=== PATIENT | male | born 1950 | race Caucasian/White ===

== ENCOUNTER 2025-10-11 03:24 | Emergency (ER) | payer MEDICARE, SELFPAY ==
--- OUTSIDE RECORDS SUMMARY | 2025-10-09 02:00 | XMS_ITS ---
Author Organization [facility] Address [address] [place] [phone] Care Team Providers Care Jet Blade Polisher Name Role Phone DR. MIYL ZARAGOZA Primary Care Provider [phone] REASON FOR VISIT LV, new pt & LV, ED f/u- fall ([facility] 10/07) Encounters Encounter Location Date Provider Diagnosis [place] [address] [place] [address] 10/09/2025 MILY ZARAGOZA Plan Of Treatment No Information History and Physical Notes * HPI (History of Present Illness) Category Sub-Category Detail Notes Category Not es Transition of Care He is 110 /66. In bed, watching television. No chest pain or shortness of breath. No edema on exam. Progress Notes * Sundar MANCINIDOB:1949 (75 yo M)Acc No.[id number]:10/09/2025 Progress Notes Patient: Sundar Costa Provider: Flora Zaragoza DO :1950 A ge:75 Y S ex:Male Date:10/09/2025 Address:[address] [place], [place] [phone] Subjective: * Chief Complaints: * L V, new pt & LV, ED f/u- fall ([facility] 10/07) * HPI: T ransition of Care: He is 110/66. In bed, watching television. No chest pain or shortness of breath. No edema on exam. * Electronic signature of DR. MILY ZARAGOZA , D.OGhislaine on 10/11/2025 at 03:44 AM WIRE WORKER Sign off status: Pending * Provider: Flora Zaragoza, DO Date: 12/09/2024 Generated for Deepa garcia/Tri/Juan on: 12/11/2024 03:44 AM WIRE WORKER
--- NOTE | ~2025-10-11 | CT_ITS ---
EXAMINATION: CT facial bones wo con COMPARISON: None HISTORY: fall TECHNIQUE: Axial images were obtained without IV contrast. Sagittal, coronal reconstruction images were obtained from the axial views. CT scan performed using dose optimization techniques including the following automated exposure control; adjustment of mA and/or kV; use of iterative reconstruction technique. Automatic exposure control was used to reduce radiation dose. Permanent radiation dose record is archived to PACS. FINDINGS: The nasal bones demonstrate displaced bilateral nasal bone fractures age indeterminate. The anterior maxillary sinus bolden and zygomatic arches are intact. Temporomandibular joints are intact. Orbital floors and medial orbits are intact. Minimal left maxillary sinusitis. There is anterior right-sided s ubcutaneous swelling with subcutaneous hemorrhage with right-sided preseptal swelling noted. There is no retrobulbar hemorrhage identified. The remaining visualized soft tissues appear unremarkable. IMPRESSION: Age-indeterminate nasal bone fractures. Posttraumatic soft tissue changes. Reviewed, dictated and finalized at location P. GER BABY IMPRESSION: Age-indeterminate nasal bone fractures. Posttraumatic soft tissue c hanges.
--- NOTE | ~2025-10-11 | XR_ITS ---
Examination: XR chest 1V portable Clinical History: fall SOB Comparison: None Technique: Portable AP Findings: Heart size normal. Left upper lobe airspace disease. Scattered increased interstitial markings. No acute bony abnormality. IMPRESSION: 1. Left upper lobe airspace disease. Recommend x-ray surveillance until resolution. 2. Interstitial pulmonary edema. Reviewed, dictated and finalized at location R. PER LEAF INSPECTOR IMPRESSION: 1. Left upper lobe airspace disease. Recommend x-ray surveillance until resolu tion. 2. Interstitial pulmonary edema.
--- NOTE | ~2025-10-11 | XR_ITS ---
EXAMINATION: XR pelvis 1-2V, 10/11/2025 9:30 SOUND RECORDIST HISTORY: fall COMPARISON: No comparisons available. Findings: No acute fracture or malalignment. No significant degenerative changes. Soft tissues unremarkable. Impression: No acute fracture or malalignment. Reviewed, dictated and finalized at location P. D RECORDIST Impression: No acute fracture or malalignment.
--- NOTE | ~2025-10-11 | CT_ITS ---
EXAMINATION: CT brain wo con, 10/11/2025 3:45 SALES SERVICE TECHNICIAN HISTORY: fall on thinners COMPARISON: No comparisons available. Technique: Axial images obtained of the brain without contrast. One or more of the following dose reduction techniques were used: automated exposure control, adjustment of the mA and/or kV according to patient size, use of iterative reconstruction technique. Findings: There is no intracranial hemorrhage or infarct however within the right cerebellum there is a lesion measuring 1.3 x 1.4 cm with surrounding vasogenic edema concerning for neoplasm with mild mass effect upon the fourth ventricle. There is mild posterior midline shift noted at the level of the cerebellum measuring 3 mm. Mastoid air cells unremarkable. Sinuses and orbits unremarkable. No acute fracture. Right anterior subcutaneous soft tissue swelling and hemorrhage is noted. Impression: 1. Right cerebellar intra-axial lesion concerning for neoplasm. Contrast- enhanced MRI is recommended Reviewed, dictated and finalized at location P. S SERVICE TECHNICIAN Impression: 1. Right cerebellar intra-axial lesion concerning for neoplasm. Contrast-enhanc ed MRI is recommended
[2025-10-11 03:19] VITALS: BP 142/70; PULSE 57; RESP 16; TEMP 36.5; O2SAT 95
--- NOTE | 2025-10-11 03:26 | ED_ITS ---
HPI - Fall General Chief Complaint: Fall <Vikas Kumar MD - Last Filed: 10/11/25 20:39> Stated Complaint: FALL, LAC TO NOSE, ON THINNERS <Vikas Kumar MD - Last Filed: 10/11/25 20:39> History of Present Illness HPI Narrative: 75-year-old male with a history of vertebroplasty recently at [facility] this month as well as a history of brain cancer and AFib on Xarelto and aspirin. Patient presents to the emergency department today after mechanical fall. Patient states he was trying to get out of bed and normally needs staff to his system given his recent surgeries but fell forward hitting the ground. Did not lose consciousness. He has a right-sided periorbital hematoma and small cut to the bridge of the nose. States that he knew better and was not supposed to get up without assistance given his debility. He is at a nursing facility for rehab and skilled care. Patient denies any other injuries. States he feels fine presently without any symptoms, but subjectively look slightly dyspneic. Did have a similar fall 3 days ago after he tried to get out of bed per EMS report that took him to another facility or they discharged him after imaging from the ER. Patient also has skin tear to his left elbow from today's fall. < Vikas Kumar MD - Last Filed: 10/11/25 20:39> Related Data Allergies/Adverse Reactions: Allergies Allergy/AdvReac Type Severity Reaction Status Date / Time No Known Allergies Allergy Verified 10/11/25 07:21 <Vikas Kumar MD - Last Filed: 10/11/25 20:39> Review of Systems 2 Review of Systems: As reviewed above in HPI <Vikas Kumar MD - Last Filed: 10/11/25 20:39> All systems reviewed & are unremarkable except as noted in HPI and below < Vikas Kumar MD - Last Filed: 10/11/25 20:39> Exam 2 Narrative: GENERAL: Elderly and chronically ill-appearing. Subjectively dyspneic but not any distress. Awake and answering questions. HEAD: Normocephalic, right supraorbital hematoma without any bleeding EYES: PERRLA, extraocular movements are intact ENT: Nares clear, previous epistaxis noted but no current bleeding or any posterior or pharyngeal bleeding. Small cut to the anterior bridge of nose without any active bleeding. NECK: Supple. CHEST: Clear to auscultation, subjective dyspnea but no tachypnea or hypoxemia. No tenderness to the palpation of the ribcage no crepitus or deformity office. HEART: Regular rate and rhythm. Normal pulses. ABDOMEN: Soft, nontender, nondistended EXTREMITIES: Normal range of motion. No extremity edema, moving all extremities SKIN: Warm, dry, no rash. Skin tear to his left forearm with no active bleeding. Small avulsion/cut to the anterior nasal bridge without any active bleeding. NEURO: No focal deficits, awake and answering questions appropriately PSYCH: Normal mood <Vikas Kumar MD - Last Filed: 10/11/25 20:39> Course Course Emergency Course: Juju: Patient signed out to me pending results of his CT imaging. 75-year-old male with history of brain cancer presenting for frequent falls. A right upper lobe non pneumonia been noted by the previous physician on x-ray. CT brain came back as a brain lesion in the cerebellum with surrounding vasogenic edema and 3 mm midline shift. On exam the patient is ataxic in all 4 extremities. A&O times 1-2 although it is unclear what his baseline is. Patient given 10 mg of IV dexamethasone for vasogenic edema. I do not have Neurology at my hospital this weekend. I reached out to [facility] which is where he had been admitted previously. Patient will be transferred to ED to ED and is accepted by Dr. Dong in the emergency department. <Michael Matute MD - Last Filed: 10/11/25 09:24> Vital Signs Vital signs: Vital Signs Temperature 36.5 C 10/11/25 03:19 Pulse Rate 57 L 10/11/25 03:19 Respiratory Rate 16 10/11/25 03:19 Blood Pressure 142/70 H 10/11/25 03:19 Pulse Oximetry 95 10/11/25 03:19 Oxygen Delivery Room Air 10/11/25 03:19 Temperature 36.8 C 10/11/25 09:55 Pulse Rate 60 10/11/25 09:55 Respiratory Rate 20 10/11/25 09:55 Blood Pressure 152/73 H 10/11/25 09:55 Pulse Oximetry 98 10/11/25 09:55 Oxygen Delivery Room Air 10/11/25 03:19 <Vikas Kumar MD - Last Filed: 10/11/25 20:39> Vital Signs Temperature 36.5 C 10/11/25 03:19 Pulse Rate 57 L 10/11/25 03:19 Respiratory Rate 16 10/11/25 03:19 Blood Pressure 142/70 H 10/11/25 03:19 Pulse Oximetry 95 10/11/25 03:19 Oxygen Delivery Room Air 10/11/25 03:19 Temperature 36.8 C 10/11/25 09:55 Pulse Rate 60 10/11/25 09:55 Respiratory Rate 20 10/11/25 09:55 Blood Pressure 152/73 H 10/11/25 09:55 Pulse Oximetry 98 10/11/25 09:55 Oxygen Delivery Room Air 10/11/25 03:19 <Michael Matute MD - Last Filed: 10/11/25 09:24> Procedures Laceration Laceration 1: Time: 06:32 <Vikas Kumar MD - Last Filed: 10/11/25 20:39> Site: face <Vikas Kumar MD - Last Filed: 10/11/25 20:39> Size (cm): 0.25 <Vikas Kumar MD - Last Filed: 10/11/25 20:39> Description: flap and clean <Vikas Kumar MD - Last Filed: 10/11/25 20:39> Depth: simple, single layer <Vikas Kumar MD - Last Filed: 10/11/25 20:39> Local Anesthetic: none <Vikas Kumar MD - Last Filed: 10/11/25 20:39> Pre-repair: wound explored, irrigated and deep structures intact <Vikas Kumar MD - Last Filed: 10/11/25 20:39> ====== Skin Level ======: Skin layer closed with: dermabond <Vikas Kumar MD - Last Filed: 10/11/25 20:39> ====== Subcutaneous Layer ======: ====== Muscle Layer ======: ====== Tendon Layer ======: MDM - Fall MDM Narrative Medical decision making narrative: 75-year-old male with a history of vertebroplasty recently at [facility] this month as well as a history of brain cancer and AFib on Xarelto and aspirin. Patient presents to the emergency department today after mechanical fall. Patient states he was trying to get out of bed and normally needs staff to his system given his recent surgeries but fell forward hitting the ground. Did not lose consciousness. He has a right-sided periorbital hematoma and small cut to the bridge of the nose. States that he knew better and was not supposed to get up without assistance given his debility. He is at a nursing facility for rehab and skilled care. Patient denies any other injuries. States he feels fine presently without any symptoms, but subjectively look slightly dyspneic. Did have a similar fall 3 days ago after he tried to get out of bed per EMS report that took him to another facility or they discharged him after imaging from the ER. Patient also has skin tear to his left elbow from today's fall. Patient does have some minor evidence of trauma with skin tear to his left forearm and skin tear/avulsion to the anterior nasal bridge. Recent epistaxis but no active bleeding. No posterior oropharyngeal bleeding or difficulty swallowing or breathing but he is subjectively dyspneic. Saturating well on room air without any tachypnea. Does have right-sided supraorbital hematoma but no restricted ocular movement or mental status decline. He is on blood thinners raising his potential for injury. CT of the head and facial bones ordered as well as x-ray of the chest. Chest x-ray independently reviewed and I do not appreciate any rib fractures, pneumothorax or hemothorax. He does have what appears to be a left upper lobe streaky opacity consistent with pneumonia. He is subjectively dyspneic and has a dry cough during repeat evaluations. No fever or hypoxemia. No tachypnea. Will treat him as pneumonia with Augmentin and doxycycline. Awaiting CT reads. His wounds were cleansed and dressed at bedside. Small cut on his nasal bridge had Dermabond applied to it. No epistaxis or further bleeding. Supraorbital hematoma without any expansion or tenderness. Patient re-evaluated and having no pain after analgesia medications. No resting comfortably and doing well. Awaiting CT scans. Signed out to morning physician pending CT scans. < Vikas Kumar MD - Last Filed: 10/11/25 20:39> Medical Records Attestation: I reviewed the patient's medical records. <Vikas Kumar MD - Last Filed: 10/11/25 20:39> Lab Data Result diagrams: 10/11/25 09:25 10/11/25 09:25 <Vikas Kumar MD - Last Filed: 10/11/25 20:39> Labs: Lab Results 10/11/25 Range/Units 09:25 WBC 10.8 H (4.5-10.0) K/mm3 RBC 3.02 L (4.6-6.20) M/mm3 Hgb 9.1 L (14.0-18.0) g/dL Hct 29.4 L (42.0-52.0) % MCV 97.4 (80-100) fl MCH 30.1 (26-34) pg MCHC 31.0 L (32-36) g/dl RDW 16.7 H (11.5-14.5) % Plt Count 284 (150-375) k/mm3 MPV 9.7 (7.4-10.4) fl Immature Gran % (Auto) 0.7 H (0-0.5) % Neut % (Auto) 85.1 H (45.5-73.1) % Lymph % (Auto) 8.5 L (18.3-44.2) % Greer % (Auto) 5.2 (2.6-8.5) % Eos % (Auto) 0.1 (0-4.4) % Baso % (Auto) 0.4 (0.2-1.2) % Lymph # (Auto) 0.92 (0.9-3.2) K/mm3 Greer # (Auto) 0.6 (0.1-0.6) K/mm3 Eos # (Auto) 0.0 (0-0.3) K/mm3 Baso # (Auto) 0.0 (0.0-0.1) K/mm3 Abs Immat Gran (auto) 0.08 H (0.00-0.031) K/mm3 Absolute Neuts (auto) 9.2 H (1.3-6.7) K/mm3 Absolute Nucleated RBC 0.000 (0.0-0.012) K/mm3 Nucleated RBC % 0.0 (0.0-0.2) % Sodium 135 L (137-145) mmol/L Potassium 3.8 (3.4-5.0) mmol/L Chloride 103 (98-107) mmol/L Carbon Dioxide 27 (22-30) mmol/L Anion Gap 5 (4-12) mmol/L BUN 21 H (9-20) mg/dL Creatinine 0.74 (0.7-1.3) mg/dL Estim Creat Clear Calc 83 ml/min Estimated GFR > 60 (59 - ) Glucose 119 H (65-110) mg/dL Lactic Acid 1.3 (0.7-2.0) mmol/L Calcium 9.0 (8.4-10.2) mg/dL Total Bilirubin 1.2 (0.2-1.3) mg/dL AST 27 (17-59) U/L ALT 19 (6-50) U/L Alkaline Phosphatase 109 (38-126) U/L Total Protein 6.9 (6.3-8.2) g/dL Albumin 3.2 L (3.5-5.1) g/dL Urine Color Yellow (Yellow) Urine Appearance Clear (Clear) Urine pH 6.5 (5.0-9.0) Ur Specific [place] 1.017 (1.001-1.035) Urine Protein Trace (Negative) mg/dL Urine Glucose (UA) Negative (Negative) mg/dL Urine Ketones Trace H (Negative) mg/dL Ur Blood (Man) Trace (Negative) Urine Nitrate Negative (Negative) Urine Bilirubin Negative (Negative) Urine Urobilinogen 1.0 (<2.0) mg/dL Leukocyte Esterase Rfl Trace H (Negative) KENIA/UL Urine RBC 11-20 H (0-2) /hpf Urine WBC 0-5 (0-3) /hpf Ur Squamous Epith Cells None seen (Few) /hpf Urine Bacteria None seen /hpf Urine Casts 0-2 <Vikas Kumar MD - Last Filed: 10/11/25 20:39> Lab Results 10/11/25 Range/Units 09:25 WBC 10.8 H (4.5-10.0) K/mm3 RBC 3.02 L (4.6-6.20) M/mm3 Hgb 9.1 L (14.0-18.0) g/dL Hct 29.4 L (42.0-52.0) % MCV 97.4 (80-100) fl MCH 30.1 (26-34) pg MCHC 31.0 L (32-36) g/dl RDW 16.7 H (11.5-14.5) % Plt Count 284 (150-375) k/mm3 MPV 9.7 (7.4-10.4) fl Immature Gran % (Auto) 0.7 H (0-0.5) % Neut % (Auto) 85.1 H (45.5-73.1) % Lymph % (Auto) 8.5 L (18.3-44.2) % Greer % (Auto) 5.2 (2.6-8.5) % Eos % (Auto) 0.1 (0-4.4) % Baso % (Auto) 0.4 (0.2-1.2) % Lymph # (Auto) 0.92 (0.9-3.2) K/mm3 Greer # (Auto) 0.6 (0.1-0.6) K/mm3 Eos # (Auto) 0.0 (0-0.3) K/mm3 Baso # (Auto) 0.0 (0.0-0.1) K/mm3 Abs Immat Gran (auto) 0.08 H (0.00-0.031) K/mm3 Absolute Neuts (auto) 9.2 H (1.3-6.7) K/mm3 Absolute Nucleated RBC 0.000 (0.0-0.012) K/mm3 Nucleated RBC % 0.0 (0.0-0.2) % Sodium 135 L (137-145) mmol/L Potassium 3.8 (3.4-5.0) mmol/L Chloride 103 (98-107) mmol/L Carbon Dioxide 27 (22-30) mmol/L Anion Gap 5 (4-12) mmol/L BUN 21 H (9-20) mg/dL Creatinine 0.74 (0.7-1.3) mg/dL Estim Creat Clear Calc 83 ml/min Estimated GFR > 60 (59 - ) Glucose 119 H (65-110) mg/dL Lactic Acid 1.3 (0.7-2.0) mmol/L Calcium 9.0 (8.4-10.2) mg/dL Total Bilirubin 1.2 (0.2-1.3) mg/dL AST 27 (17-59) U/L ALT 19 (6-50) U/L Alkaline Phosphatase 109 (38-126) U/L Total Protein 6.9 (6.3-8.2) g/dL Albumin 3.2 L (3.5-5.1) g/dL Urine Color Yellow (Yellow) Urine Appearance Clear (Clear) Urine pH 6.5 (5.0-9.0) Ur Specific [place] 1.017 (1.001-1.035) Urine Protein Trace (Negative) mg/dL Urine Glucose (UA) Negative (Negative) mg/dL Urine Ketones Trace H (Negative) mg/dL Ur Blood (Man) Trace (Negative) Urine Nitrate Negative (Negative) Urine Bilirubin Negative (Negative) Urine Urobilinogen 1.0 (<2.0) mg/dL Leukocyte Esterase Rfl Trace H (Negative) KENIA/UL Urine RBC 11-20 H (0-2) /hpf Urine WBC 0-5 (0-3) /hpf Ur Squamous Epith Cells None seen (Few) /hpf Urine Bacteria None seen /hpf Urine Casts 0-2 <Michael Matute MD - Last Filed: 10/11/25 09:24> Discharge Plan Discharge Clinical Impression: CHI (closed head injury), Pneumonia, Hematoma of frontal scalp, Closed fracture nasal bone, Skin tear, Vasogenic brain edema, Brain mass <Vikas Kumar MD - Last Filed: 10/11/25 20:39> Patient Disposition: Acute Care Hospital <Vikas Kumar MD - Last Filed: 10/11/25 20:39> Condition: Stable <Vikas Kumar MD - Last Filed: 10/11/25 20:39> Instructions: Nasal Fracture (ED), Head Injury (ED), Skin Avulsion (ED) <Vikas Kumar MD - Last Filed: 10/11/25 20:39> Additional Instructions: Follow-up with your regular primary care provider. Return with any emergent concerns. Tylenol every 6-8 hours for pain control. Antibiotics prescribed for possible left upper lobe pneumonia. Return with any emergent concerns. <Vikas Kumar MD - Last Filed: 10/11/25 20:39> Patient Language: St Helen[place] <Vikas Kumar MD - Last Filed: 10/11/25 20:39> Prescriptions: New doxycycline hyclate 100 mg capsule 100 mg PO BID 7 Days Qty: 14 0RF amoxicillin-pot clavulanate 875-125 mg tablet 1 tablet PO Q12H 7 Days Qty: 14 0RF <Vikas Kumar MD - Last Filed: 10/11/25 20:39> Follow-up/Referrals: PHYSICIAN,PULMONOLOGY TECHNICIAN [Primary Care Provider, Internal Medicine] <Vikas Kumar MD - Last Filed: 10/11/25 20:39> Stand Alone Forms: Intermediate Discharge <Vikas Kumar MD - Last Filed: 10/11/25 20:39> Time of Disposition: 20:37 <Vikas Kumar MD - Last Filed: 10/11/25 20:39> 20:37 <Michael Matute MD - Last Filed: 10/11/25 09:24>
--- OUTSIDE RECORDS SUMMARY | 2025-10-11 03:44 | XMS_ITS | Encounter Summary ---
Author Organization [facility] Address [address] [place] [address] Care Team Providers Care Herpetology Teacher Name Role Phone Charlie Pina MD Primary Care Provider [phone] Charlie Pina MD Primary Care Provider [phone] Reason for Visit * Reason Onset Date Comments MEDICATION REFILL 01/15/2020 Encounter Details Date Type Department Care Team (Late st Contact Info) Description 01/15/2020 Refill [facility] [address] [facility] [address] [place] [address] Annemarie Edge, INFORMATION ASSURANCE-HANDHOLE MACHINE OPERATOR [address] [facility] [address] [place] [id number] MEDICATION REFILL Social History Tobacco Use Types Packs/Day Years Used Date Smoking Tobacco: Former Cigarettes 1.3 52.5 0 04/04/1966 - 10/2018 Smokeless Tobacco: Never Alcohol Use Standard Drinks/Week Comments Yes 2 (1 standard drink = 0.6 oz pur e alcohol) Sex and Gender Information Value Date Recorded Sex Assigned at Not on file Legal Sex Male 5:58 AM [employer] Gender Identity Not on file Sexual Orientation Not on file documented as of this encounter Plan of Treatment Upcoming Encounters Date Type Department Care Team (Late st Contact Info) Description 10/23/2025 9:00 AM [employer] Appointment [facility] [address] [place] [address] Joy Kaplan MD [address] [facility] [address] [place] [address] 10/23/2025 10:30 AM [employer]IL[employer] Office Visit [facility] - [facility] [address] [facility], [place] [address] Joy Kaplan MD [address] [facility] [address] [place] [phone] 03/04/2026 11:20 AM CDT Office Visit [facility] - Cardiology [address] [facility], [address] [phone] Tiffanie Haile MD [address] [address] documented as of this encounter Visit Diagnoses Not on filedocumented in this encounter Care Teams Herpetology Teacher Relationship Specialty Start Date End Date Charlie Pina MD [address] [phone] PCP - General Family Medicine 07/24/19 07/28/20 Charlie Pina MD [facility] [address] PCP - General 09/23/20 06/19/24 documented as of this encounter
--- OUTSIDE RECORDS SUMMARY | 2025-10-11 03:44 | XMS_ITS | Continuity of Care Document ---
Author Organization [facility] MAEUsama Charles 14 Address 4 [facility] [address] [place] [address] Assessment No assessment recorded. Plan of Treatment Reminders Order Date Submit Date Provider Last Modified By Organization Details Last Modified Time Details Appointments None recor ded. Lab PSA, serum or plasm a 2024 [facility], [address] [facility] [address], [place], [address], 5 13:15:47 Referral gastr anna aquino ist refer ral - Patie nt due for scree obed colon oscop y. Also had recen t CT ABdom en and pelvi s which showe d lytic lesio n on spine . Evalu ating for possi ble colon cance r 2024 [facility] [place], [address] [place] [address], [facility] [address], [place], [address], 5 17:30:34 Procedures None recor ded. Surgeries None recor ded. Imaging MRI, lumba r spine , w/wo contr ast - Recen t CT abdom en and pelvi s showe d L1 verte bra with mixed scler otic and lytic lesio n measu ring up to 3.3 cm with some soft tissu e compo nents exten ding poste riorl y towar ds the spina l canal . Patie nt with lumba r back pain. 2024 [facility], [address] [facility] , [place], [address], 11:28:17 CT, chest , w/ contr ast - Patie nt with multi ple lung nodul es on recen t CT Abdom en and pelvi s. Forme r smoke r. Has not had LDCT done for lung cance r scree obed. Pleas e let us know if that needs to be order ed elin lopez . 2024 025 [facility], [address] [facility] , [place], [address], 17:39:22 Medication Orders None recor ded. Patient TargetsNo targets recorded. Patient Instructions Encounter Date Encounter Id Patient Instructions Last Modified By Organization Details Last Modified Time 08/15/2025 [id number] I saw the patien t with the resident. I agree with the resident's assessment and plan as documented - Medications sent in separate order group Kaushik Nice MD [email or web address] Not available 08/21/2025 10:16:39 Reason for Referral Jar Capper Referral for Screening for malignant neoplasm of colon Patient due for screening colonoscopy. Also had recent CT ABdomen and pelvis which showed lytic lesion on spine. Evaluating for possible colon cancer Referring Physician: Irma Alva, Occupational Therapy Specialist, Encounter Date: 08/15/2025 Results Created Date Observation Date Name Description Value Unit Range Abnormal Flag Note LastModifiedBy Organization Detail LastModifiedTime 08/15/2008/15/2025 PSA TOTAL (REFL EX TO FREE) reflex criteria COMMEN T The perce nt free PSA is perfo rmed on a refle x basis only when the total PSA is betwe en 4.0 and 10.0 ng/mL . Not Available [facility] ([facility]) [address] [facility], [place], [address], 08/16/2025 13:15:47 08/15/2008/16/2025 PSA TOTAL (REFL EX TO FREE) prostate specific Ag 1.2 NG/mL 0.0-4. 0 Veronica ECLIA metho dolog y. Accor elpidio to the Ameri can Urolo gical Assoc iatio n, Serum PSA shoul d decre ase and remai n at undet ectab le level s after radic al prost atect manpreet. The AUA defin es bioch emica l recur rence as an initi al PSA value 0.2 ng/mL or great er follo wed by a subse quent confi rmato ry PSA value 0.2 ng/mL or great er. Value s obtai eleazar with diffe rent assay metho ds or kits canno t be used inter arita eably . Resul ts canno t be inter prete d as absol william evide nce of the prese nce or absen ce of [facility] se. Not Available [facility] ([facility]) [address] [facility], [place], [address], 08/16/2025 13:15:47 08/21/20 CT, angio gram, abdom en + pelvi s, w/ contr ast No observ ation record ed. Not Available 2024 15:31:12 09/19/2009/19/2025 CT, chest , w/ contr ast No observ ation record ed. [address] [place], [address], 09/23/2025 19:16:45 09/20/20 25 09/20/2025 MRI, lumba r spine , w/wo contr ast No observ ation record ed. [address] [place], [address], 09/23/2025 19:16:45 Result Notes None recorded. Problems Name Problem SNOMED Code Status Onset Date Resolution Date Notes Provider Name and Address Organization Details Recorded Time Acute low back pain 480273117 Active 2024 Irma Alva MD Attn: Sudhakar [place],[address] [facility], [place], [address], [facility] - [facility] 17:32:05 Nodule of lung 740779614 Active 2024 Irma Alva MD Attn: Sudhakar [place],[address] [facility], [place], [address], [place] [facility] 17:32:11 Aneurysm of infrarenal abdominal aorta 814360846 Active 2024 Irma Alva MD Attn: Sudhakar [place],[address], [place], [address], [place] [facility] 17:33:38 Essential hypertension 95433353 Active 2024 Irma Alva MD Attn: Sudhakar [place],[address], [place], [address], [place] [facility] 17:41:00 Acute kidney injury 30999429 Active 2024 Irma Alva MD Attn: Sudhakar [place],[address], [place], [address], [place] - [facility] 17:41:02 Problem Notes None recorded. Medical Equipment None Reported. Allergies No known drug allergies Medications Name Sig Start Date Stop Date Status Note LastModified by Organization Details LastModified Time atorvasta tin 80 mg tablet TAKE 1 TABLET AT BEDTIME active Not Available Not Available No t Available niacin ER 1,000 mg tablet,ex tended release 24 hr TAKE 1 TABLET AT BEDTIME active Not Available Not Available No t Available lisinopri l 20 mg tablet TAKE 1 TABLET ONCE DAILY active Not Available Not Available No t Available chlorthal idone 25 mg tablet TAKE 1 TABLET ONCE DAILY 2024 active family reported patient has b/l leg swelling . Advised to take Chlortha lidone half a tablet and monitor BP daily and bring logs to next visit. Not Available Not Available Not Available acetamino phen ER 650 mg tablet,ex tended release TAKE 1 TABLET BY MOUTH EVERY 8 HOURS active Not Available Not Available No t Available oxycodone -acetamin ophen 5 mg-325 mg tablet Take 1 tablet every 4 hours by oral route as needed for 7 days. 09/23 completed Not Available Not Available Not Available aspirin 81 mg tablet Take 1 tablet every day by oral route. active Not Available Not Available No t Available polyethyl felicitas glycol 3350 17 gram/dose oral powder TAKE 17 GRAMS BY MOUTH DAILY 08/15 completed pt is not taking 08/15/25 Not Available Not Available Not Available oxycodone -acetamin ophen 7.5 mg-325 mg tablet TAKE 1 TABLET BY MOUTH EVERY 4 HOURS NEEDED FOR PAIN active Not Available Not Available No t Available morphine 15 mg immediate release tablet TAKE 1/2 TABLET BY MOUTH EVERY 4 HOURS NEEDED FOR PAIN THAT IS NOT IMPROVED WITH OVER THE COUNTER MEDICATI ON FOR UP TO 5 DAYS active Not Available Not Available No t Available metoprolo l tartrate 25 mg tablet TAKE 1 TABLET TWICE A DAY active Not Available Not Available No t Available omeprazol e 20 mg tablet,de layed release Take 20 mg every day by oral route. active Not Available Not Available No t Available Xarelto 20 mg tablet TAKE 1 TABLET DAILY WITH DINNER active Not Available Not Available No t Available Vitals Date Recorded Body weight Body mass index (BMI) Body height Respiratory rate Body temperature Oxygen saturation Heart rate Systolic And Diastolic Provider Name and Address Organization Details Last Updated DateTime 83217.1 3 g 28.9 kg/m2 180.34 cm 16 /min 98.2 [degF] 97 % 60 /min 112/70 mm[Hg] ALEX Horan [place] [facility] 10:59:34 Social History Question Answer Notes LastModified by Organizat ion Details LastModified Time Tobacco Smoking Status Former Smoker ALEX Horan [facility], [facility] 08/15/2025 10:52:27 In The 14 Days Before Symptom Onset, Have You Had Close Contact With A Laboratory-confirm ed COVID-19 While That Case Was Ill? No Information n ot available 08/15/2025 In The 14 Days Before Symptom Onset, Have You Had Close Contact With A Person Who Is Under Investigation For COVID-19 While That Person Was Ill? No Information not available 08/15/2025 Have You Been To An Area Known To Be High Risk For COVID-19? No Information not available 08/15/2025 What Was The Date Of Your Most Recent Tobacco Screening? 09/02/2025 Information not available 09/02/2025 What Is Your Current Pack Years? 30ormorepavane olsen Information not available 08/15/2025 Do You Have Smoke And Carbon Monoxide Detectors In Your Home? Yes Information not available 08/15/2025 At What Age Did You Start Smoking Tobacco? 14 Information not available 08/15/2025 Are You Passively Exposed To Smoke? No Information no t available 08/15/2025 How Much Tobacco Do You Smoke? No Information not available 08/15/2025 Has Tobacco Cessation Counseling Been Provided? Yes Information not available 08/15/2025 On What Date Was Tobacco Cessation Counseling Provided? 09/02/2025 Information not available 09/02/2025 How Many Years Have You Smoked Tobacco? 61 Information not available 08/15/2025 Sex: Male Functional Status Question Answer Note LastModified by OrganTrue North Healthcareat ion Details LastModified Time Do you use any illicit or recreational drugs? No Information not available 08/15/2025 Do you or have you ever used any other forms of tobacco or nicotine? No Information not available 08/15/2025 What is your level of alcohol consumption? None Information not available 08/15/2025 Are you currently employed? No Information not available 08/15/2025 Mental Status None recorded. Family History Relationship Description Onset Age of this Age Resolved Age Notes LastModified by Organization Details LastModified Time Father Cerebrovascu lar accident [email or web address] Not available 10:51:07 Mother Malignant neoplasm of kidney [email or web address] Not available 08/15 10:51:13 Notes:heart issue - mother 1 , 09/02/25 Medical History Condition Response Coronary Artery Disease N Other N Atrial Fibrillation N High Blood Pressure Y Kidney or Bladder Problems N Thyroid Problems N GI Problems N Depression N COPD N Blood Clots N Have you had a mammogram in the last yea r? N Skin Problems N Anemia N Heart Attack (LA) Y Anxiety Disorder N Diabetes N Muscle, Joint, or Bone Problems N Seizures/Epilepsy N Have you had a colonoscopy in the last 1 0 years? N Acid Reflux (GERD) Y Cancer N Stroke N Asthma N Allergies N Have you had a PSA blood test in the [facility] t year? N High Cholesterol Y Hepatitis N Liver Disease N Headaches N Osteoporosis N Heart Failure N Past Encounters Encounter ID Performer Location Encounter Start Date Encounter Closed Date Diagnosis/Indication Diagnosis SNOMED-CT Code Diagnosis ICD10 Code Diagnosis IMO Codes Diagnosis Note [id number] MD Usama Burton 14 IM [address] [facility] [address] [place] [address] 08/15/2025 10:15:41 08/21/2025 10:38:32 Overweight in adulthood with body mass index of 25 or more but less than 30 431165928 Z68.28 497623 - BMI 28.9 Acute low back pain 2788 71760 M54.50 [id number] - CTA Abdomen and pelvis showed L1 vertebra with mixed sclerotic and lytic lesion measuring up to 3.3 cm with soft tissue involvemen t. Multiple lung nodules, and left adrenal nodule also noted- Will screen for prostate cancer, colon cancer, and lung cancer since this could be metastatic ; If negative will consider screening for Multiple Myeloma- Alkaline phosphatas e also elevated- Will order MRI of lumbar spine to better visualize the spine and surroundin g tissues- Will inform patient of the results- Attending Dr. Nice to send Percocet for pain management - f/u in 1 month Nodule of lung 374941516 R91.1 504887 - CTA Abdomen and Pelvis showed - Multiple lung nodules- largest measures 1.7 cm in the lingula. Complete chest CT danae was recommende d- CT Chest ordered- Will inform patient of the results Screening for malignant neoplasm of prostate 966331120 Z12.5 6019738 - See A&P as above- PSA ordered- Will inform patient of the result Screening for malignant neoplasm of colon 964904567 Z12.11 34515770 - See A&P as above- GI referral for colonoscop y ordered- Will inform patient of the result Aneurysm o f infrarenal abdominal aorta 809808159 I71.43 [id number] - CTA Abdomen and pelvis showed Abdominal aortic aneurysm measures up to 5.8 cm, no rupture noted- Similar to previous (6 cm at that time as per Dr. Kaplan's note in Oct 2024)- Follows up with Vascular surgery has h/o aneurysm repair Health Concerns Section Related Observation LastModified by Organization Detai ls LastModified Time None Recorded Concern Status LastModified by Organization Details LastModified Time None Recorded Payers Encounter Date Sequence Insurance Name Policy Number Policy Espinoza Covered Member ID Espinoza Member ID Guarantor Name 08/15/2025 1 [place] Alexx Price [id number] Alexx Price 08/15/2025 2 [facility] [place] EMMA GARCIA (MEDICARE SUPPLEMENT) Alexx Price [id number] Alexx Price Notes Date Note Type Note Provider Name and Address Organization Details Recorded Time 08/15/2025 text/html ROS as noted in the HPI Patient is new to [place] 75 y/o M presents to the clinic c/o achy, midline low back pain x2 months.Pain has been worsening.Pain radiates to the right or left side of his back.Pain improves with laying flat on his back.Worse with bending.Taking Tylenol 1000 mg BID with no relief.Severity 9/10 when pain is exacerbated otherwise 5/10.Denies fever, chills, nausea, vomiting, BM changes, urinary symptoms, and hematuria.Of note: patient reportedly had Discectomy done at lumbar spine about 40 years ago. Patient unsure of name of surgeon who did this surgery.Former smoker. Smoked 1ppd for 50 years. Quit 8 years ago. Patient went to [facility] ER on 07/26/2025 for back pain. Was diagnosed with lumbar radiculopathy and prescribed 20 tablets of Percocet, which provided some relief. During his ER Visit Alkaline Phosphatase was elevated to 142 and CTA Abdomen and pelvis findings as below. CTA Abdomen and Pelvis at that time showed-Abdominal aortic aneurysm measures up to 5.8 cm.Note: this is similar to previous (6 cm at that time as per Dr. Kaplan's note in Oct 2024- Follows up with Vascular surgery has h/o anuerym repair).-L1 vertebra with mixed sclerotic and lytic lesion measuring up to 3.3 cmwith soft tissue involvement-Multiple lung nodules- largest measures 1.7 cm in the lingula.Complete chest CT danae was recommended.-Left adrenal nodule about 3.2 cmin size andmay contain a fatty component suggesting a possible myelolipoma, though nonspecific. In light of history of lung nodules and vertebral body lytic lesionconsider a metastatic focus as well.- Perinephric stranding is nonspecific and may be related to pyelonephritis.- Multiple gallstones without surrounding induration or biliary ductal dilatation. Kaushik Nice MD Attn: [place], [address], [facility] 08/21/2025 10:17:02
--- OUTSIDE RECORDS SUMMARY | 2025-10-11 03:44 | XMS_ITS | Clinical Summary ---
Author Organization [facility] Address [address] [place] [address] Care Team Providers Care [employer] Sales Engineer Name Role Phone Unavailable Primary Care Provider Unavailabl e Source Comments [facility],non-owned Affiliates and Associated Physician Practices is amultiple site organization consisting of ambulatory clinics and hospital sitesin [place], [place], [place] and [place]. This disclosure is being madepursuant to the Care Everywhere program and may not contain all information available regarding this patient. Last updated 18.[facility] Medications * Be aware that medications may not be up to date on this document. Alwaysverify current medications with the patient. aspirin (ASPIRIN) 81 MG chew tablet Take 1 (one) tablet by mouth DAILY 02/12/2017 Active rivaroxaban (Xarelto) 20 MG tablet Take 1 (one) tablet by mouth daily with dinner 90 tablet 3 11/20/2024 Active chlorthalidone (Hygroton) 25 MG tablet Take 1 (one) tablet by mouth once daily 90 tablet 3 03/29/2025 Active niacin CR (Niaspan) 1000 MG tablet Take 1 (one) tablet by mouth at bedtime 90 tablet 3 04/03/2025 Active atorvastatin (Lipitor) 80 MG tablet TAKE 1 TABLET AT BEDTIME 90 tablet 3 04/29/2025 Active lisinopril (Prinivil; Zestril) 20 MG tablet TAKE 1 TABLET ONCE DAILY 90 tablet 3 04/29/2025 Active metoprolol tartrate IR (Lopressor) 25 MG tablet TAKE 1 TABLET TWICE A DAY 180 tablet 3 04/29/2025 Active Active Problems Problem Noted Date Diagnosed Date Acute pain of left knee 12/17/2019 Acute pulmonary insufficienc y following non-thoracic surgery 12/17/2019 Sprain of anterior talofibular ligament of left ankle 12/17/2019 History of tobacco abuse 04/04/2019 Overview (04/04/2019): 60+ pack years, quit in 2018 Kidney stones 11/08/2017 Adrenal incidentaloma 03/24/2017 Abdominal aortic aneurysm without rupture 2016 Assessment & Plan (04/04/2019 2:36 PM CDT): Has been repaired Disorder of adrenal gland 02/23/[address] elevation myocardial infarction (S CAMILA) 02/23/2017 Overview (04/04/2019): 02/2017 Essential (primary) hypertension 02/23/2017 Assessment & Plan (04/04/2019 5:28 PM CDT): The current medical regimen is effective; continue present plan and medications. Coronary artery disease invo lving [place] coronary artery of [place] heart without angina pectoris 02/17/2017 Overview (02/13/2018): Taxus JUANIS to mid-RCA 04/13/2005 Acute IMI due to RCA occlusion due to clot. Received RCA PCI on 02-13-2017. Assessment & Plan (04/04/2019 5:29 PM CDT): Doing well at present. Continue follow-up with cardiology. Continue medications. Paroxysmal atrial fibrillation 02/17/2017 Nonrheumatic mitral valve insufficiency 02/18/20 17 Overview (02/13/2018): EF of 45% on echo done on 02-15-2017 Pyelonephritis 02/17/2017 Hyperlipidemia 02/12/2017 Osteoarthritis 02/12/2017 Resolved Problems Problem Noted Date Diagnosed Date Resolved Date Other acute postprocedural pain 02/23/2017 04/04/2019 Acute pulmonary insufficienc y following nonthoracic surgery 02/23/2017 04/04/2019 Tubulo-interstitial nephritis 02/17/2017 04/04/2019 Encounters Date Type Department Care Team Description 09/18/2025 Telephone [facility] - Vascular Surgery [address] [facility], [place] [address] Joy Kaplan MD Imaging from Last 3 Months Immunizations Immunization Administration Dates Next Due INFLUENZA VACCINE, HIGH-DOSE , QUADR. (FLUZONE HIGH-DOSE QUADRIVALENT; 65Y+), 0.7 ML (HD-IIV4) 10/07/2020 Pneumococcal Pcv13 Conj 04/04/2019 Family History Medical History Relation Name Comments Seizures Brother CVA Father Status: d Diabetes Father Cancer Mother Status: d Heart Disease Neg Hx Sudden Neg Hx Thyroid Disease Neg Hx Relation Name Status Comments Brother Father Mother Social History Tobacco Use Types Packs/Day Years Used Date Smoking Tobacco: Former Cigarettes 1.3 52.5 0 04/04/1966 - 10/2018 Smokeless Tobacco: Never Tobacco Cessation:Counseling Given: Not Answered Alcohol Use Standard Drinks/Week Comments Yes 2 (1 standard drink = 0.6 oz pur e alcohol) Sex and Gender Information Value Date Recorded Sex Assigned at Not on file Legal 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 Gender Identity Not on file Sexual Orientation Not on file Last Filed Vital Signs Vital Sign Reading Time Taken Comments Blood Pressure 119/70 03/05/2025 10:49 AM CDT Pulse 58 03/05/2025 10:49 AM CDT Temperature 37.1 C (98.7 F) 10/24/2024 10:48 AM COCOA MILL OPERATOR Respiratory Rate 12 10/15/2022 12:15 PM COCOA MILL OPERATOR Oxygen Saturation 97% 03/05/2025 10:49 AM CDT Inhaled Oxygen Concentration - - Weight 94.8 kg (209 lb) 03/05/2025 10:49 AM CDT Height 180.3 cm (5' 11) 03/05/2025 10:49 AM CDT Body Mass Index 29.15 03/05/2025 10:49 AM CDT Plan of Treatment Upcoming Encounters Date Type Department Care Team (Late st Contact Info) Description 10/23/2025 9:00 AM COCOA MILL OPERATOR Appointment [facility] [address] [place] [address] Joy Kaplan MD [address] [facility] [address] [place] [address] 10/23/2025 10:30 AM COCOA MILL OPERATOR Office Visit [facility] - Vascular Surgery [address] [place] [address], [place] [address] Joy Kaplan MD [facility] [facility] [address] [place] [address] 03/04/2026 11:20 AM CDT Office Visit [facility] - Cardiology [address] [phone] [place] [address] [place] [address] Health Maintenance Due Date Last Done Comments COLOGUARD (AGES 45-75) - COLON CA SCREENING 1950 COLON MONITORING 1950 COLONOSCOPY - COLON CA SCREENING 1951 CT COLONOGRAPHY - COLON CA SCREENING 1950 Colorectal Cancer Screening 1950 FIT - COLON CA SCREENING 1950 FLEX SIG - COLON CA SCREENING 1950 MEDICARE AWV 12 MONTHS 1951 HEPATITIS C SCREENING 06/18/1969 DTAP/TDAP/TD VACCINES (1 - Tdap) 1970 LUNG CANCER SCREENING 2001 Respiratory Syncytial Virus (RSV) Vaccine Pt: or over 60 yrs (1 - Risk 50-74 years 1-dose series) 2001 ZOSTER VACCINE (1 of 2) 2001 SCREENING FOR DIABETES 02/25/2020 7, 02/22/2017, 02/22/2017, Additional history exists PNEUMOCOCCAL VACCINE 50+ (2 of 2 - PCV20 or PCV21) 04/04/2020 04/04/2019 DEPRESSION SCREENING 11/14/2024 COVID-19 VACCINE (1 - season) 2025 INFLUENZA VACCINE (#1) 2025 10/07/2020 AAA SCREENING Completed 10/24/2024, 12/2021, 04/16/2020 HEPATITIS B VACCINE Aged Out No longe r eligible based on patient's age to complete this topic HIB VACCINE Aged Out No longer eligi ble based on patient's age to complete this topic HPV VACCINE Aged Out No longer eligi ble based on patient's age to complete this topic MENINGOCOCCAL (Group B) VACCINE SHARED DECISION-MAKING Aged Out No longer eligible based on patient's age to complete this topic MENINGOCOCCAL GROUPS A/C/Y/W VACCINE Aged Out No longer eligible based on patient's age to complete this topic Procedures Procedure Name Priority Date/Time Associated Diagnosis Comments VAS FRANK ABD DOPPLER AO IVC ILIAC Routine 10/24/2024 9:49 AM COCOA MILL OPERATOR Infrarenal abdominal aortic aneurysm (AAA) without rupture BASIC METABOLIC PANEL (CALCIUM TOTAL) Timed 02/24/2017 12:05 AM CDT from Last 3 Months or Most Recently Relevant to Health Maintenance Results * VAS FRANK ABD DOPPLER AO IVC ILIAC (10/24/2024 9:49 AM COCOA MILL OPERATOR) Anatomical Region Laterality Modality Pelvis, Abdomen Intravascular Ul trasound 10/24/2024 9:24 AM COCOA MILL OPERATOR Narrative Procedure Note Charlie Manley MD - 10/24/2024 us Joy Kaplan MD VASCULAR LAB ORDERABLES Mehran lydia Result - Final * (ABNORMAL) BASIC METABOLIC PANEL (CALCIUM TOTAL) (02/24/2017 12:05 AM CDT) BUN 11 7 - 26 mg/dL [facility] Creatinine 0.9 0.6 - 1.2 mg/dL [facility] Sodium 137 136 - 145 mmol/L [facility] Potassium 3.6 3.5 - 4.5 mmol/L [facility] Chloride 108(H) 98 - 107 mmol/L [facility] CO2 23 22 - 29 mmol/L [facility] Glucose 128(H) 70 - 115 mg/dL [facility] Calcium 8.0(L) 8.4 - 10.2 mg/dL [facility] Anion Gap 10 8 - 18 [facility] BUN/Creatinine Ratio 12 7 - 23 [facility] Osmolality Calculated 285 270 - 300 mOsm/kg [facility] eGFR >60 >60 mL/min/1.7 3 m2 [facility] Blood specimen (specimen) BLOOD SPECIMEN / Unknown 02/24/2017 12:05 AM CDT 02/24/2017 12:37 AM CDT Jimbo Decker MD LAB - CHEMISTRY ORDERABLES Final Result [facility] [address] [phone] from Last 3 Months or Most Recently Relevant to Health Maintenance Insurance MEDICARE [facility] [place] [id number] MEDICARE COMMERCIAL GENERIC
--- OUTSIDE RECORDS SUMMARY | 2025-10-11 03:44 | XMS_ITS | Continuity of Care Document ---
Author Organization [facility] Address [address] [facility] [address] [place] [address] Assessment Encounter Date Assessment Date Assessment LastModified by Organization Details LastModified Time 09/02/2025 09/02/2025 Pt's case was discussed w/resident. Documentation was reviewed, and I agree w/resident's note. Dr. Brooke Not available 09/03/2025 15:37:26 Plan of Treatment Reminders Order Date Submit Date Provider Last Modified By Organization Details Last Modified Time Details Appointments None recorded. Lab None recorded. Referral home health referral - Physical therapy 2024 [facility], [address], [place], [address], 14:13:01 Procedures None recorded. Surgeries None recorded. Imaging None recorded. Medication Orders acetaminoph en ER 650 mg tablet,exte nded release 2024 025 [id number], [address], [place], [place], [id number], 17:35:07 Patient TargetsNo targets recorded. Patient Instructions Encounter Date Encounter Id Patient Instructions Last Modified By Organization Details Last Modified Time 09/02/2025 [id number] learning about high blood pressure [email or web address] Not available 09/02/2025 17:41:29 Reason for Referral Home Health Referral for Acu te low back pain Physical therapy Referring Physician: Irma Alva, Oncology Account Specialist, Encounter Date: 09/02/2025 Results Created Date Observation Date Name Description Value Unit Range Abnormal Flag Note LastModifiedBy Organization Detail LastModifiedTime 08/15/2008/15/2025 PSA TOTAL (REFL EX TO FREE) reflex criteria COMMEN T The perce nt free PSA is perfo rmed on a refle x basis only when the total PSA is betwe en 4.0 and 10.0 ng/mL . Not Available [facility] ([facility]) [address] [facility], [place], [address], 08/16/2025 13:15:47 08/15/2008/16/2025 PSA TOTAL (REFL EX TO FREE) prostate specific Ag 1.2 NG/mL 0.0-4. 0 Veronica ECLIA metho dolog y. Accor ding to the Ameri can Urolo gical Assoc [...] kits canno t be used inter arita eafalguniy . Resul ts canno t be inter prete d as absol william evide nce of the prese nce or absen ce of darvin gambino se. Not Available [facility] ([facility]) [address] [facility], [place], [address], 08/16/2025 13:15:47 08/21/20 CT, angio gram, abdom en + pelvi s, w/ contr ast No observ ation record ed. [email or web address] Not Available 2024 15:31:12 09/19/20 25 09/19/2025 CT, chest , w/ contr ast No observ ation record ed. [facility] [address] [facility] [place], [address], 09/23/2025 19:16:45 09/20/20 25 09/20/2025 MRI, lumba r spine , w/wo contr ast No observ ation record ed. POP Forrester [address] , [place], [address], 09/23/2025 19:16:45 Result Notes None recorded. Problems Name Problem SNOMED Code Status Onset Date Resolution Date Notes Provider Name and Address Organization Details Recorded Time Acute low back pain 799054487 Active 2024 Irma Alva MD Attn: Sudhakar medley,[address] [facility], [place], [address], [place] [facility] 17:32:05 Nodule of lung 629693722 Active 2024 Irma Alva MD Attn: Sudhakar medley,[address] [facility], [place], [address], [place] [facility] 17:32:11 Aneurysm of infrarenal abdominal aorta 287981725 Active 2024 Irma Alva MD Attn: Sudhakar medley,[address] [facility], [place], [address], [place] [facility] 17:33:38 Essential hypertension 16983400 Active 2024 Irma Alva MD Attn: Sudhakar medley,[address] [facility], [place], [address], [place] [facility] 5 17:41:00 Acute kidney injury 12481050 Active 2024 Irma Alva MD Attn: Sudhakar medley,[address] [facility], [place], [address], [place] [facility] 17:41:02 Problem Notes [...] No t Available Vitals Date Recorded Body height Respiratory rate Body temperature Oxygen saturation Heart rate Systolic And Diastolic Provider Name and Address Organization Details Last Updated DateTime 5 180.34 cm 16 /min 98 [degF] 96 % 65 /min 106/66 mm[Hg] ALEX Horan SI[facility]ac[facility] 14:57:26 Social History Question Answer Notes LastModified by Organizat ion Details LastModified Time Tobacco Smoking Status Former Smoker ALEX Horan DE Dave SI 08/15/2025 10:52:27 In The 14 Days [...] 09/02/2025 What Is Your Current Pack Years? [email or web address] Information not available 08/15/2025 Do You Have [...] Functional Status Question Answer Note LastModified by Organizat ion Details LastModified Time Do you use [...] Atrial Fibrillation N High Blood Pressure Y Thyroid Problems N Kidney or Bladder Problems N Depression N COPD N Blood Clots N GI Problems N Have you had a mammogram in the last yea r? N Skin Problems N Anemia N Heart Attack (AL) Y Diabetes N Anxiety Disorder N Muscle, Joint, or Bone Problems N Seizures/Epilepsy N Have you had a colonoscopy in the last 1 0 years? N Acid Reflux (GERD) Y Cancer N Stroke N Allergies N Asthma N Have you had a PSA blood test in the las t year? N High Cholesterol Y Hepatitis N Liver Disease N Headaches N Osteoporosis N Heart Failure N Past Encounters Encounter ID Performer Location Encounter Start Date Encounter Closed Date Diagnosis/Indication Diagnosis SNOMED-CT Code Diagnosis ICD10 Code Diagnosis IMO Codes Diagnosis Note [id number] MD Lydia Burton 14 [address] [facility] [address] [address] 08/15/2025 10:15:41 08/21/2025 10:38:32 Overweight in adulthood with body mass index of 25 or more but less than 30 338855556 Z68.28 174750 - BMI 28.9 Acute low back pain 2788 89775 M54.50 71503906 - CTA Abdomen and pelvis showed L1 [...] f/u in 1 month Nodule of lung 921645581 R91.1 594376 - CTA Abdomen and Pelvis showed - Multiple lung nodules- largest measures 1.7 cm in the lingula. Complete chest CT danae was recommende d- CT Chest ordered- Will inform patient of the results Screening for malignant neoplasm of prostate 832931009 Z12.5 6121637 - See A&P as above- PSA ordered- Will inform patient of the result Screening for malignant neoplasm of colon 124645652 Z12.11 64741383 - See A&P as above- GI referral for colonoscop y ordered- Will inform patient of the result Aneurysm o f infrarenal abdominal aorta 859885246 I71.43 5681428131 - CTA Abdomen and pelvis showed Abdominal aortic aneurysm measures up to 5.8 cm, no rupture noted- Similar to previous (6 cm at that time as per Dr. Kaplan's note in Oct 2024)- Follows up with Vascular surgery has h/o aneurysm repair [id number] MD Lydia Tamayo 14 IM [address] [facility] [place] [address] 09/02/2025 14:31:58 09/04/2025 11:07:07 Acute low back pain 365228876 M54.50 89756954 - Tylenol 650 mg q8 hours scheduled for 2 weeks, patient to take it q8 hours PRN for pain after that- Patient to also continue using Percocet which was previously prescribed q8 hours PRN for pain for 2 weeks- Patient requested for home health physical therapy due to pain- he is currently in a wheelchair and has a hard time getting in and out of it- Home health- Physical therapy referral ordered, discussed that if home health physical therapy is not possible due to insurance issues- patient may need to do outpatient physical therapy- patient understand s- Patient's daughter is also requesting for [facility] paperwork to be filled out for her since she is in charge of helping patient get to his appointmen ts and helping him out at home. Patient has a but it is difficult for her to take care of the patient. Patient needs to be moved in and out of a wheel chair and has had multiple falls lately- [place] paperwork filled out for patient's daughter- Lata- Discussed with patient about getting previous testing that was ordered completed- f/u at next appointmen t on 09/30/2025 Acute kidney injury 1466 9001 N17.9 534639 - Advised patient to drink 8 glasses of water 8 ounces each glass daily- Currently patient has minimal water intake- Will repeat BMP at next visit Essential hypertension 83840103 I10 58720 - BP today 106/66 mmHg- Continue Lisinopril 20 mg daily, Metoprolol 25 mg BID- Chlorthali done stopped- Goal BP <130/<80 mmHg- Advised patient to monitor BP at home and restart Chlorthali done if BP >130/>80 mmHg Health Concerns Section Related Observation LastModified by Organization Detai ls LastModified Time None Recorded Concern Status LastModified by Organization Details LastModified Time None Recorded Payers Encounter Date Sequence Insurance Name Policy Number Policy Espinoza Covered Member ID Espinoza Member ID Guarantor Name 09/02/2025 1 [place] Alexx Price [id number] Alexx Price 09/02/2025 2 [employer] (MEDICARE SUPPLEMENT) Alexx Price [id number] Alexx Price Notes Date Note Type Note Provider Name and Address Organization Details Recorded Time 09/02/2025 text/html ROS as noted in the HPI 75 y/o M presents to the clinic for hospital f/u. Patient was seen in the ED due to fall on 08/30/2025 has had multiple falls over the past few weeks. He was walking to the bathroom when his legs gave out. He did not hit his head or lose consciousness. He did hit his lower back on a table. CT abdomen and pelvis with contrast was done which showed a known L1 lytic lesion, unchanged area of nodularity in right retroperitoneum posterolateral in right kidney, unchanged pulmonary nodule, left adrenal myelipoma, and cholelithiasis, but otherwise no acute findings. Patient was discharged with Morphine and was ambulating with a walker. He also had a minimal ALISIA (Cr 1.48). He has not been using Morphine, he has been using Percocet instead. Patient continues to have midline low back pain and is currently in a wheelchair. Denies dizziness and light-headedness. Patient is not attending physical therapy. Patient's daughter is helping him out currently and is requesting for [facility] paperwork to be filled out. Nestor Brooke MD Attn: Accounting,[address] [facility], [place], [address], [facility] 09/03/2025 15:37:37
--- OUTSIDE RECORDS SUMMARY | 2025-10-11 03:44 | XMS_ITS | Encounter Summary ---
Author Organization [facility] Address [address] [facility] [place] [address] Care Team Providers Care Director Pediatric Name Role Phone Unavailable Primary Care Provider Unavailabl e Reason for Visit * Reason Onset Date Comments MEDICATION REFILL 09/05/2024 Encounter Details Date Type Department Care Team (Late st Contact Info) Description 09/05/2024 Refill [facility] - [facility]iology [address] [address] Tiffanie Haile MD [address] [place] [address] MEDICATION REFILL Social History Tobacco Use Types Packs/Day Years Used Date Smoking Tobacco: Former Cigarettes 1.3 52.5 0 04/04/1966 - 10/2018 Smokeless Tobacco: Never Alcohol Use Standard Drinks/Week Comments Yes 2 (1 standard drink = 0.6 oz pur e alcohol) Sex and Gender Information Value Date Recorded Sex Assigned at Not on file Legal Sex Male 5:58 AM VISUAL SPECIALIST Gender Identity Not on file Sexual Orientation Not on file documented as of this encounter Functional Status * Is person deaf or have serious hearing difficulty? Answer Date of Assessment Author No 10/15/2022 10:58 AM Heydi Salvador RN * Is person blind or have serious difficulty seeing? Answer Date of Assessment Author No 10/15/2022 10:58 AM Heydi Salvador RN * Does person have serious difficulty walking/climbing stairs? Answer Date of Assessment Author No 10/15/2022 10:58 AM Heydi Salvador RN * Does person have difficulty dressing/bathing? Answer Date of Assessment Author No 10/15/2022 10:58 AM Heydi Salvador RN * Does person have difficulty doing errands alone? Answer Date of Assessment Author No 10/15/2022 10:58 AM Heydi Salvador RN documented as of this encounter Mental Status * Does person have difficulty concentrating/remembering/making decisions? Answer Entry Date Author No 10/15/2022 10:58 AM Heydi Salvador RN documented in this encounter Plan of Treatment Upcoming Encounters Date Type Department Care Team (Late st Contact Info) Description 10/23/2025 9:00 AM VISUAL SPECIALIST Appointment [facility] VASCULAR US [address] [place] [address] Joy Kaplan MD [facility] [facility] 2L [place] [address] 10/23/2025 10:30 AM VISUAL SPECIALIST Office Visit [facility] - Vascular Surgery [address] [facility], [place] [address] Joy Kaplan MD [facility] [facility] 2L [place] [address] 03/04/2026 11:20 AM CDT Office Visit [facility] - Cardiology [address] [facility], [facility] [address] [place] [address] Tiffanie Haile MD [address] [place] [address] documented as of this encounter Visit Diagnoses Not on filedocumented in this encounter
--- OUTSIDE RECORDS SUMMARY | 2025-10-11 03:44 | XMS_ITS | Encounter Summary ---
Author Organization [facility] Address [address] [facility] [place] [address] Care Team Providers Care Developmental Writing Instructor Name Role Phone Unavailable Primary Care Provider Unavailabl e Reason for Visit * Reason Onset Date Comments MEDICATION REFILL 04/03/2025 Encounter Details Date Type Department Care Team (Late st Contact Info) Description 04/03/2025 Refill [facility] [address] [address] Tiffanie Haile MD [address] [place] [address] MEDICATION REFILL Social History Tobacco Use Types Packs/Day Years Used Date Smoking Tobacco: Former Cigarettes 1.3 52.5 0 04/04/1966 - 10/2018 Smokeless Tobacco: Never Alcohol Use Standard Drinks/Week Comments Yes 2 (1 standard drink = 0.6 oz pur e alcohol) Sex and Gender Information Value Date Recorded Sex Assigned at Not on file Legal Sex Male 5:58 AM GOLF PLAYER ASSISTANT Gender Identity Not on file Sexual Orientation [...] st Contact Info) Description 10/23/2025 9:00 AM GOLF PLAYER ASSISTANT Appointment [facility] VASCULAR US [address] [place] [address] Joy Kaplan MD [facility] [facility] 2L [place] [address] 10/23/2025 10:30 AM GOLF PLAYER ASSISTANT Office Visit [facility] Surgery [address] [facility], [place] [address] Joy Kaplan MD [facility] [facility] 2L [place] [address] 03/04/2026 11:20 AM CDT Office Visit [facility] - Cardiology [address] [facility], [facility] [[email or web address] [address] [place] [address] Tiffanie Haile MD [address] [place] [address] documented as of this encounter Visit Diagnoses Not on filedocumented in this encounter
--- OUTSIDE RECORDS SUMMARY | 2025-10-11 03:44 | XMS_ITS | Encounter Summary ---
Author Organization [facility] Address [address] [place] [address] Phone Care Team Providers Care Sand Temperer Name Role Phone Irma Alva MD Primary Care Provider [phone] Reason for Visit * Reason Onset Date Comments Medication Management 09/17/2025 Encounter Details Date Type Department Care Team (Late st Contact Info) Description 09/17/2025 Telephone [facility] [address] [place] [address] Tonya Elias, PT Medication Management Social History Tobacco Use Types Packs/Day Years Used Date Smoking Tobacco: Former Cigarettes 1 Q uit: 06/09/2017 Smokeless Tobacco: Never Alcohol Use Standard Drinks/Week Comments No 0 (1 standard drink = 0.6 oz pur e alcohol) Sexually Active Control Partners Comments Never Sex and Gender Information Value Date Recorded Sex Assigned at Not on file Legal Sex Male 9:10 PM CDT Gender Identity Not on file Sexual Orientation Not on file documented as of this encounter Functional Status * BP Answer Date of Assessment Author 110/78 09/17/2025 1:14 PM PRINTING MANAGER Louis Elias, PT * Temp Answer Date of Assessment Author 96.1 09/17/2025 1:14 PM PRINTING MANAGER Louis Elias, PT * Pulse Answer Date of Assessment Author 76 09/17/2025 1:14 PM PRINTING MANAGER Louis Elias, PT * Resp Answer Date of Assessment Author 16 09/17/2025 1:14 PM PRINTING MANAGER Louis Elias D, PT * SpO2 Answer Date of Assessment Author 97 09/17/2025 1:14 PM PRINTING MANAGER Louis Elias, PT documented as of this encounter Mental Status * BP Answer Entry Date Author 110/78 09/17/2025 1:14 PM PRINTING MANAGER Louis Eliasistine D, PT * Temp Answer Entry Date Author 96.1 09/17/2025 1:14 PM PRINTING MANAGER Louis Elias D, PT * Pulse Answer Entry Date Author 76 09/17/2025 1:14 PM PRINTING MANAGER Louis Elias D, PT * SpO2 Answer Entry Date Author 97 09/17/2025 1:14 PM PRINTING MANAGER Louis Elias, PT documented in this encounter Miscellaneous Notes * Telephone Encounter - Tonya Elias, PT - 09/17/2025 2:54 PM PRINTING MANAGER Clinical Support - please fax the following to Irma Alva MD . Please respond to each line item below: Patient admitted to [facility] on 09-17-25 for Therapy services. Current Medications[1] Medication review completed with patient and caregiver on 09-17-25. Patient reports: They are no longer taking the following med(s): Provider, can we remove from the [facility] medication list. ondansetron They have started taking the following OTC med(s): Provider, may we add these to the [facility] medicationlist? Or do you recommend changes? esomeprazole magnesium 20 mg : one tab by mouth daily They are asymptomatic to the potential major drug/drug or drug/allergy interaction: Provider, do you recommend patient continues the same, or recommend changes? Drug-Drug: Aspirin and rivaroxaban Aspirin may enhance the anticoagulant effect of direct oral anticoagulants (eg, rivaroxaban). Please review the above med discrepancies and respond by calling [facility] with orders at [facility] [phone] Option 4, or by fax at [facility] - [phone]. [1] Current Outpatient Medications: acetaminophen (TYLENOL) 650 MG Tablet Controlled Release, Take 650 mg by mouth every 8 hours., Disp: , Rfl: Aspirin 81 MG Tablet, Take 81 mg by mouth daily., Disp: , Rfl: atorvastatin (LIPITOR) 80 MG Tablet, Take 80 mg by mouth nightly., Disp: , Rfl: lisinopril (PRINIVIL, ZESTRIL) 20 MG Tablet, Take 20 mg by mouth daily., Disp: , Rfl: metoprolol tartrate (LOPRESSOR) 25 MG Tablet, Take 25 mg by mouth 2 times daily., Disp: , Rfl: niacin cr 1000 MG Tablet Controlled Release, Take 1,000 mg by mouth daily., Disp: , Rfl: ondansetron (ZOFRAN) 4 MG Tablet, Take 1 Tab by mouth every 8 hours as needed for Nausea., Disp: 20Tab, Rfl: 0 oxyCODONE-acetaminophen (PERCOCET) 5-325 MG Tablet, Take 1 Tablet by mouth every 4 hours as needed for Moderate or more severe pain., Disp: , Rfl: rivaroxaban (Xarelto) 20 MG Tablet, Take 20 mg by mouth daily. with dinner, Disp: , Rfl: TING MANAGER documented in this encounter Plan of Treatment Not on file documented as of this encounter Visit Diagnoses Not on filedocumented in this encounter Care Teams Sand Temperer Relationship Specialty Start Date End Date Irma Alva MD [address] [place] [address] DR HOWELL B [address] [address] PCP - General Family Medicine 08/22/25 documented as of this encounter
--- OUTSIDE RECORDS SUMMARY | 2025-10-11 03:44 | XMS_ITS | Encounter Summary ---
Author Organization [facility] Address [address] [facility] [place] [address] Care Team Providers Care Grinder Machine Setter Name Role Phone Charlie Pina MD Primary Care Provider [phone] Reason for Visit * Reason Onset Date Comments MEDICATION REFILL 11/12/2023 Encounter Details Date Type Department Care Team (Late st Contact Info) Description 11/12/2023 Refill [facility] [address] [address] Tiffanie Haile MD [address] [address] MEDICATION REFILL Social History Tobacco Use Types Packs/Day Years Used Date Smoking Tobacco: Former Cigarettes 1.3 52.5 0 04/04/1966 - 10/2018 Smokeless Tobacco: Never Alcohol Use Standard Drinks/Week Comments Yes 2 (1 standard drink = 0.6 oz pur e alcohol) Sex and Gender Information Value Date Recorded Sex Assigned at Not on file Legal Sex Male 5:58 AM SUPERVISOR PARKING LOT Gender Identity Not on file Sexual Orientation [...] st Contact Info) Description 10/23/2025 9:00 AM SUPERVISOR PARKING LOT Appointment [facility] VASCULAR US [address] [place] [address] Joy Kaplan MD [facility]5 [facility] 2L [place] [address] 10/23/2025 10:30 AM SUPERVISOR PARKING LOT Office Visit [facility] Surgery [address] [facility], [place] [address] Joy Kaplan MD [address] [facility] 2L [place] [address] 03/04/2026 11:20 AM CDT Office Visit [facility] - Cardiology [address] [facility] [address] [place] [address] Tiffanie Haile MD [address] [place] [address] documented as of this encounter Visit Diagnoses Not on filedocumented in this encounter Care Teams Grinder Machine Setter Relationship Specialty Start Date End Date Charlie Pina MD [address] [place] [address] PCP - General 09/23/20 06/19/24 documented as of this encounter
--- OUTSIDE RECORDS SUMMARY | 2025-10-11 03:45 | XMS_ITS | Encounter Summary ---
Author Organization [facility] Address [address] [facility] [place] [address] Care Team Providers Care Electric Stop Installer Name Role Phone Charlie Pina MD Primary Care Provider [phone] Charlie Pina MD Primary Care Provider [phone] Reason for Visit * Reason Onset Date Comments MEDICATION REFILL 02/12/2020 Encounter Details Date Type Department Care Team (Late st Contact Info) Description 02/12/2020 Refill [facility] [address] [facility] [address] [place] [address] Annemarie Edge, DEHYDRATING PRESS OPERATOR-AUTOMOTIVE FUEL INJECTION SERVICER [address] [facility] [address] [place] [address] MEDICATION REFILL Social History Tobacco Use Types Packs/Day Years Used Date Smoking Tobacco: Former Cigarettes 1.3 52.5 0 04/04/1966 - 10/2018 Smokeless Tobacco: Never Alcohol Use Standard Drinks/Week Comments Yes 2 (1 standard drink = 0.6 oz pur e alcohol) Sex and Gender Information Value Date Recorded Sex Assigned at Not on file Legal Sex Male 5:58 AM SALESPERSON NECKTIES Gender Identity Not on file Sexual Orientation Not on file documented as of this encounter Plan of Treatment Upcoming Encounters Date Type Department Care Team (Late st Contact Info) Description 10/23/2025 9:00 AM SALESPERSON NECKTIES Appointment [facility] VASCULAR US [address] [place] [address] Joy Kaplan MD [address] [facility] 2L [place] [address] 10/23/2025 10:30 AM SALESPERSON NECKTIES Office Visit [facility] Surgery [address] [facility], [place] [address] Joy Kaplan MD [address] [facility] 2L [place] [address] 03/04/2026 11:20 AM CDT Office Visit [facility] - Cardiology [address] [facility], [address] [address] Tiffanie Haile MD [address] [address] documented as of this encounter Visit Diagnoses Not on filedocumented in this encounter Care Teams Electric Stop Installer Relationship Specialty Start Date End Date Charlie Pina MD [address] [address] PCP - General Family Medicine 07/24/19 07/28/20 Charlie Pina MD [facility] [address] PCP - General 09/23/20 06/19/24 documented as of this encounter
--- OUTSIDE RECORDS SUMMARY | 2025-10-11 03:45 | XMS_ITS | Clinical Summary ---
Author Organization [facility] Address [address] [place] [address] Care Team Providers Care Head Greenskeeper Name Role Phone Unknown, Notinfile Primary Care Provider Unavail able Allergies No known active allergies Medications aspirin (ASPIR-81) 81 mg tablet take 1 tablet (81MG) by oral route every day 0 1 Active atorvastatin (LIPITOR) 80 mg tablet take 1 tablet by oral route every day 90 3 7 Active niacin ER (NIASPAN) 1,000 mg CR tablet Take 1 tablet (1,000 mg total) by mouth nightly 9 Active rivaroxaban (XARELTO) 20 mg tablet Take 1 tablet (20 mg total) by mouth 8 Active omeprazole 20 mg tablet,delayed release (DR/EC) Take 20 mg every day by oral route. Active polyethylene glycol (MIRALAX) 17 gram/dose bulk powder Take 17 g by mouth daily Active bisacodyl EC (DULCOLAX EC) 5 mg EC tablet Take 1 tablet (5 mg total) by mouth daily as needed for constipation Active dicyclomine (BENTYL) 20 mg tablet Take 1 tablet (20 mg total) by mouth 4 (four) times a day before meals and nightly 5 Active naloxegoL (MOVANTIK) 25 mg tablet Take 1 tablet (25 mg total) by mouth daily before breakfast 5 Active mineral oil (FLEET MINERAL OIL) enemaIndicatio ns:constipatio n Insert 1 enema (133 mL total) into the rectum daily as needed for constipation (if no results 24 hours after bisacodyl) 5 Active ipratropium-al buteroL (DUO-NEB) 0.5-2.5 mg/3 mL nebulizer solution Take 3 mL by nebulization every 6 (six) hours as needed for wheezing or shortness of breath 5 Active naloxone (NARCAN) 0.4 mg/mL injection Infuse 1 mL (0.4 mg total) IV every 10 (ten) minutes as needed for opioid reversal 1 mL 5 Active senna-docusate (PERICOLACE) 8.6-50 mg Take 2 tablets by mouth 2 (two) times a day 120 tablet 5 Active ramelteon (ROZEREM) 8 mg tabletIndicati ons:Sleep-Onse t Insomnia Take 1 tablet (8 mg total) by mouth nightly 30 tablet 11 5 026 Active diazePAM (VALIUM) 2 mg tablet Take 1 tablet (2 mg total) by mouth every 6 (six) hours as needed for anxiety 28 tablet 5 Active fentaNYL (DURAGESIC) 75 mcg/hr Place 1 patch on the skin every third day for 72 hours 3 patch 5 025 Active HYDROcodone-ac etaminophen (NORCO) 5-325 mg per tabletIndicati ons:Pain Take 2 tablets by mouth every 4 (four) hours as needed for pain 30 tablet 5 Active metoprolol (LOPRESSOR) 25 mg tablet take 1 tablet by ORAL route 2 times every day 90 3 7 025 Discontin ued(Stop Taking at Discharge ) lisinopril (PRINIVIL,ZEST RIL) 5 mg tablet take 1 tablet by oral route every day 90 3 7 025 Discontin ued(Stop Taking at Discharge ) omeprazole (PriLOSEC) 20 mg capsule Take 20 mg by mouth daily 0 025 Discontin ued(Dupli tara order) chlorthalidone 25 mg tablet 3 025 Discontin ued(Stop Taking at Discharge ) oxyCODONE-acet aminophen (PERCOCET) 5-325 mg per tabletIndicati ons:Pain Take 1 tablet by mouth every 4 (four) hours as needed for pain 20 tablet 5 025 Discontin ued(Thera py completed ) meloxicam (MOBIC) 7.5 mg tablet Take 1 tablet (7.5 mg total) by mouth 2 (two) times a day with meals for 15 days 30 tablet 5 025 Discontin ued(Stop Taking at Discharge ) methocarbamoL (ROBAXIN) 500 mg tablet Take 1 tablet (500 mg total) by mouth 2 (two) times a day 20 tablet 5 025 Discontin ued(Thera py completed ) esomeprazole DR (NexIUM) 20 mg capsule Take 1 capsule (20 mg total) by mouth daily before breakfast Discontin ued(Dupli tara order) oxyCODONE-acet aminophen (PERCOCET) 7.5-325 mg per tabletIndicati ons:Pain Take 1 tablet by mouth every 4 (four) hours as needed for pain 180 tablet 5 025 Discontin ued(Reord er) naloxegoL (MOVANTIK) 25 mg tablet Take 1 tablet (25 mg total) by mouth daily 30 tablet 2 5 025 Discontin ued(Thera py completed ) oxyCODONE-acet aminophen (PERCOCET) 7.5-325 mg per tabletIndicati ons:Pain Take 1 tablet by mouth every 4 (four) hours as needed for pain 76 tablet 5 025 Discontin ued(Stop Taking at Discharge ) Active Problems Problem Noted Date Diagnosed Date Reduced mobility 10/01/2025 Assessment & Plan (10/06/2025 10:50 AM [employer] SITE MANAGER): Reduced mobility secondary to age as well as metastatic disease. Patient and family member are both comfortable and agreeable with SNF placement. Will continue to have patient work with PT/OT during hospital stay. Assessment & Plan (10/05/2025 2:25 PM [employer] SITE MANAGER): -Reduced mobility secondary to age as well as metastatic disease. Patient and family member are both comfortable and agreeable with SNF placement. Will continue to have patient work with PT/OT during hospital stay. Assessment & Plan (10/04/2025 4:11 PM [employer] SITE MANAGER): Age related and related to metastatic disease PT has recommended SNF placement and or home health with PT Assessment & Plan (10/03/2025 6:51 PM [employer] SITE MANAGER): Age related and related to metastatic disease PT has recommended SNF placement and or home health with PT Assessment & Plan (10/02/2025 3:44 PM [employer] SITE MANAGER): Age related and related to metastatic disease PT has recommended SNF placement and or home health with PT Hypoalbuminemia 10/01/2025 Assessment & Plan (10/06/2025 10:50 AM [employer] SITE MANAGER): Albumin noted to be low, ranging from 2.8 to 3.4. This is likely secondary to metastatic disease. Assessment & Plan (10/05/2025 2:25 PM [employer] SITE MANAGER): -Albumin noted to be low, ranging from 2.8 to 3.4. This is likely secondary to metastatic disease. Assessment & Plan (10/04/2025 4:11 PM [employer] SITE MANAGER): Likely in the setting of neoplastic disease/metastasis Assessment & Plan (10/03/2025 6:51 PM [employer] SITE MANAGER): Likely in the setting of neoplastic disease/metastasis Assessment & Plan (10/02/2025 3:44 PM [employer] SITE MANAGER): Likely in the setting of neoplastic disease/metastasis Iron deficiency anemia due to chronic blood loss 10/01/2025 Assessment & Plan (10/06/2025 10:50 AM [employer] SITE MANAGER): Iron noted to be low, patient is status post fair gluconate treatment x1 -Will continue to monitor during hospital stay Assessment & Plan (10/05/2025 2:25 PM [employer] SITE MANAGER): -Iron noted to be low, patient is status post fair gluconate treatment x1 -Will continue to monitor during hospital stay Assessment & Plan (10/04/2025 4:11 PM [employer] SITE MANAGER): Iron replacement - Ferric gluconate x1 Assessment & Plan (10/03/2025 6:51 PM [employer] SITE MANAGER): Iron replacement - Ferric gluconate ordered once Assessment & Plan (10/02/2025 3:44 PM [employer] SITE MANAGER): Iron replacement 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 Assessment & Plan (10/06/2025 10:50 AM [employer] SITE MANAGER): s/p kyphoplasty, POD 6 and doing well on current pain regimen of 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 Patient is aware of cancer diagnosis and that he should follow up with oncology in outpatient setting for radiation oncology to assist with pain. May require home O2 evaluation; likely secondary to deconditioning and SCC. 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 Does report that he still has intermittent pain diffusely in the setting of known metastasis. Ongoing concern for slow transit constipation, stool contributing to his pain in the setting of synthetic opioid use for pain control. Primary presumed to be of pulmonary etiology. Bronchoscopy was also completed with bx obtained. Oncology is consulted and recommended outpatient PET scan to assess extent of the disease. - Dilaudid q.2h, fentanyl 75 mcg, dexamethasone, Abrams q.4h p.r.n; he is anxious to know results of his biopsy but is otherwise pleasant. - Continue pain control with fentanyl patch 75 mcg, Dilaudid q.2h, Abrams - Follow biopsy results from bronchoscopy and vertebral biopsy - Augmentin completed Assessment & Plan (10/03/2025 6:51 PM [employer] SITE MANAGER): S/p kyphoplasty POD 3. Does report that he still has intermittent pain diffusely in the setting of known metastasis. Ongoing concern for slow transit constipation, stool contributing to his pain in the setting of synthetic opioid use for pain control. Primary presumed to be of pulmonary etiology. Bronchoscopy was also completed with bx obtained. Oncology is consulted and recommended outpatient PET scan to assess extent of the disease. - Dilaudid q.2h, fentanyl 75 mcg, dexamethasone, Abrams q.4h p.r.n; he is anxious to know results of his biopsy but is otherwise pleasant. - Continue pain control with fentanyl patch 75 mcg, Dilaudid q.2h, Abrams - Follow biopsy results from bronchoscopy and vertebral biopsy - Augmentin started for possible infection per Dr. Grimm during bronchoscopy. Assessment & Plan (10/02/2025 3:44 PM [employer] SITE MANAGER): S/p kyphoplasty POD 1. Does report that he still has intermittent pain diffusely in the setting of known metastasis. Ongoing concern for slow transit constipation, stool contributing to his pain in the setting of synthetic opioid use for pain control. Primary presumed to be of pulmonary etiology. Bronchoscopy was also completed with bx obtained. Oncology is consulted and recommended outpatient PET scan to assess extent of the disease. Pain control achieved Dilaudid q.2h, fentanyl 75 mcg, dexamethasone, Abrams q.4h p.r.n; he is anxious to know results of his biopsy but is otherwise pleasant. - Continue pain control with fentanyl patch 75 mcg, Dilaudid q.2h, Abrams - Follow biopsy results from bronchoscopy and vertebral biopsy - Augmentin started for possible infection per Dr. Grimm during bronchoscopy. - Dexamethasone discontinued Assessment & Plan (10/01/2025 2:42 PM [employer]EL[employer] SITE MANAGER): S/p kyphoplasty POD 1. Does report that he still has intermittent pain diffusely in the setting of known metastasis. Ongoing concern for slow transit constipation, stool contributing to his pain in the setting of synthetic opioid use for pain control. Primary presumed to be of pulmonary etiology. Bronchoscopy was also completed with bx obtained. Oncology is consulted and recommended outpatient PET scan to assess extent of the disease. Pain control achieved Dilaudid q.2h, fentanyl 75 mcg, dexamethasone, Abrams q.4h p.r.n; he is anxious to know results of his biopsy but is otherwise pleasant. - Continue pain control with fentanyl patch 75 mcg, Dilaudid q.2h, dexamethasone held, Abrams - Follow biopsy results from bronchoscopy and vertebral biopsy - Augmentin started for possible infection per Dr. Grimm during bronchoscopy. Assessment & Plan (09/30/2025 2:52 PM [employer] SITE MANAGER): Initially admitted for pain control in the setting of metastatic disease with lytic lesions. Alert and oriented today without concerns for disorientation. Completed percutaneous kyphoplasty of L1 as well as tumor ablation with biopsy. Primary presumed to be of pulmonary etiology. Bronchoscopy was also completed today with biopsies obtained for further characterization of possible primary. Oncology is consulted and was recommended outpatient PET scan to assess extent of the disease. Pain control achieved Dilaudid q.2h, fentanyl 75 mcg, dexamethasone, Abrams q.4h p.r.n.. MRI on admission concerning for pathologic fracture of the L1 vertebral body without significant spinal stenosis or cauda equina impingement. MRI brain with and without contrast shows multifocal variably enhancing mass lesions of the cerebellum. Mild local mass effect without effacement of the 4th ventricle, no hydrocephalus, midline shift or herniation. This is likely a manifestation of brain metastasis which could be contributing to confabulation. Spoke with Dr. Grimm following bronchoscopy who recommended initiating antibiotic therapy for possible pneumonia; thick purulent secretions reported during bronchoscopy. - Continue pain control with fentanyl patch 75 mcg, Dilaudid q.2h, dexamethasone, Abrams - Check biopsy results from bronchoscopy and vertebral biopsy - Augmentin started for possible infection per Dr. Grimm during bronchoscopy Assessment & Plan (09/29/2025 2:52 PM [employer] SITE MANAGER): Patient presenting for pain control and altered mental status for presumed metastatic cancer with lytic lesions to the spine. CT chest in August showed a left hilar mass measuring 3.9 cm. Initially his altered mental status was believed to be due to severe pain. MRI on admission concerning for pathologic fracture of the L1 vertebral body without significant spinal stenosis or cauda equina impingement. MRI brain with without contrast shows Multifocal variably-sized (largest 2.5 cm), variably-enhancing mass lesions of the cerebellum. Mild local mass effect without effacement of the 4th ventricle, no hydrocephalus, midline shift or herniation. Brain metastasis likely now contributing to has confabulations when he speaks. Pain controlled on Dilaudid q.2 hours 0.5 mg and fentanyl patch 75 micrograms/hour. Pain management, pulmonology and oncology consulted Oncology recommended patient to be on dexamethasone IV 4 mg q.12 Pulmonology was initially consulted for potential need for diagnostic bronchoscopy but unfortunately there is no more time avail for bronchoscopy to be done. Pulmonology was initially consulted for potential need for diagnostic bronchoscopy but unfortunately there is no more time billable for bronchoscopy to be done. Pain management plans to do a L1 biopsy, kyphoplasty and tumor ablation next Tuesday in house. There may be a chance that an arrangement could be done for the patient to undergo a bronchoscopy while he is getting the kyphoplasty. Plan - fentanyl patch 75 mcg per, every 72 hours - IV dexamethasone 4 mg B.I.d. - anticipate L1 biopsy, kyphoplasty and tumor ablation next Tuesday in house per pain management Assessment & Plan (09/28/2025 3:31 PM [employer] SITE MANAGER): Patient presenting for pain control and altered mental status for presumed metastatic cancer with lytic lesions to the spine. CT chest in August showed a left hilar mass measuring 3.9 cm. Initially his altered mental status was believed to be due to severe pain. MRI on admission concerning for pathologic fracture of the L1 vertebral body without significant spinal stenosis or cauda equina impingement. MRI brain with without contrast shows Multifocal variably-sized (largest 2.5 cm), variably-enhancing mass lesions of the cerebellum. Mild local mass effect without effacement of the 4th ventricle, no hydrocephalus, midline shift or herniation. Brain metastasis likely now contributing to has confabulations when he speaks. Pain controlled on Dilaudid q.2 hours 0.5 mg and fentanyl patch 75 micrograms/hour. Pain management, pulmonology and oncology consulted Oncology recommended patient to be on dexamethasone IV 4 mg q.12 Pulmonology was initially consulted for potential need for diagnostic bronchoscopy but unfortunately there is no more time billable for bronchoscopy to be done. Plan - fentanyl patch 75 mcg per, every 72 hours - IV dexamethasone 4 mg B.I.d. - anticipate L1 biopsy, kyphoplasty and tumor ablation next Tuesday in house per pain management Assessment & Plan (09/27/2025 4:20 PM [employer] SITE MANAGER): Patient presenting for pain control and altered mental status for presumed metastatic cancer with lytic lesions to the spine. CT chest in August showed a left hilar mass measuring 3.9 cm. Initially his altered mental status was believed to be due to severe pain. MRI on admission concerning for pathologic fracture of the L1 vertebral body without significant spinal stenosis or cauda equina impingement. MRI brain with without contrast shows Multifocal variably-sized (largest 2.5 cm), variably-enhancing mass lesions of the cerebellum. Mild local mass effect without effacement of the 4th ventricle, no hydrocephalus, midline shift or herniation. Brain metastasis likely now contributing to has confabulations when he speaks. Pain controlled on Dilaudid q.2 hours 0.5 mg and fentanyl patch 75 micrograms/hour. Pain management, pulmonology and oncology consulted Oncology recommended patient to be on dexamethasone IV 4 mg q.12 Pulmonology was initially consulted for potential need for diagnostic bronchoscopy but unfortunately there is no more time billable for bronchoscopy to be done. Pain management plans to do a L1 biopsy, kyphoplasty and tumor ablation next Tuesday in house. There may be a chance that an arrangement could be done for the patient to undergo a bronchoscopy while he is getting the kyphoplasty. Overnight patient did have episodes of increasing confusion. With low blood pressure 88/53 at 2150. Patient was given IV albumin. His schedule dilaudid was converted to p.r.n. and due to him not using the p.r.n. dilaudid. It was now discontinued altogether Plan - fentanyl patch 75 mcg per - IV dexamethasone 4 mg Q 12 - Pain management plans to do a L1 biopsy, kyphoplasty and tumor ablation next Tuesday in house Assessment & Plan (09/26/2025 2:56 PM [employer] SITE MANAGER): Patient presenting for pain control and altered mental status for presumed metastatic cancer with lytic lesions to the spine. CT chest in August showed a left hilar mass measuring 3.9 cm. Initially his altered mental status was believed to be due to severe pain. MRI on admission concerning for pathologic fracture of the L1 vertebral body without significant spinal stenosis or cauda equina impingement. MRI brain with without contrast shows Multifocal variably-sized (largest 2.5 cm), variably-enhancing mass lesions of the cerebellum. Mild local mass effect without effacement of the 4th ventricle, no hydrocephalus, midline shift or herniation. Brain metastasis likely now contributing to has confabulations when he speaks. Pain controlled on Dilaudid q.2 hours 0.5 mg and fentanyl patch 75 micrograms/hour. Pain management, pulmonology and oncology consulted Oncology recommended patient to be on dexamethasone IV 4 mg q.12 Pulmonology was initially consulted for potential need for diagnostic bronchoscopy but unfortunately there is no more time billable for bronchoscopy to be done. 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 Patient is aware of cancer diagnosis and that he should follow up with oncology in outpatient setting for radiation oncology to assist with pain. May require home O2 evaluation; likely secondary to deconditioning and SCC. 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 Does report that he still has intermittent pain diffusely in the setting of known metastasis. Ongoing concern for slow transit constipation, stool contributing to his pain in the setting of synthetic opioid use for pain control. Primary presumed to be of pulmonary etiology. Bronchoscopy was also completed with bx obtained. Oncology is consulted and recommended outpatient PET scan to assess extent of the disease. - Dilaudid q.2h, fentanyl 75 mcg, dexamethasone, Abrams q.4h p.r.n; he is anxious to know results of his biopsy but is otherwise pleasant. - Continue pain control with fentanyl patch 75 mcg, Dilaudid q.2h, Abrams - Follow biopsy results from bronchoscopy and vertebral biopsy - Augmentin completed Assessment & Plan (10/03/2025 6:51 PM [employer] SITE MANAGER): S/p kyphoplasty POD 3. Does report that he still has intermittent pain diffusely in the setting of known metastasis. Ongoing concern for slow transit constipation, stool contributing to his pain in the setting of synthetic opioid use for pain control. Primary presumed to be of pulmonary etiology. Bronchoscopy was also completed with bx obtained. Oncology is consulted and recommended outpatient PET scan to assess extent of the disease. - Dilaudid q.2h, fentanyl 75 mcg, dexamethasone, Abrams q.4h p.r.n; he is anxious to know results of his biopsy but is otherwise pleasant. - Continue pain control with fentanyl patch 75 mcg, Dilaudid q.2h, Abrams - Follow biopsy results from bronchoscopy and vertebral biopsy - Augmentin started for possible infection per Dr. Grimm during bronchoscopy. Assessment & Plan (10/02/2025 3:44 PM [employer] SITE MANAGER): S/p kyphoplasty POD 1. Does report that he still has intermittent pain diffusely in the setting of known metastasis. Ongoing concern for slow transit constipation, stool contributing to his pain in the setting of synthetic opioid use for pain control. Primary presumed to be of pulmonary etiology. Bronchoscopy was also completed with bx obtained. Oncology is consulted and recommended outpatient PET scan to assess extent of the disease. Pain control achieved Dilaudid q.2h, fentanyl 75 mcg, dexamethasone, Abrams q.4h p.r.n; he is anxious to know results of his biopsy but is otherwise pleasant. - Continue pain control with fentanyl patch 75 mcg, Dilaudid q.2h, Abrams - Follow biopsy results from bronchoscopy and vertebral biopsy - Augmentin started for possible infection per Dr. Grimm during bronchoscopy. - Dexamethasone discontinued Assessment & Plan (10/01/2025 2:42 PM [employer] SITE MANAGER): S/p kyphoplasty POD 1. Does report that he still has intermittent pain diffusely in the setting of known metastasis. Ongoing concern for slow transit constipation, stool contributing to his pain in the setting of synthetic opioid use for pain control. Primary presumed to be of pulmonary etiology. Bronchoscopy was also completed with bx obtained. Oncology is consulted and recommended outpatient PET scan to assess extent of the disease. Pain control achieved Dilaudid q.2h, fentanyl 75 mcg, dexamethasone, Abrams q.4h p.r.n; he is anxious to know results of his biopsy but is otherwise pleasant. - Continue pain control with fentanyl patch 75 mcg, Dilaudid q.2h, dexamethasone held, Abrams - Follow biopsy results from bronchoscopy and vertebral biopsy - Augmentin started for possible infection per Dr. Grimm during bronchoscopy. Assessment & Plan (09/30/2025 2:52 PM [employer] SITE MANAGER): Initially admitted for pain control in the setting of metastatic disease with lytic lesions. Alert and oriented today without concerns for disorientation. Completed percutaneous kyphoplasty of L1 as well as tumor ablation with biopsy. Primary presumed to be of pulmonary etiology. Bronchoscopy was also completed today with biopsies obtained for further characterization of possible primary. Oncology is consulted and was recommended outpatient PET scan to assess extent of the disease. Pain control achieved Dilaudid q.2h, fentanyl 75 mcg, dexamethasone, Abrams q.4h p.r.n.. MRI on admission concerning for pathologic fracture of the L1 vertebral body without significant spinal stenosis or cauda equina impingement. MRI brain with and without contrast shows multifocal variably enhancing mass lesions of the cerebellum. Mild local mass effect without effacement of the 4th ventricle, no hydrocephalus, midline shift or herniation. This is likely a manifestation of brain metastasis which could be contributing to confabulation. Spoke with Dr. Grimm following bronchoscopy who recommended initiating antibiotic therapy for possible pneumonia; thick purulent secretions reported during bronchoscopy. - Continue pain control with fentanyl patch 75 mcg, Dilaudid q.2h, dexamethasone, Abrams - Check biopsy results from bronchoscopy and vertebral biopsy - Augmentin started for possible infection per Dr. Grimm during bronchoscopy Assessment & Plan (09/29/2025 2:52 PM [employer]): Patient presenting for pain control and altered mental status for presumed metastatic cancer with lytic lesions to the spine. CT chest in August showed a left hilar mass measuring 3.9 cm. Initially his altered mental status was believed to be due to severe pain. MRI on admission concerning for pathologic fracture of the L1 vertebral body without significant spinal stenosis or cauda equina impingement. MRI brain with without contrast shows Multifocal variably-sized (largest 2.5 cm), variably-enhancing mass lesions of the cerebellum. Mild local mass effect without effacement of the 4th ventricle, no hydrocephalus, midline shift or herniation. Brain metastasis likely now contributing to has confabulations when he speaks. Pain controlled on Dilaudid q.2 hours 0.5 mg and fentanyl patch 75 micrograms/hour. Pain management, pulmonology and oncology consulted Oncology recommended patient to be on dexamethasone IV 4 mg q.12 Pulmonology was initially consulted for potential need for diagnostic bronchoscopy but unfortunately there is no more time avail for bronchoscopy to be done. Pulmonology was initially consulted for potential need for diagnostic bronchoscopy but unfortunately there is no more time billable for bronchoscopy to be done. Pain management plans to do a L1 biopsy, kyphoplasty and tumor ablation next Tuesday in house. There may be a chance that an arrangement could be done for the patient to undergo a bronchoscopy while he is getting the kyphoplasty. Plan - fentanyl patch 75 mcg per, every 72 hours - IV dexamethasone 4 mg B.I.d. - anticipate L1 biopsy, kyphoplasty and tumor ablation next Tuesday in house per pain management Assessment & Plan (09/28/2025 3:31 PM [employer] MANAGER): Patient presenting for pain control and altered mental status for presumed metastatic cancer with lytic lesions to the spine. CT chest in August showed a left hilar mass measuring 3.9 cm. Initially his altered mental status was believed to be due to severe pain. MRI on admission concerning for pathologic fracture of the L1 vertebral body without significant spinal stenosis or cauda equina impingement. MRI brain with without contrast shows Multifocal variably-sized (largest 2.5 cm), variably-enhancing mass lesions of the cerebellum. Mild local mass effect without effacement of the 4th ventricle, no hydrocephalus, midline shift or herniation. Brain metastasis likely now contributing to has confabulations when he speaks. Pain controlled on Dilaudid q.2 hours 0.5 mg and fentanyl patch 75 micrograms/hour. Pain management, pulmonology and oncology consulted Oncology recommended patient to be on dexamethasone IV 4 mg q.12 Pulmonology was initially consulted for potential need for diagnostic bronchoscopy but unfortunately there is no more time billable for bronchoscopy to be done. Plan - fentanyl patch 75 mcg per, every 72 hours - IV dexamethasone 4 mg B.I.d. - anticipate L1 biopsy, kyphoplasty and tumor ablation next Tuesday in house per pain management Assessment & Plan (09/27/2025 4:20 PM [employer] MANAGER): Patient presenting for pain control and altered mental status for presumed metastatic cancer with lytic lesions to the spine. CT chest in August showed a left hilar mass measuring 3.9 cm. Initially his altered mental status was believed to be due to severe pain. MRI on admission concerning for pathologic fracture of the L1 vertebral body without significant spinal stenosis or cauda equina impingement. MRI brain with without contrast shows Multifocal variably-sized (largest 2.5 cm), variably-enhancing mass lesions of the cerebellum. Mild local mass effect without effacement of the 4th ventricle, no hydrocephalus, midline shift or herniation. Brain metastasis likely now contributing to has confabulations when he speaks. Pain controlled on Dilaudid q.2 hours 0.5 mg and fentanyl patch 75 micrograms/hour. Pain management, pulmonology and oncology consulted Oncology recommended patient to be on dexamethasone IV 4 mg q.12 Pulmonology was initially consulted for potential need for diagnostic bronchoscopy but unfortunately there is no more time billable for bronchoscopy to be done. Pain management plans to do a L1 biopsy, kyphoplasty and tumor ablation next Tuesday in house. There may be a chance that an arrangement could be done for the patient to undergo a bronchoscopy while he is getting the kyphoplasty. Overnight patient did have episodes of increasing confusion. With low blood pressure 88/53 at 2150. Patient was given IV albumin. His schedule dilaudid was converted to p.r.n. and due to him not using the p.r.n. dilaudid. It was now discontinued altogether Plan - fentanyl patch 75 mcg per - IV dexamethasone 4 mg Q 12 - Pain management plans to do a L1 biopsy, kyphoplasty and tumor ablation next Tuesday in house Assessment & Plan (09/26/2025 2:56 PM [employer] MA[employer]GER): Patient presenting for pain control and altered mental status for presumed metastatic cancer with lytic lesions to the spine. CT chest in August showed a left hilar mass measuring 3.9 cm. Initially his altered mental status was believed to be due to severe pain. MRI on admission concerning for pathologic fracture of the L1 vertebral body without significant spinal stenosis or cauda equina impingement. MRI brain with without contrast shows Multifocal variably-sized (largest 2.5 cm), variably-enhancing mass lesions of the cerebellum. Mild local mass effect without effacement of the 4th ventricle, no hydrocephalus, midline shift or herniation. Brain metastasis likely now contributing to has confabulations when he speaks. Pain controlled on Dilaudid q.2 hours 0.5 mg and fentanyl patch 75 micrograms/hour. Pain management, pulmonology and oncology consulted Oncology recommended patient to be on dexamethasone IV 4 mg q.12 Pulmonology was initially consulted for potential need for diagnostic bronchoscopy but unfortunately there is no more time billable for bronchoscopy to be done. 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 Patient is aware of cancer diagnosis and that he should follow up with oncology in outpatient setting for radiation oncology to assist with pain. May require home O2 evaluation; likely secondary to deconditioning and SCC. 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 Does report that he still has intermittent pain diffusely in the setting of known metastasis. Ongoing concern for slow transit constipation, stool contributing to his pain in the setting of synthetic opioid use for pain control. Primary presumed to be of pulmonary etiology. Bronchoscopy was also completed with bx obtained. Oncology is consulted and recommended outpatient PET scan to assess extent of the disease. - Dilaudid q.2h, fentanyl 75 mcg, dexamethasone, Abrams q.4h p.r.n; he is anxious to know results of his biopsy but is otherwise pleasant. - Continue pain control with fentanyl patch 75 mcg, Dilaudid q.2h, Abrams - Follow biopsy results from bronchoscopy and vertebral biopsy - Augmentin completed Assessment & Plan (10/03/2025 6:51 PM [employer] MANAGER): S/p kyphoplasty POD 3. Does report that he still has intermittent pain diffusely in the setting of known metastasis. Ongoing concern for slow transit constipation, stool contributing to his pain in the setting of synthetic opioid use for pain control. Primary presumed to be of pulmonary etiology. Bronchoscopy was also completed with bx obtained. Oncology is consulted and recommended outpatient PET scan to assess extent of the disease. - Dilaudid q.2h, fentanyl 75 mcg, dexamethasone, Abrams q.4h p.r.n; he is anxious to know results of his biopsy but is otherwise pleasant. - Continue pain control with fentanyl patch 75 mcg, Dilaudid q.2h, Abrams - Follow biopsy results from bronchoscopy and vertebral biopsy - Augmentin started for possible infection per Dr. Grimm during bronchoscopy. Assessment & Plan (10/02/2025 3:44 PM [employer] MANAGER): S/p kyphoplasty POD 1. Does report that he still has intermittent pain diffusely in the setting of known metastasis. Ongoing concern for slow transit constipation, stool contributing to his pain in the setting of synthetic opioid use for pain control. Primary presumed to be of pulmonary etiology. Bronchoscopy was also completed with bx obtained. Oncology is consulted and recommended outpatient PET scan to assess extent of the disease. Pain control achieved Dilaudid q.2h, fentanyl 75 mcg, dexamethasone, Abrams q.4h p.r.n; he is anxious to know results of his biopsy but is otherwise pleasant. - Continue pain control with fentanyl patch 75 mcg, Dilaudid q.2h, Abrams - Follow biopsy results from bronchoscopy and vertebral biopsy - Augmentin started for possible infection per Dr. Grimm during bronchoscopy. - Dexamethasone discontinued Assessment & Plan (10/01/2025 2:42 PM [employer] MANAGER): S/p kyphoplasty POD 1. Does report that he still has intermittent pain diffusely in the setting of known metastasis. Ongoing concern for slow transit constipation, stool contributing to his pain in the setting of synthetic opioid use for pain control. Primary presumed to be of pulmonary etiology. Bronchoscopy was also completed with bx obtained. Oncology is consulted and recommended outpatient PET scan to assess extent of the disease. Pain control achieved Dilaudid q.2h, fentanyl 75 mcg, dexamethasone, Abrams q.4h p.r.n; he is anxious to know results of his biopsy but is otherwise pleasant. - Continue pain control with fentanyl patch 75 mcg, Dilaudid q.2h, dexamethasone held, Abrams - Follow biopsy results from bronchoscopy and vertebral biopsy - Augmentin started for possible infection per Dr. Grimm during bronchoscopy. Assessment & Plan (09/30/2025 2:52 PM [employer] MANAGER): Initially admitted for pain control in the setting of metastatic disease with lytic lesions. Alert and oriented today without concerns for disorientation. Completed percutaneous kyphoplasty of L1 as well as tumor ablation with biopsy. Primary presumed to be of pulmonary etiology. Bronchoscopy was also completed today with biopsies obtained for further characterization of possible primary. Oncology is consulted and was recommended outpatient PET scan to assess extent of the disease. Pain control achieved Dilaudid q.2h, fentanyl 75 mcg, dexamethasone, Abrams q.4h p.r.n.. MRI on admission concerning for pathologic fracture of the L1 vertebral body without significant spinal stenosis or cauda equina impingement. MRI brain with and without contrast shows multifocal variably enhancing mass lesions of the cerebellum. Mild local mass effect without effacement of the 4th ventricle, no hydrocephalus, midline shift or herniation. This is likely a manifestation of brain metastasis which could be contributing to confabulation. Spoke with Dr. Grimm following bronchoscopy who recommended initiating antibiotic therapy for possible pneumonia; thick purulent secretions reported during bronchoscopy. - Continue pain control with fentanyl patch 75 mcg, Dilaudid q.2h, dexamethasone, Abrams - Check biopsy results from bronchoscopy and vertebral biopsy - Augmentin started for possible infection per Dr. Grimm during bronchoscopy Assessment & Plan (09/29/2025 2:52 PM [employer] MANAGER): Patient presenting for pain control and altered mental status for presumed metastatic cancer with lytic lesions to the spine. CT chest in August showed a left hilar mass measuring 3.9 cm. Initially his altered mental status was believed to be due to severe pain. MRI on admission concerning for pathologic fracture of the L1 vertebral body without significant spinal stenosis or cauda equina impingement. MRI brain with without contrast shows Multifocal variably-sized (largest 2.5 cm), variably-enhancing mass lesions of the cerebellum. Mild local mass effect without effacement of the 4th ventricle, no hydrocephalus, midline shift or herniation. Brain metastasis likely now contributing to has confabulations when he speaks. Pain controlled on Dilaudid q.2 hours 0.5 mg and fentanyl patch 75 micrograms/hour. Pain management, pulmonology and oncology consulted Oncology recommended patient to be on dexamethasone IV 4 mg q.12 Pulmonology was initially consulted for potential need for diagnostic bronchoscopy but unfortunately there is no more time avail for bronchoscopy to be done. Pulmonology was initially consulted for potential need for diagnostic bronchoscopy but unfortunately there is no more time billable for bronchoscopy to be done. Pain management plans to do a L1 biopsy, kyphoplasty and tumor ablation next Tuesday in house. There may be a chance that an arrangement could be done for the patient to undergo a bronchoscopy while he is getting the kyphoplasty. Plan - fentanyl patch 75 mcg per, every 72 hours - IV dexamethasone 4 mg B.I.d. - anticipate L1 biopsy, kyphoplasty and tumor ablation next Tuesday in house per pain management Assessment & Plan (09/28/2025 3:31 PM [employer]ITE MANAGER): Patient presenting for pain control and altered mental status for presumed metastatic cancer with lytic lesions to the spine. CT chest in August showed a left hilar mass measuring 3.9 cm. Initially his altered mental status was believed to be due to severe pain. MRI on admission concerning for pathologic fracture of the L1 vertebral body without significant spinal stenosis or cauda equina impingement. MRI brain with without contrast shows Multifocal variably-sized (largest 2.5 cm), variably-enhancing mass lesions of the cerebellum. Mild local mass effect without effacement of the 4th ventricle, no hydrocephalus, midline shift or herniation. Brain metastasis likely now contributing to has confabulations when he speaks. Pain controlled on Dilaudid q.2 hours 0.5 mg and fentanyl patch 75 micrograms/hour. Pain management, pulmonology and oncology consulted Oncology recommended patient to be on dexamethasone IV 4 mg q.12 Pulmonology was initially consulted for potential need for diagnostic bronchoscopy but unfortunately there is no more time billable for bronchoscopy to be done. Plan - fentanyl patch 75 mcg per, every 72 hours - IV dexamethasone 4 mg B.I.d. - anticipate L1 biopsy, kyphoplasty and tumor ablation next Tuesday in house per pain management Assessment & Plan (09/27/2025 4:20 PM [employer] MANAGER): Patient presenting for pain control and altered mental status for presumed metastatic cancer with lytic lesions to the spine. CT chest in August showed a left hilar mass measuring 3.9 cm. Initially his altered mental status was believed to be due to severe pain. MRI on admission concerning for pathologic fracture of the L1 vertebral body without significant spinal stenosis or cauda equina impingement. MRI brain with without contrast shows Multifocal variably-sized (largest 2.5 cm), variably-enhancing mass lesions of the cerebellum. Mild local mass effect without effacement of the 4th ventricle, no hydrocephalus, midline shift or herniation. Brain metastasis likely now contributing to has confabulations when he speaks. Pain controlled on Dilaudid q.2 hours 0.5 mg and fentanyl patch 75 micrograms/hour. Pain management, pulmonology and oncology consulted Oncology recommended patient to be on dexamethasone IV 4 mg q.12 Pulmonology was initially consulted for potential need for diagnostic bronchoscopy but unfortunately there is no more time billable for bronchoscopy to be done. Pain management plans to do a L1 biopsy, kyphoplasty and tumor ablation next Tuesday in house. There may be a chance that an arrangement could be done for the patient to undergo a bronchoscopy while he is getting the kyphoplasty. Overnight patient did have episodes of increasing confusion. With low blood pressure 88/53 at 2150. Patient was given IV albumin. His schedule dilaudid was converted to p.r.n. and due to him not using the p.r.n. dilaudid. 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 Patient is aware of cancer diagnosis and that he should follow up with oncology in outpatient setting for radiation oncology to assist with pain. May require home O2 evaluation; likely secondary to deconditioning and SCC. 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 Does report that he still has intermittent pain diffusely in the setting of known metastasis. Ongoing concern for slow transit constipation, stool contributing to his pain in the setting of synthetic opioid use for pain control. Primary presumed to be of pulmonary etiology. Bronchoscopy was also completed with bx obtained. Oncology is consulted and recommended outpatient PET scan to assess extent of the disease. - Dilaudid q.2h, fentanyl 75 mcg, dexamethasone, Abrams q.4h p.r.n; he is anxious to know results of his biopsy but is otherwise pleasant. - Continue pain control with fentanyl patch 75 mcg, Dilaudid q.2h, Abrams - Follow biopsy results from bronchoscopy and vertebral biopsy - Augmentin completed Assessment & Plan (10/03/2025 6:51 PM [employer]ITE MANAGER): S/p kyphoplasty POD 3. Does report that he still has intermittent pain diffusely in the setting of known metastasis. Ongoing concern for slow transit constipation, stool contributing to his pain in the setting of synthetic opioid use for pain control. Primary presumed to be of pulmonary etiology. Bronchoscopy was also completed with bx obtained. Oncology is consulted and recommended outpatient PET scan to assess extent of the disease. - Dilaudid q.2h, fentanyl 75 mcg, dexamethasone, Abrams q.4h p.r.n; he is anxious to know results of his biopsy but is otherwise pleasant. - Continue pain control with fentanyl patch 75 mcg, Dilaudid q.2h, Abrams - Follow biopsy results from bronchoscopy and vertebral biopsy - Augmentin started for possible infection per Dr. Grimm during bronchoscopy. Assessment & Plan (10/02/2025 3:44 PM [employer]ITE MANAGER): S/p kyphoplasty POD 1. Does report that he still has intermittent pain diffusely in the setting of known metastasis. Ongoing concern for slow transit constipation, stool contributing to his pain in the setting of synthetic opioid use for pain control. Primary presumed to be of pulmonary etiology. Bronchoscopy was also completed with bx obtained. Oncology is consulted and recommended outpatient PET scan to assess extent of the disease. Pain control achieved Dilaudid q.2h, fentanyl 75 mcg, dexamethasone, Abrams q.4h p.r.n; he is anxious to know results of his biopsy but is otherwise pleasant. - Continue pain control with fentanyl patch 75 mcg, Dilaudid q.2h, Abrams - Follow biopsy results from bronchoscopy and vertebral biopsy - Augmentin started for possible infection per Dr. Grimm during bronchoscopy. - Dexamethasone discontinued Assessment & Plan (10/01/2025 2:42 PM [employer]ITE MANAGER): S/p kyphoplasty POD 1. Does report that he still has intermittent pain diffusely in the setting of known metastasis. Ongoing concern for slow transit constipation, stool contributing to his pain in the setting of synthetic opioid use for pain control. Primary presumed to be of pulmonary etiology. Bronchoscopy was also completed with bx obtained. Oncology is consulted and recommended outpatient PET scan to assess extent of the disease. Pain control achieved Dilaudid q.2h, fentanyl 75 mcg, dexamethasone, Abrams q.4h p.r.n; he is anxious to know results of his biopsy but is otherwise pleasant. - Continue pain control with fentanyl patch 75 mcg, Dilaudid q.2h, dexamethasone held, Abrams - Follow biopsy results from bronchoscopy and vertebral biopsy - Augmentin started for possible infection per Dr. Grimm during bronchoscopy. Assessment & Plan (09/30/2025 2:52 PM [employer]ITE MANAGER): Initially admitted for pain control in the setting of metastatic disease with lytic lesions. Alert and oriented today without concerns for disorientation. Completed percutaneous kyphoplasty of L1 as well as tumor ablation with biopsy. Primary presumed to be of pulmonary etiology. Bronchoscopy was also completed today with biopsies obtained for further characterization of possible primary. Oncology is consulted and was recommended outpatient PET scan to assess extent of the disease. Pain control achieved Dilaudid q.2h, fentanyl 75 mcg, dexamethasone, Abrams q.4h p.r.n.. MRI on admission concerning for pathologic fracture of the L1 vertebral body without significant spinal stenosis or cauda equina impingement. MRI brain with and without contrast shows multifocal variably enhancing mass lesions of the cerebellum. Mild local mass effect without effacement of the 4th ventricle, no hydrocephalus, midline shift or herniation. This is likely a manifestation of brain metastasis which could be contributing to confabulation. Spoke with Dr. Grimm following bronchoscopy who recommended initiating antibiotic therapy for possible pneumonia; thick purulent secretions reported during bronchoscopy. - Continue pain control with fentanyl patch 75 mcg, Dilaudid q.2h, dexamethasone, Abrams - Check biopsy results from bronchoscopy and vertebral biopsy - Augmentin started for possible infection per Dr. Grimm during bronchoscopy Assessment & Plan (09/29/2025 2:52 PM [employer]ITE MANAGER): Patient presenting for pain control and altered mental status for presumed metastatic cancer with lytic lesions to the spine. CT chest in August showed a left hilar mass measuring 3.9 cm. Initially his altered mental status was believed to be due to severe pain. MRI on admission concerning for pathologic fracture of the L1 vertebral body without significant spinal stenosis or cauda equina impingement. MRI brain with without contrast shows Multifocal variably-sized (largest 2.5 cm), variably-enhancing mass lesions of the cerebellum. Mild local mass effect without effacement of the 4th ventricle, no hydrocephalus, midline shift or herniation. Brain metastasis likely now contributing to has confabulations when he speaks. Pain controlled on Dilaudid q.2 hours 0.5 mg and fentanyl patch 75 micrograms/hour. Pain management, pulmonology and oncology consulted Oncology recommended patient to be on dexamethasone IV 4 mg q.12 Pulmonology was initially consulted for potential need for diagnostic bronchoscopy but unfortunately there is no more time avail for bronchoscopy to be done. Pulmonology was initially consulted for potential need for diagnostic bronchoscopy but unfortunately there is no more time billable for bronchoscopy to be done. Pain management plans to do a L1 biopsy, kyphoplasty and tumor ablation next Tuesday in house. There may be a chance that an arrangement could be done for the patient to undergo a bronchoscopy while he is getting the kyphoplasty. Plan - fentanyl patch 75 mcg per, every 72 hours - IV dexamethasone 4 mg B.I.d. - anticipate L1 biopsy, kyphoplasty and tumor ablation next Tuesday in house per pain management Assessment & Plan (09/28/2025 3:31 PM [employer] SITE MANAGER): Patient presenting for pain control and altered mental status for presumed metastatic cancer with lytic lesions to the spine. CT chest in August showed a left hilar mass measuring 3.9 cm. Initially his altered mental status was believed to be due to severe pain. MRI on admission concerning for pathologic fracture of the L1 vertebral body without significant spinal stenosis or cauda equina impingement. MRI brain with without contrast shows Multifocal variably-sized (largest 2.5 cm), variably-enhancing mass lesions of the cerebellum. Mild local mass effect without effacement of the 4th ventricle, no hydrocephalus, midline shift or herniation. Brain metastasis likely now contributing to has confabulations when he speaks. Pain controlled on Dilaudid q.2 hours 0.5 mg and fentanyl patch 75 micrograms/hour. Pain management, pulmonology and oncology consulted Oncology recommended patient to be on dexamethasone IV 4 mg q.12 Pulmonology was initially consulted for potential need for diagnostic bronchoscopy but unfortunately there is no more time billable for bronchoscopy to be done. Plan - fentanyl patch 75 mcg per, every 72 hours - IV dexamethasone 4 mg B.I.d. - anticipate L1 biopsy, kyphoplasty and tumor ablation next Tuesday in house per pain management Assessment & Plan (09/27/2025 4:20 PM [employer] SITE MANAGER): Patient presenting for pain control and altered mental status for presumed metastatic cancer with lytic lesions to the spine. CT chest in August showed a left hilar mass measuring 3.9 cm. Initially his altered mental status was believed to be due to severe pain. MRI on admission concerning for pathologic fracture of the L1 vertebral body without significant spinal stenosis or cauda equina impingement. MRI brain with without contrast shows Multifocal variably-sized (largest 2.5 cm), variably-enhancing mass lesions of the cerebellum. Mild local mass effect without effacement of the 4th ventricle, no hydrocephalus, midline shift or herniation. Brain metastasis likely now contributing to has confabulations when he speaks. Pain controlled on Dilaudid q.2 hours 0.5 mg and fentanyl patch 75 micrograms/hour. Pain management, pulmonology and oncology consulted Oncology recommended patient to be on dexamethasone IV 4 mg q.12 Pulmonology was initially consulted for potential need for diagnostic bronchoscopy but unfortunately there is no more time billable for bronchoscopy to be done. Pain management plans to do a L1 biopsy, kyphoplasty and tumor ablation next Tuesday in house. There may be a chance that an arrangement could be done for the patient to undergo a bronchoscopy while he is getting the kyphoplasty. Overnight patient did have episodes of increasing confusion. With low blood pressure 88/53 at 2150. Patient was given IV albumin. His schedule dilaudid was converted to p.r.n. and due to him not using the p.r.n. dilaudid. It was now discontinued altogether Plan - fentanyl patch 75 mcg per - IV dexamethasone 4 mg Q 12 - Pain management plans to do a L1 biopsy, kyphoplasty and tumor ablation next Tuesday in house Assessment & Plan (09/26/2025 2:56 PM [employer]ITE MANAGER): Patient presenting for pain control and altered mental status for presumed metastatic cancer with lytic lesions to the spine. CT chest in August showed a left hilar mass measuring 3.9 cm. Initially his altered mental status was believed to be due to severe pain. MRI on admission concerning for pathologic fracture of the L1 vertebral body without significant spinal stenosis or cauda equina impingement. MRI brain with without contrast shows Multifocal variably-sized (largest 2.5 cm), variably-enhancing mass lesions of the cerebellum. Mild local mass effect without effacement of the 4th ventricle, no hydrocephalus, midline shift or herniation. Brain metastasis likely now contributing to has confabulations when he speaks. Pain controlled on Dilaudid q.2 hours 0.5 mg and fentanyl patch 75 micrograms/hour. Pain management, pulmonology and oncology consulted Oncology recommended patient to be on dexamethasone IV 4 mg q.12 Pulmonology was initially consulted for potential need for diagnostic bronchoscopy but unfortunately there is no more time billable for bronchoscopy to be done. Pain management plans to do a L1 biopsy, kyphoplasty and tumor ablation next Tuesday in house Plan - IV Dilaudid 0.5 Q 2 and fentanyl patch 75 mcg per - IV dexamethasone 4 mg Q 12 - Pain management plans to do a L1 biopsy, kyphoplasty and tumor ablation next Tuesday in house Urinary retention 09/25/2025 Assessment & Plan (10/06/2025 10:50 AM [employer]ITE MANAGER): Resolved; patient noted to have good urinary output with cumulative net output of 2.4L No need for snow catheter at this time - Continue to monitor for return of retention Assessment & Plan (10/05/2025 2:25 PM [employer]ITE MANAGER): -Resolved; patient noted to have good urinary output with cumulative net output of 2.4L -No need for snow catheter at this time Plan: -Continue to monitor for return of retention Assessment & Plan (10/04/2025 4:11 PM [employer] SITE MANAGER): Resolved Patient reporting decreased urination, found to be retaining greater than 1 L of urine in the ED. - Voiding trials were successful Assessment & Plan (10/03/2025 6:51 PM [employer] SITE MANAGER): Resolved Patient reporting decreased urination, found to be retaining greater than 1 L of urine in the ED. - Voiding trials were successful Assessment & Plan (10/02/2025 3:44 PM [employer] SITE MANAGER): Patient reporting decreased urination, found to be retaining greater than 1 L of urine in the ED. - Continue Snow catheter care Assessment & Plan (10/01/2025 2:42 PM [employer] SITE MANAGER): Patient reporting decreased urination, found to be retaining greater than 1 L of urine in the ED. - Continue Snow catheter care Assessment & Plan (09/30/2025 2:52 PM [employer] SITE MANAGER): Patient reporting decreased urination, found to be retaining greater than 1 L of urine in the ED. - Continue Snow catheter care Assessment & Plan (09/29/2025 2:52 PM [employer] SITE MANAGER): Patient reporting decreased urination, found to be retaining greater than 1 L of urine in the ED. Snow catheter placed. Can not rule out prostate as primary source of cancer. - Maintain Snow in place Assessment & Plan (09/28/2025 3:31 PM [employer] SITE MANAGER): Patient reporting decreased urination, found to be retaining greater than 1 L of urine in the ED. Snwo catheter placed. Can not rule out prostate as primary source of cancer. - Maintain Snow in place Assessment & Plan (09/27/2025 3:48 PM [employer] SITE MANAGER): Patient reporting decreased urination, found to be retaining greater than 1 L of urine in the ED. Nsow catheter placed. Can not rule out prostate as primary source of cancer. - Test UA - Maintain Snow in place Assessment & Plan (09/26/2025 2:56 PM [employer] SITE MANAGER): Patient reporting decreased urination, found to be retaining greater than 1 L of urine in the ED. Snow catheter placed. Can not rule out prostate as primary source of cancer. - Test UA - Maintain Snow in place Constipation 09/25/2025 Assessment & Plan (10/06/2025 10:50 AM [employer] SITE MANAGER): Per mention of patient's family member, patient last had bowel movement yesterday Current regimen includes: Movantik 25mg daily, Miralax 34g daily, Pericolace 2 tablets BID; Bentyl 20mg q6hrs PRN also in place for abdominal discomfort - Continue current regimen as listed above and monitor for any worsening of constipation Assessment & Plan (10/05/2025 2:25 PM [employer] SITE MANAGER): -Per mention of patient's family member, patient last had bowel movement yesterday -Current regimen includes: Movantik 25mg daily, Miralax 34g daily, Pericolace 2 tablets BID; Bentyl 20mg q6hrs PRN also in place for abdominal discomfort Plan: -Continue current regimen as listed above and monitor for any worsening of constipation Assessment & Plan (10/04/2025 4:11 PM [employer] SITE MANAGER): Resolved I recommend MiraLax 34 g, Tatiana Colace b.i.d. as preventative treatment. Add lactulose if constipated greater than 2-3 days/if pain increases secondary to abdominal distention. He responded quite well to 1 dose lactulose plus MiraLax 34 g plus Tatiana Colace b.i.d; most certainly in the setting of slow transit constipation secondary to pain medication - Continue Movantik, senna, fleet enema - Daily MiraLax 34 g. Tatiana-Colace b.i.d. and titrate down as appropriate - Monitor for bowel movements - Monitor WBCs Assessment & Plan (10/03/2025 6:51 PM [employer] SITE MANAGER): Resolved I recommend MiraLax 34 g, Tatiana Colace b.i.d. as preventative treatment. Add lactulose if constipated greater than 2-3 days/if pain increases secondary to abdominal distention. He responded quite well to 1 dose lactulose plus MiraLax 34 g plus Tatiana Colace b.i.d; most certainly in the setting of slow transit constipation secondary to pain medication - Continue Movantik, senna, fleet enema - Daily MiraLax 34 g. Tatiana-Colace b.i.d. and titrate down as appropriate - Monitor for bowel movements - Monitor WBCs Assessment & Plan (10/02/2025 3:44 PM [employer] SITE MANAGER): Resolved I recommend MiraLax 34 g, Tatiana Colace b.i.d. as preventative treatment. Add lactulose if constipated greater than 2-3 days/if pain increases secondary to abdominal distention. He responded quite well to 1 dose lactulose plus MiraLax 34 g plus Tatiana Colace b.i.d; most certainly in the setting of slow transit constipation secondary to pain medication - Continue Movantik, senna, fleet enema - Daily MiraLax 34 g. Tatiana-Colace b.i.d. and titrate down as appropriate - Monitor for bowel movements - Monitor WBCs Assessment & Plan (10/01/2025 2:42 PM [employer] SITE MANAGER): Leukocytosis, likely reactive and/or secondary to dexamethasone therapy. Symptoms x1 week. Abdomen is not peritonitic MiraLax 34 g, Tatiana Colace b.i.d., 1 time lactulose p.o. Patient was given fleet enema, IV Relistor, p.o. lactulose and p.o. milk of magnesia. - Continue Movantik, senna, fleet enema - 1 time lactulose p.o., MiraLax 34 g. Tatiana-Colace b.i.d. - Monitor for bowel movements - Monitor WBCs Assessment & Plan (09/30/2025 2:52 PM [employer] SITE MANAGER): Symptoms x1 week, likely secondary to opioid use. Abdomen is soft and nontender to palpation with normal bowel sounds on exam, which is reassuring. Initially started on MiraLax and Tatiana-Colace. Obstruction is ruled out. Patient was given fleet enema, IV Relistor, p.o. lactulose and p.o. milk of magnesia. Fecal disimpaction completed yesterday without significant bowel movement - Continue Movantik, senna, fleet enema PRN - Monitor for bowel movements Assessment & Plan (09/29/2025 2:52 PM [employer] SITE MANAGER): Symptoms x1 week, likely secondary to opioid use. Abdomen is soft and nontender to palpation with normal bowel sounds on exam, which is reassuring. Initially started on MiraLax and Tatiana-Colace. This did not resolve the symptoms the patient was put on Movantik daily. KUB was done 09/25 and did not show any obstruction. Today patient still without bowel movement. Patient then given fleet enema, IV Relistor, p.o. lactulose and p.o. milk of magnesia. Patient still without bowel movement. So fecal disimpaction done which resulted in some relief but no big bowel movement Plan - Continue Movantik, senna, Fleet enema as needed - Await bowel movement Assessment & Plan (09/28/2025 7:14 AM [employer] SITE MANAGER): Symptoms x1 week, likely secondary to opioid use. Abdomen is soft and nontender to palpation with normal bowel sounds on exam, which is reassuring. Initially started on MiraLax and Tatiana-Colace. Switched to Movantik daily Plan - Continue Movantik Assessment & Plan (09/27/2025 3:48 PM [employer] SITE MANAGER): Symptoms x1 week, likely secondary to opioid use. Abdomen is soft and nontender to palpation with normal bowel sounds on exam, which is reassuring. Initially started on MiraLax and Tatiana-Colace. Switched to Movantik daily Plan - Continue Movantik Assessment & Plan (09/26/2025 2:56 PM [employer] SITE MANAGER): Symptoms x1 week, likely secondary to opioid use. Abdomen is soft and nontender to palpation with normal bowel sounds on exam, which is reassuring. Initially started on MiraLax and Tatiana-Colace. Switched to Movantik daily Plan - Continue Movantik Leukocytosis 09/25/2025 Normocytic anemia 09/25/2025 Primary hypertension 09/25/2025 Assessment & Plan (10/06/2025 10:50 AM [employer] SITE MANAGER): Chronic, stable condition treated with Lisinopril 20mg daily, Chlorthalidone 25mg daily, and Metoprolol 25mg BID; these BP medications have been held due to stable (and at times lower) BP readings BP has been stable during hospital stay, current BP of 130/80 - Continue to hold antihypertensive medications as listed above and monitor for hypertension Assessment & Plan (10/05/2025 2:25 PM [employer] SITE MANAGER): -Chronic, stable condition treated with Lisinopril 20mg daily, Chlorthalidone 25mg daily, and Metoprolol 25mg BID; these BP medications have been held due to stable (and at times lower) BP readings -BP has been stable during hospital stay, current BP of 130/80 Plan: -Continue to hold antihypertensive medications as listed above and monitor for hypertension Assessment & Plan (10/04/2025 4:11 PM [employer] SITE MANAGER): SBP at goal 126/80. Lisinopril and chlorthalidone and metoprolol 25 mg b.i.d. held at this time - continue to hold antihypertensive meds given borderline blood pressures. Assessment & Plan (10/03/2025 6:51 PM [employer] SITE MANAGER): SBP at goal 126/80. Lisinopril and chlorthalidone and metoprolol 25 mg b.i.d. held at this time - continue to hold antihypertensive meds given borderline blood pressures. Assessment & Plan (10/02/2025 3:44 PM [employer] SITE MANAGER): SBP at goal 126/80. Lisinopril and chlorthalidone and metoprolol 25 mg b.i.d. held at this time - continue to hold antihypertensive meds given borderline blood pressures. Assessment & Plan (10/01/2025 2:42 PM [employer] SITE MANAGER): SBP at goal 126/80. Lisinopril and chlorthalidone and metoprolol 25 mg b.i.d. held at this time - continue to hold antihypertensive meds given borderline blood pressures. Assessment & Plan (09/30/2025 2:52 PM [employer] SITE MANAGER): SBP at goal 124/59. Lisinopril and chlorthalidone and metoprolol 25 mg b.i.d. held at this time - continue to hold antihypertensive meds given borderline blood pressures. Assessment & Plan (09/29/2025 2:52 PM [employer] SITE MANAGER): Blood pressure decreased to 82/58 on admission, improved somewhat to 92/61 after IV fluids given in the ED. BP this morning is 124/60 On chart review, patient advised on 09/17 to take chlorthalidone 1/2 tablet. Home regimen includes chlorthalidone 12.5 mg, lisinopril 20 mg, metoprolol 25 mg BID. Currently blood pressure 121/66 - continue to hold antihypertensive meds given borderline blood pressures. Assessment & Plan (09/28/2025 3:31 PM [employer] SITE MANAGER): Blood pressure decreased to 82/58 on admission, improved somewhat to 92/61 after IV fluids given in the ED. BP this morning is 124/60 On chart review, patient advised on 09/17 to take chlorthalidone 1/2 tablet. Home regimen includes chlorthalidone 12.5 mg, lisinopril 20 mg, metoprolol 25 mg BID. Currently blood pressure 100/57 - continue to hold antihypertensive meds given borderline blood pressures. Assessment & Plan (09/27/2025 3:48 PM [employer] SITE MANAGER): Blood pressure decreased to 82/58 on admission, improved somewhat to 92/61 after IV fluids given in the ED. On chart review, patient advised on 09/17 to take chlorthalidone 1/2 tablet. Home regimen includes chlorthalidone 12.5 mg, lisinopril 20 mg, metoprolol 25 mg BID. Currently blood pressure 100/57 - hold above medications given hypotension on admission Assessment & Plan (09/26/2025 2:56 PM [employer] SITE MANAGER): Blood pressure decreased to 82/58 on admission, improved somewhat to 92/61 after IV fluids given in the ED. On chart review, patient advised on 09/17 to take chlorthalidone 1/2 tablet. Home regimen includes chlorthalidone 12.5 mg, lisinopril 20 mg, metoprolol 25 mg BID. 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 Patient is aware of cancer diagnosis and that he should follow up with oncology in outpatient setting for radiation oncology to assist with pain. May require home O2 evaluation; likely secondary to deconditioning and SCC. 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 Does report that he still has intermittent pain diffusely in the setting of known metastasis. Ongoing concern for slow transit constipation, stool contributing to his pain in the setting of synthetic opioid use for pain control. Primary presumed to be of pulmonary etiology. Bronchoscopy was also completed with bx obtained. Oncology is consulted and recommended outpatient PET scan to assess extent of the disease. - Dilaudid q.2h, fentanyl 75 mcg, dexamethasone, Abrams q.4h p.r.n; he is anxious to know results of his biopsy but is otherwise pleasant. - Continue pain control with fentanyl patch 75 mcg, Dilaudid q.2h, Abrams - Follow biopsy results from bronchoscopy and vertebral biopsy - Augmentin completed Assessment & Plan (10/03/2025 6:51 PM [employer] SITE MANAGER): S/p kyphoplasty POD 3. Does report that he still has intermittent pain diffusely in the setting of known metastasis. Ongoing concern for slow transit constipation, stool contributing to his pain in the setting of synthetic opioid use for pain control. Primary presumed to be of pulmonary etiology. Bronchoscopy was also completed with bx obtained. Oncology is consulted and recommended outpatient PET scan to assess extent of the disease. - Dilaudid q.2h, fentanyl 75 mcg, dexamethasone, Abrams q.4h p.r.n; he is anxious to know results of his biopsy but is otherwise pleasant. - Continue pain control with fentanyl patch 75 mcg, Dilaudid q.2h, Abrams - Follow biopsy results from bronchoscopy and vertebral biopsy - Augmentin started for possible infection per Dr. Grimm during bronchoscopy. Assessment & Plan (10/02/2025 3:44 PM [employer] SITE MANAGER): S/p kyphoplasty POD 1. Does report that he still has intermittent pain diffusely in the setting of known metastasis. Ongoing concern for slow transit constipation, stool contributing to his pain in the setting of synthetic opioid use for pain control. Primary presumed to be of pulmonary etiology. Bronchoscopy was also completed with bx obtained. Oncology is consulted and recommended outpatient PET scan to assess extent of the disease. Pain control achieved Dilaudid q.2h, fentanyl 75 mcg, dexamethasone, Abrams q.4h p.r.n; he is anxious to know results of his biopsy but is otherwise pleasant. - Continue pain control with fentanyl patch 75 mcg, Dilaudid q.2h, Abrams - Follow biopsy results from bronchoscopy and vertebral biopsy - Augmentin started for possible infection per Dr. Grimm during bronchoscopy. - Dexamethasone discontinued Assessment & Plan (10/01/2025 2:42 PM [employer]EL[employer] SITE MANAGER): S/p kyphoplasty POD 1. Does report that he still has intermittent pain diffusely in the setting of known metastasis. Ongoing concern for slow transit constipation, stool contributing to his pain in the setting of synthetic opioid use for pain control. Primary presumed to be of pulmonary etiology. Bronchoscopy was also completed with bx obtained. Oncology is consulted and recommended outpatient PET scan to assess extent of the disease. Pain control achieved Dilaudid q.2h, fentanyl 75 mcg, dexamethasone, Abrams q.4h p.r.n; he is anxious to know results of his biopsy but is otherwise pleasant. - Continue pain control with fentanyl patch 75 mcg, Dilaudid q.2h, dexamethasone held, Abrams - Follow biopsy results from bronchoscopy and vertebral biopsy - Augmentin started for possible infection per Dr. Grimm during bronchoscopy. Assessment & Plan (09/30/2025 2:52 PM [employer] SITE MANAGER): Initially admitted for pain control in the setting of metastatic disease with lytic lesions. Alert and oriented today without concerns for disorientation. Completed percutaneous kyphoplasty of L1 as well as tumor ablation with biopsy. Primary presumed to be of pulmonary etiology. Bronchoscopy was also completed today with biopsies obtained for further characterization of possible primary. Oncology is consulted and was recommended outpatient PET scan to assess extent of the disease. Pain control achieved Dilaudid q.2h, fentanyl 75 mcg, dexamethasone, Abrams q.4h p.r.n.. MRI on admission concerning for pathologic fracture of the L1 vertebral body without significant spinal stenosis or cauda equina impingement. MRI brain with and without contrast shows multifocal variably enhancing mass lesions of the cerebellum. Mild local mass effect without effacement of the 4th ventricle, no hydrocephalus, midline shift or herniation. This is likely a manifestation of brain metastasis which could be contributing to confabulation. Spoke with Dr. Grimm following bronchoscopy who recommended initiating antibiotic therapy for possible pneumonia; thick purulent secretions reported during bronchoscopy. - Continue pain control with fentanyl patch 75 mcg, Dilaudid q.2h, dexamethasone, Abrams - Check biopsy results from bronchoscopy and vertebral biopsy - Augmentin started for possible infection per Dr. Grimm during bronchoscopy Assessment & Plan (09/29/2025 2:52 PM [employer]ITE MANAGER): Patient presenting for pain control and altered mental status for presumed metastatic cancer with lytic lesions to the spine. CT chest in August showed a left hilar mass measuring 3.9 cm. Initially his altered mental status was believed to be due to severe pain. MRI on admission concerning for pathologic fracture of the L1 vertebral body without significant spinal stenosis or cauda equina impingement. MRI brain with without contrast shows Multifocal variably-sized (largest 2.5 cm), variably-enhancing mass lesions of the cerebellum. Mild local mass effect without effacement of the 4th ventricle, no hydrocephalus, midline shift or herniation. Brain metastasis likely now contributing to has confabulations when he speaks. Pain controlled on Dilaudid q.2 hours 0.5 mg and fentanyl patch 75 micrograms/hour. Pain management, pulmonology and oncology consulted Oncology recommended patient to be on dexamethasone IV 4 mg q.12 Pulmonology was initially consulted for potential need for diagnostic bronchoscopy but unfortunately there is no more time avail for bronchoscopy to be done. Pulmonology was initially consulted for potential need for diagnostic bronchoscopy but unfortunately there is no more time billable for bronchoscopy to be done. Pain management plans to do a L1 biopsy, kyphoplasty and tumor ablation next Tuesday in house. There may be a chance that an arrangement could be done for the patient to undergo a bronchoscopy while he is getting the kyphoplasty. Plan - fentanyl patch 75 mcg per, every 72 hours - IV dexamethasone 4 mg B.I.d. - anticipate L1 biopsy, kyphoplasty and tumor ablation next Tuesday in house per pain management Assessment & Plan (09/28/2025 3:31 PM [employer]ITE MANAGER): Patient presenting for pain control and altered mental status for presumed metastatic cancer with lytic lesions to the spine. CT chest in August showed a left hilar mass measuring 3.9 cm. Initially his altered mental status was believed to be due to severe pain. MRI on admission concerning for pathologic fracture of the L1 vertebral body without significant spinal stenosis or cauda equina impingement. MRI brain with without contrast shows Multifocal variably-sized (largest 2.5 cm), variably-enhancing mass lesions of the cerebellum. Mild local mass effect without effacement of the 4th ventricle, no hydrocephalus, midline shift or herniation. Brain metastasis likely now contributing to has confabulations when he speaks. Pain controlled on Dilaudid q.2 hours 0.5 mg and fentanyl patch 75 micrograms/hour. Pain management, pulmonology and oncology consulted Oncology recommended patient to be on dexamethasone IV 4 mg q.12 Pulmonology was initially consulted for potential need for diagnostic bronchoscopy but unfortunately there is no more time billable for bronchoscopy to be done. Plan - fentanyl patch 75 mcg per, every 72 hours - IV dexamethasone 4 mg B.I.d. - anticipate L1 biopsy, kyphoplasty and tumor ablation next Tuesday in house per pain management Assessment & Plan (09/27/2025 4:20 PM [employer]ITE MANAGER): Patient presenting for pain control and altered mental status for presumed metastatic cancer with lytic lesions to the spine. CT chest in August showed a left hilar mass measuring 3.9 cm. Initially his altered mental status was believed to be due to severe pain. MRI on admission concerning for pathologic fracture of the L1 vertebral body without significant spinal stenosis or cauda equina impingement. MRI brain with without contrast shows Multifocal variably-sized (largest 2.5 cm), variably-enhancing mass lesions of the cerebellum. Mild local mass effect without effacement of the 4th ventricle, no hydrocephalus, midline shift or herniation. Brain metastasis likely now contributing to has confabulations when he speaks. Pain controlled on Dilaudid q.2 hours 0.5 mg and fentanyl patch 75 micrograms/hour. Pain management, pulmonology and oncology consulted Oncology recommended patient to be on dexamethasone IV 4 mg q.12 Pulmonology was initially consulted for potential need for diagnostic bronchoscopy but unfortunately there is no more time billable for bronchoscopy to be done. Pain management plans to do a L1 biopsy, kyphoplasty and tumor ablation next Tuesday in house. There may be a chance that an arrangement could be done for the patient to undergo a bronchoscopy while he is getting the kyphoplasty. Overnight patient did have episodes of increasing confusion. With low blood pressure 88/53 at 2150. Patient was given IV albumin. His schedule dilaudid was converted to p.r.n. and due to him not using the p.r.n. dilaudid. It was now discontinued altogether Plan - fentanyl patch 75 mcg per - IV dexamethasone 4 mg Q 12 - Pain management plans to do a L1 biopsy, kyphoplasty and tumor ablation next Tuesday in house Assessment & Plan (09/26/2025 2:56 PM [employer]ITE MANAGER): Patient presenting for pain control and altered mental status for presumed metastatic cancer with lytic lesions to the spine. CT chest in August showed a left hilar mass measuring 3.9 cm. Initially his altered mental status was believed to be due to severe pain. MRI on admission concerning for pathologic fracture of the L1 vertebral body without significant spinal stenosis or cauda equina impingement. MRI brain with without contrast shows Multifocal variably-sized (largest 2.5 cm), variably-enhancing mass lesions of the cerebellum. Mild local mass effect without effacement of the 4th ventricle, no hydrocephalus, midline shift or herniation. Brain metastasis likely now contributing to has confabulations when he speaks. Pain controlled on Dilaudid q.2 hours 0.5 mg and fentanyl patch 75 micrograms/hour. Pain management, pulmonology and oncology consulted Oncology recommended patient to be on dexamethasone IV 4 mg q.12 Pulmonology was initially consulted for potential need for diagnostic bronchoscopy but unfortunately there is no more time billable for bronchoscopy to be done. Pain management plans to do a L1 biopsy, kyphoplasty and tumor ablation next Tuesday in house Plan - IV Dilaudid 0.5 Q 2 and fentanyl patch 75 mcg per - IV dexamethasone 4 mg Q 12 - Pain management plans to do a L1 biopsy, kyphoplasty and tumor ablation next Tuesday in house Closed fracture of nasal bones 08/28/2025 Assessment & Plan (08/29/2025 7:33 AM CDT): Aquaphor ointment to outer portion of nose 2-3 times daily Avoid nose blowing for one more week No surgery indicated at this time Avoid contact sports for 6 weeks Personal interpretation of CT Facial bone: nasal tip fracture mild displacement Abrasion of skin 08/28/2025 Assessment & Plan (08/28/2025 10:24 AM CDT): Aquaphor ointment to outer portion of nose 2-3 times daily Avoid nose blowing for one more week No surgery indicated at this time Avoid contact sports for 6 weeks Acute pulmonary insufficienc y following non-thoracic surgery 12/17/2019 Sprain of anterior talofibular ligament of left ankle 12/17/2019 Acute pain of left knee 12/17/2019 History of tobacco abuse 04/04/2019 Overview (12/17/2019): 60+ pack years, quit in 2018 Kidney stones 11/08/2017 Adrenal incidentaloma 03/24/2017 Coronary artery disease invo lving [place] coronary artery of [place] heart without angina pectoris 02/17/2017 Overview (12/17/2019): Overview: Taxus JUANIS to mid-RCA 04/13/2005 Acute IMI due to RCA occlusion due to clot. Received RCA PCI on 02-13-2017. Taxus JUANIS to mid-RCA 04/13/2005 Acute IMI due to RCA occlusion due to clot. Received RCA PCI on 02-13-2017. Last Assessment & Plan: Doing well at present. Continue follow-up with cardiology. Continue medications. Assessment & Plan (10/06/2025 10:50 AM [employer]ITE MANAGER): Per chart review, patient had JUANIS to RCA in 2004, 7.5 cm AAA s/p TVAR in 2016, inferior STEMI with additional stent in 2017. Home regimen includes Aspirin 81mg daily, Atorvastatin 80mg daily, Rivaroxaban 20mg daily. Patient currently denies any chest pain or discomfort - Continue home regimen as mentioned above - Monitor for any chest pain or discomfort Assessment & Plan (10/05/2025 2:25 PM [employer] SITE MANAGER): -Per chart review, patient had JUANIS to RCA in 2004, 7.5 cm AAA s/p TVAR in 2017, inferior STEMI with additional stent in 2017. -Home regimen includes Aspirin 81mg daily, Atorvastatin 80mg daily, Rivaroxaban 20mg daily. -Patient currently denies any chest pain or discomfort Plan: -Continue home regimen as mentioned above -Monitor for any chest pain or discomfort Assessment & Plan (10/04/2025 4:11 PM [employer]ITE MANAGER): On chart review, patient had JUANIS to RCA in 2004, 7.5 cm AAA s/p TVAR in 2016, inferior STEMI with additional stent in 2017. Home regimen includes aspirin, atorvastatin, rivaroxaban. - continue aspirin and atorvastatin - Resume rivaroxaban per pain management recommendations. - consider resuming in 24-48 hours following procedure after no signs of overt bleeding are noted. Assessment & Plan (10/03/2025 6:51 PM [employer]ITE MANAGER): On chart review, patient had JUANIS to RCA in 2004, 7.5 cm AAA s/p TVAR in 2017, inferior STEMI with additional stent in 2017. Home regimen includes aspirin, atorvastatin, rivaroxaban. - continue aspirin and atorvastatin - Resume rivaroxaban per pain management recommendations. - consider resuming in 24-48 hours following procedure after no signs of overt bleeding are noted. Assessment & Plan (10/02/2025 3:44 PM [employer]ITE MANAGER): On chart review, patient had JUANIS to RCA in 2004, 7.5 cm AAA s/p TEVAR in 2017, inferior STEMI with additional stent in 2017. Home regimen includes aspirin, atorvastatin, rivaroxaban. - continue aspirin and atorvastatin - Resume rivaroxaban per pain management recommendations. - consider resuming in 24-48 hours following procedure after no signs of overt bleeding are noted. Assessment & Plan (10/01/2025 2:42 PM [employer] SITE MANAGER): On chart review, patient had JUANIS to RCA in 2004, 7.5 cm AAA s/p TEVAR in 2017, inferior STEMI with additional stent in 2017. Home regimen includes aspirin, atorvastatin, rivaroxaban. - continue aspirin and atorvastatin - Resume rivaroxaban per pain management recommendations. - consider resuming in 24-48 hours following procedure after no signs of overt bleeding are noted. Assessment & Plan (09/30/2025 2:52 PM [employer] SITE MANAGER): On chart review, patient had JUANIS to RCA in 2004, 7.5 cm AAA s/p TEVAR in 2017, inferior STEMI with additional stent in 2017. Home regimen includes aspirin, atorvastatin, rivaroxaban. - continue aspirin and atorvastatin - hold rivaroxaban as he is status post kyphoplasty/bronchoscopy - consider resuming in 24-48 hours following procedure after no signs of overt bleeding are noted Assessment & Plan (09/29/2025 2:52 PM [employer] SITE MANAGER): On chart review, patient had JUANIS to RCA in 2004, 7.5 cm AAA s/p TEVAR in 2017, inferior STEMI with additional stent in 2017. Home regimen includes aspirin, atorvastatin, rivaroxaban. - continue aspirin and atorvastatin - hold rivaroxaban pending potential procedure Assessment & Plan (09/28/2025 7:14 AM [employer] SITE MANAGER): On chart review, patient had JUANIS to RCA in 2004, 7.5 cm AAA s/p TEVAR in 2017, inferior STEMI with additional stent in 2017. Home regimen includes aspirin, atorvastatin, rivaroxaban. - continue aspirin and atorvastatin - hold rivaroxaban pending potential procedure Assessment & Plan (09/27/2025 3:48 PM [employer] SITE MANAGER): On chart review, patient had JUANIS to RCA in 2004, 7.5 cm AAA s/p TEVAR in 2017, inferior STEMI with additional stent in 2017. Home regimen includes aspirin, atorvastatin, rivaroxaban. - continue aspirin and atorvastatin - hold rivaroxaban pending potential procedure Assessment & Plan (09/26/2025 2:56 PM [employer] SITE MANAGER): On chart review, patient had JUANIS to RCA in 2004, 7.5 cm AAA s/p TEVAR in 2017, inferior STEMI with additional stent in 2017. Home regimen includes aspirin, atorvastatin, rivaroxaban. - continue aspirin and atorvastatin - hold rivaroxaban pending potential procedure Nonrheumatic mitral valve insufficiency 02/18/20 17 Overview (12/17/2019): Overview: EF of 45% on echo done on 02-15-2017 EF of 45% on echo done on 02-15-2017 Paroxysmal atrial fibrillation 02/17/2017 Assessment & Plan (10/06/2025 10:50 AM [employer] SITE MANAGER): Per chart review, patient had JUANIS to RCA in 2004, 7.5 cm AAA s/p TVAR in 2017, inferior STEMI with additional stent in 2017. Home regimen includes Aspirin 81mg daily, Atorvastatin 80mg daily, Rivaroxaban 20mg daily. Patient currently denies any chest pain or discomfort - Continue home regimen as mentioned above - Monitor for any chest pain or discomfort Assessment & Plan (10/05/2025 2:25 PM [employer] SITE MANAGER): -Per chart review, patient had JUANIS to RCA in 2004, 7.5 cm AAA s/p TVAR in 2017, inferior STEMI with additional stent in 2017. -Home regimen includes Aspirin 81mg daily, Atorvastatin 80mg daily, Rivaroxaban 20mg daily. -Patient currently denies any chest pain or discomfort Plan: -Continue home regimen as mentioned above -Monitor for any chest pain or discomfort Assessment & Plan (10/04/2025 4:11 PM [employer] SITE MANAGER): On chart review, patient had JUANIS to RCA in 2004, 7.5 cm AAA s/p TVAR in 2017, inferior STEMI with additional stent in 2017. Home regimen includes aspirin, atorvastatin, rivaroxaban. - continue aspirin and atorvastatin - Resume rivaroxaban per pain management recommendations. - consider resuming in 24-48 hours following procedure after no signs of overt bleeding are noted. Assessment & Plan (10/03/2025 6:51 PM [employer] SITE MANAGER): On chart review, patient had JUANIS to RCA in 2004, 7.5 cm AAA s/p TVAR in 2017, inferior STEMI with additional stent in 2017. Home regimen includes aspirin, atorvastatin, rivaroxaban. - continue aspirin and atorvastatin - Resume rivaroxaban per pain management recommendations. - consider resuming in 24-48 hours following procedure after no signs of overt bleeding are noted. Assessment & Plan (10/02/2025 3:44 PM [employer] SITE MANAGER): On chart review, patient had JUANIS to RCA in 2004, 7.5 cm AAA s/p TEVAR in 2016, inferior STEMI with additional stent in 2017. Home regimen includes aspirin, atorvastatin, rivaroxaban. - continue aspirin and atorvastatin - Resume rivaroxaban per pain management recommendations. - consider resuming in 24-48 hours following procedure after no signs of overt bleeding are noted. Assessment & Plan (10/01/2025 2:42 PM [employer] SITE MANAGER): On chart review, patient had JUANIS to RCA in 2004, 7.5 cm AAA s/p TEVAR in 2016, inferior STEMI with additional stent in 2017. Home regimen includes aspirin, atorvastatin, rivaroxaban. - continue aspirin and atorvastatin - Resume rivaroxaban per pain management recommendations. - consider resuming in 24-48 hours following procedure after no signs of overt bleeding are noted. Assessment & Plan (09/30/2025 2:52 PM [employer] SITE MANAGER): On chart review, patient had JUANIS to RCA in 2004, 7.5 cm AAA s/p TEVAR in 2017, inferior STEMI with additional stent in 2017. Home regimen includes aspirin, atorvastatin, rivaroxaban. - continue aspirin and atorvastatin - hold rivaroxaban as he is status post kyphoplasty/bronchoscopy - consider resuming in 24-48 hours following procedure after no signs of overt bleeding are noted Assessment & Plan (09/29/2025 2:52 PM [employer] SITE MANAGER): On chart review, patient had JUANIS to RCA in 2004, 7.5 cm AAA s/p TEVAR in 2017, inferior STEMI with additional stent in 2017. Home regimen includes aspirin, atorvastatin, rivaroxaban. - continue aspirin and atorvastatin - hold rivaroxaban pending potential procedure Assessment & Plan (09/28/2025 7:14 AM [employer] SITE MANAGER): On chart review, patient had JUANIS to RCA in 2004, 7.5 cm AAA s/p TEVAR in 2017, inferior STEMI with additional stent in 2017. Home regimen includes aspirin, atorvastatin, rivaroxaban. - continue aspirin and atorvastatin - hold rivaroxaban pending potential procedure Assessment & Plan (09/27/2025 3:48 PM [employer] SITE MANAGER): On chart review, patient had JUANIS to RCA in 2004, 7.5 cm AAA s/p TEVAR in 2017, inferior STEMI with additional stent in 2017. Home regimen includes aspirin, atorvastatin, rivaroxaban. - continue aspirin and atorvastatin - hold rivaroxaban pending potential procedure Assessment & Plan (09/26/2025 2:56 PM [employer] SITE MANAGER): On chart review, patient had JUANIS to RCA in 2004, 7.5 cm AAA s/p TEVAR in 2017, inferior STEMI with additional stent in 2017. Home regimen includes aspirin, atorvastatin, rivaroxaban. - continue aspirin and atorvastatin - hold rivaroxaban pending potential procedure Abdominal aortic aneurysm (AAA) without rupture 02/12/2017 Overview (12/17/2019): Last Assessment & Plan: Has been repaired Hyperlipidemia 02/12/2017 Assessment & Plan (10/06/2025 10:50 AM [employer] SITE MANAGER): Per chart review, patient had JUANIS to RCA in 2004, 7.5 cm AAA s/p TVAR in 2016, inferior STEMI with additional stent in 2017. Home regimen includes Aspirin 81mg daily, Atorvastatin 80mg daily, Rivaroxaban 20mg daily. Patient currently denies any chest pain or discomfort - Continue home regimen as mentioned above - Monitor for any chest pain or discomfort Assessment & Plan (10/05/2025 2:25 PM [employer] SITE MANAGER): -Per chart review, patient had JUANIS to RCA in 2004, 7.5 cm AAA s/p TVAR in 2016, inferior STEMI with additional stent in 2017. -Home regimen includes Aspirin 81mg daily, Atorvastatin 80mg daily, Rivaroxaban 20mg daily. -Patient currently denies any chest pain or discomfort Plan: -Continue home regimen as mentioned above -Monitor for any chest pain or discomfort Assessment & Plan (10/04/2025 4:11 PM [employer] SITE MANAGER): On chart review, patient had JUANIS to RCA in 2004, 7.5 cm AAA s/p TVAR in 2017, inferior STEMI with additional stent in 2017. Home regimen includes aspirin, atorvastatin, rivaroxaban. - continue aspirin and atorvastatin - Resume rivaroxaban per pain management recommendations. - consider resuming in 24-48 hours following procedure after no signs of overt bleeding are noted. Assessment & Plan (10/03/2025 6:51 PM [employer] SITE MANAGER): On chart review, patient had JUANIS to RCA in 2004, 7.5 cm AAA s/p TVAR in 2017, inferior STEMI with additional stent in 2017. Home regimen includes aspirin, atorvastatin, rivaroxaban. - continue aspirin and atorvastatin - Resume rivaroxaban per pain management recommendations. - consider resuming in 24-48 hours following procedure after no signs of overt bleeding are noted. Assessment & Plan (10/02/2025 3:44 PM [employer] SITE MANAGER): On chart review, patient had JUANIS to RCA in 2004, 7.5 cm AAA s/p TEVAR in 2017, inferior STEMI with additional stent in 2017. Home regimen includes aspirin, atorvastatin, rivaroxaban. - continue aspirin and atorvastatin - Resume rivaroxaban per pain management recommendations. - consider resuming in 24-48 hours following procedure after no signs of overt bleeding are noted. Assessment & Plan (10/01/2025 2:42 PM [employer] SITE MANAGER): On chart review, patient had JUANIS to RCA in 2004, 7.5 cm AAA s/p TEVAR in 2017, inferior STEMI with additional stent in 2017. Home regimen includes aspirin, atorvastatin, rivaroxaban. - continue aspirin and atorvastatin - Resume rivaroxaban per pain management recommendations. - consider resuming in 24-48 hours following procedure after no signs of overt bleeding are noted. Assessment & Plan (09/30/2025 2:52 PM [employer] SITE MANAGER): On chart review, patient had JUANIS to RCA in 2004, 7.5 cm AAA s/p TEVAR in 2017, inferior STEMI with additional stent in 2017. Home regimen includes aspirin, atorvastatin, rivaroxaban. - continue aspirin and atorvastatin - hold rivaroxaban as he is status post kyphoplasty/bronchoscopy - consider resuming in 24-48 hours following procedure after no signs of overt bleeding are noted Assessment & Plan (09/29/2025 2:52 PM [employer] SITE MANAGER): On chart review, patient had JUANIS to RCA in 2004, 7.5 cm AAA s/p TEVAR in 2017, inferior STEMI with additional stent in 2017. Home regimen includes aspirin, atorvastatin, rivaroxaban. - continue aspirin and atorvastatin - hold rivaroxaban pending potential procedure Assessment & Plan (09/28/2025 7:14 AM [employer] SITE MANAGER): On chart review, patient had JUANIS to RCA in 2004, 7.5 cm AAA s/p TEVAR in 2017, inferior STEMI with additional stent in 2017. Home regimen includes aspirin, atorvastatin, rivaroxaban. - continue aspirin and atorvastatin - hold rivaroxaban pending potential procedure Assessment & Plan (09/27/2025 3:48 PM [employer] SITE MANAGER): On chart review, patient had JUANIS to RCA in 2004, 7.5 cm AAA s/p TEVAR in 2017, inferior STEMI with additional stent in 2017. Home regimen includes aspirin, atorvastatin, rivaroxaban. - continue aspirin and atorvastatin - hold rivaroxaban pending potential procedure Assessment & Plan (09/26/2025 2:56 PM [employer] SITE MANAGER): On chart review, patient had JUANIS to RCA in 2004, 7.5 cm AAA s/p TEVAR in 2016, inferior STEMI with additional stent in 2017. Home regimen includes aspirin, atorvastatin, rivaroxaban. - continue aspirin and atorvastatin - hold rivaroxaban pending potential procedure Osteoarthritis 02/12/2017 Resolved Problems Problem Noted Date Diagnosed Date Resolved Date Acute hypoxic respiratory failure 09/25/2025 09/29/2025 Assessment & Plan (09/29/2025 2:52 PM [employer]ITE MANAGER): Patient presented with a new oxygen requirement of 4 L nasal cannula. Hypoxia is likely in the setting of hypoventilation related to narcotic use and severe pain. Continue monitoring venous blood gases to make sure patient does not have developed respiratory acidosis. Patient now on room air saturating well. Plan - Pulmonology consulted - monitor vital signs Assessment & Plan (09/28/2025 3:31 PM [employer] SITE MANAGER): Patient presented with a new oxygen requirement of 4 L nasal cannula. Hypoxia is likely in the setting of hypoventilation related to narcotic use and severe pain. Continue monitoring venous blood gases to make sure patient does not have developed respiratory acidosis. Plan - Pulmonology consulted - monitor vital signs Assessment & Plan (09/27/2025 3:48 PM BROWNFIELD REDEVELOPMENT SITE MANAGER): Patient presented with a new oxygen requirement of 4 L nasal cannula. Hypoxia is likely in the setting of hypoventilation related to narcotic use and severe pain. Continue monitoring venous blood gases to make sure patient does not have developed respiratory acidosis. Plan - VBG is depending on worsening symptoms - Pulmonology consulted Assessment & Plan (09/26/2025 2:56 PM BROWNFIELD REDEVELOPMENT SITE MANAGER): Patient presented with a new oxygen requirement of 4 L nasal cannula. Hypoxia is likely in the setting of hypoventilation related to narcotic use and severe pain. Continue monitoring venous blood gases to make sure patient does not have developed respiratory acidosis. Plan - VBG is depending on worsening symptoms - Pulmonology consulted Hyponatremia 09/25/2025 09/28/2025 Assessment & Plan (09/28/2025 3:31 PM BROWNFIELD REDEVELOPMENT SITE MANAGER): Sodium improved to 140 today from 12/13 4 of yesterday Creatinine is also back to normal now - Maintenance IV fluids - Monitor electrolytes, replenish as needed Assessment & Plan (09/27/2025 3:48 PM BROWNFIELD REDEVELOPMENT SITE MANAGER): Sodium decreased to 130 on admission. Creatinine somewhat elevated to 1.38 from 1.26 at baseline, does not meet criteria for ALISIA. Now resolved at 1.04 - Maintenance IV fluids - Monitor electrolytes, replenish as needed Assessment & Plan (09/26/2025 2:56 PM BROWNFIELD REDEVELOPMENT SITE MANAGER): Sodium decreased to 130 on admission. Creatinine somewhat elevated to 1.38 from 1.26 at baseline, does not meet criteria for ALISIA. - Maintenance IV fluids - Monitor electrolytes, replenish as needed Elevated serum creatinine 09/25/2025 Assessment & Plan (09/28/2025 3:31 PM BROWNFIELD REDEVELOPMENT SITE MANAGER): Sodium improved to 140 today from 12/13 4 of yesterday Creatinine is also back to normal now - Maintenance IV fluids - Monitor electrolytes, replenish as needed Assessment & Plan (09/27/2025 3:48 PM BROWNFIELD REDEVELOPMENT SITE MANAGER): Sodium decreased to 130 on admission. Creatinine somewhat elevated to 1.38 from 1.26 at baseline, does not meet criteria for ALISIA. Now resolved at 1.04 - Maintenance IV fluids - Monitor electrolytes, replenish as needed Assessment & Plan (09/26/2025 2:56 PM BROWNFIELD REDEVELOPMENT SITE MANAGER): Sodium decreased to 130 on admission. Creatinine somewhat elevated to 1.38 from 1.26 at baseline, does not meet criteria for ALISIA. - Maintenance IV fluids - Monitor electrolytes, replenish as needed Pyelonephritis 02/17/2017 09/25/2025 Encounters Date Type Department Care Team Description 10/09/2025 [facility]phone [facility] On[facility] [address] [place] [address] [address] [place] [address] Karen Freed, CLT 10/09/2025 Telephone [facility] On[facility] [address] [place] [address] [address] [place] [address] Karen Freed, CLT 10/09/2025 Orders Only [facility] Oncology [address] [place] [address] [address] [place] [address] Jyoti Horner, AGILE TEST LEAD Malignant neoplasm metastatic to bone (HCC) (Primary Dx) 10/09/2025 Orders Only [facility] Oncology [address] [place] [address] [address] [place] [address] Jyoti Horner, AGILE TEST LEAD Malignant neoplasm metastatic to bone (HCC) (Primary Dx) 10/08/2025 12:48 AM [employer]FIELD REDEVELOPMENT SITE MANAGER - 10/08/2025 2:34 AM BROWNFIELD REDEVELOPMENT SITE MANAGER Emergency [facility] Emergency Department [address] [place] [address] Sundar Bnuch MD Fall, initial encounter (Primary Dx); Epistaxis Discharge Disposition: Discharge to home or self care 10/07/2025 Telephone [facility] Radiation Oncology [address] [place] [phone] Apolinar Myles RN 10/04/2025 9:40 AM [employer]FIELD REDEVELOPMENT SITE MANAGER Treatment [facility] Radiation Oncology [address] [place] [address] 10/03/2025 1:38 PM BROWNFIELD REDEVELOPMENT SITE MANAGER - 10/03/2025 11:59 PM BROWNFIELD REDEVELOPMENT SITE MANAGER Hospital Encounter [facility] Discharge Disposition: Discharge to home or self care 10/03/2025 1:12 PM BROWNFIELD REDEVELOPMENT SITE MANAGER - 10/03/2025 11:59 PM BROWNFIELD REDEVELOPMENT SITE MANAGER Hospital Encounter [facility] Discharge Disposition: Discharge to home or self care 10/03/2025 1:00 PM BROWNFIELD REDEVELOPMENT SITE MANAGER Treatment [facility] Radiation Oncology [address] [place] [address] Justice Bagley MD PhD 10/03/2025 Telephone [facility] Advanced Medicine Radiation Oncology [address] [place] [address] [place] [address] Martha Chaves MD 09/30/2025 10:41 AM [employer]FIELD REDEVELOPMENT SITE MANAGER Anesthesia Event [facility] Operating Room [address] [place] [address] Nasim Edwards MD 09/30/2025 10:30 AM BR[employer]FIELD REDEVELOPMENT SITE MANAGER - 09/30/2025 1:45 PM [employer]FIELD REDEVELOPMENT SITE MANAGER Surgery [facility] Operating Room [address] [place] [address] Prasanth Florian MD KYPHOPLASTY LUMBAR 1, LUMBAR BONE BIOPSY, TUMOR ABLATION 09/24/2025 9:22 AM [employer]OWNFIELD REDEVELOPMENT SITE MANAGER - 10/07/2025 3:51 PM BROWNFIELD REDEVELOPMENT SITE MANAGER Hospital Encounter [facility] Acute Medicine [address] [place] [address] Jaren Oliveira MD Petters, Ekanga Sunday, MD Richards, Heath Cooney Jr., Ladan Rivas MD Pain (Primary Dx); Metastatic cancer to bone; Malignant neoplasm metastatic to bone (HCC); Metastasis to brain; Pathological compression fracture of lumbar vertebra with delayed healing; Reduced mobility; Disorientation; Drug-induced constipation; 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; Abdominal aortic aneurysm (AAA) without rupture, unspecified part; Hypoalbuminemia; Primary hypertension; Urinary retention; Paroxysmal atrial fibrillation (HCC); Iron deficiency anemia due to chronic blood loss; Mixed hyperlipidemia; History of tobacco abuse; Leukocytosis, unspecified type Discharge Disposition: Discharge to [facility] 09/24/2025 8:30 AM BROWNFIELD REDEVELOPMENT SITE MANAGER Office Visit [facility] On[facility] [address] [place] [address] [address] [place] [address] Luis Daniel Yang MD Metastatic cancer to bone (Primary Dx) 09/24/2025 Telephone [facility] [address] [facility] [address] [place] [address] Amberly Mccarty RN 09/23/2025 Telephone [facility] On[facility] [address] [place] [address] B [facility] [address] [place] [address] Luis Daniel Yang MD 09/20/2025 1:06 PM BROWNFIELD REDEVELOPMENT SITE MANAGER - 09/20/2025 11:59 PM BROWNFIELD REDEVELOPMENT SITE MANAGER Hospital Encounter [facility] [address] [place] [address] Metastatic cancer to bone Discharge Disposition: Discharge to home or self care 09/19/2025 2:10 PM BROWNFIELD REDEVELOPMENT SITE MANAGER Lab [address] [address] 09/19/2025 2:07 PM BROWNFIELD REDEVELOPMENT SITE MANAGER - 09/19/2025 11:59 PM BROWNFIELD REDEVELOPMENT SITE MANAGER Hospital Encounter [facility] Imaging Center 1 [place] [address] Solitary pulmonary nodule Discharge Disposition: Discharge to home or self care 09/18/2025 2:01 PM BROWNFIELD REDEVELOPMENT SITE MANAGER - 09/18/2025 11:59 PM BROWNFIELD REDEVELOPMENT SITE MANAGER Hospital Encounter [facility] Management [facility] A, [address] [place] [address] Prasanth Florian MD Metastatic cancer to bone (Primary Dx) Discharge Disposition: Discharge to home or self care 09/18/2025 Telephone [facility] [address] [place] [address] Rosemarie AlexanderGhislaine 08/30/2025 8:32 AM CDT - 08/30/2025 11:00 AM CDT Emergency [facility] Emergency Department 1 [place] [address] Martínez Jorge MD Fall, initial encounter (Primary Dx); Acute right-sided low back pain without sciatica Discharge Disposition: Discharge to home or self care 08/30/2025 6:32 AM CDT - 08/30/2025 11:59 PM CDT Hospital Encounter [facility] AMBULANCE BILLING Emergency, Room R Discharge Disposition: Discharge to home or self care 08/28/2025 10:00 AM CDT Office Visit [facility] [address] [facility] [address] [place] [phone] Rajni Jha DO Closed fracture of nasal bone, initial encounter (Primary Dx); Abrasion of skin 08/21/2025 8:25 PM CDT - 08/21/2025 8:56 PM CDT Emergency [facility] Emergency Department [address] [place] [address] Fall, initial encounter (Primary Dx); Closed fracture of nasal bone, initial encounter Discharge Disposition: Discharge to home or self care 08/21/2025 5:15 PM CDT - 08/21/2025 11:59 PM CDT Hospital Encounter [facility] AMBULANCE BILLING Emergency, Room R Discharge Disposition: Discharge to home or self care 08/17/2025 12:49 PM CDT - 08/17/2025 1:04 PM CDT Emergency [facility] Emergency Department [address] [place] [address] Acute pain of left shoulder (Primary Dx) Discharge Disposition: Discharge to home or self care 07/26/2025 12:59 PM CDT - 07/26/2025 6:30 PM CDT Emergency [facility] Emergency Department [address] [place] [address] Martínez Jorge MD Burnside, David W., MD Lumbar radicular pain (Primary Dx) Discharge Disposition: Discharge to home or self care 07/26/2025 11:14 AM CDT - 07/26/2025 11:59 PM CDT Hospital Encounter [facility] Emergency, Room R Discharge Disposition: Discharge to home or self care from Last 3 Months Immunizations Immunization Administration Dates Next Due Pneumococcal Conjugate PCV 13 04/04/2019 Tdap 08/21/2025 Surgical History Surgery Date Site/Laterality Comments CARDIAC STENT PLACEMENT 11/14/2005 - 11/13/2006 stent BACK SURGERY 11/14/1984 - 11/13/1985 Back surgery CORONARY ARTERY BYPASS GRAFT CARDIAC SURGERY 11/14/2016 - 11/13/2017 ARTERIAL ANEURYSM REPAIR 11/14/2016 - 11/13/2017 Medical History Medical History Date Comments Hyperlipidemia Hyperlipidemia Hx Other Medical back pain; Comm ents: MMT 04/25/2014 - Hypercholesterolemia High choles terol; Comments: MMT 04/25/2014 - Hx Other Medical back surgery; C omments: MMT 04/25/2014 - Hx Other Medical knee pain; Comm ents: knee injection; Outcome: improved Myocardial infarction (HCC) 2016 Aneurysm Kidney stone Family History Medical History Relation Name Comments Stroke Father Stroke; Cause o f : Stroke Kidney cancer Mother Cancer -renal cell; Cause of : Cancer -renal cell Cancer Other 1 Family history of Cancer, unknown; Gout Other 2 Family history of Gout; Stroke Other 3 Family history of Stroke; Relation Name Status Comments Father (Age 82) Mother (Age 72) Other 1 Other 2 Other 3 Social History Tobacco Use Types Packs/Day Years Used Date Smoking Tobacco: Former Cigarettes Tobacco Cessation:Counseling Given: Not Answered Alcohol Use Standard Drinks/Week Comments Not Currently 0 (1 standard drink = 0.6 oz pur e alcohol) PHQ-2 Answer Date Recorded PHQ-2 Total Score (If total score is 3 or more points, staff should administer the PHQ-9) 5 09/18/2025 PHQ-9 Answer Date Recorded PHQ-9 Total Score 13 09/18/2025 Social Connection and Isolation Panel Answer Date Recorded In a typical week, how many times do you talk on the phone with family, friends, or neighbors? More than three times a week 09/25/2025 How often do you get togethe r with friends or relatives? More than three times a week 09/25/2025 How often do you attend chur ch or moravian services? Patient declined 09/25/2025 Do you belong to any clubs o r organizations such as yazidi groups, unions, fraternal or athletic groups, or school groups? Patient declined 09/25/2025 How often do you attend meet ings of the clubs or organizations you belong to? Patient declined 09/25/2025 Are you , , di vorced, , never , or living with a partner? Living with partner 09/25/2025 AUDIT-C Answer Date Recorded Q1: How often do you have a drink containing alcohol? Never 09/24/2025 Q2: How many drinks containi ng alcohol do you have on a typical day when you are drinking? Patient does not drink Q3: How often do you have si x or more drinks on one occasion? Never 09/24/2025 Overall Financial Resource Strain (CARDIA) Answe r Date Recorded How hard is it for you to pa y for the very basics like food, housing, medical care, and heating? Not hard at all 09/25/2025 Hunger Vital Sign Answer Date Recorded Within the past 12 months, y ou worried that your food would run out before you got the money to buy more. Never true 09/25/20 25 Within the past 12 months, t he food you bought just didn't last and you didn't have money to get more. Never true 09/25/2025 PRAPARE - Transportation Answer Date Re corded In the past 12 months, has l ack of transportation kept you from medical appointments or from getting medications? No 09/14 In the past 12 months, has l ack of transportation kept you from meetings, work, or from getting things needed for daily living? No 09/25/2025 Housing Stability Vital Sign Answer Misael e Recorded In the last 12 months, was t here a time when you were not able to pay the mortgage or rent on time? No 09/25/2025 In the past 12 months, how m any times have you moved where you were living? 0 09/25/2025 At any time in the past 12 m [facility], were you homeless or living in a intermediate (including now)? No 09/25/2025 [facility] Utilities Answer Date Recorded In the past 12 months has th e electric, gas, oil, or water company threatened to shut off services in your home? No 09/25/2025 Personal Safety Answer Date Recorded Have you ever been in or are you currently in a harmful physical or emotional relationship or is someone making you feel afraid or unsafe? Denies 10/08/2025 Sex and Gender Information Value Date Recorded Sex Assigned at Not on file Legal Sex Male 1:53 AM BROWNFIELD REDEVELOPMENT SITE MANAGER Gender Identity Not on file Sexual Orientation Not on file Last Filed Vital Signs Vital Sign Reading Time Taken Comments Blood Pressure 137/63 10/08/2025 2:15 AM BROWNFIELD REDEVELOPMENT SITE MANAGER Pulse 54 10/08/2025 2:15 AM BROWNFIELD REDEVELOPMENT SITE MANAGER Temperature 36.5 C (97.7 F) 10/08/2025 12:52 AM BROWNFIELD REDEVELOPMENT SITE MANAGER Respiratory Rate 17 10/08/2025 2:15 AM BROWNFIELD REDEVELOPMENT SITE MANAGER Oxygen Saturation 96% 10/08/2025 2:15 AM BROWNFIELD REDEVELOPMENT SITE MANAGER Inhaled Oxygen Concentration - - Weight 93 kg (205 lb) 10/08/2025 12:52 AM BROWNFIELD REDEVELOPMENT SITE MANAGER Height 180.3 cm (5' 11) 10/08/2025 12:52 AM BROWNFIELD REDEVELOPMENT SITE MANAGER Body Mass Index 28.59 10/08/2025 12:52 AM BROWNFIELD REDEVELOPMENT SITE MANAGER Plan of Treatment Health Maintenance Due Date Last Done Comments Colon Cancer Screening-Colonoscopy 1950 Hepatitis C Screening 1950 Hepatitis B Screening 1969 Zoster Vaccine (1 of 2) 1970 Well Visit 65+ 2016 Pneumococcal vaccine 65+ (2 of 2 - PPSV23, PCV20, or PCV21) 05/30/2019 04/04/2019 Covid-19 Vaccine (3 - Pfizer risk series) 05/21/2021 04/23/2021, 04/02/2021 Influenza Vaccine (#1) 2025 Depression Screening 09/18/2026 09/18/2025, 09/18/20 Fall Risk Assessment 10/07/2026 10/07/2025 DTaP/Tdap/Td Vaccine (2 - Td or Tdap) 08/21/2035 08/21/2025 Abdominal Aortic Aneurysm (A AA) Screen Completed 09/24/2025, 08/30/2025, 07/26/2025, Additional history exists Medical Devices Implanted Type Area Marketing Administrative Assistant Device Identifier Shelf Expiration Date Model / Serial / Lot Aortic Repair-02/12/2017 Implanted:02/12 (Quantity not on file) Abdominal Aorta Description:Per phone verifi cation with Vendor, [place], patient has implant from 2017 done at [facility] model# either LLCXXXXXX or [id number] Static magnetic field of 1.5 or 3T Highest spatial gradient magnetic field of 1000-Gauss/cm or less Whole body-averaged specific absorption rate (ANGIE) of 2.0-W/kg in the Normal Operating Mode (i.e., the mode of operation of the MR equipment in which none of the outputs have a value that cause physiological stress to patients) for 15 minutes of scanning (i.e., per pulse sequence). [employer] Hv Autoplex Without Needle Delivery System Kit Bone [id number] - [id number] Implanted:Qty: 1 on 09/30/2025 by Prasanth Florian MD at [facility] N/A: Spine Lumbar Tapshot, [employer] 09/14/2026 [id number] / / [id number] Description:Cement in the ki t: [employer] ref: [id number] Lot: [id number] exp: 10/13/2026 Procedures Procedure Name Priority Date/Time Associated Diagnosis Comments CT FACIAL BONES WO CONTRAST ED 10/08/2025 1:25 AM BROWNFIELD REDEVELOPMENT SITE MANAGER CT CERVICAL SPINE WO CONTRAST ED 10/08/2025 1:25 AM BROWNFIELD REDEVELOPMENT SITE MANAGER CT HEAD WO CONTRAST ED 10/08/2025 1 :25 AM BROWNFIELD REDEVELOPMENT SITE MANAGER EGFR STAT 10/08/2025 12:58 AM BROWNFIELD REDEVELOPMENT SITE MANAGER DIFFERENTIAL AUTO STAT 10/08/2025 12: 58 AM BROWNFIELD REDEVELOPMENT SITE MANAGER COMPREHENSIVE METABOLIC PANEL STAT 10/08/2025 12:58 AM BROWNFIELD REDEVELOPMENT SITE MANAGER CBC WITH AUTO DIFFERENTIAL STAT 10/08/2025 12:58 AM BROWNFIELD REDEVELOPMENT SITE MANAGER POCT GLUCOSE DEVICE Routine 10/07/2025 1 1:29 AM BROWNFIELD REDEVELOPMENT SITE MANAGER XR ABDOMEN AP 1 VIEW IP Routine 10/06/2025 8:29 PM BROWNFIELD REDEVELOPMENT SITE MANAGER EGFR Routine 10/04/2025 3:25 AM BROWNFIELD REDEVELOPMENT SITE MANAGER COMPREHENSIVE METABOLIC PANEL Routine 10/04/2025 3:25 AM BROWNFIELD REDEVELOPMENT SITE MANAGER CBC WITHOUT DIFFERENTIAL Routine 10/04/2025 3:25 AM BROWNFIELD REDEVELOPMENT SITE MANAGER EGFR Routine 10/03/2025 4:22 AM BROWNFIELD REDEVELOPMENT SITE MANAGER COMPREHENSIVE METABOLIC PANEL Routine 10/03/2025 4:22 AM BROWNFIELD REDEVELOPMENT SITE MANAGER CBC WITHOUT DIFFERENTIAL Routine 10/03/2025 4:22 AM BROWNFIELD REDEVELOPMENT SITE MANAGER EGFR Routine 10/02/2025 3:26 AM BROWNFIELD REDEVELOPMENT SITE MANAGER COMPREHENSIVE METABOLIC PANEL Routine 10/02/2025 3:26 AM BROWNFIELD REDEVELOPMENT SITE MANAGER CBC WITHOUT DIFFERENTIAL Routine 10/02/2025 3:26 AM BROWNFIELD REDEVELOPMENT SITE MANAGER EGFR Routine 10/01/2025 3:13 AM BROWNFIELD REDEVELOPMENT SITE MANAGER COMPREHENSIVE METABOLIC PANEL Routine 10/01/2025 3:13 AM BROWNFIELD REDEVELOPMENT SITE MANAGER CBC WITHOUT DIFFERENTIAL Routine 10/01/2025 3:13 AM BROWNFIELD REDEVELOPMENT SITE MANAGER POTASSIUM, WHOLE BLOOD STAT 09/30/2025 1:46 PM BROWNFIELD REDEVELOPMENT SITE MANAGER XR CHEST 1 VIEW ED Urgent/IP Urgent 09/30/2025 1:25 PM BROWNFIELD REDEVELOPMENT SITE MANAGER SURGICAL PATHOLOGY Routine 09/30/2025 1: 21 PM BROWNFIELD REDEVELOPMENT SITE MANAGER FL FLUOROSCOPY < 1 HOUR IP Routine 09/30/2025 11:45 AM BROWNFIELD REDEVELOPMENT SITE MANAGER Pain MS AN ELECTIVE ENDOTRACHEAL AIRWAY Routine 09/30/2025 11:03 AM BROWNFIELD REDEVELOPMENT SITE MANAGER BRONCHOSCOPY ENDOBRONCHIAL ULTRASOUND 09/30/2025 10:26 AM BROWNFIELD REDEVELOPMENT SITE MANAGER [M48.56] Collapsed vertebre Special Needs CPT: 30793, 85094 KYPHOPLASTY/VERTEBRO PLASTY 09/30/2025 10:26 AM BROWNFIELD REDEVELOPMENT SITE MANAGER [M48.56] Collapsed vertebre Special Needs CPT: 96890, 88295 ECG 12-LEAD Routine 09/30/2025 9:51 AM BROWNFIELD REDEVELOPMENT SITE MANAGER EGFR Routine 09/30/2025 4:14 AM BROWNFIELD REDEVELOPMENT SITE MANAGER COMPREHENSIVE METABOLIC PANEL Routine 09/30/2025 4:14 AM BROWNFIELD REDEVELOPMENT SITE MANAGER CBC WITHOUT DIFFERENTIAL Routine 09/30/2025 4:14 AM BROWNFIELD REDEVELOPMENT SITE MANAGER CYTOLOGY Routine 09/30/2025 12:00 AM BROWNFIELD REDEVELOPMENT SITE MANAGER EGFR Routine 09/29/2025 7:52 AM BROWNFIELD REDEVELOPMENT SITE MANAGER COMPREHENSIVE METABOLIC PANEL Routine 09/29/2025 7:52 AM BROWNFIELD REDEVELOPMENT SITE MANAGER CBC WITHOUT DIFFERENTIAL Routine 09/29/2025 7:52 AM BROWNFIELD REDEVELOPMENT SITE MANAGER EGFR Routine 09/28/2025 6:28 AM BROWNFIELD REDEVELOPMENT SITE MANAGER COMPREHENSIVE METABOLIC PANEL Routine 09/28/2025 6:28 AM BROWNFIELD REDEVELOPMENT SITE MANAGER CBC WITHOUT DIFFERENTIAL Routine 09/28/2025 6:28 AM BROWNFIELD REDEVELOPMENT SITE MANAGER EGFR Routine 09/27/2025 3:23 AM BROWNFIELD REDEVELOPMENT SITE MANAGER COMPREHENSIVE METABOLIC PANEL Routine 09/27/2025 3:23 AM BROWNFIELD REDEVELOPMENT SITE MANAGER CBC WITHOUT DIFFERENTIAL Routine 09/27/2025 3:23 AM BROWNFIELD REDEVELOPMENT SITE MANAGER BLOOD GAS, VENOUS Routine 09/26/2025 10: 16 PM BROWNFIELD REDEVELOPMENT SITE MANAGER EGFR Routine 09/26/2025 3:23 AM BROWNFIELD REDEVELOPMENT SITE MANAGER BASIC METABOLIC PANEL Routine 09/26/2025 3:23 AM BROWNFIELD REDEVELOPMENT SITE MANAGER CBC WITHOUT DIFFERENTIAL Routine 09/26/2025 3:23 AM BROWNFIELD REDEVELOPMENT SITE MANAGER FOLATE Routine 09/26/2025 3:23 AM BROWNFIELD REDEVELOPMENT SITE MANAGER BLOOD GAS, VENOUS Routine 09/25/2025 5:5 4 PM BROWNFIELD REDEVELOPMENT SITE MANAGER MRI BRAIN W WO CONTRAST IP Routine 09/25/2025 4:57 PM BROWNFIELD REDEVELOPMENT SITE MANAGER TROPONIN T HIGH-SENSITIVITY 6-HOUR Timed 09/25/2025 3:03 PM BROWNFIELD REDEVELOPMENT SITE MANAGER TROPONIN T HIGH-SENSITIVITY 4-HR Timed 09/25/2025 12:51 PM BROWNFIELD REDEVELOPMENT SITE MANAGER TROPONIN T HIGH-SENSITIVITY 2-HOUR Timed 09/25/2025 9:35 AM BROWNFIELD REDEVELOPMENT SITE MANAGER XR ABDOMEN AP 1 VIEW IP Routine 09/25/2025 8:53 AM BROWNFIELD REDEVELOPMENT SITE MANAGER XR CHEST 1 VIEW ED Urgent/IP Urgent 09/25/2025 8:53 AM BROWNFIELD REDEVELOPMENT SITE MANAGER EGFR Routine 09/25/2025 8:31 AM BROWNFIELD REDEVELOPMENT SITE MANAGER BLOOD GAS, VENOUS Add-On 09/25/2025 8:3 1 AM BROWNFIELD REDEVELOPMENT SITE MANAGER TROPONIN T HIGH-SENSITIVITY SERIES (BASELINE, 2HR, 4HR, 6HR) STAT 09/25/2025 8:31 AM BROWNFIELD REDEVELOPMENT SITE MANAGER BASIC METABOLIC PANEL Routine 09/25/2025 8:31 AM BROWNFIELD REDEVELOPMENT SITE MANAGER CBC WITHOUT DIFFERENTIAL Routine 09/25/2025 8:31 AM BROWNFIELD REDEVELOPMENT SITE MANAGER VITAMIN B12 Routine 09/25/2025 8:31 AM BROWNFIELD REDEVELOPMENT SITE MANAGER IRON PROFILE W/ IBC Routine 09/25/2025 8 :31 AM BROWNFIELD REDEVELOPMENT SITE MANAGER URINALYSIS AND REFLEX TO MICROSCOPIC AND CULTURE Routine 09/25/2025 12:54 AM BROWNFIELD REDEVELOPMENT SITE MANAGER MRI THORACIC SPINE W WO CONTRAST ED 09/24/2025 5:32 PM BROWNFIELD REDEVELOPMENT SITE MANAGER MRI LUMBAR SPINE W WO CONTRAST ED 09/24/2025 5:31 PM BROWNFIELD REDEVELOPMENT SITE MANAGER EGFR STAT 09/24/2025 9:35 AM BROWNFIELD REDEVELOPMENT SITE MANAGER DIFFERENTIAL AUTO STAT 09/24/2025 9:3 5 AM BROWNFIELD REDEVELOPMENT SITE MANAGER BASIC METABOLIC PANEL STAT 09/24/2025 9:35 AM BROWNFIELD REDEVELOPMENT SITE MANAGER CBC WITH AUTO DIFFERENTIAL STAT 09/24/2025 9:35 AM BROWNFIELD REDEVELOPMENT SITE MANAGER MRI LUMBAR SPINE WO CONTRAST Schedule JOE, Read JOE (Appt Today, Awaiting Results) 09/20/2025 2:29 PM BROWNFIELD REDEVELOPMENT SITE MANAGER Metastatic cancer to bone CT CHEST W CONTRAST Schedule Routine, Read Routine (OP Routine) 09/19/2025 3:14 PM BROWNFIELD REDEVELOPMENT SITE MANAGER Solitary pulmonary nodule CREATININE, WHOLE BLOOD STAT 09/19/2025 2:10 PM BROWNFIELD REDEVELOPMENT SITE MANAGER CT LUMBAR SPINE WO CONTRAST ED 08/30/2025 8:[address] ABDOMEN PELVIS W CONTRAST ED 08/30/2025 8:19 AM CDT EGFR STAT 08/30/2025 7:19 AM CDT DIFFERENTIAL AUTO STAT 08/30/2025 7:1 9 AM CDT BASIC METABOLIC PANEL STAT 08/30/2025 7:19 AM CDT CBC WITH AUTO DIFFERENTIAL STAT 08/30/2025 7:[address] FACIAL BONES WO CONTRAST ED 08/21/2025 6:[address] CERVICAL SPINE WO CONTRAST ED 08/21/2025 6:[address] HEAD WO CONTRAST ED 08/21/2025 6 :51 PM CDT XR SHOULDER LEFT 2 OR MORE VIEWS ED 08/17/2025 12:13 PM CDT URINALYSIS, MICROSCOPIC ONLY STAT 07/26/2025 3:22 PM CDT URINALYSIS AND REFLEX TO MICROSCOPIC AND CULTURE STAT 07/26/2025 3:22 PM CDT B ABO / RH CONFIRMATION TESTING STAT 07/26/2025 1:46 PM CDT CTA ABDOMEN PELVIS W WO CONTRAST ED 07/26/2025 1:03 PM CDT EGFR STAT 07/26/2025 12:02 PM CDT DIFFERENTIAL AUTO STAT 07/26/2025 12: 02 PM CDT ANTIBODY SCREEN STAT 07/26/2025 12:02 PM CDT ABO/RH STAT 07/26/2025 12:02 PM CDT COMPREHENSIVE METABOLIC PANEL STAT 07/26/2025 12:02 PM CDT TYPE AND SCREEN STAT 07/26/2025 12:02 PM CDT CBC WITH AUTO DIFFERENTIAL STAT 07/26/2025 12:02 PM CDT from Last 3 Months Results * CT Cervical Spine WO Contrast (10/08/2025 1:25 AM [employer] SITE MANAGER) Anatomical Region Laterality Modality Spine N/A Computed Tomogra phy 10/08/2025 1:31 AM [employer] REDEVELOP[employer] SITE MANAGER Impressions 10/08/2025 1:31 AM [employer] REDEVELOP[employer] SITE MANAGER No acute abnormality identified. Electronically signed by: Martínez Mcdonough M.D. Narrative 10/08/2025 1:31 AM [employer] RED[employer]ELOP[employer] SITE MANAGER EXAMINATION: CT of the cervical spine without contrast HISTORY: Neck pain from fall today TECHNIQUE: CT of the cervical spine was performed according to the standard protocol without intravenous contrast. COMPARISON: 08/21/2025 FINDINGS: Moderate to advanced multilevel disc disease and facet arthropathy. No fracture or malalignment is seen. Nonspecific interstitial coarsening and pleural thickening in the lung apices. No acute soft tissue abnormality. Procedure Note Martínez Mcdonough MD - 10/08/2025 EXAMINATION: CT of the cervical spine without contrast HISTORY: Neck pain from fall today TECHNIQUE: CT of the cervical spine was performed according to the standard protocol without intravenous contrast. COMPARISON: 08/21/2025 FINDINGS: Moderate to advanced multilevel disc disease and facet arthropathy. No fracture or malalignment is seen. Nonspecific interstitial coarsening and pleural thickening in the lung apices. No acute soft tissue abnormality. IMPRESSION: No acute abnormality identified. Electronically signed by: Martínez Mcdonough M.D. us Sundar Bunch MD IMG CT PROCEDURES Final Resu lt * CT Facial Bones WO Contrast (10/08/2025 1:25 AM [employer] REDEVELOP[employer] SITE MANAGER) Anatomical Region Laterality Modality Head and Neck N/A Computed Tomogra phy 10/08/2025 1:34 AM [employer] REDEVELOP[employer] SITE MANAGER Impressions 10/08/2025 1:34 AM [employer] REDEVELOP[employer] SITE MANAGER No acute abnormality identified. Mild, chronic nasal bone deformities unchanged. Electronically signed by: Martínez Mcdonough M.D. Narrative 10/08/2025 1:34 AM [employer] REDEVELOP[employer] SITE MANAGER EXAMINATION: CT of the maxillofacial bones, orbits, and paranasal sinuses without contrast HISTORY: Fall with facial injury tonight TECHNIQUE: Computed tomography of the maxillofacial bones, orbits, and paranasal sinuses was performed without intravenous contrast according to the standard protocol. COMPARISON: 08/21/2025 FINDINGS: No fracture or malalignment identified. Moderate TMJ osteoarthritis. Cervical spine reviewed separately. Skull base airspaces are clear. Orbits and globes appear normal. Procedure Note Martínez Mcdonough MD - 10/08/2025 EXAMINATION: CT of the maxillofacial bones, orbits, and paranasal sinuses without contrast HISTORY: Fall with facial injury tonight TECHNIQUE: Computed tomography of the maxillofacial bones, orbits, and paranasal sinuses was performed without intravenous contrast according to the standard protocol. COMPARISON: 08/21/2025 FINDINGS: No fracture or malalignment identified. Moderate TMJ osteoarthritis. Cervical spine reviewed separately. Skull base airspaces are clear. Orbits and globes appear normal. IMPRESSION: No acute abnormality identified. Mild, chronic nasal bone deformities unchanged. Electronically signed by: Martínez Mcdonough M.D. us Sundar Bunch MD IMG CT PROCEDURES Final Resu lt * CT Head WO Contrast (10/08/2025 1:25 AM [employer] REDEVELOPMENT SITE MANAGER) Anatomical Region Laterality Modality Head and Neck N/A Computed Tomogra phy 10/08/2025 1:30 AM [employer] REDEVELOPMENT SITE MANAGER Impressions 10/08/2025 1:30 AM [employer] REDEVELOP[employer] SITE MANAGER No acute abnormality identified. Electronically signed by: Martínez Mcdonough M.D. Narrative 10/08/2025 1:30 AM [employer]EVELOP[employer] SITE MANAGER EXAMINATION: 1. CT head without contrast 2. 3D volume rendering of head CT HISTORY: Head injury from fall tonight TECHNIQUE: CT of the head was performed with images acquired from skull base to vertex without intravenous contrast. 3D surface reconstructions were performed by the technologist at the CT scanner. COMPARISON: 09/25/2025 FINDINGS: No acute bleed or infarct is seen. Mild chronic white matter disease. Patchy hypoattenuation throughout the cerebellum similar to the prior. Orbits and globes unremarkable. Facial soft tissues appear normal. Osseous structures unremarkable. Procedure Note Martínez Mcdonough MD - 10/08/2025 EXAMINATION: 1. CT head without contrast 2. 3D volume rendering of head CT HISTORY: Head injury from fall tonight TECHNIQUE: CT of the head was performed with images acquired from skull base to vertex without intravenous contrast. 3D surface reconstructions were performed by the technologist at the CT scanner. COMPARISON: 09/25/2025 FINDINGS: No acute bleed or infarct is seen. Mild chronic white matter disease. Patchy hypoattenuation throughout the cerebellum similar to the prior. Orbits and globes unremarkable. Facial soft tissues appear normal. Osseous structures unremarkable. IMPRESSION: No acute abnormality identified. Electronically signed by: Martínez Mcdonough M.D. us Sundar Bunch MD IMG CT PROCEDURES Final Resu lt * eGFR (10/08/2025 12:58 AM [employer] REDEVELOP[employer] SITE MANAGER) Pathologist [facility] eGFR >90 >=60 mL/min/1. 73 m2 Comment: Interpretive Data Reference Interval Normal >/= 90 mL/min/1.73m2 Mildly decreased* 60 - 89 mL/min/1.73m2 Mildly to moderately decreased 45 - 59 mL/min/1.73m2 Moderately to severely decreased 30 - 44 mL/min/1.73m2 Severely decreased 15 - 29 mL/min/1.73m2 Kidney Failure < 15 mL/min/1.73m2 *Relative to young adult level Estimated glomerular filtration rate is determined by the 2020 CKD-EPI equation recommended by the National Kidney Foundation (A Unifying Approach to GFR Estimation: Recommendations of the NKF-ASK Task Force on Reassessing the Inclusion of Race in Diagnosing Kidney Disease, JASN 2020). The CKD-EPI equation should not be used for patients with unstable renal function and has not been validated in children and those over 70. Current interpretive data was last reviewed 2021. Blood 10/08/2025 12:5 8 AM [employer] RED[employer]EL[employer] SITE MANAGER 10/08/2025 1:28 AM [employer] REDEVELOP[employer] SITE MANAGER Sundar Bunch MD LAB BLOOD ORDERABLES Final R esult [facility] 1 [facility] [place] [address] * Differential, auto (10/08/2025 12:58 AM [employer] REDEVELOPMENT SITE MANAGER) Pathologist [facility] Neutrophil abs 6.48 1.50 - 6.50 K/cumm Imm gran abs 0.04 0.00 - 0.10 K/cumm [facility] Lymphocyte abs 0.94 0.80 - 3.30 K/cumm [facility]) Monocyte abs 0.63 0.20 - 0.80 K/cumm [facility]) Eosinophil abs 0.15 0.00 - 0.50 K/cumm [facility] ([place]) Basophil abs 0.01 0.00 - 0.10 K/cumm [facility]) Neutrophil pct 78.6 % [facility] ([place]) Comment: Interpretive Data Percent cell count reference ranges are not reported, since discordance with absolute values may lead to misinterpretation of CBC data. Current Interpretive Data was last revised on 2018. Imm gran pct 0.5 % [facility] ([place]) Comment: Interpretive Data Percent cell count reference ranges are not reported, since discordance with absolute values may lead to misinterpretation of CBC data. Current Interpretive Data was last revised on 2018. Lymphocyte pct 11.4 % [facility] ([place]) Comment: Interpretive Data Percent cell count reference ranges are not reported, since discordance with absolute values may lead to misinterpretation of CBC data. Current Interpretive Data was last revised on 2018. Monocyte pct 7.6 % [facility] ([place]) Comment: Interpretive Data Percent cell count reference ranges are not reported, since discordance with absolute values may lead to misinterpretation of CBC data. Current Interpretive Data was last revised on 2018. Eosinophil pct 1.8 % [facility] ([place]) Comment: Interpretive Data Percent cell count reference ranges are not reported, since discordance with absolute values may lead to misinterpretation of CBC data. Current Interpretive Data was last revised on 2018. Basophil pct 0.1 % [facility] ([place]) Comment: Interpretive Data Percent cell count reference ranges are not reported, since discordance with absolute values may lead to misinterpretation of CBC data. Current Interpretive Data was last revised on 2018. Blood 10/08/2025 12:5 8 AM [employer] REDEVELOPMENT SITE MANAGER 10/08/2025 1:28 AM [employer] REDEVELOP[employer] SITE MANAGER us Sundar Bunch MD LAB BLOOD ORDERABLES Final R esult [facility] ([place]) 1 [facility] [place] [address] * (ABNORMAL) CBC with auto differential (10/08/2025 12:58 AM [employer] REDEVELOPMENT SITE MANAGER) WBC 8.25 3.80 - 9.90 K/cumm Hgb 9.1(L) 13.0 - 17.5 g/dL [facility]) Hct 28.8(L) 38.9 - 50.3 % [facility]) Plt 256 150 - 400 K/cumm [facility]) MPV 10.1 9.1 - 12.3 fL [facility]) RBC 2.97(L) 4.30 - 5.80 M/cumm [facility]) MCV 97.0(H) 81.3 - 96.4 fL [facility]) MCH 30.6 27.1 - 33.3 pg [facility] ([place]) MCHC 31.6(L) 32.3 - 35.7 g/dL [facility] ([place]) RDW CV 16.5(H) 11.1 - 14.9 % [facility]) RDW SD 58.3(H) 35.7 - 48.1 fL [facility]) NRBC abs 0.00 0.00 - 0.01 K/cumm [facility] ([place]) Blood 10/08/2025 12:5 8 AM [employer] REDEVELOPMENT SITE MANAGER 10/08/2025 1:28 AM [employer] REDEVELOPMENT SITE MANAGER Sundar Bunch MD LAB BLOOD ORDERABLES Final R esult [facility] ([place]) 1 [facility] [place] [address] * (ABNORMAL) Comprehensive metabolic panel (10/08/2025 12:58 AM [employer] REDEVELOPMENT SITE MANAGER) Sodium 136 135 - 145 mmol/L Potassium, pl 3.8 3.3 - 4.9 mmol/L [facility]) Chloride 101 97 - 110 mmol/L [facility]) CO2 35(H) 22 - 32 mmol/L [facility]) Anion gap 0(L) 2 - 15 mmol/L [facility]) BUN 15 6 - 25 mg/dL [facility]) Creatinine 0.84 0.80 - 1.30 mg/dL [facility]) Glucose 120 70 - 199 mg/dL [facility]) Comment: Interpretive Data Fasting glucose >/= 126 mg/dl is diagnostic for diabetes. Fasting is defined as no caloric intake for at least 8 hours. Fasting glucose between 100 mg/dl to 125 mg/dl is diagnostic of prediabetes. In a patient with classic symptoms of hyperglycemia or hyperglycemic crisis, a random glucose >/= 200 mg/dl is diagnostic for diabetes. In the absence of unequivocal hyperglycemia, results should be confirmed by repeat testing. The classification and Diagnosis of Diabetes Diabetes Care 2021; 46: S19-S40. Current interpretive data was last revised 2022. Calcium 9.2 8.5 - 10.3 mg/dL [facility]) Bilirubin, total 0.8 0.1 - 1.2 mg/dL [facility] ([place]) Protein, pl 6.4(L) 6.5 - 8.5 g/dL [facility]) Albumin 3.2(L) 3.5 - 5.0 g/dL [facility]) Alk phos 98 40 - 130 Units/L [facility]) ALT 20 7 - 55 Units/L [facility]) AST 26 10 - 50 Units/L [facility]) Blood 10/08/2025 12:5 8 AM [employer] REDEVELOPMENT SITE MANAGER 10/08/2025 1:28 AM [employer] REDEVELOPMENT SITE MANAGER us Sundar Bunch MD LAB BLOOD ORDERABLES Final R esult Performing Organization Address City/[facility]/ZIP Co de Phone Number [facility] ([place]) 1 [facility] [place] [address] * POCT glucose (10/07/2025 11:29 AM [employer] REDEVELOPMENT SITE MANAGER) Glucose, POC 135 70 - 199 mg/dL Blood 10/07/2025 11:2 9 AM [employer] REDEVELOPMENT SITE MANAGER 10/07/2025 11:29 AM [employer] REDEVELOPMENT SITE MANAGER us Ladan Thibodeaux MD LAB POCT ORDERABLES - DEV ICE Final Result Performing Organization Address City/[facility]/ZIP Co de Phone Number [facility] ([place]) 1 [facility] [place] [address] * XR Abdomen 1 View AP (10/06/2025 8:29 PM [employer] REDEVELOPMENT SITE MANAGER) Anatomical Region Laterality Modality Body, Abdomen N/A Computed Radiogr aphy 10/06/2025 9:41 PM [employer] REDEVELOPMENT SITE MANAGER Impressions 10/06/2025 9:41 PM [employer] REDEVELOPMENT SITE MANAGER 1. Nonobstructive bowel gas pattern. Electronically signed by: Dash Hair M.D. Narrative 10/06/2025 9:41 PM [employer] REDEVELOPMENT SITE MANAGER EXAMINATION: XR ABDOMEN AP 1 VIEW HISTORY: abdominal pain TECHNIQUE: Single view the abdomen COMPARISON: Prior exam 09/25/2025 and 08/30/2025 FINDINGS: Lung base demonstrates no infiltrate. Nonobstructive bowel gas pattern. Mild stool ascending colon tapering distally. No dilated loops of small bowel. Vertebroplasty L1. Aortobiiliac stent graft is again seen. Procedure Note Dash Hair MD - 10/06/2025 EXAMINATION: XR ABDOMEN AP 1 VIEW HISTORY: abdominal pain TECHNIQUE: Single view the abdomen COMPARISON: Prior exam 09/25/2025 and 08/30/2025 FINDINGS: Lung base demonstrates no infiltrate. Nonobstructive bowel gas pattern. Mild stool ascending colon tapering distally. No dilated loops of small bowel. Vertebroplasty L1. Aortobiiliac stent graft is again seen. IMPRESSION: 1. Nonobstructive bowel gas pattern. Electronically signed by: Dash Hair M.D. us Ladan Thibodeaux MD IMG XR PROCEDURES Final R esult * eGFR (10/04/2025 3:25 AM [employer] REDEVELOPMENT SITE MANAGER) eGFR >90 >=60 mL/min/1. 73 m2 Comment: Interpretive Data Reference Interval Normal >/= 90 mL/min/1.73m2 Mildly decreased* 60 - 89 mL/min/1.73m2 Mildly to moderately decreased 45 - 59 mL/min/1.73m2 Moderately to severely decreased 30 - 44 mL/min/1.73m2 Severely decreased 15 - 29 mL/min/1.73m2 Kidney Failure < 15 mL/min/1.73m2 *Relative to young adult level Estimated glomerular filtration rate is determined by the 2020 CKD-EPI equation recommended by the National Kidney Foundation (A Unifying Approach to GFR Estimation: Recommendations of the NKF-ASK Task Force on Reassessing the Inclusion of Race in Diagnosing Kidney Disease, JASN 2020). The CKD-EPI equation should not be used for patients with unstable renal function and has not been validated in children and those over 70. Current interpretive data was last reviewed 2021. Blood 10/04/2025 3:25 AM [employer] REDEVELOPMENT SITE MANAGER 10/04/2025 3:44 AM [employer] REDEVELOPMENT SITE MANAGER us Heath Estrada Jr., MD LAB BLOOD ORDERABLE S Final Result [facility] ([place]) 1 [facility] [place] [address] * (ABNORMAL) CBC without differential (10/04/2025 3:25 AM [employer] REDEVELOPMENT SITE MANAGER) WBC 10.39(H) 3.80 - 9.90 K/cumm Hgb 8.8(L) 13.0 - 17.5 g/dL [facility] ([place]) Hct 27.9(L) 38.9 - 50.3 % [facility] ([place]) Plt 228 150 - 400 K/cumm [facility] ([place]) MPV 9.6 9.1 - 12.3 fL [facility]) RBC 2.90(L) 4.30 - 5.80 M/cumm [facility] ([place]) MCV 96.2 81.3 - 96.4 fL [facility]) MCH 30.3 27.1 - 33.3 pg [facility]) MCHC 31.5(L) 32.3 - 35.7 g/dL [facility]) RDW CV 16.2(H) 11.1 - 14.9 % [facility]) RDW SD 57.1(H) 35.7 - 48.1 fL [facility]) NRBC abs 0.00 0.00 - 0.01 K/cumm [facility]) Blood 10/04/2025 3:25 AM [employer] REDEVELOPMENT SITE MANAGER 10/04/2025 3:44 AM [employer] REDEVELOPMENT SITE MANAGER us Wes Lorenz MD LAB BLOOD ORDERABLES Fi nal Result [facility] ([place]) 1 [facility] [place] [address] * (ABNORMAL) Comprehensive metabolic panel (10/04/2025 3:25 AM BR[employer]FIELD REDEVELOPMENT SITE MANAGER) Sodium 136 135 - 145 mmol/L Potassium, pl 3.7 3.3 - 4.9 mmol/L [facility]) Chloride 101 97 - 110 mmol/L [facility]) CO2 28 22 - 32 mmol/L [facility]) Anion gap 7 2 - 15 mmol/L [facility]) BUN 18 6 - 25 mg/dL [facility]) Creatinine 0.84 0.80 - 1.30 mg/dL [facility]) Glucose 115 70 - 199 mg/dL [facility] ([place]) Comment: Interpretive Data Fasting glucose >/= 126 mg/dl is diagnostic for diabetes. Fasting is defined as no caloric intake for at least 8 hours. Fasting glucose between 100 mg/dl to 125 mg/dl is diagnostic of prediabetes. In a patient with classic symptoms of hyperglycemia or hyperglycemic crisis, a random glucose >/= 200 mg/dl is diagnostic for diabetes. In the absence of unequivocal hyperglycemia, results should be confirmed by repeat testing. The classification and Diagnosis of Diabetes Diabetes Care 2021; 46: S19-S40. Current interpretive data was last revised 2022. Calcium 8.9 8.5 - 10.3 mg/dL [facility]) Bilirubin, total 0.6 0.1 - 1.2 mg/dL [facility] ([place]) Protein, pl 6.0(L) 6.5 - 8.5 g/dL [facility]) Albumin 2.9(L) 3.5 - 5.0 g/dL [facility] ([place]) Alk phos 84 40 - 130 Units/L [facility]) ALT 16 7 - 55 Units/L [facility]) AST 16 10 - 50 Units/L [facility]) Blood 10/04/2025 3:25 AM [employer]FIELD REDEVELOPMENT SITE MANAGER 10/04/2025 3:44 AM [employer] REDEVELOPMENT SITE MANAGER us Heath Estrada Jr., MD LAB BLOOD ORDERABLE S Final Result [facility] ([place]) 1 [facility] [place] [address] * eGFR (10/03/2025 4:22 AM [employer] REDEVELOPMENT SITE MANAGER) eGFR 90 >=60 mL/min/1. 73 m2 Comment: Interpretive Data Reference Interval Normal >/= 90 mL/min/1.73m2 Mildly decreased* 60 - 89 mL/min/1.73m2 Mildly to moderately decreased 45 - 59 mL/min/1.73m2 Moderately to severely decreased 30 - 44 mL/min/1.73m2 Severely decreased 15 - 29 mL/min/1.73m2 Kidney Failure < 15 mL/min/1.73m2 *Relative to young adult level Estimated glomerular filtration rate is determined by the 2020 CKD-EPI equation recommended by the National Kidney Foundation (A Unifying Approach to GFR Estimation: Recommendations of the NKF-ASK Task Force on Reassessing the Inclusion of Race in Diagnosing Kidney Disease, JASN 2020). The CKD-EPI equation should not be used for patients with unstable renal function and has not been validated in children and those over 70. Current interpretive data was last reviewed 2021. Blood 10/03/2025 4:22 AM [employer]FIELD REDEVELOPMENT SITE MANAGER 10/03/2025 5:04 AM [employer] REDEVELOPMENT SITE MANAGER us Heath Estrada Jr., MD LAB BLOOD ORDERABLE S Final Result [facility] ([place]) 1 [facility] [place] [address] * (ABNORMAL) CBC without differential (10/03/2025 4:22 AM BROWNFIELD REDEVELOPMENT SITE MANAGER) WBC 9.82 3.80 - 9.90 K/cumm Hgb 8.2(L) 13.0 - 17.5 g/dL [facility] ([place]) Hct 26.5(L) 38.9 - 50.3 % [facility] ([place]) Plt 233 150 - 400 K/cumm [facility] ([place]) MPV 9.8 9.1 - 12.3 fL [facility] ([place]) RBC 2.72(L) 4.30 - 5.80 M/cumm [facility] ([place]) MCV 97.4(H) 81.3 - 96.4 fL [facility] ([place]) MCH 30.1 27.1 - 33.3 pg [facility] ([place]) MCHC 30.9(L) 32.3 - 35.7 g/dL [facility] ([place]) RDW CV 16.2(H) 11.1 - 14.9 % [facility]) RDW SD 57.4(H) 35.7 - 48.1 fL [facility] ([place]) NRBC abs 0.00 0.00 - 0.01 K/cumm [facility] ([place]) Blood 10/03/2025 4:22 AM [employer]FIELD REDEVELOPMENT SITE MANAGER 10/03/2025 5:04 AM [employer] REDEVELOPMENT SITE MANAGER us Wes Lorenz MD LAB BLOOD ORDERABLES Fi nal Result [facility] ([place]) 1 [facility] [place] [address] * (ABNORMAL) Comprehensive metabolic panel (10/03/2025 4:22 AM BR[employer]FIELD REDEVELOPMENT SITE MANAGER) Sodium 139 135 - 145 mmol/L Potassium, pl 3.9 3.3 - 4.9 mmol/L [facility] ([place]) Chloride 104 97 - 110 mmol/L [facility]) CO2 27 22 - 32 mmol/L [facility] ([place]) Anion gap 8 2 - 15 mmol/L [facility] ([place]) BUN 24 6 - 25 mg/dL [facility]) Creatinine 0.89 0.80 - 1.30 mg/dL [facility] ([place]) Glucose 104 70 - 199 mg/dL [facility] ([place]) Comment: Interpretive Data Fasting glucose >/= 126 mg/dl is diagnostic for diabetes. Fasting is defined as no caloric intake for at least 8 hours. Fasting glucose between 100 mg/dl to 125 mg/dl is diagnostic of prediabetes. In a patient with classic symptoms of hyperglycemia or hyperglycemic crisis, a random glucose >/= 200 mg/dl is diagnostic for diabetes. In the absence of unequivocal hyperglycemia, results should be confirmed by repeat testing. The classification and Diagnosis of Diabetes Diabetes Care 202; 46: S19-S40. Current interpretive data was last revised 2022. Calcium 8.8 8.5 - 10.3 mg/dL [facility] ([place]) Bilirubin, total 0.6 0.1 - 1.2 mg/dL [facility] ([place]) Protein, pl 5.5(L) 6.5 - 8.5 g/dL [facility] ([place]) Albumin 2.8(L) 3.5 - 5.0 g/dL [facility] ([place]) Alk phos 81 40 - 130 Units/L [facility] ([place]) ALT 18 7 - 55 Units/L [facility]) AST 18 10 - 50 Units/L [facility] ([place]) Blood 10/03/2025 4:22 AM [employer]OWNFIELD REDEVELOPMENT SITE MANAGER 10/03/2025 5:04 AM [employer] REDEVELOPMENT SITE MANAGER us Heath Estrada Jr., MD LAB BLOOD ORDERABLE S Final Result [facility] ([place]) 1 [facility] [place] [address] * eGFR (10/02/2025 3:26 AM BROWNFIELD REDEVELOPMENT SITE MANAGER) eGFR 90 >=60 mL/min/1. 73 m2 Comment: Interpretive Data Reference Interval Normal >/= 90 mL/min/1.73m2 Mildly decreased* 60 - 89 mL/min/1.73m2 Mildly to moderately decreased 45 - 59 mL/min/1.73m2 Moderately to severely decreased 30 - 44 mL/min/1.73m2 Severely decreased 15 - 29 mL/min/1.73m2 Kidney Failure < 15 mL/min/1.73m2 *Relative to young adult level Estimated glomerular filtration rate is determined by the 2020 CKD-EPI equation recommended by the National Kidney Foundation (A Unifying Approach to GFR Estimation: Recommendations of the NKF-ASK Task Force on Reassessing the Inclusion of Race in Diagnosing Kidney Disease, JASN 2020). The CKD-EPI equation should not be used for patients with unstable renal function and has not been validated in children and those over 70. Current interpretive data was last reviewed 2021. Blood 10/02/2025 3:26 AM BROWNFIELD REDEVELOPMENT SITE MANAGER 10/02/2025 3:41 AM [employer]FIELD REDEVELOPMENT SITE MANAGER us Heath Estrada Jr., MD LAB BLOOD ORDERABLE S Final Result [facility] ([place]) 1 [facility] [place] [address] * (ABNORMAL) CBC without differential (10/02/2025 3:26 AM BROWNFIELD REDEVELOPMENT SITE MANAGER) WBC 12.38(H) 3.80 - 9.90 K/cumm Hgb 8.2(L) 13.0 - 17.5 g/dL [facility] ([place]) Hct 26.0(L) 38.9 - 50.3 % [facility] ([place]) Plt 233 150 - 400 K/cumm [facility] ([place]) MPV 9.6 9.1 - 12.3 fL [facility] ([place]) RBC 2.67(L) 4.30 - 5.80 M/cumm [facility] ([place]) MCV 97.4(H) 81.3 - 96.4 fL [facility] ([place]) MCH 30.7 27.1 - 33.3 pg [facility] ([place]) MCHC 31.5(L) 32.3 - 35.7 g/dL [facility] ([place]) RDW CV 16.3(H) 11.1 - 14.9 % [facility] ([place]) RDW SD 58.5(H) 35.7 - 48.1 fL [facility] ([place]) NRBC abs 0.00 0.00 - 0.01 K/cumm [facility] ([place]) Blood 10/02/2025 3:26 AM [employer]FIELD REDEVELOPMENT SITE MANAGER 10/02/2025 3:41 AM BROWNFIELD REDEVELOPMENT SITE MANAGER us Wes Lorenz MD LAB BLOOD ORDERABLES Fi nal Result [facility] ([place]) 1 [facility] [place] [address] * (ABNORMAL) Comprehensive metabolic panel (10/02/2025 3:26 AM BROWNFIELD REDEVELOPMENT SITE MANAGER) Sodium 139 135 - 145 mmol/L Potassium, pl 3.9 3.3 - 4.9 mmol/L [facility] ([place]) Chloride 104 97 - 110 mmol/L [facility]) CO2 25 22 - 32 mmol/L [facility] ([place]) Anion gap 10 2 - 15 mmol/L [facility] ([place]) BUN 25 6 - 25 mg/dL [facility] ([place]) Creatinine 0.89 0.80 - 1.30 mg/dL [facility] ([place]) Glucose 104 70 - 199 mg/dL [facility] ([place]) Comment: Interpretive Data Fasting glucose >/= 126 mg/dl is diagnostic for diabetes. Fasting is defined as no caloric intake for at least 8 hours. Fasting glucose between 100 mg/dl to 125 mg/dl is diagnostic of prediabetes. In a patient with classic symptoms of hyperglycemia or hyperglycemic crisis, a random glucose >/= 200 mg/dl is diagnostic for diabetes. In the absence of unequivocal hyperglycemia, results should be confirmed by repeat testing. The classification and Diagnosis of Diabetes Diabetes Care 2021; 46: S19-S40. Current interpretive data was last revised 2022. Calcium 9.1 8.5 - 10.3 mg/dL [facility] ([place]) Bilirubin, total 0.7 0.1 - 1.2 mg/dL [facility] ([place]) Protein, pl 5.6(L) 6.5 - 8.5 g/dL [facility] ([place]) Albumin 2.9(L) 3.5 - 5.0 g/dL [facility] ([place]) Alk phos 91 40 - 130 Units/L [facility] ([place]) ALT 22 7 - 55 Units/L [facility] ([place]) AST 25 10 - 50 Units/L [facility] ([place]) Blood 10/02/2025 3:26 AM [employer]OWNFIELD REDEVELOPMENT SITE MANAGER 10/02/2025 3:41 AM [employer]OWNFIELD REDEVELOPMENT SITE MANAGER us Heath Estrada Jr., MD LAB BLOOD ORDERABLE S Final Result Performing Organization Address City/[facility] Co de Phone Number R[facility] ([place]) 1 [facility] [place] [address] * eGFR (10/01/2025 3:13 AM BROWNFIELD REDEVELOPMENT SITE MANAGER) eGFR 84 >=60 mL/min/1. 73 m2 Comment: Interpretive Data Reference Interval Normal >/= 90 mL/min/1.73m2 Mildly decreased* 60 - 89 mL/min/1.73m2 Mildly to moderately decreased 45 - 59 mL/min/1.73m2 Moderately to severely decreased 30 - 44 mL/min/1.73m2 Severely decreased 15 - 29 mL/min/1.73m2 Kidney Failure < 15 mL/min/1.73m2 *Relative to young adult level Estimated glomerular filtration rate is determined by the 2020 CKD-EPI equation recommended by the National Kidney Foundation (A Unifying Approach to GFR Estimation: Recommendations of the NKF-ASK Task Force on Reassessing the Inclusion of Race in Diagnosing Kidney Disease, JASN 2020). The CKD-EPI equation should not be used for patients with unstable renal function and has not been validated in children and those over 70. Current interpretive data was last reviewed 2021. Blood 10/01/2025 3:13 AM [employer]FIELD REDEVELOPMENT SITE MANAGER 10/01/2025 3:37 AM [employer] REDEVELOPMENT SITE MANAGER us Heath Estrada Jr., MD LAB BLOOD ORDERABLE S Final Result [facility] ([place]) 1 [facility] [place] [address] * (ABNORMAL) CBC without differential (10/01/2025 3:13 AM BROWNFIELD REDEVELOPMENT SITE MANAGER) [facility] WBC 19.31(H) 3.80 - 9.90 K/cumm Hgb 8.3(L) 13.0 - 17.5 g/dL [facility] ([place]) Hct 26.3(L) 38.9 - 50.3 % [facility] ([place]) Plt 254 150 - 400 K/cumm [facility] ([place]) MPV 9.6 9.1 - 12.3 fL [facility] ([place]) RBC 2.70(L) 4.30 - 5.80 M/cumm [facility] ([place]) MCV 97.4(H) 81.3 - 96.4 fL [facility] ([place]) MCH 30.7 27.1 - 33.3 pg [facility] ([place]) MCHC 31.6(L) 32.3 - 35.7 g/dL [facility] ([place]) RDW CV 16.4(H) 11.1 - 14.9 % [facility] ([place]) RDW SD 58.6(H) 35.7 - 48.1 fL [facility] ([place]) NRBC abs 0.00 0.00 - 0.01 K/cumm [facility] ([place]) Blood 10/01/2025 3:13 AM [employer]FIELD REDEVELOPMENT SITE MANAGER 10/01/2025 3:37 AM [employer]FIELD REDEVELOPMENT SITE MANAGER us Wes Lorenz MD LAB BLOOD ORDERABLES Fi nal Result [facility] ([place]) 1 [facility] [place] [address] * (ABNORMAL) Comprehensive metabolic panel (10/01/2025 3:13 AM BROWNFIELD REDEVELOPMENT SITE MANAGER) [facility] Sodium 138 135 - 145 mmol/L Potassium, pl 3.8 3.3 - 4.9 mmol/L [facility] ([place]) Chloride 103 97 - 110 mmol/L [facility] ([place]) CO2 26 22 - 32 mmol/L [facility] ([place]) Anion gap 9 2 - 15 mmol/L [facility] ([place]) BUN 27(H) 6 - 25 mg/dL [facility] ([place]) Creatinine 0.95 0.80 - 1.30 mg/dL [facility] ([place]) Glucose 164 70 - 199 mg/dL [facility] ([place]) Comment: Interpretive Data Fasting glucose >/= 126 mg/dl is diagnostic for diabetes. Fasting is defined as no caloric intake for at least 8 hours. Fasting glucose between 100 mg/dl to 125 mg/dl is diagnostic of prediabetes. In a patient with classic symptoms of hyperglycemia or hyperglycemic crisis, a random glucose >/= 200 mg/dl is diagnostic for diabetes. In the absence of unequivocal hyperglycemia, results should be confirmed by repeat testing. The classification and Diagnosis of Diabetes Diabetes Care 2021; 46: S19-S40. Current interpretive data was last revised 2022. Calcium 9.4 8.5 - 10.3 mg/dL [facility] ([place]) Bilirubin, total 0.6 0.1 - 1.2 mg/dL [facility] ([place]) Protein, pl 5.8(L) 6.5 - 8.5 g/dL [facility] ([place]) Albumin 3.1(L) 3.5 - 5.0 g/dL [facility] ([place]) Alk phos 78 40 - 130 Units/L [facility] ([place]) ALT 21 7 - 55 Units/L [facility] ([place]) AST 27 10 - 50 Units/L [facility] ([place]) Blood 10/01/2025 3:13 AM [employer]FIELD REDEVELOPMENT SITE MANAGER 10/01/2025 3:37 AM [employer]FIELD REDEVELOPMENT SITE MANAGER us Heath Estrada Jr., MD LAB BLOOD ORDERABLE S Final Result [facility] ([place]) 1 [facility] Department [place] [address] * Potassium, whole blood (09/30/2025 1:46 PM BROWNFIELD REDEVELOPMENT SITE MANAGER) [facility] Potassium, bld 4.3 3.3 - 4.9 mmol/L Comment: Interpretive Data This method is not able to assess for hemolysis, which may falsely increase potassium concentrations. If further testing is needed to evaluate this result, consider in-laboratory plasma potassium. Current Interpretive Data was last revised on 2022. Blood 09/30/2025 1:46 PM [employer]FIELD REDEVELOPMENT SITE MANAGER 09/30/2025 1:59 PM [employer] REDEVELOPMENT SITE MANAGER us Nasim Edwards MD LAB BLOOD ORDERABLES [facility] al Result [facility] ([place]) 1 [facility] Department of Laboratories [place], [place] [id number] * X-ray chest 1 view (Portable) (09/30/2025 1:25 PM BROWNFIELD REDEVELOPMENT SITE MANAGER) Anatomical Region Laterality Modality Body, Chest N/A Computed Radiogr aphy 09/30/2025 1:29 PM BR[employer]FIELD REDEVELOPMENT SITE MANAGER Impressions 09/30/2025 1:29 PM [employer]FIELD REDEVELOPMENT SITE MANAGER 1. Again seen is opacity of the left upper lobe indicative of mass effect better seen on CT 09/19/2025. 2. No superimposed infiltrate. Electronically signed by: Dash Hair M.D. Narrative 09/30/2025 1:29 PM [employer]FIELD REDEVELOPMENT SITE MANAGER EXAMINATION: 1 view chest radiograph COMPARISON: X-rays 09/25/[address] 09/19/2025 FINDINGS: Normal cardiothymic mediastinal silhouette and pulmonary vasculature. Again seen is opacity of the left upper lobe suspicious for mass better seen on the CT of 09/19/2025. Costophrenic angles are sharp. No acute osseous findings. Procedure Note Dash Hair MD - 09/30/2025 EXAMINATION: 1 view chest radiograph COMPARISON: X-rays 09/25/[address] 09/19/2025 FINDINGS: Normal cardiothymic mediastinal silhouette and pulmonary vasculature. Again seen is opacity of the left upper lobe suspicious for mass better seen on the CT of 09/19/2025. Costophrenic angles are sharp. No acute osseous findings. IMPRESSION: 1. Again seen is opacity of the left upper lobe indicative of mass effect better seen on CT 09/19/2025. 2. No superimposed infiltrate. Electronically signed by: Dash Hair M.D. Ángel Grimm DO IMG XR PROCEDURES Final R esult * Surgical pathology (09/30/2025 1:21 PM BROWNFIELD REDEVELOPMENT SITE MANAGER) Bone - Biopsy / Curettings 09/30/2025 1:21 PM BR[employer]FIELD REDEVELOPMENT SITE MANAGER 09/30/2025 1:21 PM BROWNFIELD REDEVELOPMENT SITE MANAGER Narrative 10/02/2025 6:17 PM BROWNFIELD REDEVELOPMENT SITE MANAGER EPIC results best viewed via link to PDF [facility] Department of Pathology [address] [place] [address] Note to Patients: This report may contain a detailed description of human tissue sent by a health care provider to the laboratory for pathologic evaluation. The content of this report is essential for diagnosis and may provide important critical findings. This information may be unfamiliar to patients to review without a medical professional present. It is advised that the patient review this report in the presence of a health care provider who can answer questions and explain the details. Final Report Patient Name: ERICA MANCINI Address: [address] [place] [address]- Gender: M : 1950 (Age: 75) Service: Medical Location: [facility] Hospital #: [id number] Patient Type: [facility] Taken: 09/30/2025 Received: 09/30/2025 Accessioned: 09/30/2025 Reported: 10/02/2025 Physician(s):MD Ángel Hoyt DO Diagnosis: A. Bone, L1 vertebral body, biopsy: - Metastatic squamous cell carcinoma. B. Lung, left upper lobe, endobronchial lesion, biopsy: - Squamous cell carcinoma. Prasanth Rivera MD Report Electronically Reviewed and Signed Out By Prasanth Rivera MD 10/02/2025 18:17:10 Specimen(s) Received: A: Lumbar one vertebral body biopsy B: Left upper lobe endobronchial lesion Microscopic Description: A. Microscopic examination shows blood and fibrin admixed with fragments of trabecular bone with a necrotic medullary space that demonstrates irregular clusters of large pleomorphic cells with high N:C ratio, coarse chromatin, angulated nuclei, and occasional prominent nucleoli. Rare dyskeratotic cells are also seen. AE1/AE3 and p40 stains are performed with appropriately reactive controls on block A1 and are positive in the large pleomorphic cells. The morphology and staining pattern support the diagnosis of metastatic squamous cell carcinoma. B. Microscopic examination shows three small tissue fragments lined by respiratory epithelium, one of which shows a focus with two clusters of large pleomorphic cells with high N:C ratio, coarse chromatin, angulated nuclei, and occasional prominent nucleoli. No definitive keratinization or gland formation are seen. AE1/AE3, p40, TTF-1, and Napsin A stains are performed with appropriately reactive controls on block B1. The large pleomorphic cells are positive for AE1/AE3 and p40 while they are negative for TTF-1 and Napsin A. The electronic medical record is reviewed and the radiographic impression from a CT Chest study (dated 09/19/25)of a 3.9 cm left hilar mass is noted. The morphology and staining pattern support the diagnosis of a squamous cell carcinoma. Clinical History: Collapsed vertebre. Kyphoplasty lumbar 1, lumbar bone biopsy, tumor ablation. Linear EBUS. Gross Description: The specimen is submitted in two formalin containers labeled ERICA GETTEMEIER. A. The first container is labeled lumbar 1 vertebral body biopsy. It is 3 cores of kelly-pink bone, 0.5-1.2 cm in length surrounded by blood clot. All in A following decalcification by EDTA. B. The second container is labeled left upper lobe endobronchial. It is multiple flecks of pink-red questionable tissue varying from minute (<1 mm) to 1 mm. All in B. Lucian Carlos./Fabrice Perez M.D. REPORT IMAGES AND SCANNED DOCUMENTS, IF INCLUDED, ONLY VIEWABLE IN PDF VERSION OF REPORT The performance characteristics of some immunohistochemical stains, fluorescence in-situ hybridization tests and immunophenotyping by flow cytometry cited in this report (if any) were determined by the Surgical Pathology Department at [facility] as part of an ongoing quality assurance auditor program and in compliance with federally mandated regulations drawn from the Clinical Laboratory Improvement Act of 1988 (CLIA '88). Some of these tests rely on the use of analyte specific reagents and are subject to specific labeling requirements by the US Food and Drug Administration. Such diagnostic tests may only be performed in a facility that is certified by the Department of Health and Human Services as a high complexity laboratory under CLIA '88. The FDA has determined that such clearance or approval is not necessary. This test is used for clinical purposes. It should not be regarded as investigational or for research. Nevertheless, federal rules concerning the medical use of analyte specific reagents require that the following disclaimer be attached to the report: This test was developed and its performance characteristics determined by the Surgical Pathology Department [facility]. It has not been cleared or approved by the U. S. Food and Drug Administration. Note for decalcified specimens: This assay has not been validated on decalcified tissues. Results should be interpreted with caution given the possibility of false negativity on decalcified specimens Prasanth Florian MD LAB PATHOLOGY ORDERABLE S Final Result * FL Fluoroscopy < 1 Hour (09/30/2025 11:45 AM BROWNFIELD REDEVELOPMENT SITE MANAGER) Narrative [facility] - 09/30/2025 11:47 AM BROWNFIELD REDEVELOPMENT SITE MANAGER The images from this study are not interpreted by Radiology. Please refer to the physician's procedure / OR operative note. Prasanth Florian MD IMG FLUOROSCOPY PROCEDU RES Final Result [facility] * MS AN ELECTIVE ENDOTRACHEAL AIRWAY (09/30/2025 11:03 AM BROWNFIELD REDEVELOPMENT SITE MANAGER) Narrative Carter Morales CRNA - 09/30/2025 11:03 AM [employer]FIELD REDEVELOPMENT SITE MANAGER Carter Morales CRNA 09/30/2025 11:03 AM Airway Patient location: OR Urgency: elective Date/time: 09/30/2025 11:45 AM Indications for airway management: anesthesia Difficult airway: no Staff: Placed by: ISOBUTYLENE OPERATOR CHIEF: Carter Morales CRNA Emergent airway documentation: Risks and benefits discussed: yes Consent obtained: yes Consent given by: patient Airway prep: Preoxygenated: yes Patient position: sniffing MILS maintained throughout: yes Mask difficulty assessment: 1 - vent by mask Spontaneous ventilation during airway: absent Sedation level during airway: GA Final airway details: Final airway type: endotracheal airway Tube type: ETT ETT size: 8.5 mm Cuffed: yes Technique used for successful ETT placement: video laryngoscopy Insertion site: oral Blade type: Osiel Video blade type: Kim Blade size: 4 Cormack-Lehane (video): grade I - full view of glottis Cuff inflated with: air ETT to teeth: 21 cm Placement verified by: auscultation and CO2 detection Airway secured with: silk tape Number of attempts: 1 Ventilation between attempts: none Planned trial extubation: yes Nasim Edwards MD ANESTHESIA ORDERABLES Fi nal Result * ECG 12 lead (09/30/2025 9:51 AM BROWNFIELD REDEVELOPMENT SITE MANAGER) 09/30/2025 9:51 AM BROWNFIELD REDEVELOPMENT SITE MANAGER Narrative [facility] - 09/30/2025 1:09 PM BROWNFIELD REDEVELOPMENT SITE MANAGER Vent Rate: 47 bpm RR Interval: 1257 msec MS Interval: 0 msec QRS Duration: 81 msec QT Interval: 440 msec QTC Interval: 404 msec P-R-T Elton: 19176 - 28 - -8 degrees IMPRESSION: ATRIAL FIBRILLATION WITH SLOW VENTRICULAR RESPONSE MODERATE ST DEPRESSION [0.05+ mV ST DEPRESSION] ABNORMAL ECG Electronically Signed By: Yan Zayas MD Nasim Edwards MD ECG ORDERABLES Final Re sult [facility] * eGFR (09/30/2025 4:14 AM BROWNFIELD REDEVELOPMENT SITE MANAGER) eGFR >90 >=60 mL/min/1. 73 m2 Comment: Interpretive Data Reference Interval Normal >/= 90 mL/min/1.73m2 Mildly decreased* 60 - 89 mL/min/1.73m2 Mildly to moderately decreased 45 - 59 mL/min/1.73m2 Moderately to severely decreased 30 - 44 mL/min/1.73m2 Severely decreased 15 - 29 mL/min/1.73m2 Kidney Failure < 15 mL/min/1.73m2 *Relative to young adult level Estimated glomerular filtration rate is determined by the 2020 CKD-EPI equation recommended by the National Kidney Foundation (A Unifying Approach to GFR Estimation: Recommendations of the NKF-ASK Task Force on Reassessing the Inclusion of Race in Diagnosing Kidney Disease, JASN 2020). The CKD-EPI equation should not be used for patients with unstable renal function and has not been validated in children and those over 70. Current interpretive data was last reviewed 2021. Blood 09/30/2025 4:14 AM BROWNFIELD REDEVELOPMENT SITE MANAGER 09/30/2025 4:28 AM BROWNFIELD REDEVELOPMENT SITE MANAGER us Heath Estrada Jr., MD LAB BLOOD ORDERABLE S Final Result [facility] ([place]) 1 [facility] Department [place] [address] * (ABNORMAL) CBC without differential (09/30/2025 4:14 AM BROWNFIELD REDEVELOPMENT SITE MANAGER) WBC 14.76(H) 3.80 - 9.90 K/cumm Hgb 8.5(L) 13.0 - 17.5 g/dL [facility] ([place]) Hct 26.9(L) 38.9 - 50.3 % [facility] ([place]) Plt 247 150 - 400 K/cumm [facility] ([place]) MPV 9.2 9.1 - 12.3 fL [facility] ([place]) RBC 2.79(L) 4.30 - 5.80 M/cumm [facility] ([place]) MCV 96.4 81.3 - 96.4 fL [facility] ([place]) MCH 30.5 27.1 - 33.3 pg [facility] ([place]) MCHC 31.6(L) 32.3 - 35.7 g/dL [facility] ([place]) RDW CV 16.1(H) 11.1 - 14.9 % [facility] ([place]) RDW SD 57.1(H) 35.7 - 48.1 fL [facility] ([place]) NRBC abs 0.00 0.00 - 0.01 K/cumm [facility] ([place]) Blood 09/30/2025 4:14 AM BROWNFIELD REDEVELOPMENT SITE MANAGER 09/30/2025 4:27 AM BROWNFIELD REDEVELOPMENT SITE MANAGER us Wes Lorenz MD LAB BLOOD ORDERABLES Fi nal Result [facility] ([place]) 1 [facility] Department [place] [address] * (ABNORMAL) Comprehensive metabolic panel (09/30/2025 4:14 AM BROWNFIELD REDEVELOPMENT SITE MANAGER) Sodium 137 135 - 145 mmol/L Potassium, pl 4.0 3.3 - 4.9 mmol/L [facility] ([place]) Chloride 104 97 - 110 mmol/L [facility] ([place]) CO2 23 22 - 32 mmol/L [facility] ([place]) Anion gap 10 2 - 15 mmol/L [facility] ([place]) BUN 26(H) 6 - 25 mg/dL [facility] ([place]) Creatinine 0.81 0.80 - 1.30 mg/dL [facility] ([place]) Glucose 138 70 - 199 mg/dL [facility] ([place]) Comment: Interpretive Data Fasting glucose >/= 126 mg/dl is diagnostic for diabetes. Fasting is defined as no caloric intake for at least 8 hours. Fasting glucose between 100 mg/dl to 125 mg/dl is diagnostic of prediabetes. In a patient with classic symptoms of hyperglycemia or hyperglycemic crisis, a random glucose >/= 200 mg/dl is diagnostic for diabetes. In the absence of unequivocal hyperglycemia, results should be confirmed by repeat testing. The classification and Diagnosis of Diabetes Diabetes Care 2021; 46: S19-S40. Current interpretive data was last revised 2022. Calcium 9.5 8.5 - 10.3 mg/dL [facility] ([place]) Bilirubin, total 0.8 0.1 - 1.2 mg/dL [facility] ([place]) Protein, pl 6.0(L) 6.5 - 8.5 g/dL [facility] ([place]) Albumin 3.1(L) 3.5 - 5.0 g/dL [facility] ([place]) Alk phos 71 40 - 130 Units/L [facility] ([place]) ALT 19 7 - 55 Units/L [facility] ([place]) AST 26 10 - 50 Units/L [facility] ([place]) Blood 09/30/2025 4:14 AM BROWNFIELD REDEVELOPMENT SITE MANAGER 09/30/2025 4:28 AM BROWNFIELD REDEVELOPMENT SITE MANAGER us Heath Estrada Jr., MD LAB BLOOD ORDERABLE S Final Result [facility] ([place]) [address] [place] [address] Department [place] [address] * Cytology (09/30/2025 12:00 AM BROWNFIELD REDEVELOPMENT SITE MANAGER) Lymph Node (Cytology) 09/30/2025 09/30/2025 1:25 PM BROWNFIELD REDEVELOPMENT SITE MANAGER Narrative 10/04/2025 7:56 AM BROWNFIELD REDEVELOPMENT SITE MANAGER EPIC results best viewed via link to PDF [facility] Department of Pathology [address] [place] [id number] Note to Patients: This report may contain a detailed description of human tissue sent by a health care provider to the laboratory for pathologic evaluation. The content of this report is essential for diagnosis and may provide important critical findings. This information may be unfamiliar to patients to review without a medical professional present. It is advised that the patient review this report in the presence of a health care provider who can answer questions and explain the details. Final Report Patient Name: ERICA MANCINI Address: [address] [place] [address]- Gender: M : 1950 (Age: 75) Service: Medical Location: [facility] Hospital # [id number] Patient Type: [facility] Taken: 09/30/2025 Received: 09/30/2025 Accessioned: 09/30/2025 Reported: 10/04/2025 Physician(s): DO Prasanth Gonzalez MD Diagnosis: Lymph node, 11L, fine-needle aspirate - Metastatic squamous cell carcinoma - See description Juan Pena MD PhD Report Electronically Reviewed and Signed Out By Juan Pnea MD PhD 10/04/2025 07:56:18MARKIE Shore(ASCP)Specimen(s) Received: A: FNA, Endobronchial ultrasound-guided, Station 11L Clinical History: The patient is a 75 year old male with collapsed vertebre. Gross Description: 1 container labeled 11L Lymph Node received with 35 cc red fluid. No immediate assessment performed. Entire specimen processed. 1 ThinPrep and 1 cell block made. Microscopic Description: The 11L specimen is received as 1 ThinPrep slide and slides from 1 cell block. The slides show cells with nuclear enlargement, pleomorphism, moderate cytoplasm and focal tadpole morphology. Immunohistochemical stains are performed and show the cells to be positive for CK AE1/AE3 and p40 with no significant staining by TTF-1 or Napsin. The findings are consistent with metastatic squamous cell carcinoma. Clinical/radiographic correlation is required. The performance characteristics of some immunohistochemical stains, fluorescence in-situ hybridization tests and immunophenotyping by flow cytometry cited in this report (if any) were determined by the Surgical Pathology Department at [facility] as part of an ongoing quality assurance auditor program and in compliance with federally mandated regulations drawn from the Clinical Laboratory Improvement Act of 1988 (CLIA '88). Some of these tests rely on the use of analyte specific reagents and are subject to specific labeling requirements by the US Food and Drug Administration. Such diagnostic tests may only be performed in a facility that is certified by the Department of Health and Human Services as a high complexity laboratory under CLIA '88. The FDA has determined that such clearance or approval is not necessary. This test is used for clinical purposes. It should not be regarded as investigational or for research. Nevertheless, federal rules concerning the medical use of analyte specific reagents require that the following disclaimer be attached to the report: This test was developed and its performance characteristics determined by the Surgical Pathology Department [facility]. It has not been cleared or approved by the U. S. Food and Drug Administration. Unless otherwise noted all cytology processing, staining and screening is performed at [facility] ([address] [place] [address]). REPORT IMAGES AND SCANNED DOCUMENTS, IF INCLUDED, ONLY VIEWABLE IN PDF VERSION OF REPORT us Ángel Grimm DO LAB CYTOLOGY ORDERABLES F inal Result * eGFR (09/29/2025 7:52 AM BROWNFIELD REDEVELOPMENT SITE MANAGER) eGFR 86 >=60 mL/min/1. 73 m2 Comment: Interpretive Data Reference Interval Normal >/= 90 mL/min/1.73m2 Mildly decreased* 60 - 89 mL/min/1.73m2 Mildly to moderately decreased 45 - 59 mL/min/1.73m2 Moderately to severely decreased 30 - 44 mL/min/1.73m2 Severely decreased 15 - 29 mL/min/1.73m2 Kidney Failure < 15 mL/min/1.73m2 *Relative to young adult level Estimated glomerular filtration rate is determined by the 2020 CKD-EPI equation recommended by the National Kidney Foundation (A Unifying Approach to GFR Estimation: Recommendations of the NKF-ASK Task Force on Reassessing the Inclusion of Race in Diagnosing Kidney Disease, JASN 2020). The CKD-EPI equation should not be used for patients with unstable renal function and has not been validated in children and those over 70. Current interpretive data was last reviewed 2021. Blood 09/29/2025 7:52 AM BROWNFIELD REDEVELOPMENT SITE MANAGER 09/29/2025 8:31 AM BROWNFIELD REDEVELOPMENT SITE MANAGER us Heath Estrada Jr., MD LAB BLOOD ORDERABLE S Final Result [facility] ([place]) 1 [facility] Department of Laboratories [place], [place] [id number] * (ABNORMAL) CBC without differential (09/29/2025 7:52 AM BROWNFIELD REDEVELOPMENT SITE MANAGER) WBC 15.81(H) 3.80 - 9.90 K/cumm Hgb 8.5(L) 13.0 - 17.5 g/dL [facility] ([place]) Hct 27.0(L) 38.9 - 50.3 % [facility] ([place]) Plt 261 150 - 400 K/cumm [facility] ([place]) MPV 9.2 9.1 - 12.3 fL [facility] ([place]) RBC 2.79(L) 4.30 - 5.80 M/cumm [facility] ([place]) MCV 96.8(H) 81.3 - 96.4 fL [facility] ([place]) MCH 30.5 27.1 - 33.3 pg [facility] ([place]) MCHC 31.5(L) 32.3 - 35.7 g/dL [facility] ([place]) RDW CV 16.1(H) 11.1 - 14.9 % [facility] ([place]) RDW SD 56.6(H) 35.7 - 48.1 fL [facility] ([place]) NRBC abs 0.00 0.00 - 0.01 K/cumm [facility] ([place]) Blood 09/29/2025 7:52 AM BROWNFIELD REDEVELOPMENT SITE MANAGER 09/29/2025 8:31 AM BROWNFIELD REDEVELOPMENT SITE MANAGER us Wes Lorenz MD LAB BLOOD ORDERABLES Fi nal Result [facility] ([place] 1 [facility] [place] [address] * (ABNORMAL) Comprehensive metabolic panel (09/29/2025 7:52 AM BROWNFIELD REDEVELOPMENT SITE MANAGER) Sodium 138 135 - 145 mmol/L Potassium, pl 3.6 3.3 - 4.9 mmol/L [facility] ([place]) Chloride 104 97 - 110 mmol/L [facility] ([place]) CO2 25 22 - 32 mmol/L [facility] ([place]) Anion gap 9 2 - 15 mmol/L [facility] ([place]) BUN 25 6 - 25 mg/dL [facility] ([place]) Creatinine 0.93 0.80 - 1.30 mg/dL [facility] ([place]) Glucose 91 70 - 199 mg/dL [facility] ([place]) Comment: Interpretive Data Fasting glucose >/= 126 mg/dl is diagnostic for diabetes. Fasting is defined as no caloric intake for at least 8 hours. Fasting glucose between 100 mg/dl to 125 mg/dl is diagnostic of prediabetes. In a patient with classic symptoms of hyperglycemia or hyperglycemic crisis, a random glucose >/= 200 mg/dl is diagnostic for diabetes. In the absence of unequivocal hyperglycemia, results should be confirmed by repeat testing. The classification and Diagnosis of Diabetes Diabetes Care 2021; 46: S19-S40. Current interpretive data was last revised 2022. Calcium 9.4 8.5 - 10.3 mg/dL [facility] ([place]) Bilirubin, total 0.7 0.1 - 1.2 mg/dL [facility] ([place]) Protein, pl 6.0(L) 6.5 - 8.5 g/dL [facility] ([place]) Albumin 3.1(L) 3.5 - 5.0 g/dL [facility] ([place]) Alk phos 70 40 - 130 Units/L [facility] ([place]) ALT 20 7 - 55 Units/L [facility] ([place]) AST 16 10 - 50 Units/L [facility] ([place]) Blood 09/29/2025 7:52 AM [employer]FIELD REDEVELOPMENT SITE MANAGER 09/29/2025 8:31 AM [employer]FIELD REDEVELOPMENT SITE MANAGER us Heath Estrada Jr., MD LAB BLOOD ORDERABLE S Final Result [facility] ([place]) 1 [facility] [place] [address] * eGFR (09/28/2025 6:28 AM [employer]OWNFIELD REDEVELOPMENT SITE MANAGER) eGFR 85 >=60 mL/min/1. 73 m2 Comment: Interpretive Data Reference Interval Normal >/= 90 mL/min/1.73m2 Mildly decreased* 60 - 89 mL/min/1.73m2 Mildly to moderately decreased 45 - 59 mL/min/1.73m2 Moderately to severely decreased 30 - 44 mL/min/1.73m2 Severely decreased 15 - 29 mL/min/1.73m2 Kidney Failure < 15 mL/min/1.73m2 *Relative to young adult level Estimated glomerular filtration rate is determined by the 2020 CKD-EPI equation recommended by the National Kidney Foundation (A Unifying Approach to GFR Estimation: Recommendations of the NKF-ASK Task Force on Reassessing the Inclusion of Race in Diagnosing Kidney Disease, JASN 2021). The CKD-EPI equation should not be used for patients with unstable renal function and has not been validated in children and those over 70. Current interpretive data was last reviewed 2021. Blood 09/28/2025 6:28 AM [employer]OWNFIELD REDEVELOPMENT SITE MANAGER 09/28/2025 7:35 AM [employer]FIELD REDEVELOPMENT SITE MANAGER us Heath Estrada Jr., MD LAB BLOOD ORDERABLE S Final Result [facility] ([place]) 1 [facility] [place] [address] * (ABNORMAL) CBC without differential (09/28/2025 6:28 AM BROWNFIELD REDEVELOPMENT SITE MANAGER) Pathologist [facility] WBC 13.36(H) 3.80 - 9.90 K/cumm Hgb 8.5(L) 13.0 - 17.5 g/dL [facility] ([place]) Hct 27.1(L) 38.9 - 50.3 % [facility] ([place]) Plt 263 150 - 400 K/cumm [facility] ([place]) MPV 9.5 9.1 - 12.3 fL [facility] ([place]) RBC 2.77(L) 4.30 - 5.80 M/cumm [facility] ([place]) MCV 97.8(H) 81.3 - 96.4 fL [facility] ([place]) MCH 30.7 27.1 - 33.3 pg [facility] ([place]) MCHC 31.4(L) 32.3 - 35.7 g/dL [facility] ([place]) RDW CV 16.1(H) 11.1 - 14.9 % [facility] ([place]) RDW SD 57.6(H) 35.7 - 48.1 fL [facility] ([place]) NRBC abs 0.00 0.00 - 0.01 K/cumm [facility] ([place]) Blood 09/28/2025 6:28 AM [employer]FIELD REDEVELOPMENT SITE MANAGER 09/28/2025 7:35 AM [employer]FIELD REDEVELOPMENT SITE MANAGER us Wes Lorenz MD LAB BLOOD ORDERABLES Fi nal Result [facility] ([place]) 1 [facility] [place] [address] * (ABNORMAL) Comprehensive metabolic panel (09/28/2025 6:28 AM BROWNFIELD REDEVELOPMENT SITE MANAGER) [facility] Sodium 140 135 - 145 mmol/L Potassium, pl 4.6 3.3 - 4.9 mmol/L [facility] ([place]) Chloride 107 97 - 110 mmol/L [facility] ([place]) CO2 23 22 - 32 mmol/L [facility] ([place]) Anion gap 10 2 - 15 mmol/L [facility] ([place]) BUN 29(H) 6 - 25 mg/dL [facility] ([place]) Creatinine 0.94 0.80 - 1.30 mg/dL [facility] ([place]) Glucose 154 70 - 199 mg/dL [facility] ([place]) Comment: Interpretive Data Fasting glucose >/= 126 mg/dl is diagnostic for diabetes. Fasting is defined as no caloric intake for at least 8 hours. Fasting glucose between 100 mg/dl to 125 mg/dl is diagnostic of prediabetes. In a patient with classic symptoms of hyperglycemia or hyperglycemic crisis, a random glucose >/= 200 mg/dl is diagnostic for diabetes. In the absence of unequivocal hyperglycemia, results should be confirmed by repeat testing. The classification and Diagnosis of Diabetes Diabetes Care 202; 46: S19-S40. Current interpretive data was last revised 2022. Calcium 9.7 8.5 - 10.3 mg/dL [facility] ([place]) Bilirubin, total 0.4 0.1 - 1.2 mg/dL [facility] ([place]) Protein, pl 6.3(L) 6.5 - 8.5 g/dL [facility] ([place]) Albumin 3.4(L) 3.5 - 5.0 g/dL [facility] ([place]) Alk phos 81 40 - 130 Units/L [facility] ([place]) ALT 22 7 - 55 Units/L [facility] ([place]) AST 22 10 - 50 Units/L [facility] ([place]) Blood 09/28/2025 6:28 AM BROWNFIELD REDEVELOPMENT SITE MANAGER 09/28/2025 7:35 AM [employer]FIELD REDEVELOPMENT SITE MANAGER us Heath Estrada Jr., MD LAB BLOOD ORDERABLE S Final Result [facility] ([place]) 1 [facility] [place] [address] * eGFR (09/27/2025 3:23 AM BROWNFIELD REDEVELOPMENT SITE MANAGER) eGFR 75 >=60 mL/min/1. 73 m2 Comment: Interpretive Data Reference Interval Normal >/= 90 mL/min/1.73m2 Mildly decreased* 60 - 89 mL/min/1.73m2 Mildly to moderately decreased 45 - 59 mL/min/1.73m2 Moderately to severely decreased 30 - 44 mL/min/1.73m2 Severely decreased 15 - 29 mL/min/1.73m2 Kidney Failure < 15 mL/min/1.73m2 *Relative to young adult level Estimated glomerular filtration rate is determined by the 2020 CKD-EPI equation recommended by the National Kidney Foundation (A Unifying Approach to GFR Estimation: Recommendations of the NKF-ASK Task Force on Reassessing the Inclusion of Race in Diagnosing Kidney Disease, JASN 2020). The CKD-EPI equation should not be used for patients with unstable renal function and has not been validated in children and those over 70. Current interpretive data was last reviewed 2021. Blood 09/27/2025 3:23 AM BROWNFIELD REDEVELOPMENT SITE MANAGER 09/27/2025 4:32 AM BR[employer]FIELD REDEVELOPMENT SITE MANAGER us Heath Estrada Jr., MD LAB BLOOD ORDERABLE S Final Result [facility] ([place]) 1 [facility] [place] [address] * (ABNORMAL) CBC without differential (09/27/2025 3:23 AM BROWNFIELD REDEVELOPMENT SITE MANAGER) WBC 13.67(H) 3.80 - 9.90 K/cumm Hgb 8.4(L) 13.0 - 17.5 g/dL [facility] ([place]) Hct 26.3(L) 38.9 - 50.3 % [facility] ([place]) Plt 289 150 - 400 K/cumm [facility] ([place]) MPV 9.4 9.1 - 12.3 fL [facility] ([place]) RBC 2.77(L) 4.30 - 5.80 M/cumm [facility] ([place]) MCV 94.9 81.3 - 96.4 fL [facility] ([place]) MCH 30.3 27.1 - 33.3 pg [facility] ([place]) MCHC 31.9(L) 32.3 - 35.7 g/dL [facility] ([place]) RDW CV 16.1(H) 11.1 - 14.9 % [facility] ([place]) RDW SD 55.7(H) 35.7 - 48.1 fL [facility] ([place]) NRBC abs 0.00 0.00 - 0.01 K/cumm [facility] ([place] Blood 09/27/2025 3:23 AM BROWNFIELD REDEVELOPMENT SITE MANAGER 09/27/2025 4:32 AM BROWNFIELD REDEVELOPMENT SITE MANAGER us Wes Lorenz MD LAB BLOOD ORDERABLES Fi nal Result [facility] ([place]) 1 [facility] [place] [address] * (ABNORMAL) Comprehensive metabolic panel (09/27/2025 3:23 AM BROWNFIELD REDEVELOPMENT SITE MANAGER) Sodium 134(L) 135 - 145 mmol/L Potassium, pl 4.1 3.3 - 4.9 mmol/L [facility] ([place] Chloride 103 97 - 110 mmol/L [facility] ([place]) CO2 23 22 - 32 mmol/L [facility] ([place]) Anion gap 8 2 - 15 mmol/L [facility] ([place] BUN 32(H) 6 - 25 mg/dL [facility] ([place]) Creatinine 1.04 0.80 - 1.30 mg/dL [facility] ([place]) Glucose 135 70 - 199 mg/dL [facility] ([place]) Comment: Interpretive Data Fasting glucose >/= 126 mg/dl is diagnostic for diabetes. Fasting is defined as no caloric intake for at least 8 hours. Fasting glucose between 100 mg/dl to 125 mg/dl is diagnostic of prediabetes. In a patient with classic symptoms of hyperglycemia or hyperglycemic crisis, a random glucose >/= 200 mg/dl is diagnostic for diabetes. In the absence of unequivocal hyperglycemia, results should be confirmed by repeat testing. The classification and Diagnosis of Diabetes Diabetes Care 2021; 46: S19-S40. Current interpretive data was last revised 2022. Calcium 9.7 8.5 - 10.3 mg/dL [facility] ([place]) Bilirubin, total 0.4 0.1 - 1.2 mg/dL [facility] ([place]) Protein, pl 6.2(L) 6.5 - 8.5 g/dL [facility] ([place]) Albumin 3.4(L) 3.5 - 5.0 g/dL [facility] ([place]) Alk phos 73 40 - 130 Units/L [facility] ([place]) ALT 17 7 - 55 Units/L [facility] ([place]) AST 20 10 - 50 Units/L [facility] ([place]) Blood 09/27/2025 3:23 AM BROWNFIELD REDEVELOPMENT SITE MANAGER 09/27/2025 4:32 AM BROWNFIELD REDEVELOPMENT SITE MANAGER us Heath Estrada Jr., MD LAB BLOOD ORDERABLE S Final Result Performing Organization Address [facility] de Phone Number [facility] ([place]) 1 [facility] [place] [address] * Blood gas, venous (09/26/2025 10:16 PM BROWNFIELD REDEVELOPMENT SITE MANAGER) pH, Venous 7.40 7.32 - 7.43 PCO2, Venous 40 40 - 50 mmHg [facility] ([place]) PO2, Venous 125 mmHg [facility] ([place]) Comment: Interpretive Data No reference range established. Current interpretive data was last revised 2018. HCO3 Venous, Calculated 25 20 - 30 mmol/L [facility] ([place]) BE, venous 0 mmol/L [facility] ([place]) Comment: Interpretive Data No Reference Range Established Current Interpretive Data was last revised on 2018. Blood 09/26/2025 10:1 6 PM BR[employer]FIELD REDEVELOPMENT SITE MANAGER 09/26/2025 10:31 PM BROWNFIELD REDEVELOPMENT SITE MANAGER us Heaht Estrada Jr., MD LAB BLOOD ORDERABLE S Final Result Performing Organization Address [facility] Co de Phone Number [facility] ([place]) [address] [place] [address] * eGFR (09/26/2025 3:23 AM BROWNFIELD REDEVELOPMENT SITE MANAGER) eGFR 65 >=60 mL/min/1. 73 m2 Comment: Interpretive Data Reference Interval Normal >/= 90 mL/min/1.73m2 Mildly decreased* 60 - 89 mL/min/1.73m2 Mildly to moderately decreased 45 - 59 mL/min/1.73m2 Moderately to severely decreased 30 - 44 mL/min/1.73m2 Severely decreased 15 - 29 mL/min/1.73m2 Kidney Failure < 15 mL/min/1.73m2 *Relative to young adult level Estimated glomerular filtration rate is determined by the 2020 CKD-EPI equation recommended by the National Kidney Foundation (A Unifying Approach to GFR Estimation: Recommendations of the NKF-ASK Task Force on Reassessing the Inclusion of Race in Diagnosing Kidney Disease, JASN 2020). The CKD-EPI equation should not be used for patients with unstable renal function and has not been validated in children and those over 70. Current interpretive data was last reviewed 2021. Blood 09/26/2025 3:23 AM BROWNFIELD REDEVELOPMENT SITE MANAGER 09/26/2025 4:16 AM BROWNFIELD REDEVELOPMENT SITE MANAGER us Wes Lorenz MD LAB BLOOD ORDERABLES nal Result [facility] ([place]) 1 [facility] [place] [address] * (ABNORMAL) CBC without differential (09/26/2025 3:23 AM BROWNFIELD REDEVELOPMENT SITE MANAGER) WBC 9.64 3.80 - 9.90 K/cumm Hgb 8.9(L) 13.0 - 17.5 g/dL [facility] ([place]) Hct 27.7(L) 38.9 - 50.3 % [facility] ([place]) Plt 276 150 - 400 K/cumm [facility] ([place]) MPV 9.5 9.1 - 12.3 fL [facility] ([place]) RBC 2.93(L) 4.30 - 5.80 M/cumm [facility] ([place]) MCV 94.5 81.3 - 96.4 fL [facility] ([place]) MCH 30.4 27.1 - 33.3 pg [facility] ([place]) MCHC 32.1(L) 32.3 - 35.7 g/dL [facility] ([place]) RDW CV 15.6(H) 11.1 - 14.9 % [facility] ([place]) RDW SD 54.3(H) 35.7 - 48.1 fL [facility] ([place]) NRBC abs 0.00 0.00 - 0.01 K/cumm [facility] ([place]) Blood 09/26/2025 3:23 AM BROWNFIELD REDEVELOPMENT SITE MANAGER 09/26/2025 4:16 AM BR[employer]FIELD REDEVELOPMENT SITE MANAGER Wes Lorenz MD LAB BLOOD ORDERABLES Fi nal Result [facility] ([place]) 1 [facility] [place] [address] * (ABNORMAL) Folate (09/26/2025 3:23 AM BROWNFIELD REDEVELOPMENT SITE MANAGER) Folic acid 3.7(L) >=5.0 ng/mL Blood 09/26/2025 3:2 3 AM BR[employer]FIELD REDEVELOPMENT SITE MANAGER 09/26/2025 4:16 AM BROWNFIELD REDEVELOPMENT SITE MANAGER Wes Lorenz MD LAB BLOOD ORDERABLES Fi nal Result [facility] ([place]) 1 [facility] [place] [address] * (ABNORMAL) Basic metabolic panel (09/26/2025 3:23 AM BROWNFIELD REDEVELOPMENT SITE MANAGER) Sodium 134(L) 135 - 145 mmol/L Potassium, pl 4.6 3.3 - 4.9 mmol/L [facility] ([place] Chloride 102 97 - 110 mmol/L [facility] ([place]) CO2 22 22 - 32 mmol/L [facility] ([place]) Anion gap 10 2 - 15 mmol/L [facility] ([place]) BUN 34(H) 6 - 25 mg/dL [facility] ([place]) Creatinine 1.17 0.80 - 1.30 mg/dL [facility] ([place]) Glucose 184 70 - 199 mg/dL [facility] ([place]) Comment: Interpretive Data Fasting glucose >/= 126 mg/dl is diagnostic for diabetes. Fasting is defined as no caloric intake for at least 8 hours. Fasting glucose between 100 mg/dl to 125 mg/dl is diagnostic of prediabetes. In a patient with classic symptoms of hyperglycemia or hyperglycemic crisis, a random glucose >/= 200 mg/dl is diagnostic for diabetes. In the absence of unequivocal hyperglycemia, results should be confirmed by repeat testing. The classification and Diagnosis of Diabetes Diabetes Care 202; 46: S19-S40. Current interpretive data was last revised 2022. Calcium 9.5 8.5 - 10.3 mg/dL [facility] ([place]) Blood 09/26/2025 3:23 AM BROWNFIELD REDEVELOPMENT SITE MANAGER 09/26/2025 4:16 AM [employer]FIELD REDEVELOPMENT SITE MANAGER us Wes Lorenz MD LAB BLOOD ORDERABLES Fi nal Result [facility] ([place] 1 [facility] Department of Laboratories [place], [place] [id number] * (ABNORMAL) Blood gas, venous (09/25/2025 5:54 PM BROWNFIELD REDEVELOPMENT SITE MANAGER) pH, Venous 7.39 7.32 - 7.43 PCO2, Venous 39(L) 40 - 50 mmHg [facility] ([place]) PO2, Venous 192 mmHg [facility] ([place]) HCO3 Venous, Calculated 23 20 - 30 mmol/L [facility] ([place]) BE, venous -1 mmol/L [facility] ([place] Comment: Interpretive Data No Reference Range Established Current Interpretive Data was last revised on 2018. Blood 09/25/2025 5:54 PM BROWNFIELD REDEVELOPMENT SITE MANAGER 09/25/2025 5:58 PM [employer]FIELD REDEVELOPMENT SITE MANAGER us Heath Estrada Jr., MD LAB BLOOD ORDERABLE S Final Result [facility] [place] 1 [facility] [place] [address] * MRI Brain W WO Contrast (09/25/2025 4:57 PM BROWNFIELD REDEVELOPMENT SITE MANAGER) Anatomical Region Laterality Modality Head and Neck N/A Magnetic Resonan ce 09/25/2025 5:25 PM BROWNFIELD REDEVELOPMENT SITE MANAGER Impressions 09/25/2025 5:25 PM [employer]FIELD REDEVELOPMENT SITE MANAGER 1. Multifocal variably-sized (largest 2.5 cm), variably-enhancing mass lesions of the cerebellum as detailed above favoring infratentorial intra-axial metastatic disease with variable tatiana-lesional edema with striated enhancement within the left greater than right cerebellar folia sulci favoring an additional metastatic disease. 2. Process produces mild local mass effect without effacement of the 4th ventricle and no hydrocephalus, midline shift, or herniation. Electronically signed by: Santana Reid M.D. Narrative 09/25/2025 5:25 PM [employer]FIELD REDEVELOPMENT SITE MANAGER EXAMINATION: MRI BRAIN W WO CONTRAST REASON FOR STUDY: Altered mental status of unspecified duration. No provided focal neurologic status. No provided history of trauma or inciting at/or aggravating events. No head or neck surgeries. TECHNIQUE: Multiplanar imaging of the brain includes noncontrast T1, T2, FLAIR, diffusion with ADC map and post contrast T1 sequences. Additional sequence(s) sensitive to blood products. Images saved to PACS. Patient motion artifact variably spanning multiple sequences compromises evaluation. CONTRAST: 18 mL Dotarem was administered via peripheral IV site. COMPARISON: CT head/maxillofacial bones/cervical spine without contrast 08/31/2025. FINDINGS: CEREBRUM: No acute intra-axial hemorrhage. No edema, mass effect, midline shift, or herniation. No abnormal enhancement. WHITE MATTER: As below. There is mild periventricular-subcortical T2/FLAIR hyperintense white matter matter disease, nonspecific, though likely secondary to chronic microvascular ischemia. POSTERIOR FOSSA: Multiple variably-enhancing mass lesions of the cerebellum favoring infratentorial intra-axial metastatic disease: Largest 1.8 x 2.1 x 2.5 cm (CC by AP by TV) predominant peripherally-enhancing posterior superior right cerebellar hemisphere 5 mm rounded enhancing right cerebellar hemisphere 7 mm rounded peripherally-enhancing right cerebellar hemisphere. 1.0 x 1.2 x 1.7 cm maximally peripherally-enhancing left cerebellar hemisphere robust perilesional edema extending Caldwell from the larger lesions with mild local mass effect without effacement of the 4th ventricle and no hydrocephalus, midline shift, or herniation. DIFFUSION IMAGING: No restricted diffusion to suggest acute/subacute ischemia or infarct. EXTRAAXIAL SPACES: No extra-axial fluid collection. No reliable demonstration of extra-axial mass, though there is striated enhancement within the left greater than right cerebellar folia sulci favoring additional metastatic disease. BRAIN VOLUME: Cerebral volume loss. PITUITARY: Unremarkable. VASCULATURE: No flow disturbance evident. SCALP/CALVARIUM: Scalp unremarkable. Calvarium unremarkable. ORBITS: No acute abnormality. Ocular lenses and globes normal in conformation and position. PARANASAL SINUSES AND MASTOIDS: No fluid levels of the paranasal sinuses. Mastoid air cells well-developed and well aerated. OTHER: None. Procedure Note Santana Reid MD - 09/25/2025 EXAMINATION: MRI BRAIN W WO CONTRAST REASON FOR STUDY: Altered mental status of unspecified duration. No provided focal neurologic status. No provided history of trauma or inciting at/or aggravating events. No head or neck surgeries. TECHNIQUE: Multiplanar imaging of the brain includes noncontrast T1, T2, FLAIR, diffusion with ADC map and post contrast T1 sequences. Additional sequence(s) sensitive to blood products. Images saved to PACS. Patient motion artifact variably spanning multiple sequences compromises evaluation. CONTRAST: 18 mL Dotarem was administered via peripheral IV site. COMPARISON: CT head/maxillofacial bones/cervical spine without contrast 08/31/2025. FINDINGS: CEREBRUM: No acute intra-axial hemorrhage. No edema, mass effect, midline shift, or herniation. No abnormal enhancement. WHITE MATTER: As below. There is mild periventricular-subcortical T2/FLAIR hyperintense white matter matter disease, nonspecific, though likely secondary to chronic microvascular ischemia. POSTERIOR FOSSA: Multiple variably-enhancing mass lesions of the cerebellum favoring infratentorial intra-axial metastatic disease: Largest 1.8 x 2.1 x 2.5 cm (CC by AP by TV) predominant peripherally-enhancing posterior superior right cerebellar hemisphere 5 mm rounded enhancing right cerebellar hemisphere 7 mm rounded peripherally-enhancing right cerebellar hemisphere. 1.0 x 1.2 x 1.7 cm maximally peripherally-enhancing left cerebellar hemisphere robust perilesional edema extending Caldwell from the larger lesions with mild local mass effect without effacement of the 4th ventricle and no hydrocephalus, midline shift, or herniation. DIFFUSION IMAGING: No restricted diffusion to suggest acute/subacute ischemia or infarct. EXTRAAXIAL SPACES: No extra-axial fluid collection. No reliable demonstration of extra-axial mass, though there is striated enhancement within the left greater than right cerebellar folia sulci favoring additional metastatic disease. BRAIN VOLUME: Cerebral volume loss. PITUITARY: Unremarkable. VASCULATURE: No flow disturbance evident. SCALP/CALVARIUM: Scalp unremarkable. Calvarium unremarkable. ORBITS: No acute abnormality. Ocular lenses and globes normal in conformation and position. PARANASAL SINUSES AND MASTOIDS: No fluid levels of the paranasal sinuses. Mastoid air cells well-developed and well aerated. OTHER: None. IMPRESSION: 1. Multifocal variably-sized (largest 2.5 cm), variably-enhancing mass lesions of the cerebellum as detailed above favoring infratentorial intra-axial metastatic disease with variable tatiana-lesional edema with striated enhancement within the left greater than right cerebellar folia sulci favoring an additional metastatic disease. 2. Process produces mild local mass effect without effacement of the 4th ventricle and no hydrocephalus, midline shift, or herniation. Electronically signed by: Santana Reid M.D. Heath Estrada Jr., MD IM MRI PROCEDURES Final Result * (ABNORMAL) Troponin T high-sensitivity 6-hour (09/25/2025 3:03 PM BROWNFIELD REDEVELOPMENT SITE MANAGER) Trop T hs 29(H) <=22 ng/L Comment: Interpretive Data For further hscTnT resources including the diagnostic algorithm and an aid in interpretation, copy and paste this link: https://nrl.testcatalog.org/show/hsTrop Current Interpretive Data last revised 2020. Trop T hs delta -6 ng/L [facility] ([place]) Trop T hs interp Equivocal [facility] ([place]) Blood 09/25/2025 3:03 PM BROWNFIELD REDEVELOPMENT SITE MANAGER 09/25/2025 3:39 PM [employer]OWNFIELD REDEVELOPMENT SITE MANAGER us Heath Estrada Jr., MD LAB BLOOD ORDERABLE S Final Result Performing Organization Address [facility] Co de Phone Number [facility] ([place]) 1 [facility] [place] [address] * (ABNORMAL) Troponin T high-sensitivity 4-hour (09/25/2025 12:51 PM BROWNFIELD REDEVELOPMENT SITE MANAGER) Trop T hs 34(H) <=22 ng/L Comment: Interpretive Data For further hscTnT resources including the diagnostic algorithm and an aid in interpretation, copy and paste this link: [email or web address].[email or web address]/show/hsTrop Current Interpretive Data last revised 2020. Trop T hs delta -1 ng/L [facility] ([place]) Trop T hs interp Insignificant [facility] ([place]) Blood 09/25/2025 12:5 1 PM BROWNFIELD REDEVELOPMENT SITE MANAGER 09/25/2025 12:54 PM BROWNFIELD REDEVELOPMENT SITE MANAGER us Heath Estrada Jr., MD LAB BLOOD ORDERABLE S Final Result Performing Organization Address [facility] Co de Phone Number [facility] ([place]) 1 [facility] [place] [address] * (ABNORMAL) Troponin T high-sensitivity 2-hour (09/25/2025 9:35 AM BROWNFIELD REDEVELOPMENT SITE MANAGER) Trop T hs 37(H) <=22 ng/L Comment: Interpretive Data For further hscTnT resources including the diagnostic algorithm and an aid in interpretation, copy and paste this link: [email or web address].[email or web address].org/show/hsTrop Current Interpretive Data last revised 2020. Trop T hs delta See Comment ng/L [facility] ([place]) Comment:Inappropriate collec tion time to report a delta. Trop T hs pct delta See Comment % [facility] [facility] ([place]) Comment:Inappropriate collec tion time to report a delta. Trop T hs interp See Comment C [facility] ([place]) Comment:Inappropriate collec tion time to report a delta. Blood 09/25/2025 9:35 AM [employer]EV[employer]OP[employer] SITE MANAGER 09/25/2025 9:40 AM [employer] REDEVELOP[employer] SITE MANAGER us Heath Estrada Jr., MD LAB BLOOD ORDERABLE S Final Result [facility] [place]) 1 [facility] [place] [address] * XR Abdomen 1 View AP (09/25/2025 8:53 AM BROWNFIELD REDEVELOPMENT SITE MANAGER) Anatomical Region Laterality Modality Body, Abdomen N/A Computed Radiogr aphy 09/25/2025 8:58 AM [employer] REDEVELOPMENT SITE MANAGER Impressions 09/25/2025 8:58 AM [employer]OWNFIELD REDEVELOPMENT SITE MANAGER 1. No evidence of an acute abnormality. 2. Large amount of fecal material in the colon. Electronically signed by: Pancho Aguirre M.D. Narrative 09/25/2025 8:58 AM [employer] REDEVELOPMENT SITE MANAGER EXAM DESCRIPTION: XR ABDOMEN AP 1 VIEW REASON FOR STUDY: severe constipation, urinary retention TECHNIQUE: XR ABDOMEN AP 1 VIEW COMPARISON: CT abdomen pelvis 08/30/2025. FINDINGS: BOWEL GAS PATTERN: Non-dilated small bowel loops in a nonobstructive pattern. There is a large amount of fecal material in the colon. SOFT TISSUES: No significant abnormal calcifications. BONES: No significant abnormality. OTHER: There is a aortobiiliac stent graft noted. Procedure Note Pancho Aguirre MD - 09/25/2025 EXAM DESCRIPTION: XR ABDOMEN AP 1 VIEW REASON FOR STUDY: severe constipation, urinary retention TECHNIQUE: XR ABDOMEN AP 1 VIEW COMPARISON: CT abdomen pelvis 08/30/2025. FINDINGS: BOWEL GAS PATTERN: Non-dilated small bowel loops in a nonobstructive pattern. There is a large amount of fecal material in the colon. SOFT TISSUES: No significant abnormal calcifications. BONES: No significant abnormality. OTHER: There is a aortobiiliac stent graft noted. IMPRESSION: 1. No evidence of an acute abnormality. 2. Large amount of fecal material in the colon. Electronically signed by: Pancho Aguirre M.D. Wes Lorenz MD IMG XR PROCEDURES Final Result * XR CHEST 1 VIEW PORTABLE (09/25/2025 8:53 AM BROWNFIELD REDEVELOPMENT SITE MANAGER) Anatomical Region Laterality Modality Body, Chest N/A Computed Radiogr aphy 09/25/2025 8:58 AM [employer]FIELD REDEVELOPMENT SITE MANAGER Impressions 09/25/2025 8:58 AM [employer]FIELD REDEVELOPMENT SITE MANAGER 1. Patchy left perihilar opacity likely corresponds the abnormality on the prior CT scan. Continued follow-up/evaluation is recommended. Electronically signed by: Riley Rivero M.D. Narrative 09/25/2025 8:58 AM [employer] REDEVELOPMENT SITE MANAGER EXAM DESCRIPTION: XR CHEST 1 VIEW REASON FOR STUDY: Shortness of breath. TECHNIQUE: Frontal radiographic views of the chest COMPARISON: CT chest 09/19/2025 FINDINGS: LUNGS/PLEURAE: Patchy consolidation in the left perihilar region likely corresponds to the abnormality on the CT scan. No new focal consolidation or large pleural effusion. There is no pneumothorax. HEART/MEDIASTINUM: Heart size is normal. Normal mediastinal and hilar contours. Atherosclerotic calcification of the thoracic aorta. HARDWARE/LINES/TUBES: None. BONES: No acute findings. Procedure Note Riley Rivero MD - 09/25/2025 EXAM DESCRIPTION: XR CHEST 1 VIEW REASON FOR STUDY: Shortness of breath. TECHNIQUE: Frontal radiographic views of the chest COMPARISON: CT chest 09/19/2025 FINDINGS: LUNGS/PLEURAE: Patchy consolidation in the left perihilar region likely corresponds to the abnormality on the CT scan. No new focal consolidation or large pleural effusion. There is no pneumothorax. HEART/MEDIASTINUM: Heart size is normal. Normal mediastinal and hilar contours. Atherosclerotic calcification of the thoracic aorta. HARDWARE/LINES/TUBES: None. BONES: No acute findings. IMPRESSION: 1. Patchy left perihilar opacity likely corresponds the abnormality on the prior CT scan. Continued follow-up/evaluation is recommended. Electronically signed by: Riley Rivero M.D. Heath Estrada Jr., MD IMG XR PROCEDURES F inal Result * (ABNORMAL) Troponin T high-sensitivity series (baseline, 2hr, 4hr, 6hr) (09/25/2025 8:31 AM BROWNFIELD REDEVELOPMENT SITE MANAGER) Trop T hs 35(H) <=22 ng/L Comment: Interpretive Data For further hscTnT resources including the diagnostic algorithm and an aid in interpretation, copy and paste this link: https://nrl.testcatalog.org/show/hsTrop Current Interpretive Data last revised 2020. Blood 09/25/2025 8:31 AM [employer]FIELD REDEVELOPMENT SITE MANAGER 09/25/2025 8:35 AM [employer] REDEVELOPMENT SITE MANAGER us Heath Estrada Jr., MD LAB BLOOD ORDERABLE S Final Result [facility] ([place]) 1 [facility] [place] [address] * (ABNORMAL) eGFR (09/25/2025 8:31 AM BR[employer]FIELD REDEVELOPMENT SITE MANAGER) eGFR 51(L) >=60 mL/min/1. 73 m2 Comment: Interpretive Data Reference Interval Normal >/= 90 mL/min/1.73m2 Mildly decreased* 60 - 89 mL/min/1.73m2 Mildly to moderately decreased 45 - 59 mL/min/1.73m2 Moderately to severely decreased 30 - 44 mL/min/1.73m2 Severely decreased 15 - 29 mL/min/1.73m2 Kidney Failure < 15 mL/min/1.73m2 *Relative to young adult level Estimated glomerular filtration rate is determined by the 2020 CKD-EPI equation recommended by the National Kid[employer] (A Unifying Approach to GFR Estimation: Recommendations of the NKF-ASK Task Force on Reassessing the Inclusion of Race in Diagnosing Kidney Disease, JASN 2020). The CKD-EPI equation should not be used for patients with unstable renal function and has not been validated in children and those over 70. Current interpretive data was last reviewed 2021. Blood 09/25/2025 8:3 1 AM [employer] REDEVELOPMENT SITE MANAGER 09/25/2025 8:35 AM [employer] REDEVELOP[employer] SITE MANAGER us Ekmonica David Petters MD LAB BLOOD ORDERABLES Fi nal Result Performing Organization Address City/[facility]/ZIP Co de Phone Number [facility] ([place]) 1 [facility] [place] [address] * (ABNORMAL) Iron profile w/ IBC (09/25/2025 8:31 AM BROWNFIELD REDEVELOPMENT SITE MANAGER) Pathologist [facility] Iron 31(L) 50 - 150 mcg/dL TIBC 156(L) 250 - 400 mcg/dL [facility] ([place]) Transferrin saturation 20 20 - 50 % [facility] ([place]) Blood 09/25/2025 8:31 AM BROWNFIELD REDEVELOPMENT SITE MANAGER 09/25/2025 8:35 AM [employer]FIELD REDEVELOPMENT SITE MANAGER Wes Lorenz MD LAB BLOOD ORDERABLES Fi nal Result Performing Organization Address [facility] Co de Phone Number [facility] ([place]) 1 [facility] [place] [address] * (ABNORMAL) CBC without differential (09/25/2025 8:31 AM BROWNFIELD REDEVELOPMENT SITE MANAGER) Pathologist [facility] WBC 11.96(H) 3.80 - 9.90 K/cumm Hgb 9.2(L) 13.0 - 17.5 g/dL [facility] ([place]) Hct 28.3(L) 38.9 - 50.3 % [facility] ([place]) Plt 254 150 - 400 K/cumm [facility] ([place]) MPV 8.8(L) 9.1 - 12.3 fL [facility] ([place]) RBC 2.97(L) 4.30 - 5.80 M/cumm [facility] ([place]) MCV 95.3 81.3 - 96.4 fL [facility] ([place]) MCH 31.0 27.1 - 33.3 pg [facility] ([place]) MCHC 32.5 32.3 - 35.7 g/dL [facility] ([place]) RDW CV 15.8(H) 11.1 - 14.9 % [facility] ([place]) RDW SD 55.5(H) 35.7 - 48.1 fL [facility] ([place]) NRBC abs 0.00 0.00 - 0.01 K/cumm [facility] ([place]) Blood 09/25/2025 8:31 AM BROWNFIELD REDEVELOPMENT SITE MANAGER 09/25/2025 8:35 AM BROWNFIELD REDEVELOPMENT SITE MANAGER us Wes Lorenz MD LAB BLOOD ORDERABLES Fi nal Result Performing Organization Address [facility] Co de Phone Number R[facility]LA [facility] ([place]) 1 [facility] [place] [address] * (ABNORMAL) Blood gas, venous (09/25/2025 8:31 AM BROWNFIELD REDEVELOPMENT SITE MANAGER) pH, Venous 7.40 7.32 - 7.43 PCO2, Venous 38(L) 40 - 50 mmHg [facility] ([place]) PO2, Venous 33 mmHg [facility] ([place]) Comment: Interpretive Data No reference range established. Current interpretive data was last revised 2018. HCO3 Venous, Calculated 24 20 - 30 mmol/L [facility] ([place]) BE, venous 0 mmol/L [facility] ([place]) Comment: Interpretive Data No Reference Range Established Current Interpretive Data was last revised on 2018. Blood 09/25/2025 8:31 AM BROWNFIELD REDEVELOPMENT SITE MANAGER 09/25/2025 8:35 AM BROWNFIELD REDEVELOPMENT SITE MANAGER us Heath Estrada Jr., MD LAB BLOOD ORDERABLE S Final Result Performing Organization Address [facility] Co de Phone Number [facility] ([place]) 1 [facility] [place] [address] * Vitamin B12 (09/25/2025 8:31 AM BROWNFIELD REDEVELOPMENT SITE MANAGER) Vitamin B12 1,122 230 - 1,250 pg/mL Blood 09/25/2025 8:31 AM BROWNFIELD REDEVELOPMENT SITE MANAGER 09/25/2025 8:35 AM BROWNFIELD REDEVELOPMENT SITE MANAGER us Wes Lorenz MD LAB BLOOD ORDERABLES Fi nal Result Performing Organization Address City/[facility] Co de Phone Number [facility]LA [facility] ([place]) 1 [facility] [place] [address] * (ABNORMAL) Basic metabolic panel (09/25/2025 8:31 AM BROWNFIELD REDEVELOPMENT SITE MANAGER) Sodium 132(L) 135 - 145 mmol/L Potassium, pl 5.5(H) 3.3 - 4.9 mmol/L [facility] ([place]) Chloride 100 97 - 110 mmol/L [facility] ([place]) CO2 24 22 - 32 mmol/L [facility] ([place]) Anion gap 8 2 - 15 mmol/L [facility] ([place]) BUN 35(H) 6 - 25 mg/dL [facility] ([place]) Creatinine 1.45(H) 0.80 - 1.30 mg/dL [facility] ([place]) Glucose 132 70 - 199 mg/dL [facility] ([place]) Comment: Interpretive Data Fasting glucose >/= 126 mg/dl is diagnostic for diabetes. Fasting is defined as no caloric intake for at least 8 hours. Fasting glucose between 100 mg/dl to 125 mg/dl is diagnostic of prediabetes. In a patient with classic symptoms of hyperglycemia or hyperglycemic crisis, a random glucose >/= 200 mg/dl is diagnostic for diabetes. In the absence of unequivocal hyperglycemia, results should be confirmed by repeat testing. The classification and Diagnosis of Diabetes Diabetes Care 2021; 46: S19-S40. Current interpretive data was last revised 2022. Calcium 9.3 8.5 - 10.3 mg/dL [facility] ([place]) Blood 09/25/2025 8:31 AM BROWNFIELD REDEVELOPMENT SITE MANAGER 09/25/2025 8:35 AM BROWNFIELD REDEVELOPMENT SITE MANAGER us Wes Lorenz MD LAB BLOOD ORDERABLES Fi nal Result [facility] ([place]) 1 [facility] [place] [address] * Urinalysis reflex to microscopic and culture Urine (09/25/2025 12:54 AM BROWNFIELD REDEVELOPMENT SITE MANAGER) Color, ur Yellow Yellow Clarity, ur Clear Clear [facility] ([place]) Specific gravity, ur 1.015 1.003 - 1.030 [facility] ([place]) pH, urine 6.5 [facility] ([place]) Comment: Interpretive Data U rine pH is affected by diet, medications, systemic acid-base disturbances, and renal tubular function. pH may affect urinary stone formation. For example, urine pH below 6.0 may help reduce the tendency for calcium phosphate stones and pH greater than 6.0 may reduce the tendency for uric acid stone formation. Source: [facility] [place] Current Interpretive Data was last revised on 2017 Protein, ur ql Negative Negative [facility] ([place]) Glucose, ur ql Negative Negative [facility] R [facility] ([place]) Ketones, ur Negative Negative [facility] ([place]) Bilirubin, ur Negative Negative [facility] ([place]) Blood, ur Negative Negative [facility] ([place]) Urobilinogen, ur <2.0 <2.0 mg/dL [facility] ([place]) Nitrite, ur Negative Negative [facility] A ([place]) Leukocyte esterase, ur Negative Negative [facility] ([place]) UA reflex comment Reflex conditions for microscopic UA and culture not met. [facility] Urine 09/25/2025 12:5 4 AM BROWNFIELD REDEVELOPMENT SITE MANAGER 09/25/2025 1:01 AM BROWNFIELD REDEVELOPMENT SITE MANAGER us Wes Lorenz MD LAB MICROBIOLOGY - [facility] ORDERABLES Final Result [facility] ([place]) 1 [facility] [place] [address] * MRI Thoracic Spine W WO Contrast (09/24/2025 5:32 PM BROWNFIELD REDEVELOPMENT SITE MANAGER) Anatomical Region Laterality Modality Spine N/A Magnetic Resonan ce 09/24/2025 8:38 PM BROWNFIELD REDEVELOPMENT SITE MANAGER Impressions 09/24/2025 8:38 PM [employer]FIELD REDEVELOPMENT SITE MANAGER Severely limited exam of the thoracic spine due to patient motion artifact. Within limitation, no pathologic fracture identified of thoracic vertebra. No focal mass within the spinal canal. No compressive disc herniation or mass identified within the spinal canal. No enhancing abnormality within the spinal canal. Limited area coordinator visualization of the cervical spine does not clearly demonstrate a patent spinal canal at C6-C7. Consideration for dedicated cervical MRI imaging is suggested based on clinical exam findings. EXAM DESCRIPTION: MRI LUMBAR SPINE WITH AND WITHOUT CONTRAST REASON FOR STUDY: Lung mass with osseous metastatic disease. Severe pain. Evaluate for cord impingement. Contrast-enhanced MRI of lumbar spine recommended from lumbar MRI without contrast 09/19/2025 TECHNIQUE: Sagittal and axial imaging of the lumbar spine includes T1, T2, STIR sequences. Postcontrast sagittal and axial images were also obtained. Images saved to PACS. CONTRAST: Exam was performed with contrast. FINDINGS: Comparison MRI lumbar spine from 09/20/2025. CT lumbar spine from 08/30/2025. Lumbar spine MRI is mildly compromised due to excessive patient motion artifact. SEGMENTATION: Numbering convention will be used similar to previous reports. With this convention, the lowest fully formed disc is present at L5-S1 this disc appears ankylosed. There is a hypoplastic disc at S1-S2.. ALIGNMENT:Lumbar alignment is stable with slight degenerative retrolisthesis. See previous report. VERTEBRAE: The diffuse metastatic lesion throughout the L1 vertebral body with complete marrow replacement and with pathologic fracture at L1 is again identified. Enhancement pattern is heterogeneous. There does appear to be mild marrow edema within the pedicles, left greater than right with moderate left foraminal narrowing. The appearance is stable from MRI of 09/20/2025 percent vertebral height loss and posterior retropulsion has progressed since 08/30/2025 CT lumbar. As noted on MRI lumbar without contrast, there is retropulsion of the posterior vertebral margin of L1 into the spinal canal without impingement upon the adjacent proximal cauda equina nerve roots There is heterogeneous tumor throughout the L2 vertebra without pathologic fracture or involvement of pedicles, facets or spinous processes.. No spinal stenosis. HARDWARE: None in the spine. CORD/CAUDA: Normal in size and signal intensity. Conus medullaris terminates at L1. LOWER THORACIC: Incompletely imaged. No significant stenosis demonstrated. INDIVIDUAL DISC LEVELS:: Stable mild multilevel disc degeneration is detailed on previous report. SACRUM: Visualized upper sacrum is intact. No enhancing abnormality or definite marrow signal abnormality. The L5-S1 disc appears ankylosed. . VISUALIZED UPPER ABDOMEN: No significant abnormality. 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 OTHER: No other significant findings. IMPRESSION:Heterogeneous enhancement of the metastatic lesion throughout the L1 vertebral body with stable appearance of pathologic fracture compared to MRI lumbar spine from 09/20/2025 but progression compared to CT of 08/30/2025. No high-grade spinal stenosis or impingement upon the adjacent cauda equina nerve roots as noted on noncontrast enhanced MRI. There is enhancing tumor within the left L1 pedicle with some enhancing tissue narrowing the left L1 to neural foramina. Partial marrow replacement of the L2 vertebral body with heterogeneously enhancing tumor but no identifiable pathologic fracture or pedicle involvement at this time. No definable abnormal enhancement of distal thoracic cord or cauda equina nerve roots to indicate leptomeningeal tumor metastases. No other focal lesion identified of the lumbar spine. PET CT or bone scan however would be more sensitive for subtle marrow replacement. Electronically signed by: Lily Deshpande M.D. 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 Severe pain. Evaluate for cord compression. TECHNIQUE: Sagittal and Axial imaging includes T1, T2, STIR and gradient echo sequences. Post contrast image were performed. FINDINGS: Lumbar MRI comparison from 09/20/2025. ALIGNMENT: Thoracic vertebral alignment is normal. VERTEBRAE: Thoracic vertebral height is maintained. No definite acute pathologic fracture is identified. Please note, however, the entire thoracic spine exam is moderately limited by patient motion artifact. Within limitation, no definite enhancing lesion is seen within the thoracic vertebral bodies, pedicles or facets.. DISCS : Thoracic disks are relatively maintained. HARDWARE: None in the spine. CORD: Significantly limited evaluation of thoracic cord signal due to moderate motion artifact. Within limitation, no compressive disc herniation identified. No enhancement within the thoracic spinal cord is identified. INDIVIDUAL DISK LEVELS: No compressive disc herniation is identified. There is no discogenic spinal canal stenosis. No enhancing abnormality of the endplates or disc spaces is identified. UPPER LUMBAR: Incompletely imaged. L1 pathologic fracture incompletely visualized. Please refer to lumbar MRI dictated separately below. No significant spinal stenosis or foraminal stenosis. LOWER CERVICAL: There is limited visualization of the cervical spinal canal on localizing sagittal images however there is a suggestion of either disc protrusion or other anterior epidural soft tissue at C6-C7. Consideration for dedicated cervical MRI imaging is suggested. OTHER: Mass in the left upper lung field with left hilar lesion better seen on recent chest CT. 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 Severe pain. Evaluate for cord compression. TECHNIQUE: Sagittal and Axial imaging includes T1, T2, STIR and gradient echo sequences. Post contrast image were performed. FINDINGS: Lumbar MRI comparison from 09/20/2025. ALIGNMENT: Thoracic vertebral alignment is normal. VERTEBRAE: Thoracic vertebral height is maintained. No definite acute pathologic fracture is identified. Please note, however, the entire thoracic spine exam is moderately limited by patient motion artifact. Within limitation, no definite enhancing lesion is seen within the thoracic vertebral bodies, pedicles or facets.. DISCS : Thoracic disks are relatively maintained. HARDWARE: None in the spine. CORD: Significantly limited evaluation of thoracic cord signal due to moderate motion artifact. Within limitation, no compressive disc herniation identified. No enhancement within the thoracic spinal cord is identified. INDIVIDUAL DISK LEVELS: No compressive disc herniation is identified. There is no discogenic spinal canal stenosis. No enhancing abnormality of the endplates or disc spaces is identified. UPPER LUMBAR: Incompletely imaged. L1 pathologic fracture incompletely visualized. Please refer to lumbar MRI dictated separately below. No significant spinal stenosis or foraminal stenosis. LOWER CERVICAL: There is limited visualization of the cervical spinal canal on localizing sagittal images however there is a suggestion of either disc protrusion or other anterior epidural soft tissue at C6-C7. Consideration for dedicated cervical MRI imaging is suggested. OTHER: Mass in the left upper lung field with left hilar lesion better seen on recent chest CT. IMPRESSION: Severely limited exam of the thoracic spine due to patient motion artifact. Within limitation, no pathologic fracture identified of thoracic vertebra. No focal mass within the spinal canal. No compressive disc herniation or mass identified within the spinal canal. No enhancing abnormality within the spinal canal. Limited area coordinator visualization of the cervical spine does not clearly demonstrate a patent spinal canal at C6-C7. Consideration for dedicated cervical MRI imaging is suggested based on clinical exam findings. EXAM DESCRIPTION: MRI LUMBAR SPINE WITH AND WITHOUT CONTRAST REASON FOR STUDY: Lung mass with osseous metastatic disease. Severe pain. Evaluate for cord impingement. Contrast-enhanced MRI of lumbar spine recommended from lumbar MRI without contrast 09/19/2025 TECHNIQUE: Sagittal and axial imaging of the lumbar spine includes T1, T2, STIR sequences. Postcontrast sagittal and axial images were also obtained. Images saved to PACS. CONTRAST: Exam was performed with contrast. FINDINGS: Comparison MRI lumbar spine from 09/20/2025. CT lumbar spine from 08/30/2025. Lumbar spine MRI is mildly compromised due to excessive patient motion artifact. SEGMENTATION: Numbering convention will be used similar to previous reports. With this convention, the lowest fully formed disc is present at L5-S1 this disc appears ankylosed. There is a hypoplastic disc at S1-S2.. ALIGNMENT:Lumbar alignment is stable with slight degenerative retrolisthesis. See previous report. VERTEBRAE: The diffuse metastatic lesion throughout the L1 vertebral body with complete marrow replacement and with pathologic fracture at L1 is again identified. Enhancement pattern is heterogeneous. There does appear to be mild marrow edema within the pedicles, left greater than right with moderate left foraminal narrowing. The appearance is stable from MRI of 09/20/2025 percent vertebral height loss and posterior retropulsion has progressed since 08/30/2025 CT lumbar. As noted on MRI lumbar without contrast, there is retropulsion of the posterior vertebral margin of L1 into the spinal canal without impingement upon the adjacent proximal cauda equina nerve roots There is heterogeneous tumor throughout the L2 vertebra without pathologic fracture or involvement of pedicles, facets or spinous processes.. No spinal stenosis. HARDWARE: None in the spine. CORD/CAUDA: Normal in size and signal intensity. Conus medullaris terminates at L1. LOWER THORACIC: Incompletely imaged. No significant stenosis demonstrated. INDIVIDUAL DISC LEVELS:: Stable mild multilevel disc degeneration is detailed on previous report. SACRUM: Visualized upper sacrum is intact. No enhancing abnormality or definite marrow signal abnormality. The L5-S1 disc appears ankylosed. . VISUALIZED UPPER ABDOMEN: No significant abnormality. 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 OTHER: No other significant findings. IMPRESSION:Heterogeneous enhancement of the metastatic lesion throughout the L1 vertebral body with stable appearance of pathologic fracture compared to MRI lumbar spine from 09/20/2025 but progression compared to CT of 08/30/2025. No high-grade spinal stenosis or impingement upon the adjacent cauda equina nerve roots as noted on noncontrast enhanced MRI. There is enhancing tumor within the left L1 pedicle with some enhancing tissue narrowing the left L1 to neural foramina. Partial marrow replacement of the L2 vertebral body with heterogeneously enhancing tumor but no identifiable pathologic fracture or pedicle involvement at this time. No definable abnormal enhancement of distal thoracic cord or cauda equina nerve roots to indicate leptomeningeal tumor metastases. No other focal lesion identified of the lumbar spine. PET CT or bone scan however would be more sensitive for subtle marrow replacement. Electronically signed by: Lily Deshpande M.D. Jaren Oliveira MD IM MRI PROCEDURES Final R esult * MRI Lumbar Spine W WO Contrast (09/24/2025 5:31 PM [employer] RED[employer] SITE MANAGER) Anatomical Region Laterality Modality Spine N/A Magnetic Resonan ce 09/24/2025 8:38 PM [employer] SITE MANAGER Impressions 09/24/2025 8:38 PM [employer] SITE MANAGER Severely limited exam of the thoracic spine due to patient motion artifact. Within limitation, no pathologic fracture identified of thoracic vertebra. No focal mass within the spinal canal. No compressive disc herniation or mass identified within the spinal canal. No enhancing abnormality within the spinal canal. Limited area coordinator visualization of the cervical spine does not clearly demonstrate a patent spinal canal at C6-C7. Consideration for dedicated cervical MRI imaging is suggested based on clinical exam findings. EXAM DESCRIPTION: MRI LUMBAR SPINE WITH AND WITHOUT CONTRAST REASON FOR STUDY: Lung mass with osseous metastatic disease. Severe pain. Evaluate for cord impingement. Contrast-enhanced MRI of lumbar spine recommended from lumbar MRI without contrast 09/19/2025 TECHNIQUE: Sagittal and axial imaging of the lumbar spine includes T1, T2, STIR sequences. Postcontrast sagittal and axial images were also obtained. Images saved to PACS. CONTRAST: Exam was performed with contrast. FINDINGS: Comparison MRI lumbar spine from 09/20/2025. CT lumbar spine from 08/30/2025. Lumbar spine MRI is mildly compromised due to excessive patient motion artifact. SEGMENTATION: Numbering convention will be used similar to previous reports. With this convention, the lowest fully formed disc is present at L5-S1 this disc appears ankylosed. There is a hypoplastic disc at S1-S2.. ALIGNMENT:Lumbar alignment is stable with slight degenerative retrolisthesis. See previous report. VERTEBRAE: The diffuse metastatic lesion throughout the L1 vertebral body with complete marrow replacement and with pathologic fracture at L1 is again identified. Enhancement pattern is heterogeneous. There does appear to be mild marrow edema within the pedicles, left greater than right with moderate left foraminal narrowing. The appearance is stable from MRI of 09/20/2025 percent vertebral height loss and posterior retropulsion has progressed since 08/30/2025 CT lumbar. As noted on MRI lumbar without contrast, there is retropulsion of the posterior vertebral margin of L1 into the spinal canal without impingement upon the adjacent proximal cauda equina nerve roots There is heterogeneous tumor throughout the L2 vertebra without pathologic fracture or involvement of pedicles, facets or spinous processes.. No spinal stenosis. HARDWARE: None in the spine. CORD/CAUDA: Normal in size and signal intensity. Conus medullaris terminates at L1. LOWER THORACIC: Incompletely imaged. No significant stenosis demonstrated. INDIVIDUAL DISC LEVELS:: Stable mild multilevel disc degeneration is detailed on previous report. SACRUM: Visualized upper sacrum is intact. No enhancing abnormality or definite marrow signal abnormality. The L5-S1 disc appears ankylosed. . VISUALIZED UPPER ABDOMEN: No significant abnormality. 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 OTHER: No other significant findings. IMPRESSION:Heterogeneous enhancement of the metastatic lesion throughout the L1 vertebral body with stable appearance of pathologic fracture compared to MRI lumbar spine from 09/20/2025 but progression compared to CT of 08/30/2025. No high-grade spinal stenosis or impingement upon the adjacent cauda equina nerve roots as noted on noncontrast enhanced MRI. There is enhancing tumor within the left L1 pedicle with some enhancing tissue narrowing the left L1 to neural foramina. Partial marrow replacement of the L2 vertebral body with heterogeneously enhancing tumor but no identifiable pathologic fracture or pedicle involvement at this time. No definable abnormal enhancement of distal thoracic cord or cauda equina nerve roots to indicate leptomeningeal tumor metastases. No other focal lesion identified of the lumbar spine. PET CT or bone scan however would be more sensitive for subtle marrow replacement. Electronically signed by: Lily Deshpande M.D. 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 Severe pain. Evaluate for cord compression. TECHNIQUE: Sagittal and Axial imaging includes T1, T2, STIR and gradient echo sequences. Post contrast image were performed. FINDINGS: Lumbar MRI comparison from 09/20/2025. ALIGNMENT: Thoracic vertebral alignment is normal. VERTEBRAE: Thoracic vertebral height is maintained. No definite acute pathologic fracture is identified. Please note, however, the entire thoracic spine exam is moderately limited by patient motion artifact. Within limitation, no definite enhancing lesion is seen within the thoracic vertebral bodies, pedicles or facets.. DISCS : Thoracic disks are relatively maintained. HARDWARE: None in the spine. CORD: Significantly limited evaluation of thoracic cord signal due to moderate motion artifact. Within limitation, no compressive disc herniation identified. No enhancement within the thoracic spinal cord is identified. INDIVIDUAL DISK LEVELS: No compressive disc herniation is identified. There is no discogenic spinal canal stenosis. No enhancing abnormality of the endplates or disc spaces is identified. UPPER LUMBAR: Incompletely imaged. L1 pathologic fracture incompletely visualized. Please refer to lumbar MRI dictated separately below. No significant spinal stenosis or foraminal stenosis. LOWER CERVICAL: There is limited visualization of the cervical spinal canal on localizing sagittal images however there is a suggestion of either disc protrusion or other anterior epidural soft tissue at C6-C7. Consideration for dedicated cervical MRI imaging is suggested. OTHER: Mass in the left upper lung field with left hilar lesion better seen on recent chest CT. 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 Severe pain. Evaluate for cord compression. TECHNIQUE: Sagittal and Axial imaging includes T1, T2, STIR and gradient echo sequences. Post contrast image were performed. FINDINGS: Lumbar MRI comparison from 09/20/2025. ALIGNMENT: Thoracic vertebral alignment is normal. VERTEBRAE: Thoracic vertebral height is maintained. No definite acute pathologic fracture is identified. Please note, however, the entire thoracic spine exam is moderately limited by patient motion artifact. Within limitation, no definite enhancing lesion is seen within the thoracic vertebral bodies, pedicles or facets.. DISCS : Thoracic disks are relatively maintained. HARDWARE: None in the spine. CORD: Significantly limited evaluation of thoracic cord signal due to moderate motion artifact. Within limitation, no compressive disc herniation identified. No enhancement within the thoracic spinal cord is identified. INDIVIDUAL DISK LEVELS: No compressive disc herniation is identified. There is no discogenic spinal canal stenosis. No enhancing abnormality of the endplates or disc spaces is identified. UPPER LUMBAR: Incompletely imaged. L1 pathologic fracture incompletely visualized. Please refer to lumbar MRI dictated separately below. No significant spinal stenosis or foraminal stenosis. LOWER CERVICAL: There is limited visualization of the cervical spinal canal on localizing sagittal images however there is a suggestion of either disc protrusion or other anterior epidural soft tissue at C6-C7. Consideration for dedicated cervical MRI imaging is suggested. OTHER: Mass in the left upper lung field with left hilar lesion better seen on recent chest CT. IMPRESSION: Severely limited exam of the thoracic spine due to patient motion artifact. Within limitation, no pathologic fracture identified of thoracic vertebra. No focal mass within the spinal canal. No compressive disc herniation or mass identified within the spinal canal. No enhancing abnormality within the spinal canal. Limited area coordinator visualization of the cervical spine does not clearly demonstrate a patent spinal canal at C6-C7. Consideration for dedicated cervical MRI imaging is suggested based on clinical exam findings. EXAM DESCRIPTION: MRI LUMBAR SPINE WITH AND WITHOUT CONTRAST REASON FOR STUDY: Lung mass with osseous metastatic disease. Severe pain. Evaluate for cord impingement. Contrast-enhanced MRI of lumbar spine recommended from lumbar MRI without contrast 09/19/2025 TECHNIQUE: Sagittal and axial imaging of the lumbar spine includes T1, T2, STIR sequences. Postcontrast sagittal and axial images were also obtained. Images saved to PACS. CONTRAST: Exam was performed with contrast. FINDINGS: Comparison MRI lumbar spine from 09/20/2025. CT lumbar spine from 08/30/2025. Lumbar spine MRI is mildly compromised due to excessive patient motion artifact. SEGMENTATION: Numbering convention will be used similar to previous reports. With this convention, the lowest fully formed disc is present at L5-S1 this disc appears ankylosed. There is a hypoplastic disc at S1-S2.. ALIGNMENT:Lumbar alignment is stable with slight degenerative retrolisthesis. See previous report. VERTEBRAE: The diffuse metastatic lesion throughout the L1 vertebral body with complete marrow replacement and with pathologic fracture at L1 is again identified. Enhancement pattern is heterogeneous. There does appear to be mild marrow edema within the pedicles, left greater than right with moderate left foraminal narrowing. The appearance is stable from MRI of 09/20/2025 percent vertebral height loss and posterior retropulsion has progressed since 08/30/2025 CT lumbar. As noted on MRI lumbar without contrast, there is retropulsion of the posterior vertebral margin of L1 into the spinal canal without impingement upon the adjacent proximal cauda equina nerve roots There is heterogeneous tumor throughout the L2 vertebra without pathologic fracture or involvement of pedicles, facets or spinous processes.. No spinal stenosis. HARDWARE: None in the spine. CORD/CAUDA: Normal in size and signal intensity. Conus medullaris terminates at L1. LOWER THORACIC: Incompletely imaged. No significant stenosis demonstrated. INDIVIDUAL DISC LEVELS:: Stable mild multilevel disc degeneration is detailed on previous report. SACRUM: Visualized upper sacrum is intact. No enhancing abnormality or definite marrow signal abnormality. The L5-S1 disc appears ankylosed. . VISUALIZED UPPER ABDOMEN: No significant abnormality. 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 OTHER: No other significant findings. IMPRESSION:Heterogeneous enhancement of the metastatic lesion throughout the L1 vertebral body with stable appearance of pathologic fracture compared to MRI lumbar spine from 09/20/2025 but progression compared to CT of 08/30/2025. No high-grade spinal stenosis or impingement upon the adjacent cauda equina nerve roots as noted on noncontrast enhanced MRI. There is enhancing tumor within the left L1 pedicle with some enhancing tissue narrowing the left L1 to neural foramina. Partial marrow replacement of the L2 vertebral body with heterogeneously enhancing tumor but no identifiable pathologic fracture or pedicle involvement at this time. No definable abnormal enhancement of distal thoracic cord or cauda equina nerve roots to indicate leptomeningeal tumor metastases. No other focal lesion identified of the lumbar spine. PET CT or bone scan however would be more sensitive for subtle marrow replacement. Electronically signed by: Lily Deshpande M.D. Jaren Oliveira MD [facility] [place] MRI PROCEDURES Final R esult * (ABNORMAL) eGFR (09/24/2025 9:35 AM [employer] SITE MANAGER) eGFR 54(L) >=60 mL/min/1. 73 m2 Comment: Interpretive Data Reference Interval Normal >/= 90 mL/min/1.73m2 Mildly decreased* 60 - 89 mL/min/1.73m2 Mildly to moderately decreased 45 - 59 mL/min/1.73m2 Moderately to severely decreased 30 - 44 mL/min/1.73m2 Severely decreased 15 - 29 mL/min/1.73m2 Kidney Failure < 15 mL/min/1.73m2 *Relative to young adult level Estimated glomerular filtration rate is determined by the 2020 CKD-EPI equation recommended by the [employer] (A Unifying Approach to GFR Estimation: Recommendations of the NKF-ASK Task Force on Reassessing the Inclusion of Race in Diagnosing Kidney Disease, JASN 2020). The CKD-EPI equation should not be used for patients with unstable renal function and has not been validated in children and those over 70. Current interpretive data was last reviewed 2021. Blood 09/24/2025 9:35 AM [employer]EL[employer] SITE MANAGER 09/24/2025 9:39 AM [employer] SITE MANAGER us Jaren Oliveira MD LAB BLOOD ORDERABLES Final Result [facility] ([place]) 1 [facility] [place] [address] * (ABNORMAL) Differential, auto (09/24/2025 9:35 AM [employer] REDEVELOP[employer] SITE MANAGER) Neutrophil abs 10.31(H) 1.50 - 6.50 K/cumm Imm gran abs 0.04 0.00 - 0.10 K/cumm [facility] ([place]) Lymphocyte abs 1.22 0.80 - 3.30 K/cumm [facility] ([place]) Monocyte abs 1.12(H) 0.20 - 0.80 K/cumm [facility] ([place]) Eosinophil abs 0.31 0.00 - 0.50 K/cumm [facility] ([place]) Basophil abs 0.05 0.00 - 0.10 K/cumm [facility] ([place]) Neutrophil pct 79.0 % [facility] ([place]) Comment: Interpretive Data Percent cell count reference ranges are not reported, since discordance with absolute values may lead to misinterpretation of CBC data. Current Interpretive Data was last revised on 2018. Imm gran pct 0.3 % [facility] ([place]) Comment: Interpretive Data Percent cell count reference ranges are not reported, since discordance with absolute values may lead to misinterpretation of CBC data. Current Interpretive Data was last revised on 2018. Lymphocyte pct 9.3 % [facility] ([place]) Comment: Interpretive Data Percent cell count reference ranges are not reported, since discordance with absolute values may lead to misinterpretation of CBC data. Current Interpretive Data was last revised on 2018. Monocyte pct 8.6 % [facility] ([place]) Comment: Interpretive Data Percent cell count reference ranges are not reported, since discordance with absolute values may lead to misinterpretation of CBC data. Current Interpretive Data was last revised on 2018. Eosinophil pct 2.4 % [facility] ([place]) Comment: Interpretive Data Percent cell count reference ranges are not reported, since discordance with absolute values may lead to misinterpretation of CBC data. Current Interpretive Data was last revised on 2018. Basophil pct 0.4 % [facility] ([place]) Comment: Interpretive Data Percent cell count reference ranges are not reported, since discordance with absolute values may lead to misinterpretation of CBC data. Current Interpretive Data was last revised on 2018. Blood 09/24/2025 9:35 AM [employer]EVELOP[employer] SITE MANAGER 09/24/2025 9:39 AM [employer]EL[employer] SITE MANAGER us Jaren Oliveira MD LAB BLOOD ORDERABLES Final Result [facility] ([place]) 1 [facility] [place] [address] * (ABNORMAL) CBC with auto differential (09/24/2025 9:35 AM [employer] REDEVELOP[employer] SITE MANAGER) WBC 13.05(H) 3.80 - 9.90 K/cumm Hgb 10.2(L) 13.0 - 17.5 g/dL [facility] ([place]) Hct 31.5(L) 38.9 - 50.3 % [facility] ([place]) Plt 280 150 - 400 K/cumm [facility] ([place]) MPV 9.0(L) 9.1 - 12.3 fL [facility] ([place]) RBC 3.34(L) 4.30 - 5.80 M/cumm [facility] ([place]) MCV 94.3 81.3 - 96.4 fL [facility] ([place]) MCH 30.5 27.1 - 33.3 pg [facility] ([place]) MCHC 32.4 32.3 - 35.7 g/dL [facility] RDW CV 15.9(H) 11.1 - 14.9 % [facility] ([place]) RDW SD 55.4(H) 35.7 - 48.1 fL [facility] NRBC abs 0.00 0.00 - 0.01 K/cumm [facility] ([place]) Blood 09/24/2025 9:35 AM [employer] REDEVELOP[employer] SITE MANAGER 09/24/2025 9:39 AM [employer]EL[employer] SITE MANAGER us Jaren Oliveira MD LAB BLOOD ORDERABLES Final Result [facility] ([place]) 1 [facility] [place] [address] * (ABNORMAL) Basic metabolic panel (09/24/2025 9:35 AM [employer] REDEVELOP[employer] SITE MANAGER) Sodium 130(L) 135 - 145 mmol/L Potassium, pl 4.8 3.3 - 4.9 mmol/L [facility] Chloride 94(L) 97 - 110 mmol/L [facility] CO2 26 22 - 32 mmol/L [facility] ([place]) Anion gap 10 2 - 15 mmol/L [facility] BUN 36(H) 6 - 25 mg/dL [facility] Creatinine 1.38(H) 0.80 - 1.30 mg/dL [facility] Glucose 171 70 - 199 mg/dL [facility] Comment: Interpretive Data Fasting glucose >/= 126 mg/dl is diagnostic for diabetes. Fasting is defined as no caloric intake for at least 8 hours. Fasting glucose between 100 mg/dl to 125 mg/dl is diagnostic of prediabetes. In a patient with classic symptoms of hyperglycemia or hyperglycemic crisis, a random glucose >/= 200 mg/dl is diagnostic for diabetes. In the absence of unequivocal hyperglycemia, results should be confirmed by repeat testing. The classification and Diagnosis of Diabetes Diabetes Care 2021; 46: S19-S40. Current interpretive data was last revised 2022. Calcium 10.1 8.5 - 10.3 mg/dL [facility] ([place]) Blood 09/24/2025 9:35 AM [employer] REDEVELOP[employer] SITE MANAGER 09/24/2025 9:39 AM [employer] SITE MANAGER us Jaren Oliveira MD LAB BLOOD ORDERABLES Final Result [facility] ([place]) 1 [facility] [place] [address] * MRI Lumbar Spine WO Contrast (09/20/2025 2:29 PM [employer] REDEVELOP[employer] SITE MANAGER) Anatomical Region Laterality Modality Spine N/A Magnetic Resonan ce 09/20/2025 2:48 PM [employer] REDEVELOP[employer] SITE MANAGER Impressions 09/20/2025 2:48 PM [employer] SITE MANAGER 1. The postcontrast sequences were not obtained per the request of the patient due to pain. A complete pre and postcontrast lumbar spine MRI can be obtained when the patient's clinical status permits. 2. The L1 vertebral body metastases as seen on the lumbar spine CT dated 08/30/2025. Bulging of the posterior wall/extraosseous soft tissue component compresses the ventral thecal sac and contributes to L1-L2 neural foraminal narrowing. 3. Additional metastases in the L2 vertebral body without pathologic compression fracture. 4. Faint STIR signal in the L3, L4 and L5 vertebral bodies are nonspecific and could be degenerative in nature but seen with suspicion for additional metastases. Attention on follow-up contrast enhanced MRI. 5. Multilevel lumbar disc degeneration with thickened ligamentum flavum and facet arthropathy as described. The spinal canal narrowing is most noticeable at L3-L4 and L4-L5. 5. Postoperative changes at L5-S1. 6. Neural foraminal narrowing and other findings as above. Electronically signed by: Fan De Luna D.O. Narrative 09/20/2025 2:48 PM [employer] SITE MANAGER EXAM DESCRIPTION:MRI LUMBAR SPINE WO CONTRAST REASON FOR STUDY: . Bone mass or bone pain, lumbar spine, aggressive features on xray Low back pain, cauda equina syndrome suspected cord compression at L1? giveway leg weakness and constipation TECHNIQUE: Sagittal and Axial imaging includes T1, T2, STIR and gradient echo sequences. According to the magnetic resonance technologist PACs note Patient refused contrast due to pain. Repeated t2 axials because of motion due to pain. COMPARISON:Lumbar spine CT and CT abdomen and pelvis dated 08/30/2025. FINDINGS: Multiple of the sequences are degraded by motion related artifact. SEGMENTATION: To maintain continuity with the nomenclature lumbar spine CT dated 08/30/2025 assumption is made for the disc space seen on series 8, image 40 to be labeled as L5-S1. In this system of nomenclature there is an unfused left transverse process of L1 and a small disc at S1-S2. If a surgical or therapeutic intervention is considered then recommend imaging of the complete spinal axis to accurately hernia the vertebral levels. ALIGNMENT: Mild retrolisthesis of L2 on L3 and L3 and L4. Minor anterolisthesis of L4 and L5. VERTEBRAE: The L1 vertebral body heterogeneous T1 hypointense, STIR hyperintense mass alteration extending into the posterior elements on both sides is highly suspicious for metastases. Given near-complete marrow replacement vertebral body subtle pathologic fracture is not well evaluated by MRI technique. Bulging of the posterior wall of the L1 vertebral body indents the ventral thecal sac. There is additional multifocal marrow replacement involving the L2 vertebral body without gross acute pathologic compression fracture. Faint STIR hyperintense, T1 hypointense signal in the L3, L4 and L5 vertebral bodies are indeterminate but seen with suspicion for additional metastases. Multilevel endplate degenerative change and marginal spur formation. DISCS: Multilevel intervertebral disc height loss. Osseous fusion across the L5-S1 disc space. HARDWARE: None in the spine. Conus: Conus medullaris terminates at L1. LOWER THORACIC: Incompletely imaged. No high-grade spinal canal stenosis. INDIVIDUAL LEVELS: At the level of L1 vertebral body: Bulging of the posterior wall of the L1 vertebral body/extraosseous soft tissue component with mild to moderate spinal canal stenosis. L1-L2: Minor disc bulge with facet arthropathy. No significant spinal canal stenosis. Extraosseous soft tissue component of the L1 metastases contributes to neural foraminal narrowing, left more than right. L2-L3: Disc bulge with bilateral facet arthropathy. Flattening of the ventral thecal sac. No significant neural foraminal narrowing. L3-L4: Disc bulge and superimposed central disc protrusion. Thickened ligamentum flavum with facet arthropathy. Trace facet joint effusion. Mild spinal canal stenosis. Mild proximal right and no significant left neural foraminal narrowing. L4-L5: Anterolisthesis of L4 and L5 with unroofing disc. Thickened ligamentum flavum with bilateral facet arthropathy. Trace facet joint effusion. Right dorsal lateral spinal canal 4 x 3 x 4 mm T2 hyperintense signal in keeping with a synovial cyst. Constellation of findings with mild to moderate spinal canal stenosis and right more than left lateral recess narrowing. Mild proximal right and no significant left neural foraminal narrowing. L5-S1: The lamina appear desiccation, correlate for prior surgery. Disc bulges/marginal spur formation or other postoperative change. Bilateral facet arthropathy. No significant spinal canal stenosis. Portion of disc/marginal spur approaching the descending S1 nerve roots, left more than right. Mild inferior bilateral neural foraminal narrowing. SOFT TISSUES: No abdominal aortic aneurysm and other findings are better assessed on the previous CT abdomen and pelvis dated 08/30/2025. OTHER: Bilateral posterior paraspinal soft tissue extensive STIR hyperintense signal is nonspecific and could reflect a strain or myositis in the proper clinical scenario. Procedure Note Fan De Luna, DO - 09/20/2025 EXAM DESCRIPTION:MRI LUMBAR SPINE WO CONTRAST REASON FOR STUDY: . Bone mass or bone pain, lumbar spine, aggressive features on xray Low back pain, cauda equina syndrome suspected cord compression at L1? giveway leg weakness and constipation TECHNIQUE: Sagittal and Axial imaging includes T1, T2, STIR and gradient echo sequences. According to the magnetic resonance technologist PACs note Patient refused contrast due to pain. Repeated t2 axials because of motion due to pain. COMPARISON:Lumbar spine CT and CT abdomen and pelvis dated 08/30/2025. FINDINGS: Multiple of the sequences are degraded by motion related artifact. SEGMENTATION: To maintain continuity with the nomenclature lumbar spine CT dated 08/30/2025 assumption is made for the disc space seen on series 8, image 40 to be labeled as L5-S1. In this system of nomenclature there is an unfused left transverse process of L1 and a small disc at S1-S2. If a surgical or therapeutic intervention is considered then recommend imaging of the complete spinal axis to accurately hernia the vertebral levels. ALIGNMENT: Mild retrolisthesis of L2 on L3 and L3 and L4. Minor anterolisthesis of L4 and L5. VERTEBRAE: The L1 vertebral body heterogeneous T1 hypointense, STIR hyperintense mass alteration extending into the posterior elements on both sides is highly suspicious for metastases. Given near-complete marrow replacement vertebral body subtle pathologic fracture is not well evaluated by MRI technique. Bulging of the posterior wall of the L1 vertebral body indents the ventral thecal sac. There is additional multifocal marrow replacement involving the L2 vertebral body without gross acute pathologic compression fracture. Faint STIR hyperintense, T1 hypointense signal in the L3, L4 and L5 vertebral bodies are indeterminate but seen with suspicion for additional metastases. Multilevel endplate degenerative change and marginal spur formation. DISCS: Multilevel intervertebral disc height loss. Osseous fusion across the L5-S1 disc space. HARDWARE: None in the spine. Conus: Conus medullaris terminates at L1. LOWER THORACIC: Incompletely imaged. No high-grade spinal canal stenosis. INDIVIDUAL LEVELS: At the level of L1 vertebral body: Bulging of the posterior wall of the L1 vertebral body/extraosseous soft tissue component with mild to moderate spinal canal stenosis. L1-L2: Minor disc bulge with facet arthropathy. No significant spinal canal stenosis. Extraosseous soft tissue component of the L1 metastases contributes to neural foraminal narrowing, left more than right. L2-L3: Disc bulge with bilateral facet arthropathy. Flattening of the ventral thecal sac. No significant neural foraminal narrowing. L3-L4: Disc bulge and superimposed central disc protrusion. Thickened ligamentum flavum with facet arthropathy. Trace facet joint effusion. Mild spinal canal stenosis. Mild proximal right and no significant left neural foraminal narrowing. L4-L5: Anterolisthesis of L4 and L5 with unroofing disc. Thickened ligamentum flavum with bilateral facet arthropathy. Trace facet joint effusion. Right dorsal lateral spinal canal 4 x 3 x 4 mm T2 hyperintense signal in keeping with a synovial cyst. Constellation of findings with mild to moderate spinal canal stenosis and right more than left lateral recess narrowing. Mild proximal right and no significant left neural foraminal narrowing. L5-S1: The lamina appear desiccation, correlate for prior surgery. Disc bulges/marginal spur formation or other postoperative change. Bilateral facet arthropathy. No significant spinal canal stenosis. Portion of disc/marginal spur approaching the descending S1 nerve roots, left more than right. Mild inferior bilateral neural foraminal narrowing. SOFT TISSUES: No abdominal aortic aneurysm and other findings are better assessed on the previous CT abdomen and pelvis dated 08/30/2025. OTHER: Bilateral posterior paraspinal soft tissue extensive STIR hyperintense signal is nonspecific and could reflect a strain or myositis in the proper clinical scenario. IMPRESSION: 1. The postcontrast sequences were not obtained per the request of the patient due to pain. A complete pre and postcontrast lumbar spine MRI can be obtained when the patient's clinical status permits. 2. The L1 vertebral body metastases as seen on the lumbar spine CT dated 08/30/2025. Bulging of the posterior wall/extraosseous soft tissue component compresses the ventral thecal sac and contributes to L1-L2 neural foraminal narrowing. 3. Additional metastases in the L2 vertebral body without pathologic compression fracture. 4. Faint STIR signal in the L3, L4 and L5 vertebral bodies are nonspecific and could be degenerative in nature but seen with suspicion for additional metastases. Attention on follow-up contrast enhanced MRI. 5. Multilevel lumbar disc degeneration with thickened ligamentum flavum and facet arthropathy as described. The spinal canal narrowing is most noticeable at L3-L4 and L4-L5. 5. Postoperative changes at L5-S1. 6. Neural foraminal narrowing and other findings as above. Electronically signed by: Fan De Luna D.O. us Prasanth Florian MD IMG MRI PROCEDURES Shiela l Result * CT Chest W Contrast (09/19/2025 3:14 PM [employer]) Anatomical Region Laterality Modality Body N/A Computed Tomogra phy 09/19/2025 4:34 PM [employer] Impressions 09/19/2025 4:34 PM [employer] 1. Left hilar mass measuring up to 3.9 cm. This is very concerning for a primary bronchogenic carcinoma. There is low-density and possibly necrotic material distal to this lesion. 2. 1.8 cm left upper lobe paramediastinal nodule. 3. Mild bronchial wall thickening with mild centrilobular nodularity in the right lower lobe, possibly related to aspiration. Electronically signed by: Tonya Chung MD Narrative 09/19/2025 4:34 PM [employer] EXAMINATION: Chest CT with contrast TECHNIQUE: Computed tomography of the chest following the administration of intravenous contrast. HISTORY: Pulmonary nodule COMPARISON:Lung bases on abdominopelvic CT performed August 30, 2025 FINDINGS: Pleura and lungs: There is mild underlying centrilobular emphysema. There is a mass in the left hilum measuring approximately 3.9 x 2.7 cm. Distal to this, there is low-density and possibly necrotic material which measures up to 6.1 cm in length. There is a 1.8 cm paramediastinal nodule in the lingula as well as a subtle nodule or intrafissural lymph node along the right minor fissure, measuring approximately 6 mm. There is bronchial wall thickening and mild centrilobular nodularity in the right lower lobe, slightly progressed from the prior examination. Central airways: Widely patent. Lymph nodes: There is no lymphadenopathy in the chest. Heart and Great vessels: The heart size is normal. There is coronary atherosclerosis. There is no pericardial fluid collection. Osseous and body wall: There is multilevel disc degeneration of the thoracic spine. The patient's known lytic and destructive L1 mass is barely visualized on this examination. Procedure Note Tonya Chung MD - 09/19/2025 EXAMINATION: Chest CT with contrast TECHNIQUE: Computed tomography of the chest following the administration of intravenous contrast. HISTORY: Pulmonary nodule COMPARISON:Lung bases on abdominopelvic CT performed August 30, 2025 FINDINGS: Pleura and lungs: There is mild underlying centrilobular emphysema. There is a mass in the left hilum measuring approximately 3.9 x 2.7 cm. Distal to this, there is low-density and possibly necrotic material which measures up to 6.1 cm in length. There is a 1.8 cm paramediastinal nodule in the lingula as well as a subtle nodule or intrafissural lymph node along the right minor fissure, measuring approximately 6 mm. There is bronchial wall thickening and mild centrilobular nodularity in the right lower lobe, slightly progressed from the prior examination. Central airways: Widely patent. Lymph nodes: There is no lymphadenopathy in the chest. Heart and Great vessels: The heart size is normal. There is coronary atherosclerosis. There is no pericardial fluid collection. Osseous and body wall: There is multilevel disc degeneration of the thoracic spine. The patient's known lytic and destructive L1 mass is barely visualized on this examination. IMPRESSION: 1. Left hilar mass measuring up to 3.9 cm. This is very concerning for a primary bronchogenic carcinoma. There is low-density and possibly necrotic material distal to this lesion. 2. 1.8 cm left upper lobe paramediastinal nodule. 3. Mild bronchial wall thickening with mild centrilobular nodularity in the right lower lobe, possibly related to aspiration. Electronically signed by: Tonya Chung MD Irma Alva MD IMG CT PROCEDURES Final Result * (ABNORMAL) Creatinine, whole blood (09/19/2025 2:10 PM [employer]GER) Creatinine, bld 1.60(H) 0.60 - 1.30 mg/dL Blood 09/19/2025 2:10 PM [employer] MANAGER 09/19/2025 2:15 PM [employer] MA[employer]GER Irma Alva MD LAB BLOOD ORDERABLES Final Resul t Performing Organization Address City/State/[facility] Co de Phone Number [facility] ([place]) 1 [facility] Department of Laboratories [place], [place] [phone] * CT Abdomen Pelvis W Contrast (08/30/2025 8:19 AM CDT) Anatomical Region Laterality Modality Body N/A Computed Tomogra phy 08/30/2025 8:35 AM CDT Narrative 08/30/2025 8:47 AM CDT EXAM DESCRIPTION: CT ABDOMEN PELVIS W CONTRAST; CT LUMBAR SPINE WO CONTRAST REASON FOR STUDY: Abdominal trauma, blunt C/o a fall today. Pt reports he was walking and his knees gave out. Pt denies hitting his head or LOC. Pt reports multiple falls recently and that he has an MRI and CT ordered because of these falls and they recently found lesion on his back and nodules on his lungs. Pt is complaining of right flank pain. ; pain after fall, c/f fx TECHNIQUE: CT scan of the abdomen and pelvis performed with intravenous and without oral contrast using helical scanning technique with dynamic intravenous contrast injection. Axial CT images through the lumbar spine. Reconstructed coronal and sagittal MPR images reviewed. All images stored on PACS. Automated exposure control was used as a dose optimization technique for this examination. CONTRAST TYPE/DOSE: 75mL of IOVERSOL 350 MG IODINE/ML INTRAVENOUS SYRINGE injected via intravenous COMPARISON: CT abdomen and pelvis 07/26/2025. FINDINGS: LOWER CHEST: Again seen is a nodule in the lingula, not optimally assessed secondary to motion. This is 1.6 x 1.6 cm (series 3, image 8) unchanged. There is a small nodule in the right middle lobe 0.6 cm (image 8). There are a few tree-in-bud small airways opacities in the right lower lobe including a nodule which is 0.5 cm (image 19). LIVER: Liver size and contour normal. No focal hepatic lesion. Portal and hepatic veins are patent. GALLBLADDER: Gallstones are noted. There is no overt inflammatory change of the gallbladder. BILE DUCTS: No biliary ductal dilation. SPLEEN: Spleen size normal. No focal splenic lesion. PANCREAS: No pancreatic mass or inflammatory change. ADRENALS: Normal right adrenal gland. There is a left adrenal nodule with macroscopic fat, this is characteristic of an adrenal myelolipoma and measures 3.2 x 3.0 cm (series 3, image 50). KIDNEYS/URINARY TRACT: No hydronephrosis or hydroureter. There is calcification mid left kidney which is vascular 0.6 cm. No ureteral calculus. There is fluid in the urinary bladder. No urinary bladder mass or calculus. GI: No evidence of bowel obstruction. Stomach and duodenal are normal. No pneumatosis. No abnormal bowel wall thickening. PERITONEUM: No ascites or free air. No mesenteric mass or lymphadenopathy. RETROPERITONEUM: Area of nodularity in the right retroperitoneum posterolateral with the right kidney, this is similar to the prior study measures 1.8 x 1 cm (series 3, image 77). REPRODUCTIVE: The prostate is mildly enlarged. VASCULATURE: Status post aorto bi-iliac endograft repair of abdominal aortic aneurysm, this is grossly similar to recent imaging, the aneurysm sac in maximal dimension is 5.7 x 5.4 cm. MUSCULOSKELETAL: Lytic lesion L1. OTHER: No other abnormality. Lumbar spine: Diffusely diminished osseous density with lytic destructive lesion involving the majority of the L1 vertebral body. There is height loss of L1 especially anteriorly which is similar to the prior study, this shows approximately 30% height loss. The remainder of the vertebral body heights are unchanged. No new fracture or dislocation. Mild facet arthropathy. Areas of mild osseous spinal canal stenosis. There is moderate bilateral osseous neuroforaminal narrowing at L5-S1. IMPRESSION: 1. No evidence of an acute abnormality of the abdomen and pelvis. 2. Correlate for history of malignancy. There are pulmonary nodules in a lytic destructive lesion at L1 similar to prior imaging. 3. Lytic destructive lesion involving the majority of the L1 vertebral body with approximately 30% height loss. This is similar to the prior study. 4. Unchanged pulmonary nodules measuring up to 1.6 cm. Correlate for history of malignancy. Routine follow-up chest CT recommended. 5. Status post aorto bi-iliac endograft repair of abdominal aortic aneurysm. 6. Cholelithiasis. 7. Left adrenal myelolipoma. 8. Unchanged area of nodularity in the right retroperitoneum posterolateral with the right kidney. THIS IS AN ELECTRONICALLY VERIFIED FINAL REPORT 08/30/2025 8:47 AM - Electronically signed by Pancho Aguirre M.D. CH: Report ID: [id number] Reading Location: [id number] Procedure Note Pancho Aguirre MD - 08/30/2025 EXAM DESCRIPTION: CT ABDOMEN PELVIS W CONTRAST; CT LUMBAR SPINE WOCONTRAST REASON FOR STUDY: Abdominal trauma, blunt C/o a fall today. Pt reports he was walking and his knees gave out. Ptdenies hitting his head or LOC. Pt reports multiple falls recently and that hehas an MRI and CT ordered because of these falls and they recently found lesionon his back and nodules on his lungs. Pt is complaining of right flankpain. ; pain after fall, c/f fx TECHNIQUE: CT scan of the abdomen and pelvis performed with intravenousand without oral contrast using helical scanning technique with dynamic intravenous contrast injection. Axial CT images through the lumbar spine. Reconstructed coronal and sagittal MPR images reviewed. All images storedon PACS. Automated exposure control was used as a dose optimization techniquefor this examination. CONTRAST TYPE/DOSE: 75mL of IOVERSOL 350 MG IODINE/ML INTRAVENOUSSYRINGE injected via intravenous COMPARISON: CT abdomen and pelvis 07/26/2025. FINDINGS: LOWER CHEST: Again seen is a nodule in the lingula, not optimallyassessed secondary to motion. This is 1.6 x 1.6 cm (series 3, image 8) unchanged. There is a small nodule in the right middle lobe 0.6 cm (image 8). Thereare a few tree-in-bud small airways opacities in the right lower lobeincluding a nodule which is 0.5 cm (image 19). LIVER: Liver size and contour normal. No focal hepatic lesion. [place] hepatic veins are patent. GALLBLADDER: Gallstones are noted. There is no overt inflammatorychange of the gallbladder. BILE DUCTS: No biliary ductal dilation. SPLEEN: Spleen size normal. No focal splenic lesion. PANCREAS: No pancreatic mass or inflammatory change. ADRENALS: Normal right adrenal gland. There is a left adrenal nodulewith macroscopic fat, this is characteristic of an adrenal myelolipoma andmeasures 3.2 x 3.0 cm (series 3, image 50). KIDNEYS/URINARY TRACT: No hydronephrosis or hydroureter. There is calcification mid left kidney which is vascular 0.6 cm. No ureteralcalculus. There is fluid in the urinary bladder. No urinary bladder mass orcalculus. GI: No evidence of bowel obstruction. Stomach and duodenal are normal.No pneumatosis. No abnormal bowel wall thickening. PERITONEUM: No ascites or free air. No mesenteric mass orlymphadenopathy. RETROPERITONEUM: Area of nodularity in the right retroperitoneum posterolateral with the right kidney, this is similar to the prior study measures 1.8 x 1 cm (series 3, image 77). REPRODUCTIVE: The prostate is mildly enlarged. VASCULATURE: Status post aorto bi-iliac endograft repair of abdominalaortic aneurysm, this is grossly similar to recent imaging, the aneurysm sac in maximal dimension is 5.7 x 5.4 cm. MUSCULOSKELETAL: Lytic lesion L1. OTHER: No other abnormality. Lumbar spine: Diffusely diminished osseous density with lytic destructive lesion involving the majority of the L1 vertebral body. There is heightloss of L1 especially anteriorly which is similar to the prior study, thisshows approximately 30% height loss. The remainder of the vertebral bodyheights are unchanged. No new fracture or dislocation. Mild facet arthropathy. Areas of mild osseous spinal canal stenosis. There is moderate bilateral osseous neuroforaminal narrowing at L5-S1. IMPRESSION: 1. No evidence of an acute abnormality of the abdomen and pelvis. 2. Correlate for history of malignancy. There are pulmonary nodules jaycee lytic destructive lesion at L1 similar to prior imaging. 3. Lytic destructive lesion involving the majority of the L1 vertebralbody with approximately 30% height loss. This is similar to the prior study. 4. Unchanged pulmonary nodules measuring up to 1.6 cm. Correlate for history of malignancy. Routine follow-up chest CT recommended. 5. Status post aorto bi-iliac endograft repair of abdominal aorticaneurysm. 6. Cholelithiasis. 7. Left adrenal myelolipoma. 8. Unchanged area of nodularity in the right retroperitoneumposterolateral with the right kidney. THIS IS AN ELECTRONICALLY VERIFIED FINAL REPORT 08/30/2025 8:47 AM - Electronically signed by Pancho Aguirre M.D. CH: DAHIANA Report ID: [id number] Reading Location: [id number] us Martínez Jorge MD IMG CT PROCEDURES F inal Result * CT Lumbar Spine WO Contrast (08/30/2025 8:19 AM CDT) Anatomical Region Laterality Modality Spine N/A Computed Tomogra phy 08/30/2025 8:35 AM CDT Narrative 08/30/2025 8:47 AM CDT EXAM DESCRIPTION: CT ABDOMEN PELVIS W CONTRAST; CT LUMBAR SPINE WO CONTRAST REASON FOR STUDY: Abdominal trauma, blunt C/o a fall today. Pt reports he was walking and his knees gave out. Pt denies hitting his head or LOC. Pt reports multiple falls recently and that he has an MRI and CT ordered because of these falls and they recently found lesion on his back and nodules on his lungs. Pt is complaining of right flank pain. ; pain after fall, c/f fx TECHNIQUE: CT scan of the abdomen and pelvis performed with intravenous and without oral contrast using helical scanning technique with dynamic intravenous contrast injection. Axial CT images through the lumbar spine. Reconstructed coronal and sagittal MPR images reviewed. All images stored on PACS. Automated exposure control was used as a dose optimization technique for this examination. CONTRAST TYPE/DOSE: 75mL of IOVERSOL 350 MG IODINE/ML INTRAVENOUS SYRINGE injected via intravenous COMPARISON: CT abdomen and pelvis 07/26/2025. FINDINGS: LOWER CHEST: Again seen is a nodule in the lingula, not optimally assessed secondary to motion. This is 1.6 x 1.6 cm (series 3, image 8) unchanged. There is a small nodule in the right middle lobe 0.6 cm (image 8). There are a few tree-in-bud small airways opacities in the right lower lobe including a nodule which is 0.5 cm (image 19). LIVER: Liver size and contour normal. No focal hepatic lesion. Portal and hepatic veins are patent. GALLBLADDER: Gallstones are noted. There is no overt inflammatory change of the gallbladder. BILE DUCTS: No biliary ductal dilation. SPLEEN: Spleen size normal. No focal splenic lesion. PANCREAS: No pancreatic mass or inflammatory change. ADRENALS: Normal right adrenal gland. There is a left adrenal nodule with macroscopic fat, this is characteristic of an adrenal myelolipoma and measures 3.2 x 3.0 cm (series 3, image 50). KIDNEYS/URINARY TRACT: No hydronephrosis or hydroureter. There is calcification mid left kidney which is vascular 0.6 cm. No ureteral calculus. There is fluid in the urinary bladder. No urinary bladder mass or calculus. GI: No evidence of bowel obstruction. Stomach and duodenal are normal. No pneumatosis. No abnormal bowel wall thickening. PERITONEUM: No ascites or free air. No mesenteric mass or lymphadenopathy. RETROPERITONEUM: Area of nodularity in the right retroperitoneum posterolateral with the right kidney, this is similar to the prior study measures 1.8 x 1 cm (series 3, image 77). REPRODUCTIVE: The prostate is mildly enlarged. VASCULATURE: Status post aorto bi-iliac endograft repair of abdominal aortic aneurysm, this is grossly similar to recent imaging, the aneurysm sac in maximal dimension is 5.7 x 5.4 cm. MUSCULOSKELETAL: Lytic lesion L1. OTHER: No other abnormality. Lumbar spine: Diffusely diminished osseous density with lytic destructive lesion involving the majority of the L1 vertebral body. There is height loss of L1 especially anteriorly which is similar to the prior study, this shows approximately 30% height loss. The remainder of the vertebral body heights are unchanged. No new fracture or dislocation. Mild facet arthropathy. Areas of mild osseous spinal canal stenosis. There is moderate bilateral osseous neuroforaminal narrowing at L5-S1. IMPRESSION: 1. No evidence of an acute abnormality of the abdomen and pelvis. 2. Correlate for history of malignancy. There are pulmonary nodules in a lytic destructive lesion at L1 similar to prior imaging. 3. Lytic destructive lesion involving the majority of the L1 vertebral body with approximately 30% height loss. This is similar to the prior study. 4. Unchanged pulmonary nodules measuring up to 1.6 cm. Correlate for history of malignancy. Routine follow-up chest CT recommended. 5. Status post aorto bi-iliac endograft repair of abdominal aortic aneurysm. 6. Cholelithiasis. 7. Left adrenal myelolipoma. 8. Unchanged area of nodularity in the right retroperitoneum posterolateral with the right kidney. THIS IS AN ELECTRONICALLY VERIFIED FINAL REPORT 08/30/2025 8:47 AM - Electronically signed by Pancho Aguirre M.D. CH: Report ID: [id number] Reading Location: [place] [id number] Procedure Note Pancho Aguirre MD - 08/30/2025 EXAM DESCRIPTION: CT ABDOMEN PELVIS W CONTRAST; CT LUMBAR SPINE WOCONTRAST REASON FOR STUDY: Abdominal trauma, blunt C/o a fall today. Pt reports he was walking and his knees gave out. Ptdenies hitting his head or LOC. Pt reports multiple falls recently and that hehas an MRI and CT ordered because of these falls and they recently found lesionon his back and nodules on his lungs. Pt is complaining of right flankpain. ; pain after fall, c/f fx TECHNIQUE: CT scan of the abdomen and pelvis performed with intravenousand without oral contrast using helical scanning technique with dynamic intravenous contrast injection. Axial CT images through the lumbar spine. Reconstructed coronal and sagittal MPR images reviewed. All images storedon PACS. Automated exposure control was used as a dose optimization techniquefor this examination. CONTRAST TYPE/DOSE: 75mL of IOVERSOL 350 MG IODINE/ML INTRAVENOUSSYRINGE injected via intravenous COMPARISON: CT abdomen and pelvis 07/26/2025. FINDINGS: LOWER CHEST: Again seen is a nodule in the lingula, not optimallyassessed secondary to motion. This is 1.6 x 1.6 cm (series 3, image 8) unchanged. There is a small nodule in the right middle lobe 0.6 cm (image 8). Thereare a few tree-in-bud small airways opacities in the right lower lobeincluding a nodule which is 0.5 cm (image 19). LIVER: Liver size and contour normal. No focal hepatic lesion. [place] hepatic veins are patent. GALLBLADDER: Gallstones are noted. There is no overt inflammatorychange of the gallbladder. BILE DUCTS: No biliary ductal dilation. SPLEEN: Spleen size normal. No focal splenic lesion. PANCREAS: No pancreatic mass or inflammatory change. ADRENALS: Normal right adrenal gland. There is a left adrenal nodulewith macroscopic fat, this is characteristic of an adrenal myelolipoma andmeasures 3.2 x 3.0 cm (series 3, image 50). KIDNEYS/URINARY TRACT: No hydronephrosis or hydroureter. There is calcification mid left kidney which is vascular 0.6 cm. No ureteralcalculus. There is fluid in the urinary bladder. No urinary bladder mass orcalculus. GI: No evidence of bowel obstruction. Stomach and duodenal are normal.No pneumatosis. No abnormal bowel wall thickening. PERITONEUM: No ascites or free air. No mesenteric mass orlymphadenopathy. RETROPERITONEUM: Area of nodularity in the right retroperitoneum posterolateral with the right kidney, this is similar to the prior study measures 1.8 x 1 cm (series 3, image 77). REPRODUCTIVE: The prostate is mildly enlarged. VASCULATURE: Status post aorto bi-iliac endograft repair of abdominalaortic aneurysm, this is grossly similar to recent imaging, the aneurysm sac in maximal dimension is 5.7 x 5.4 cm. MUSCULOSKELETAL: Lytic lesion L1. OTHER: No other abnormality. Lumbar spine: Diffusely diminished osseous density with lytic destructive lesion involving the majority of the L1 vertebral body. There is heightloss of L1 especially anteriorly which is similar to the prior study, thisshows approximately 30% height loss. The remainder of the vertebral bodyheights are unchanged. No new fracture or dislocation. Mild facet arthropathy. Areas of mild osseous spinal canal stenosis. There is moderate bilateral osseous neuroforaminal narrowing at L5-S1. IMPRESSION: 1. No evidence of an acute abnormality of the abdomen and pelvis. 2. Correlate for history of malignancy. There are pulmonary nodules jaycee lytic destructive lesion at L1 similar to prior imaging. 3. Lytic destructive lesion involving the majority of the L1 vertebralbody with approximately 30% height loss. This is similar to the prior study. 4. Unchanged pulmonary nodules measuring up to 1.6 cm. Correlate for history of malignancy. Routine follow-up chest CT recommended. 5. Status post aorto bi-iliac endograft repair of abdominal aorticaneurysm. 6. Cholelithiasis. 7. Left adrenal myelolipoma. 8. Unchanged area of nodularity in the right retroperitoneumposterolateral with the right kidney. THIS IS AN ELECTRONICALLY VERIFIED FINAL REPORT 08/30/2025 8:47 AM - Electronically signed by Pancho Aguirre M.D. CH: DAHIANA Report ID: [id number] Reading Location: [id number] us Martínez Jorge MD IMG CT PROCEDURES F inal Result * (ABNORMAL) eGFR (08/30/2025 7:19 AM CDT) eGFR 49(L) >=60 mL/min/1. 73 m2 Comment: Interpretive Data Reference Interval Normal >/= 90 mL/min/1.73m2 Mildly decreased* 60 - 89 mL/min/1.73m2 Mildly to moderately decreased 45 - 59 mL/min/1.73m2 Moderately to severely decreased 30 - 44 mL/min/1.73m2 Severely decreased 15 - 29 mL/min/1.73m2 Kidney Failure < 15 mL/min/1.73m2 *Relative to young adult level Estimated glomerular filtration rate is determined by the 2020 CKD-EPI equation recommended by the [employer] (A Unifying Approach to GFR Estimation: Recommendations of the NKF-ASK Task Force on Reassessing the Inclusion of Race in Diagnosing Kidney Disease, JASN 2020). The CKD-EPI equation should not be used for patients with unstable renal function and has not been validated in children and those over 70. Current interpretive data was last reviewed 2021. Blood 08/30/2025 7:19 AM CDT 08/30/2025 7:21 AM CDT us Martínez Jorge MD LAB BLOOD ORDERABLE S Final Result [facility] ([place]) [facility] [place] [address] * (ABNORMAL) Differential, auto (08/30/2025 7:19 AM CDT) Neutrophil abs 9.07(H) 1.50 - 6.50 K/cumm Imm gran abs 0.03 0.00 - 0.10 K/cumm [facility] ([place]) Lymphocyte abs 1.06 0.80 - 3.30 K/cumm [facility] ([place]) Monocyte abs 0.87(H) 0.20 - 0.80 K/cumm [facility] ([place]) Eosinophil abs 0.29 0.00 - 0.50 K/cumm [facility] ([place]) Basophil abs 0.06 0.00 - 0.10 K/cumm [facility] ([place]) Neutrophil pct 79.8 % [facility] ([place]) Comment: Interpretive Data Percent cell count reference ranges are not reported, since discordance with absolute values may lead to misinterpretation of CBC data. Current Interpretive Data was last revised on 2018. Imm gran pct 0.3 % [facility] ([place]) Comment: Interpretive Data Percent cell count reference ranges are not reported, since discordance with absolute values may lead to misinterpretation of CBC data. Current Interpretive Data was last revised on 2018. Lymphocyte pct 9.3 % [facility] ([place]) Comment: Interpretive Data Percent cell count reference ranges are not reported, since discordance with absolute values may lead to misinterpretation of CBC data. Current Interpretive Data was last revised on 2018. Monocyte pct 7.6 % [facility] ([place]) Comment: Interpretive Data Percent cell count reference ranges are not reported, since discordance with absolute values may lead to misinterpretation of CBC data. Current Interpretive Data was last revised on 2018. Eosinophil pct 2.5 % [facility] ([place]) Comment: Interpretive Data Percent cell count reference ranges are not reported, since discordance with absolute values may lead to misinterpretation of CBC data. Current Interpretive Data was last revised on 2018. Basophil pct 0.5 % [facility] ([place]) Comment: Interpretive Data Percent cell count reference ranges are not reported, since discordance with absolute values may lead to misinterpretation of CBC data. Current Interpretive Data was last revised on 2018. Blood 08/30/2025 7:19 AM CDT 08/30/2025 7:21 AM CDT us Martínez Jorge MD LAB BLOOD ORDERABLE S Final Result [facility] ([place]) [facility] [place] [address] * (ABNORMAL) CBC with auto differential (08/30/2025 7:19 AM CDT) WBC 11.38(H) 3.80 - 9.90 K/cumm Hgb 11.8(L) 13.0 - 17.5 g/dL [facility] ([place]) Hct 36.7(L) 38.9 - 50.3 % [facility] ([place]) Plt 318 150 - 400 K/cumm [facility] ([place]) MPV 9.0(L) 9.1 - 12.3 fL [facility] ([place]) RBC 3.85(L) 4.30 - 5.80 M/cumm [facility] ([place]) MCV 95.3 81.3 - 96.4 fL [facility] ([place]) MCH 30.6 27.1 - 33.3 pg [facility] ([place]) MCHC 32.2(L) 32.3 - 35.7 g/dL [facility] ([place]) RDW CV 15.7(H) 11.1 - 14.9 % [facility] ([place]) RDW SD 55.0(H) 35.7 - 48.1 fL [facility] ([place]) NRBC abs 0.00 0.00 - 0.01 K/cumm [facility] ([place]) Blood 08/30/2025 7:19 AM CDT 08/30/2025 7:21 AM CDT us Martínez Jorge MD LAB BLOOD ORDERABLE S Final Result [facility] ([place]) [facility] [place] [address] * (ABNORMAL) Basic metabolic panel (08/30/2025 7:19 AM CDT) Sodium 131(L) 135 - 145 mmol/L Potassium, pl 4.2 3.3 - 4.9 mmol/L [facility] ([place]) Chloride 95(L) 97 - 110 mmol/L [facility] ([place]) CO2 25 22 - 32 mmol/L [facility] ([place]) Anion gap 11 2 - 15 mmol/L [facility] ([place]) BUN 32(H) 6 - 25 mg/dL [facility] ([place]) Creatinine 1.48(H) 0.80 - 1.30 mg/dL [facility] ([place]) Glucose 133 70 - 199 mg/dL [facility] ([place]) Comment: Interpretive Data Fasting glucose >/= 126 mg/dl is diagnostic for diabetes. Fasting is defined as no caloric intake for at least 8 hours. Fasting glucose between 100 mg/dl to 125 mg/dl is diagnostic of prediabetes. In a patient with classic symptoms of hyperglycemia or hyperglycemic crisis, a random glucose >/= 200 mg/dl is diagnostic for diabetes. In the absence of unequivocal hyperglycemia, results should be confirmed by repeat testing. The classification and Diagnosis of Diabetes Diabetes Care 2021; 46: S19-S40. Current interpretive data was last revised 2022. Calcium 9.5 8.5 - 10.3 mg/dL [facility] ([place]) Blood 08/30/2025 7:19 AM CDT 08/30/2025 7:21 AM CDT us Martínez Jorge MD LAB BLOOD ORDERABLE S Final Result [facility] ([place]) 1 [facility] [place] [address] * CT Cervical Spine WO Contrast (08/21/2025 6:51 PM CDT) Anatomical Region Laterality Modality Spine N/A Computed Tomogra phy 08/21/2025 7:21 PM CDT Narrative 08/21/2025 8:09 PM CDT EXAM DESCRIPTION: CT HEAD WO CONTRAST; CT FACIAL BONES WO CONTRAST; CT CERVICAL SPINE WO CONTRAST REASON FOR STUDY: Head trauma, minor (Age >= 65y) Patient presents status post fall from standing tonight. ; Facial trauma, blunt Patient presents status post fall from standing tonight. ; Neck trauma (Age >= 65y) Patient presents status post fall from standing tonight. TECHNIQUE: Axial images acquired through the brain without intravenous contrast. Images stored on PACS. Automated exposure control was used as a dose optimization technique for this examination. Axial images acquired through the cervical spine without intravenous contrast. Images stored on PACS. Automated exposure control was used as a dose optimization technique for this examination. Axial images acquired through the maxillofacial bones without intravenous contrast. Images stored on PACS. Automated exposure control was used as a dose optimization technique for this examination. COMPARISON: None available FINDINGS: Head: BRAIN: No hemorrhage, edema or mass effect. No recent infarct. Nonspecific periventricular and subcortical white matter hypoattenuation which can be seen as sequela of chronic small vessel ischemic disease. There is age-appropriate cerebral volume loss. No acute intraventricular hemorrhage. Basal cisterns are patent. No midline shift. EXTRA-AXIAL SPACES: No fluid collections. No masses. CALVARIUM: No acute calvarial fracture. SINUSES/MASTOIDS: Mucosal thickening of bilateral ethmoid air cells and bilateral maxillary sinuses. Otherwise, no fluid or mucosal thickening. ORBITS: No significant abnormality. OTHER: Indeterminate minimally displaced nasal bone fracture. There is straightening of the sagittal alignment Cervical spine: Of the cervical spine and 1 mm anterolisthesis of C4 on C5. There is 1 mm anterolisthesis of C7 on T1. The alignment of the cervical spine is otherwise within normal limits. Vertebral body heights are normal. There is no acute fracture. Multilevel cervical spine degenerative disc disease C5-C6 and C6-C7. Cmmx-ny-fvbtpzwf multilevel facet and uncovertebral joint osteoarthritis with dkpu-ei-ysxiphvh multilevel osseous neural foraminal stenosis. No acute osseous abnormality in the imaged upper thoracic spine. No aggressive bone lesions. Neck soft tissues demonstrate no acute abnormality. No cervical mass or cervical lymphadenopathy. Imaged lung apices demonstrate mild biapical pleuroparenchymal scarring. Maxillofacial bones: Age-indeterminate minimally displaced nasal bone fracture. Mucosal thickening of bilateral ethmoid air cells, bilateral maxillary sinuses. The paranasal sinuses are otherwise clear. The ostiomeatal units are occluded bilaterally. The mandible and maxilla are edentulous with chronic alveolar ridge resorption. Nasal septum is deviated to the right. Mucosal thickening of the left nasal turbinates. The orbits and globes are unremarkable. Temporomandibular joints are normal. The mastoid air cells are clear. The IAC's are normal and symmetric. IMPRESSION: 1. No acute intracranial findings. 2. No CT evidence of acute traumatic injury to cervical spine. 3. Age-indeterminate minimally displaced nasal bone fracture. Clinical correlation is recommended. THIS IS AN ELECTRONICALLY VERIFIED FINAL REPORT 08/21/2025 8:09 PM - Electronically signed by Lonny Lau M.D. AT: AT Report ID: [id number] Reading Location: [id number] Procedure Note Lonny Lau MD - 08/21/2025 EXAM DESCRIPTION: CT HEAD WO CONTRAST; CT FACIAL BONES WO CONTRAST; CT CERVICAL SPINE WO CONTRAST REASON FOR STUDY: Head trauma, minor (Age >= 65y) Patient presents status post fall from standing tonight. ; Facialtrauma, blunt Patient presents status post fall from standing tonight. ; Neck trauma(Age >= 65y) Patient presents status post fall from standing tonight. TECHNIQUE: Axial images acquired through the brain without intravenous contrast. Images stored on PACS. Automated exposure control was used asa dose optimization technique for this examination. Axial images acquired through the cervical spine without intravenouscontrast. Images stored on PACS. Automated exposure control was used as a dose optimization technique for this examination. Axial images acquired through the maxillofacial bones without intravenous contrast. Images stored on PACS. Automated exposure control was used asa dose optimization technique for this examination. COMPARISON: None available FINDINGS: Head: BRAIN: No hemorrhage, edema or mass effect. No recent infarct.Nonspecific periventricular and subcortical white matter hypoattenuation which can beseen as sequela of chronic small vessel ischemic disease. There is age-appropriate cerebral volume loss. No acute intraventricularhemorrhage. Basal cisterns are patent. No midline shift. EXTRA-AXIAL SPACES: No fluid collections. No masses. CALVARIUM: No acute calvarial fracture. SINUSES/MASTOIDS: Mucosal thickening of bilateral ethmoid air cells and bilateral maxillary sinuses. Otherwise, no fluid or mucosal thickening. ORBITS: No significant abnormality. OTHER: Indeterminate minimally displaced nasal bone fracture. There is straightening of the sagittal alignment Cervical spine: Of the cervical spine and 1 mm anterolisthesis of C4 on C5. There is 1 mm anterolisthesis of C7 on T1. The alignment of the cervical spine isotherwise within normal limits. Vertebral body heights are normal. There is noacute fracture. Multilevel cervical spine degenerative disc disease C5-C6 and C6-C7. Lvfv-nu-azuvprln multilevel facet and uncovertebral joint osteoarthritis with lsny-ts-rgdhgwfz multilevel osseous neural foraminal stenosis. No acute osseous abnormality in the imaged upper thoracic spine. No aggressive bone lesions. Neck soft tissues demonstrate no acute abnormality. No cervical mass or cervical lymphadenopathy. Imaged lung apices demonstrate mild biapical pleuroparenchymal scarring. Maxillofacial bones: Age-indeterminate minimally displaced nasal bone fracture. Mucosal thickening of bilateral ethmoid air cells, bilateral maxillary sinuses. The paranasal sinuses are otherwise clear. The ostiomeatalunits are occluded bilaterally. The mandible and maxilla are edentulous with chronic alveolar ridge resorption. Nasal septum is deviated to the right. Mucosal thickening of the leftnasal turbinates. The orbits and globes are unremarkable. Temporomandibular joints arenormal. The mastoid air cells are clear. The IAC's are normal and symmetric. IMPRESSION: 1. No acute intracranial findings. 2. No CT evidence of acute traumatic injury to cervical spine. 3. Age-indeterminate minimally displaced nasal bone fracture. Clinical correlation is recommended. THIS IS AN ELECTRONICALLY VERIFIED FINAL REPORT 08/21/2025 8:09 PM - Electronically signed by Lonny Lau M.D. AT: AT Report ID: [id number] Reading Location: [place] [id number] PROCEDURES Final Result * CT Facial Bones WO Contrast (08/21/2025 6:51 PM CDT) Anatomical Region Laterality Modality Head and Neck N/A Computed Tomogra phy 08/21/2025 7:21 PM CDT Narrative 08/21/2025 8:09 PM CDT EXAM DESCRIPTION: CT HEAD WO CONTRAST; CT FACIAL BONES WO CONTRAST; CT CERVICAL SPINE WO CONTRAST REASON FOR STUDY: Head trauma, minor (Age >= 65y) Patient presents status post fall from standing tonight. ; Facial trauma, blunt Patient presents status post fall from standing tonight. ; Neck trauma (Age >= 65y) Patient presents status post fall from standing tonight. TECHNIQUE: Axial images acquired through the brain without intravenous contrast. Images stored on PACS. Automated exposure control was used as a dose optimization technique for this examination. Axial images acquired through the cervical spine without intravenous contrast. Images stored on PACS. Automated exposure control was used as a dose optimization technique for this examination. Axial images acquired through the maxillofacial bones without intravenous contrast. Images stored on PACS. Automated exposure control was used as a dose optimization technique for this examination. COMPARISON: None available FINDINGS: Head: BRAIN: No hemorrhage, edema or mass effect. No recent infarct. Nonspecific periventricular and subcortical white matter hypoattenuation which can be seen as sequela of chronic small vessel ischemic disease. There is age-appropriate cerebral volume loss. No acute intraventricular hemorrhage. Basal cisterns are patent. No midline shift. EXTRA-AXIAL SPACES: No fluid collections. No masses. CALVARIUM: No acute calvarial fracture. SINUSES/MASTOIDS: Mucosal thickening of bilateral ethmoid air cells and bilateral maxillary sinuses. Otherwise, no fluid or mucosal thickening. ORBITS: No significant abnormality. OTHER: Indeterminate minimally displaced nasal bone fracture. There is straightening of the sagittal alignment Cervical spine: Of the cervical spine and 1 mm anterolisthesis of C4 on C5. There is 1 mm anterolisthesis of C7 on T1. The alignment of the cervical spine is otherwise within normal limits. Vertebral body heights are normal. There is no acute fracture. Multilevel cervical spine degenerative disc disease C5-C6 and C6-C7. Chjb-up-iepughca multilevel facet and uncovertebral joint osteoarthritis with znnx-ov-ubjrqbgs multilevel osseous neural foraminal stenosis. No acute osseous abnormality in the imaged upper thoracic spine. No aggressive bone lesions. Neck soft tissues demonstrate no acute abnormality. No cervical mass or cervical lymphadenopathy. Imaged lung apices demonstrate mild biapical pleuroparenchymal scarring. Maxillofacial bones: Age-indeterminate minimally displaced nasal bone fracture. Mucosal thickening of bilateral ethmoid air cells, bilateral maxillary sinuses. The paranasal sinuses are otherwise clear. The ostiomeatal units are occluded bilaterally. The mandible and maxilla are edentulous with chronic alveolar ridge resorption. Nasal septum is deviated to the right. Mucosal thickening of the left nasal turbinates. The orbits and globes are unremarkable. Temporomandibular joints are normal. The mastoid air cells are clear. The IAC's are normal and symmetric. IMPRESSION: 1. No acute intracranial findings. 2. No CT evidence of acute traumatic injury to cervical spine. 3. Age-indeterminate minimally displaced nasal bone fracture. Clinical correlation is recommended. THIS IS AN ELECTRONICALLY VERIFIED FINAL REPORT 08/21/2025 8:09 PM - Electronically signed by Lonny Lau M.D. AT: AT Report ID: [id number] Reading Location: [id number] Procedure Note Lonny Lau MD - 08/21/2025 EXAM DESCRIPTION: CT HEAD WO CONTRAST; CT FACIAL BONES WO CONTRAST; CT CERVICAL SPINE WO CONTRAST REASON FOR STUDY: Head trauma, minor (Age >= 65y) Patient presents status post fall from standing tonight. ; Facialtrauma, blunt Patient presents status post fall from standing tonight. ; Neck trauma(Age >= 65y) Patient presents status post fall from standing tonight. TECHNIQUE: Axial images acquired through the brain without intravenous contrast. Images stored on PACS. Automated exposure control was used asa dose optimization technique for this examination. Axial images acquired through the cervical spine without intravenouscontrast. Images stored on PACS. Automated exposure control was used as a dose optimization technique for this examination. Axial images acquired through the maxillofacial bones without intravenous contrast. Images stored on PACS. Automated exposure control was used asa dose optimization technique for this examination. COMPARISON: None available FINDINGS: Head: BRAIN: No hemorrhage, edema or mass effect. No recent infarct.Nonspecific periventricular and subcortical white matter hypoattenuation which can beseen as sequela of chronic small vessel ischemic disease. There is age-appropriate cerebral volume loss. No acute intraventricularhemorrhage. Basal cisterns are patent. No midline shift. EXTRA-AXIAL SPACES: No fluid collections. No masses. CALVARIUM: No acute calvarial fracture. SINUSES/MASTOIDS: Mucosal thickening of bilateral ethmoid air cells and bilateral maxillary sinuses. Otherwise, no fluid or mucosal thickening. ORBITS: No significant abnormality. OTHER: Indeterminate minimally displaced nasal bone fracture. There is straightening of the sagittal alignment Cervical spine: Of the cervical spine and 1 mm anterolisthesis of C4 on C5. There is 1 mm anterolisthesis of C7 on T1. The alignment of the cervical spine isotherwise within normal limits. Vertebral body heights are normal. There is noacute fracture. Multilevel cervical spine degenerative disc disease C5-C6 and C6-C7. Ynet-oj-kvkptnxh multilevel facet and uncovertebral joint osteoarthritis with rnbb-op-pcvdxkyd multilevel osseous neural foraminal stenosis. No acute osseous abnormality in the imaged upper thoracic spine. No aggressive bone lesions. Neck soft tissues demonstrate no acute abnormality. No cervical mass or cervical lymphadenopathy. Imaged lung apices demonstrate mild biapical pleuroparenchymal scarring. Maxillofacial bones: Age-indeterminate minimally displaced nasal bone fracture. Mucosal thickening of bilateral ethmoid air cells, bilateral maxillary sinuses. The paranasal sinuses are otherwise clear. The ostiomeatalunits are occluded bilaterally. The mandible and maxilla are edentulous with chronic alveolar ridge resorption. Nasal septum is deviated to the right. Mucosal thickening of the leftnasal turbinates. The orbits and globes are unremarkable. Temporomandibular joints arenormal. The mastoid air cells are clear. The IAC's are normal and symmetric. IMPRESSION: 1. No acute intracranial findings. 2. No CT evidence of acute traumatic injury to cervical spine. 3. Age-indeterminate minimally displaced nasal bone fracture. Clinical correlation is recommended. THIS IS AN ELECTRONICALLY VERIFIED FINAL REPORT 08/21/2025 8:09 PM - Electronically signed by Lonny Lau M.D. AT: AT Report ID: [id number] Reading Location: [id number] Susan Jimbo SCOTT IM CT PROCEDURES Final Result * CT Head WO Contrast (08/21/2025 6:51 PM CDT) Anatomical Region Laterality Modality Head and Neck N/A Computed Tomogra phy 08/21/2025 7:21 PM CDT Narrative 08/21/2025 8:09 PM CDT EXAM DESCRIPTION: CT HEAD WO CONTRAST; CT FACIAL BONES WO CONTRAST; CT CERVICAL SPINE WO CONTRAST REASON FOR STUDY: Head trauma, minor (Age >= 65y) Patient presents status post fall from standing tonight. ; Facial trauma, blunt Patient presents status post fall from standing tonight. ; Neck trauma (Age >= 65y) Patient presents status post fall from standing tonight. TECHNIQUE: Axial images acquired through the brain without intravenous contrast. Images stored on PACS. Automated exposure control was used as a dose optimization technique for this examination. Axial images acquired through the cervical spine without intravenous contrast. Images stored on PACS. Automated exposure control was used as a dose optimization technique for this examination. Axial images acquired through the maxillofacial bones without intravenous contrast. Images stored on PACS. Automated exposure control was used as a dose optimization technique for this examination. COMPARISON: None available FINDINGS: Head: BRAIN: No hemorrhage, edema or mass effect. No recent infarct. Nonspecific periventricular and subcortical white matter hypoattenuation which can be seen as sequela of chronic small vessel ischemic disease. There is age-appropriate cerebral volume loss. No acute intraventricular hemorrhage. Basal cisterns are patent. No midline shift. EXTRA-AXIAL SPACES: No fluid collections. No masses. CALVARIUM: No acute calvarial fracture. SINUSES/MASTOIDS: Mucosal thickening of bilateral ethmoid air cells and bilateral maxillary sinuses. Otherwise, no fluid or mucosal thickening. ORBITS: No significant abnormality. OTHER: Indeterminate minimally displaced nasal bone fracture. There is straightening of the sagittal alignment Cervical spine: Of the cervical spine and 1 mm anterolisthesis of C4 on C5. There is 1 mm anterolisthesis of C7 on T1. The alignment of the cervical spine is otherwise within normal limits. Vertebral body heights are normal. There is no acute fracture. Multilevel cervical spine degenerative disc disease C5-C6 and C6-C7. Vabx-ro-bqzhjtdg multilevel facet and uncovertebral joint osteoarthritis with kzsb-qd-tljufbdm multilevel osseous neural foraminal stenosis. No acute osseous abnormality in the imaged upper thoracic spine. No aggressive bone lesions. Neck soft tissues demonstrate no acute abnormality. No cervical mass or cervical lymphadenopathy. Imaged lung apices demonstrate mild biapical pleuroparenchymal scarring. Maxillofacial bones: Age-indeterminate minimally displaced nasal bone fracture. Mucosal thickening of bilateral ethmoid air cells, bilateral maxillary sinuses. The paranasal sinuses are otherwise clear. The ostiomeatal units are occluded bilaterally. The mandible and maxilla are edentulous with chronic alveolar ridge resorption. Nasal septum is deviated to the right. Mucosal thickening of the left nasal turbinates. The orbits and globes are unremarkable. Temporomandibular joints are normal. The mastoid air cells are clear. The IAC's are normal and symmetric. IMPRESSION: 1. No acute intracranial findings. 2. No CT evidence of acute traumatic injury to cervical spine. 3. Age-indeterminate minimally displaced nasal bone fracture. Clinical correlation is recommended. THIS IS AN ELECTRONICALLY VERIFIED FINAL REPORT 08/21/2025 8:09 PM - Electronically signed by Lonny Lau M.D. AT: AT Report ID: [id number] Reading Location: [id number] Procedure Note Lonny Lau MD - 08/21/2025 EXAM DESCRIPTION: CT HEAD WO CONTRAST; CT FACIAL BONES WO CONTRAST; CT CERVICAL SPINE WO CONTRAST REASON FOR STUDY: Head trauma, minor (Age >= 65y) Patient presents status post fall from standing tonight. ; Facialtrauma, blunt Patient presents status post fall from standing tonight. ; Neck trauma(Age >= 65y) Patient presents status post fall from standing tonight. TECHNIQUE: Axial images acquired through the brain without intravenous contrast. Images stored on PACS. Automated exposure control was used asa dose optimization technique for this examination. Axial images acquired through the cervical spine without intravenouscontrast. Images stored on PACS. Automated exposure control was used as a dose optimization technique for this examination. Axial images acquired through the maxillofacial bones without intravenous contrast. Images stored on PACS. Automated exposure control was used asa dose optimization technique for this examination. COMPARISON: None available FINDINGS: Head: BRAIN: No hemorrhage, edema or mass effect. No recent infarct.Nonspecific periventricular and subcortical white matter hypoattenuation which can beseen as sequela of chronic small vessel ischemic disease. There is age-appropriate cerebral volume loss. No acute intraventricularhemorrhage. Basal cisterns are patent. No midline shift. EXTRA-AXIAL SPACES: No fluid collections. No masses. CALVARIUM: No acute calvarial fracture. SINUSES/MASTOIDS: Mucosal thickening of bilateral ethmoid air cells and bilateral maxillary sinuses. Otherwise, no fluid or mucosal thickening. ORBITS: No significant abnormality. OTHER: Indeterminate minimally displaced nasal bone fracture. There is straightening of the sagittal alignment Cervical spine: Of the cervical spine and 1 mm anterolisthesis of C4 on C5. There is 1 mm anterolisthesis of C7 on T1. The alignment of the cervical spine isotherwise within normal limits. Vertebral body heights are normal. There is noacute fracture. Multilevel cervical spine degenerative disc disease C5-C6 and C6-C7. [id number] multilevel facet and uncovertebral joint osteoarthritis with [id number] multilevel osseous neural foraminal stenosis. No acute osseous abnormality in the imaged upper thoracic spine. No aggressive bone lesions. Neck soft tissues demonstrate no acute abnormality. No cervical mass or cervical lymphadenopathy. Imaged lung apices demonstrate mild biapical pleuroparenchymal scarring. Maxillofacial bones: Age-indeterminate minimally displaced nasal bone fracture. Mucosal thickening of bilateral ethmoid air cells, bilateral maxillary sinuses. The paranasal sinuses are otherwise clear. The ostiomeatalunits are occluded bilaterally. The mandible and maxilla are edentulous with chronic alveolar ridge resorption. Nasal septum is deviated to the right. Mucosal thickening of the leftnasal turbinates. The orbits and globes are unremarkable. Temporomandibular joints arenormal. The mastoid air cells are clear. The IAC's are normal and symmetric. IMPRESSION: 1. No acute intracranial findings. 2. No CT evidence of acute traumatic injury to cervical spine. 3. Age-indeterminate minimally displaced nasal bone fracture. Clinical correlation is recommended. THIS IS AN ELECTRONICALLY VERIFIED FINAL REPORT 08/21/2025 8:09 PM - Electronically signed by Lonny Lau M.D. AT: AT Report ID: [id number] Reading Location: [id number] Susan SCOTT [facility] CT PROCEDURES Final Result * XR Shoulder Left 2 or More Views (08/17/2025 12:13 PM CDT) Anatomical Region Laterality Modality Upper Extremities, Shoulder Left Comp uted Radiography 08/17/2025 12:2 4 PM CDT Narrative 08/17/2025 12:28 PM CDT EXAM DESCRIPTION: XR SHOULDER LEFT 2 OR MORE VIEWS REASON FOR STUDY: pain/injury Pt fell in garage last night and hit his left shoulder. Pt states he is Unable to move his left shoulder. Pt arrives to ER with left arm in a sling. TECHNIQUE: Four views COMPARISON: None available FINDINGS: No acute fracture or dislocation. No lytic or destructive process. Severe degenerative change AC joint, bony glenoid. Superior subluxation of humeral head suggesting rotator cuff disease. Adjacent ribs and lung apex unremarkable. IMPRESSION: Severe degenerative changes left shoulder with evidence of rotator cuff disease. THIS IS AN ELECTRONICALLY VERIFIED FINAL REPORT 08/17/2025 12:28 PM - Electronically signed by Luis Daniel Ascencio M.D. RB: JESS Report ID: [id number] Reading Location: [id number] Procedure Note Luis Daniel Ascencio MD - 08/17/2025 EXAM DESCRIPTION: XR SHOULDER LEFT 2 OR MORE VIEWS REASON FOR STUDY: pain/injury Pt fell in garage last night and hit his left shoulder. Pt states he is Unable to move his left shoulder. Pt arrives to ER with left arm in asling. TECHNIQUE: Four views COMPARISON: None available FINDINGS: No acute fracture or dislocation. No lytic or destructive process. Severe degenerative change AC joint, bony glenoid. Superior subluxationof humeral head suggesting rotator cuff disease. Adjacent ribs and lung apex unremarkable. IMPRESSION: Severe degenerative changes left shoulder with evidence of rotator cuff disease. THIS IS AN ELECTRONICALLY VERIFIED FINAL REPORT 08/17/2025 12:28 PM - Electronically signed by Luis Daniel Ascencio M.D. RB: JESS Report ID: [id number] Reading Location: [id number] us Sneha Eduardo NP IMG XR PROCEDURES Final Resul t * (ABNORMAL) Urinalysis reflex to microscopic and culture Urine (07/26/2025 3:22 PM CDT) Color, ur Yellow Yellow Clarity, ur Clear Clear [facility] ([place]) Specific gravity, ur 1.010 1.003 - 1.030 [facility] ([place]) Comment:Confirmed by manual dipstick. pH, urine 5.5 [facility] ([place]) Comment: Interpretive Data U rine pH is affected by diet, medications, systemic acid-base disturbances, and renal tubular function. pH may affect urinary stone formation. For example, urine pH below 6.0 may help reduce the tendency for calcium phosphate stones and pH greater than 6.0 may reduce the tendency for uric acid stone formation. Source: [facility] [employer] Current Interpretive Data was last revised on 2017 Protein, ur ql 1+(A) Negative [facility] ([place]) Glucose, ur ql Negative Negative [facility] ([place]) Ketones, ur Negative Negative [facility] ([place]) Bilirubin, ur Negative Negative [facility] ([place]) Blood, ur Negative Negative [facility] ([place]) Urobilinogen, ur <2.0 <2.0 mg/dL [facility] ([place]) Nitrite, ur Negative Negative [facility] ([place]) Leukocyte esterase, ur Negative Negative [facility] ([place]) UA reflex comment Reflex to microscopic UA will be performed. [facility] ([place]) Urine 07/26/2025 3:22 PM CDT 07/26/2025 3:24 PM CDT us Martínez Jorge MD LAB MICROBIOLOGY - GENERAL ORDERABLES Final Result [facility] ([place]) 1 [facility] [place] [address] * (ABNORMAL) Urinalysis, microscopic only (07/26/2025 3:22 PM CDT) WBC, ur 0-5 0 - 5 /HPF RBC, ur 0-2 0 - 2 /HPF [facility] Epithelial cells, squamous, ur 1-5 0 - 5 /HPF [facility] ([place]) Mucous, ur Present(A) [facility] ([place]) Culture Reflex Comment Reflex conditions for urine culture (WBC >10) not met. [facility] ([place]) Urine 07/26/2025 3:22 PM CDT 07/26/2025 3:24 PM CDT Martínez Jorge MD LAB URINE ORDERABLE S Final Result Performing Organization Address [facility] Co de Phone Number [facility] ([place]) [address] [facility] [place] [address] * ABO / Rh Confirmation Testing (07/26/2025 1:46 PM CDT) ABO/Rh Confirmation A Positive [facility] Blood 07/26/2025 1:46 PM CDT 07/26/2025 1:51 PM CDT Martínez Jorge MD LAB BLOOD ORDERABLE S Final Result Performing Organization Address [facility]/ZIP Co de Phone Number [facility] ([place]) [address] [facility] [place] [address] [facility] * CTA Abdomen Pelvis (07/26/2025 1:03 PM CDT) Anatomical Region Laterality Modality Body N/A Computed Tomogra phy 07/26/2025 1:23 PM CDT Narrative 07/26/2025 1:40 PM CDT EXAM DESCRIPTION: CTA ABDOMEN PELVIS REASON FOR STUDY: Abdominal aortic aneurysm (AAA), follow up Left sided flank pain and radiates across his back and into his abdomen x 6 weeks. Hx of kidney stones and stent placement. TECHNIQUE: CTA scan of the abdomen and pelvis performed without and with intravenous and without oral contrast using helical scanning technique with dynamic intravenous contrast injection. Precontrast, arterial, and portal venous phase images of the abdomen and pelvis were acquired. Images reviewed with lung, soft tissue and bone windows. Reconstructed coronal and sagittal MPR images reviewed. All images stored on PACS. 3D MIP images rendered on scanning unit and reviewed at time of interpretation. Automated exposure control was used as a dose optimization technique for this examination. CONTRAST TYPE/DOSE: 75mL of IOVERSOL 350 MG IODINE/ML INTRAVENOUS SYRINGE injected via intravenous COMPARISON: None available FINDINGS: VASCULATURE: Fusiform abdominal aortic aneurysmal is identified. Greatest transverse dimension is 5.8 x 5.4 cm. Endovascular stent graft is identified and appears patent without severe luminal stenosis. Mild fibro intimal hyperplasia identified diffusely. The aneurysmal sac demonstrates no enhancement to suggest leakage on arterial, portal venous or further delayed images. No surrounding induration is identified. Please correlate with past measurements. CELIAC TRUNK: No flow limiting stenosis, dissection, or aneurysm. SUPERIOR MESENTERIC ARTERY: No flow limiting stenosis, dissection, or aneurysm. RIGHT RENAL ARTERY: Duplicated, patent. LEFT RENAL ARTERY: Duplicated, patent. INFERIOR MESENTERIC ARTERY: Patent distally. AORTA: As above. ILIAC ARTERIES: Stent graft device extends to the common iliac arteries bilaterally. Iliac arterial bifurcations are patent. Internal and external iliac arteries are patent without stenosis or aneurysmal segments. LOWER CHEST: No dense consolidations. Calcified granuloma within the lingula. Lingular soft tissue density nodule with somewhat stellate borders measures 1.7 cm on axial image 7 of series 4. Right middle lobe nodule measures 0.6 cm on image 7. Right lower lobe nodule measures 0.5 cm on image 17. LIVER: Normal size. No identified cystic or solid masses. GALLBLADDER: Distended with several small stones. No surrounding induration. BILE DUCTS: No intrahepatic or extrahepatic ductal dilatation. SPLEEN: Normal size. No focal lesions. PANCREAS: No identified cystic or solid masses. No significant calcifications. No adjacent inflammation or peripancreatic fluid collections. Pancreatic duct not dilated. ADRENALS: Right adrenal gland appears normal. Left adrenal gland appears confluence with the mixed density nodule measuring 3.2 x 3.1 cm on axial image 46 of series 4. This may contain a fatty components and may indicate presence of a myelolipoma. KIDNEYS/URINARY TRACT: No obstructing stone or hydronephrosis. No hydroureter. Perinephric stranding bilaterally is moderate in severity and nonspecific. Please correlate to exclude pyelonephritis. Normal bladder. GI: No dilated bowel loops. No obvious wall thickening. Normal appendix. No significant diverticular disease. PERITONEUM: No ascites or free air. RETROPERITONEUM: No mass or adenopathy. REPRODUCTIVE: No significant abnormality. MUSCULOSKELETAL: The L1 vertebra demonstrates mixed sclerotic and lytic lesion measuring 3.3 x 2.4 cm on sagittal image 29 of series 8. Some soft tissue components may be directed posteriorly towards the spinal canal without stenosis. OTHER: No other abnormality. IMPRESSION: 1. Fusiform abdominal aortic aneurysm measures up to 5.8 cm in greatest transverse dimension. No evidence of leakage or surrounding induration. Please correlate with past imaging to evaluate for change in size. 2. No evidence of endoleak. 3. L1 vertebra demonstrates a mixed sclerotic and lytic lesion measuring up to 3.3 cm with some soft tissue components extending posteriorly towards the spinal canal without stenosis. 4. Multiple lung nodules are identified, the largest measures 1.7 cm in the lingula. Per Fleischner Society Guidelines, proceed with a complete chest CT examination for further evaluation as early as possible. 5. Left adrenal nodule measures up to 3.2 cm and may contain a fatty component suggesting a possible myelolipoma, though nonspecific. In light of history of lung nodules and vertebral body lytic lesion consider a metastatic focus as well. 6. Perinephric stranding is nonspecific and may be related to pyelonephritis. 7. Multiple gallstones without surrounding induration or biliary ductal dilatation. THIS IS AN ELECTRONICALLY VERIFIED FINAL REPORT 07/26/2025 1:40 PM - Electronically signed by Luis Daniel Ascencio M.D. RB: JESS Report ID: [id number] Reading Location: [id number] Procedure Note Luis Daniel Ascencio MD - 07/26/2025 EXAM DESCRIPTION: CTA ABDOMEN PELVIS REASON FOR STUDY: Abdominal aortic aneurysm (AAA), follow up Left sided flank pain and radiates across his back and into his abdomen x6 weeks. Hx of kidney stones and stent placement. TECHNIQUE: CTA scan of the abdomen and pelvis performed without and with intravenous and without oral contrast using helical scanning techniquewith dynamic intravenous contrast injection. Precontrast, arterial, and portal venous phase images of the abdomen and pelvis were acquired. Images reviewed with lung, soft tissue and bone windows. Reconstructed coronaland sagittal MPR images reviewed. All images stored on PACS. 3D MIP images rendered on scanning unit and reviewed at time of interpretation.Automated exposure control was used as a dose optimization technique for this examination. CONTRAST TYPE/DOSE: 75mL of IOVERSOL 350 MG IODINE/ML INTRAVENOUSSYRINGE injected via intravenous COMPARISON: None available FINDINGS: VASCULATURE: Fusiform abdominal aortic aneurysmal is identified. Greatest transverse dimension is 5.8 x 5.4 cm. Endovascular stent graft is identified andappears patent without severe luminal stenosis. Mild fibro intimal hyperplasia identified diffusely. The aneurysmal sac demonstrates no enhancement to suggest leakage on arterial, portal venous or further delayed images. No surrounding induration is identified. Please correlate with past measurements. CELIAC TRUNK: No flow limiting stenosis, dissection, or aneurysm. SUPERIOR MESENTERIC ARTERY: No flow limiting stenosis, dissection, or aneurysm. RIGHT RENAL ARTERY: Duplicated, patent. LEFT RENAL ARTERY: Duplicated, patent. INFERIOR MESENTERIC ARTERY: Patent distally. AORTA: As above. ILIAC ARTERIES: Stent graft device extends to the common iliac arteries bilaterally. Iliac arterial bifurcations are patent. Internal andexternal iliac arteries are patent without stenosis or aneurysmal segments. LOWER CHEST: No dense consolidations. Calcified granuloma within the lingula. Lingular soft tissue density nodule with somewhat stellate bordersmeasures 1.7 cm on axial image 7 of series 4. Right middle lobe nodule measures 0.6 cm on image 7. Right lower lobe nodule measures 0.5 cm on image 17. LIVER: Normal size. No identified cystic or solid masses. GALLBLADDER: Distended with several small stones. No surrounding induration. BILE DUCTS: No intrahepatic or extrahepatic ductal dilatation. SPLEEN: Normal size. No focal lesions. PANCREAS: No identified cystic or solid masses. No significant calcifications. No adjacent inflammation or peripancreatic fluidcollections. Pancreatic duct not dilated. ADRENALS: Right adrenal gland appears normal. Left adrenal gland appears confluence with the mixed density nodulemeasuring 3.2 x 3.1 cm on axial image 46 of series 4. This may contain a fatty components and may indicate presence of a myelolipoma. KIDNEYS/URINARY TRACT: No obstructing stone or hydronephrosis. No hydroureter. Perinephric stranding bilaterally is moderate in severityand nonspecific. Please correlate to exclude pyelonephritis. Normalbladder. GI: No dilated bowel loops. No obvious wall thickening. Normalappendix. No significant diverticular disease. PERITONEUM: No ascites or free air. RETROPERITONEUM: No mass or adenopathy. REPRODUCTIVE: No significant abnormality. MUSCULOSKELETAL: The L1 vertebra demonstrates mixed sclerotic and lytic lesion measuring 3.3 x 2.4 cm on sagittal image 29 of series 8. Some soft tissue components may be directed posteriorly towards the spinal canalwithout stenosis. OTHER: No other abnormality. IMPRESSION: 1. Fusiform abdominal aortic aneurysm measures up to 5.8 cm in greatest transverse dimension. No evidence of leakage or surrounding induration. Please correlate with past imaging to evaluate for change in size. 2. No evidence of endoleak. 3. L1 vertebra demonstrates a mixed sclerotic and lytic lesion measuringup to 3.3 cm with some soft tissue components extending posteriorly towardsthe spinal canal without stenosis. 4. Multiple lung nodules are identified, the largest measures 1.7 cm inthe lingula. Per Fleischner Society Guidelines, proceed with a complete chestCT examination for further evaluation as early as possible. 5. Left adrenal nodule measures up to 3.2 cm and may contain a fatty component suggesting a possible myelolipoma, though nonspecific. In lightof history of lung nodules and vertebral body lytic lesion consider ametastatic focus as well. 6. Perinephric stranding is nonspecific and may be related topyelonephritis. 7. Multiple gallstones without surrounding induration or biliary ductal dilatation. THIS IS AN ELECTRONICALLY VERIFIED FINAL REPORT 07/26/2025 1:40 PM - Electronically signed by Luis Daniel Ascencio M.D. RB: JESS Report ID: [id number] Reading Location: [place] [id number] Martínez Jorge MD [facility] [place] [facility] CT PROCEDURES F inal Result * eGFR (07/26/2025 12:02 PM CDT) eGFR 60 >=60 mL/min/1. 73 m2 Comment: Interpretive Data Reference Interval Normal >/= 90 mL/min/1.73m2 Mildly decreased* 60 - 89 mL/min/1.73m2 Mildly to moderately decreased 45 - 59 mL/min/1.73m2 Moderately to severely decreased 30 - 44 mL/min/1.73m2 Severely decreased 15 - 29 mL/min/1.73m2 Kidney Failure < 15 mL/min/1.73m2 *Relative to young adult level Estimated glomerular filtration rate is determined by the 2020 CKD-EPI equation recommended by the National Kid[employer] (A Unifying Approach to GFR Estimation: Recommendations of the NKF-ASK Task Force on Reassessing the Inclusion of Race in Diagnosing Kidney Disease, JASN 2020). The CKD-EPI equation should not be used for patients with unstable renal function and has not been validated in children and those over 70. Current interpretive data was last reviewed 2021. Blood 07/26/2025 12:0 2 PM CDT 07/26/2025 12:09 PM CDT us Martínez Jorge MD LAB BLOOD ORDERABLE S Final Result [facility] ([place]) 1 [facility] [place] [address] * (ABNORMAL) Differential, auto (07/26/2025 12:02 PM CDT) Neutrophil abs 7.95(H) 1.50 - 6.50 K/cumm Imm gran abs 0.05 0.00 - 0.10 K/cumm [facility] ([place]) Lymphocyte abs 1.38 0.80 - 3.30 K/cumm [facility] ([place]) Monocyte abs 0.68 0.20 - 0.80 K/cumm [facility] ([place]) Eosinophil abs 0.11 0.00 - 0.50 K/cumm [facility] ([place]) Basophil abs 0.03 0.00 - 0.10 K/cumm [facility] ([place]) Neutrophil pct 77.9 % [facility] ([place]) Comment: Interpretive Data Percent cell count reference ranges are not reported, since discordance with absolute values may lead to misinterpretation of CBC data. Current Interpretive Data was last revised on 2018. Imm gran pct 0.5 % [facility] ([place]) Comment: Interpretive Data Percent cell count reference ranges are not reported, since discordance with absolute values may lead to misinterpretation of CBC data. Current Interpretive Data was last revised on 2018. Lymphocyte pct 13.5 % [facility] ([place]) Comment: Interpretive Data Percent cell count reference ranges are not reported, since discordance with absolute values may lead to misinterpretation of CBC data. Current Interpretive Data was last revised on 2018. Monocyte pct 6.7 % [facility] ([place]) Comment: Interpretive Data Percent cell count reference ranges are not reported, since discordance with absolute values may lead to misinterpretation of CBC data. Current Interpretive Data was last revised on 2018. Eosinophil pct 1.1 % [facility] ([place]) Comment: Interpretive Data Percent cell count reference ranges are not reported, since discordance with absolute values may lead to misinterpretation of CBC data. Current Interpretive Data was last revised on 2018. Basophil pct 0.3 % [facility] ([place]) Comment: Interpretive Data Percent cell count reference ranges are not reported, since discordance with absolute values may lead to misinterpretation of CBC data. Current Interpretive Data was last revised on 2018. Blood 07/26/2025 12:0 2 PM CDT 07/26/2025 12:09 PM CDT us Martínez Jorge MD LAB BLOOD ORDERABLE S Final Result [facility] ([place]) 1 [facility] [place] [address] * (ABNORMAL) CBC with auto differential (07/26/2025 12:02 PM CDT) WBC 10.20(H) 3.80 - 9.90 K/cumm Hgb 13.7 13.0 - 17.5 g/dL [facility] ([place]) Hct 42.5 38.9 - 50.3 % [facility] ([place]) Plt 274 150 - 400 K/cumm [facility] ([place]) MPV 9.7 9.1 - 12.3 fL [facility] ([place]) RBC 4.49 4.30 - 5.80 M/cumm [facility] ([place]) MCV 94.7 81.3 - 96.4 fL [facility] ([place]) MCH 30.5 27.1 - 33.3 pg [facility] ([place]) MCHC 32.2(L) 32.3 - 35.7 g/dL [facility] ([place]) RDW CV 15.3(H) 11.1 - 14.9 % [facility] ([place]) RDW SD 53.1(H) 35.7 - 48.1 fL [facility] ([place]) NRBC abs 0.02(H) 0.00 - 0.01 K/cumm [facility] ([place]) Blood 07/26/2025 12:0 2 PM CDT 07/26/2025 12:09 PM CDT us Martínez Jorge MD LAB BLOOD ORDERABLE S Final Result Performing Organization Address City/[facility]/ZIP Co de Phone Number [facility] ([place]) 1 [facility] [place] [address] * ABO/Rh (07/26/2025 12:02 PM CDT) ABO/Rh A Positive Blood 07/26/2025 12:0 2 PM CDT 07/26/2025 12:09 PM CDT Narrative [facility] ([place]) - 07/26/2025 1:14 PM CDT Has the patient had Daratumumab or Isatuximab in the past 6 months?->Unknown Martínez Jorge MD LAB BLOOD BANK TEST ORDERABLES Final Result [facility] ([place]) 1 [facility] [place] [address] * (ABNORMAL) Antibody screen (07/26/2025 12:02 PM CDT) No, indirect, Gel Interpretation Positive( A) Blood 07/26/2025 12:0 2 PM CDT 07/26/2025 12:09 PM CDT Narrative [facility] ([place]) - 07/26/2025 1:14 PM CDT Has the patient had Daratumumab or Isatuximab in the past 6 months?->Unknown Martínez Jorge MD LAB BLOOD BANK TEST ORDERABLES Final Result [facility] ([place]) 1 [facility] [place] [address] * (ABNORMAL) Comprehensive metabolic panel (07/26/2025 12:02 PM CDT) Sodium 136 135 - 145 mmol/L [facility] ([place]) Potassium, pl 3.9 3.3 - 4.9 mmol/L [facility] ([place]) Chloride 102 97 - 110 mmol/L [facility] ([place]) CO2 22 22 - 32 mmol/L [facility] ([place]) Anion gap 12 2 - 15 mmol/L [facility] ([place]) BUN 29(H) 6 - 25 mg/dL [facility] ([place]) Creatinine 1.26 0.80 - 1.30 mg/dL [facility] ([place]) Glucose 128 70 - 199 mg/dL [facility] ([place]) Comment: Interpretive Data Fasting glucose >/= 126 mg/dl is diagnostic for diabetes. Fasting is defined as no caloric intake for at least 8 hours. Fasting glucose between 100 mg/dl to 125 mg/dl is diagnostic of prediabetes. In a patient with classic symptoms of hyperglycemia or hyperglycemic crisis, a random glucose >/= 200 mg/dl is diagnostic for diabetes. In the absence of unequivocal hyperglycemia, results should be confirmed by repeat testing. The classification and Diagnosis of Diabetes Diabetes Care 2021; 46: S19-S40. Current interpretive data was last revised 2022. Calcium 10.0 8.5 - 10.3 mg/dL [facility] Bilirubin, total 0.8 0.1 - 1.2 mg/dL [facility] Protein, pl 7.9 6.5 - 8.5 g/dL [facility] Albumin 3.8 3.5 - 5.0 g/dL [facility] Alk phos 142(H) 40 - 130 Units/L [facility] ALT 7 7 - 55 Units/L [facility] AST 17 10 - 50 Units/L [facility] Blood 07/26/2025 12:0 2 PM CDT 07/26/2025 12:09 PM CDT us Martínez Jorge MD LAB BLOOD ORDERABLE S Final Result [facility]) [facility] [place] [address] from Last 3 Months Insurance MEDICARE [facility] MEDICARE [employer] [place] [employer]IC[employer] [place] Advance Directives For more information, please contact: [phone] Documents on File Type Date Recorded 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
--- OUTSIDE RECORDS SUMMARY | 2025-10-11 03:45 | XMS_ITS | Clinical Summary ---
Author Organization [facility] Address [address] [place] [address] Phone Care Team Providers Care Tie Binder Name Role Phone Irma Alva MD Primary Care Provider [phone] Allergies No known active allergies Medications atorvastatin (LIPITOR) 80 MG TabletIndicati ons:Hyperlipid emia Take 80 mg by mouth nightly. Indications: High Amount of Fats in the Blood Active metoprolol tartrate (LOPRESSOR) 25 MG TabletIndicati ons:Atrial Fibrillation,H ypertension Take 25 mg by mouth 2 times daily. Indications: Atrial Fibrillation, High Blood Pressure Active lisinopril (PRINIVIL, ZESTRIL) 20 MG TabletIndicati ons:Hypertensi on Take 20 mg by mouth daily. Indications: High Blood Pressure Activ e rivaroxaban (Xarelto) 20 MG TabletIndicati ons:Atrial Fibrillation,S CAMILA, CAD Take 20 mg by mouth daily. with dinner Indications: Atrial Fibrillation, STEMI, CAD Active niacin cr 1000 MG Tablet Controlled ReleaseIndicat ions:Hyperlipi demia Take 1,000 mg by mouth daily. Indications: High Amount of Fats in the Blood Active oxyCODONE-acet aminophen (PERCOCET) 5-325 MG TabletIndicati ons:Pain Take 1 Tablet by mouth every 4 hours as needed for Moderate or more severe pain. Indications: Pain Active acetaminophen (TYLENOL) 650 MG Tablet Controlled ReleaseIndicat ions:Fever,Alexandrea n Take 650 mg by mouth every 8 hours. Indications: Fever, Pain Active Omeprazole Magnesium 20 MG Tablet Delayed ResponseIndica tions:Gastroes ophageal Reflux Disease Take 20 mg by mouth daily. Indications: Gastroesophageal Reflux Disease 09/17/20 25 Active aspirin EC (Aspirin 81) 81 MG Tablet Delayed ResponseIndica tions:Myocardi al Reinfarction,O steoarthritis, A-fib, CAD Take 81 mg by mouth daily. Indications: Heart Attack Affecting Area Damaged by Previous Attack, Joint Damage causing Pain and Loss of Function, A-fib, CAD 09/17/20 25 Active Aspirin 81 MG Tablet Take 81 mg by mouth daily. Discontin ued(Dupli tara Order) ondansetron (ZOFRAN) 4 MG Tablet Take 1 Tab by mouth every 8 hours as needed for Nausea. 20 Tab 11/02/20 17 Discontin ued(Thera py completed ) amiodarone (CORDARONE) 200 MG Tablet Take 200 mg by mouth daily. Discontin ued(Thera py completed ) famotidine (PEPCID) 20 MG Tablet Take 20 mg by mouth 2 times daily. Discontin ued(Thera py completed ) finasteride (PROSCAR) 5 MG Tablet Take 5 mg by mouth daily. Discontin ued(Thera py completed ) lisinopril (PRINIVIL, ZESTRIL) 10 MG Tablet Take 5 mg by mouth daily. Discontin ued(Thera py completed ) clopidogrel (PLAVIX) 75 MG Tablet Take 75 mg by mouth daily. Discontin ued(Thera py completed ) rivaroxaban (XARELTO) 10 MG TabletIndicati ons:Thromboemb olism secondary to Atrial Fibrillation,T akes with a meal: dinner at 1700 Take 20 mg by mouth daily. Discontin ued(Thera py completed ) oxyCODONE (ROXICODONE) 5 MG TabletIndicati ons:Acute Pain Take 5-10 mg by mouth every 4 hours as needed for Pain. Discontin ued(Thera py completed ) senna (SENOKOT) 8.6 MG TabletIndicati ons:Constipati on Take 2 Tabs by mouth daily as needed for Other (constipation). 025 Discontin ued(Thera py completed ) omeprazole (PriLOSEC) 20 MG CAPSULE DELAYED RELEASE Take 20 mg by mouth daily. 025 Discontin ued(Error ) Active Problems Problem Noted Date Diagnosed Date Kidney stones 11/08/2017 Hydronephrosis with urinary obstruction due to renal calculus 11/08/2017 Abdominal aortic aneurysm (AAA) without rupture 11/08/2017 CAD (coronary artery disease) 11/08/2017 Pain 11/08/2017 Encounters Date Type Department Care Team Description 10/08/2025 Home Care Visit [address] [address] Tonya Elias, PT PT - DISCHARGE SUMMARY 09/27/2025 Home Care Visit [address] [address] Tonya Elias, PT PT - OASIS TRANSFER W/OUT DC 09/26/[address] [address] Lata Hollis RN Medication Management 09/23/2025 Home Care Visit [address] [address] Tonya Elias, PT TELEPHONE ENCOUNTER 09/19/2025 Home Care Visit [address] [address] Tonya Elias, PT TELEPHONE ENCOUNTER 09/18/2025 Home Care Visit [address] [address] Tonya Elias, PT TELEPHONE ENCOUNTER 09/18/2025 Home Care Visit [address] [address] Nanci Orozco RN SN - WOUND/OSTOMY CONSULTATION 09/17/2025 12:30 PM MAINTENANCE REPAIRER Home Care Visit [address] [address] Tonya Elias, PT PT - OASIS START OF CARE 09/17/2025 [facility] [address] [place] [address] Tonya Elias, PT CARE CONFERENCE 09/17/2025 [facility]phone [facility] [address] [place] [address] Tonya Elias, PT Medication Management 09/17/2025 Plan of Care Documentation [address] [address] 09/06/2025 [facility]phone [facility] [place] [address] [place] [id number] Preston Mccain MD from Last 3 Months Family History Medical History Relation Name Comments Diabetes Father Cancer Mother Relation Name Status Comments Father Mother Social History Tobacco Use Types Packs/Day Years Used Date Smoking Tobacco: Former Cigarettes 1 Q uit: 06/09/2017 Smokeless Tobacco: Never Tobacco Cessation:Counseling Given: No Alcohol Use Standard Drinks/Week Comments No 0 (1 standard drink = 0.6 oz pur e alcohol) Sexually Active Control Partners Comments Never Sex and Gender Information Value Date Recorded Sex Assigned at Not on file Legal Sex Male 9:10 PM CDT Gender Identity Not on file Sexual Orientation Not on file Last Filed Vital Signs Vital Sign Reading Time Taken Comments Blood Pressure 110/78 09/17/2025 1:14 PM MAINTENANCE REPAIRER Pulse 76 09/17/2025 1:14 PM MAINTENANCE REPAIRER Temperature 35.6 C (96.1 F) 09/17/2025 1:14 PM MAINTENANCE REPAIRER Respiratory Rate 16 09/17/2025 1:14 PM MAINTENANCE REPAIRER Oxygen Saturation 97% 09/17/2025 1:14 PM MAINTENANCE REPAIRER Inhaled Oxygen Concentration - - Weight 105.2 kg (232 lb) 12/15/2017 8:59 AM MAINTENANCE REPAIRER Height 180.3 cm (5' 11) 12/15/2017 8:59 AM MAINTENANCE REPAIRER Body Mass Index 32.36 12/15/2017 8:59 AM MAINTENANCE REPAIRER Plan of Treatment Health Maintenance Due Date Last Done Comments Hepatitis C Virus (HCV) Screening 1950 Cologuard 1996 Colonoscopy 1996 Colorectal Cancer Screening 1996 Immunochemical Fecal Occult Blood 1996 Respiratory Syncytial Virus (RSV) Immunization (Adult) (1 - Risk 50-74 years 1-dose series) 2001 Zoster Immunization (1 of 2) 2001 Medicare Initial AWV [id number] 06/14/2017 Pneumococcal Immunization (5 0+ years) (2 of 2 - PCV20 or PCV21) 04/04/2020 04/04/2019 Influenza Immunization (#1) 2025 10/07/2020 SARS-COV-2 Immunization (3 - season) 2025 04/23/2021, 04/02/2021 Pneumococcal Immunization Combined Discontinued 04/04/2019 DTaP/Tdap/Td Immunization Discontinued 08/21/2025 TdaP Immunization Completed 08/21/2025 Hepatitis B Immunization Aged Out No longer eligible based on patient's age to complete this topic Human Papillomavirus (HPV) Immunization Aged Out No longer eligible based on patient's age to complete this topic Meningococcal Immunization (ACWY) Aged Out No longer eligible based on patient's age to complete this topic Rotavirus Immunization Aged Out No lo nger eligible based on patient's age to complete this topic Medical Devices Implanted Type Area Cso Device Identifier Shelf Expiration Date Model / Serial / Lot Bard Inlay Ureteral Stent Implanted:Qty: 1 on 11/15/2017 [facility]: Ureter [employer] 06/10/2022 [id number] / [id number] / [id number] Explanted Type Area Cso Device Identifier Shelf Expiration Date Model / Serial / Lot Bard Inlay Ureteral Stent Implanted:Qty: 1 on 11/08/2017 by [facility] Explanted:Qty: 1 on 11/15/2017 by [facility] Left: Ureter [employer] 03/02/2022 [id number] / [id number] / [id number] Insurance MEDICARE [facility] Advance Directives * Full Code (Latest Code Status on File) Date Activated Date Inactivated Comments 09/17/2025 3:43 PM * Full Code Date Activated Date Inactivated Comments 11/08/2017 8:17 AM 11/08/2017 7:23 PM CPR-Full T reatment: FULL ARREST: Attempt Resuscitation/CPR wit intubation and mechanical ventilation. PRE-ARREST: Use entire range of life support measures to stabilize the patient. Care Teams Tie Binder Relationship Specialty Start Date End Date Irma Alva MD [address] [place] [address] [place] [address] PCP - General Family Medicine 08/22/25
--- OUTSIDE RECORDS SUMMARY | 2025-10-11 03:45 | XMS_ITS | Patient Health Record ---
Author Organization [facility] Address [address] [place] [id number] Care Team Providers Care Hose Finisher Name Role Phone DR. MILY PECK Primary Care Provider Doris Greene Unavailable [phone] Allergies Allergen (clinical drug ingredient) Drug/Non Drug Allergy documented on EMR Reaction Allergy Type Onset Date Status No Known Drug Allergy Unknown Drug Allergy Active Reason For Referral No Information Medications Medication SIG (Take, Route, Frequency, Duration) Notes Start Date End Date Status Aspirin 81 MG Tablet Delayed Release 1 tablet Orally Once a day Active Dicyclomine HCl 20 MG Tablet 1 tablet Orally 4 times a day Active Xarelto 20 MG Tablet 1 tablet with food Orally Once a day Active diazePAM 2 MG Tablet 1 tablet as needed Orally every 6 hours Active Senna Plus 8.6-50 MG Tablet 2 tablets Or ally Twice a day Active Bisacodyl 5 MG Tablet Delayed Release 1 tablet as needed Orally Once a day Active fentaNYL 75 MCG/HR Patch 72 Hour 1 patch to skin Transdermal every 3 days 10/09/2025 Active Atorvastatin Calcium 80 MG Tablet 1 tablet Orally Once a day Active Mineral Oil - Enema as directed Rectal daily As needed Active Ipratropium-Albuterol 0.5-2.5 (3) MG/3ML Solution 3 mL as needed Inhalation every 6 hrs Active HYDROcodone-Acetaminophen 5-325 MG Tablet 2 tablets Orally every 4 hours As needed Active Omeprazole 20 MG Capsule Delayed Release 1 capsule 1/2 to 1 hour before morning meal Orally Once a day Active Niacin 500 MG Tablet 2 tablets Orally daily Active Movantik 25 MG Tablet 1 tablet in the mo rning Orally Once a day Active MiraLax 17 GM/SCOOP Powder 17 GM Orally daily Active Ramelteon 8 MG Tablet 1 tablet Orally On ce a day Active Social History Tobacco Use: Social History Observation Description Date Details (start date - stop date) Former Smoker NA - NA Social History Drug/Alcohol: Social Info Question Answer Notes Drugs Have you used drugs other than those for medical reasons in the past 12 months? No AUDIT-C (Standard) Did you have a drink containing alcohol in the past year? 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) Active confirmed Problem Anemia (990574972) Anemia, unspecified (D64.9) Active confirmed Problem Hyperlipidemia (56878612) Hyperlipidemia, unspecified (E78.5) Active confirmed Problem Anxiety disorder (623348369) Anxiety disorder, unspecified (F41.9) Active confirmed Problem Insomnia (125248364) Insomnia, unspecified (G47.00) Active confirmed Problem Essential hypertension (86021267) Essential (primary) hypertension (I10) Active confirmed Problem Atherosclerotic heart disease of [place] coronary artery without angina pectoris (789336003597969) Atherosclerotic heart disease of [place] coronary artery without angina pectoris (I25.10) Active confirmed Problem Old myocardial infarction (3659246) Old myocardial infarction (I25.2) Active confirmed Problem Paroxysmal atrial fibrillation (877896074) Paroxysmal atrial fibrillation (I48.0) Active confirmed Problem Gastro-esophageal reflux disease without esophagitis (467029022) Gastro-esophageal reflux disease without esophagitis (K21.9) Active confirmed Problem Constipation (97960379) Constipation, unspecified (K59.00) Active confirmed Problem Collapse of lumbar vertebra (516550640) Collapsed vertebra, not elsewhere classified, lumbar region, subsequent encounter for fracture with routine healing (M48.56XD) Active confirmed Problem Abdominal aortic aneurysm without rupture (disorder) (06214190) Abdominal aortic aneurysm, without rupture, unspecified (I71.40) Active confirmed Problem Irritable bowel syndrome (49091492) Irritable bowel syndrome, unspecified (K58.9) Active confirmed Encounters Encounter Location Date Provider Diagnosis [facility] [address] [address] 10/09/2025 MILY FLICK [facility] [address] [address] 10/08/2025 MILY PECK [facility] [address] [address] 10/08/2025 [facility] [address] [address] 10/08/2025 [facility] [address] [address] 10/09/2025 MILY [facility] [address] [address] 10/09/2025 Doris Greene Plan Of Treatment No Information Insurance Providers Payer Name Payer Address Payer Phone Subscriber Number Group Number Insured Name Patient Relationship to Insured Coverage Start Date Coverage End Date Michael Black [place] [address] [id number] [facility] erSundar Self - patient is the insured [employer] of [place] [address] [facility] [place] [id number] [facility] Sundar Self - patient is the insured Medical (General) History Medical History History ICD Code Collapsed vertebra, not else where classified, lumbar region, subsequent encounter for fracture with routine healing M48.56XD Shortness of breath R06.02 Retention of urine, unspecified R33.9 Pain, unspecified R52 Abdominal aortic aneurysm, without ruptu re, unspecified I71.40 Secondary malignant neoplasm of bone C79 .51 Anemia, unspecified D64.9 Hyperlipidemia, unspecified E78.5 Hypo-osmolality and hyponatremia E87.1 Anxiety disorder, unspecified F41.9 Insomnia, unspecified G47.00 Essential (primary) hypertension I10 Atherosclerotic heart diseas e of [place] coronary artery without angina pectoris I25.10 Old myocardial infarction I25.2 Paroxysmal atrial fibrillation I48.0 Acute respiratory failure with hypoxia J 96.01 Gastro-esophageal reflux disease without esophagitis K21.9 Irritable bowel syndrome, unspecified K5 8.9 Constipation, unspecified K59.00 Surgical History Surgery Date(Month/Year) ARTERIAL ANEURYSM REPAIR BACK SURGERY CARDIAC STENT PLACEMENT CARDIAC SURGERY CORONARY ARTERY BYPASS GRAFT
--- OUTSIDE RECORDS SUMMARY | 2025-10-11 03:45 | XMS_ITS ---
Author Organization [facility] Address [address] [place] [address] Care Team Providers Care Nuclear Engineering Technician Name Role Phone Unknown, Notinfile Primary Care Provider Unavail able Active Problems Problem Noted Date Diagnosed Date Reduced mobility 10/01/2025 Assessment & Plan (10/06/2025 10:50 AM SCIENTOLOGIST): Reduced mobility secondary to age as well as metastatic disease. Patient and family member are both comfortable and agreeable with SNF placement. Will continue to have patient work with PT/OT during hospital stay. Assessment & Plan (10/05/2025 2:25 PM SCIENTOLOGIST): -Reduced mobility secondary to age as well as metastatic disease. Patient and family member are both comfortable and agreeable with SNF placement. Will continue to have patient work with PT/OT during hospital stay. Assessment & Plan (10/04/2025 4:11 PM SCIENTOLOGIST): Age related and related to metastatic disease PT has recommended SNF placement and or home health with PT Assessment & Plan (10/03/2025 6:51 PM SCIENTOLOGIST): Age related and related to metastatic disease PT has recommended SNF placement and or home health with PT Assessment & Plan (10/02/2025 3:44 PM SCIENTOLOGIST): Age related and related to metastatic disease PT has recommended SNF placement and or home health with PT Hypoalbuminemia 10/01/2025 Assessment & Plan (10/06/2025 10:50 AM SCIENTOLOGIST): Albumin noted to be low, ranging from 2.8 to 3.4. This is likely secondary to metastatic disease. Assessment & Plan (10/05/2025 2:25 PM SCIENTOLOGIST): -Albumin noted to be low, ranging from 2.8 to 3.4. This is likely secondary to metastatic disease. Assessment & Plan (10/04/2025 4:11 PM SCIENTOLOGIST): Likely in the setting of neoplastic disease/metastasis Assessment & Plan (10/03/2025 6:51 PM SCIENTOLOGIST): Likely in the setting of neoplastic disease/metastasis Assessment & Plan (10/02/2025 3:44 PM SCIENTOLOGIST): Likely in the setting of neoplastic disease/metastasis Iron deficiency anemia due to chronic blood loss 10/01/2025 Assessment & Plan (10/06/2025 10:50 AM SCIENTOLOGIST): Iron noted to be low, patient is status post fair gluconate treatment x1 -Will continue to monitor during hospital stay Assessment & Plan (10/05/2025 2:25 PM SCIENTOLOGIST): -Iron noted to be low, patient is status post fair gluconate treatment x1 -Will continue to monitor during hospital stay Assessment & Plan (10/04/2025 4:11 PM SCIENTOLOGIST): Iron replacement - Ferric gluconate x1 Assessment & Plan (10/03/2025 6:51 PM SCIENTOLOGIST): Iron replacement - Ferric gluconate ordered once Assessment & Plan (10/02/2025 3:44 PM SCIENTOLOGIST): Iron replacement 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 Assessment & Plan (10/06/2025 10:50 AM SCIENTOLOGIST): s/p kyphoplasty, POD 6 and doing well [...] Continue pain regimen: Dilaudid 12hrs Fentanyl 75mcg Gordon q4hrs PRN Assessment & Plan (10/05/2025 2:25 PM SCIENTOLOGIST): -Patient is s/p kyphoplasty, POD 4 and doing well on current pain regimen -Bone, 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 Does report that [...] - Dilaudid q.2h, fentanyl 75 mcg, dexamethasone, Gordon q.4h p.r.n; he is anxious to know results of his biopsy but is otherwise pleasant. - Continue pain control with fentanyl patch 75 mcg, Dilaudid q.2h, Gordon - Follow biopsy results from bronchoscopy and vertebral biopsy - Augmentin completed Assessment & Plan (10/03/2025 6:51 PM SCIENTOLOGIST): S/p kyphoplasty POD 3. Does report that [...] - Dilaudid q.2h, fentanyl 75 mcg, dexamethasone, Gordon q.4h p.r.n; he is anxious to know results of his biopsy but is otherwise pleasant. - Continue pain control with fentanyl patch 75 mcg, Dilaudid q.2h, Gordon - Follow biopsy results from bronchoscopy and vertebral biopsy - Augmentin started for possible infection per Dr. Grimm during bronchoscopy. Assessment & Plan (10/02/2025 3:44 PM SCIENTOLOGIST): S/p kyphoplasty POD 1. Does report that [...] achieved Dilaudid q.2h, fentanyl 75 mcg, dexamethasone, Gordon q.4h p.r.n; he is anxious to know results of his biopsy but is otherwise pleasant. - Continue pain control with fentanyl patch 75 mcg, Dilaudid q.2h, Gordon - Follow biopsy results from bronchoscopy and vertebral biopsy - Augmentin started for possible infection per Dr. Grimm during bronchoscopy. - Dexamethasone discontinued Assessment & Plan (10/01/2025 2:42 PM SCIENTOLOGIST): S/p kyphoplasty POD 1. Does report that [...] achieved Dilaudid q.2h, fentanyl 75 mcg, dexamethasone, Gordon q.4h p.r.n; he is anxious to know results of his biopsy but is otherwise pleasant. - Continue pain control with fentanyl patch 75 mcg, Dilaudid q.2h, dexamethasone held, Gordon - Follow biopsy results from bronchoscopy and vertebral biopsy - Augmentin started for possible infection per Dr. Grimm during bronchoscopy. Assessment & Plan (09/30/2025 2:52 PM SCIENTOLOGIST): Initially admitted for pain control in the [...] achieved Dilaudid q.2h, fentanyl 75 mcg, dexamethasone, Gordon q.4h p.r.n.. MRI on admission concerning for [...] fentanyl patch 75 mcg, Dilaudid q.2h, dexamethasone, Gordon - Check biopsy results from bronchoscopy and vertebral biopsy - Augmentin started for possible infection per Dr. Grimm during bronchoscopy Assessment & Plan (09/29/2025 2:52 PM SCIENTOLOGIST): Patient presenting for pain control and altered [...] management Assessment & Plan (09/28/2025 3:31 PM SCIENTOLOGIST): Patient presenting for pain control and altered [...] management Assessment & Plan (09/27/2025 4:20 PM SCIENTOLOGIST): Patient presenting for pain control and altered [...] house Assessment & Plan (09/26/2025 2:56 PM SCIENTOLOGIST): Patient presenting for pain control and altered [...] 09/26/2025 Assessment & Plan (10/06/2025 10:50 AM SCIENTOLOGIST): s/p kyphoplasty, POD 6 and doing well [...] Continue pain regimen: Dilaudid 12hrs Fentanyl 75mcg Gordon q4hrs PRN Assessment & Plan (10/05/2025 2:25 PM SCIENTOLOGIST): -Patient is s/p kyphoplasty, POD 4 and doing well on current pain regimen -Bone, 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 Does report that [...] - Dilaudid q.2h, fentanyl 75 mcg, dexamethasone, Gordon q.4h p.r.n; he is anxious to know results of his biopsy but is otherwise pleasant. - Continue pain control with fentanyl patch 75 mcg, Dilaudid q.2h, Gordon - Follow biopsy results from bronchoscopy and vertebral biopsy - Augmentin completed Assessment & Plan (10/03/2025 6:51 PM SCIENTOLOGIST): S/p kyphoplasty POD 3. Does report that [...] - Dilaudid q.2h, fentanyl 75 mcg, dexamethasone, Gordon q.4h p.r.n; he is anxious to know results of his biopsy but is otherwise pleasant. - Continue pain control with fentanyl patch 75 mcg, Dilaudid q.2h, Gordon - Follow biopsy results from bronchoscopy and vertebral biopsy - Augmentin started for possible infection per Dr. Grimm during bronchoscopy. Assessment & Plan (10/02/2025 3:44 PM SCIENTOLOGIST): S/p kyphoplasty POD 1. Does report that [...] achieved Dilaudid q.2h, fentanyl 75 mcg, dexamethasone, Gordon q.4h p.r.n; he is anxious to know results of his biopsy but is otherwise pleasant. - Continue pain control with fentanyl patch 75 mcg, Dilaudid q.2h, Gordon - Follow biopsy results from bronchoscopy and vertebral biopsy - Augmentin started for possible infection per Dr. Grimm during bronchoscopy. - Dexamethasone discontinued Assessment & Plan (10/01/2025 2:42 PM SCIENTOLOGIST): S/p kyphoplasty POD 1. Does report that [...] achieved Dilaudid q.2h, fentanyl 75 mcg, dexamethasone, Gordon q.4h p.r.n; he is anxious to know results of his biopsy but is otherwise pleasant. - Continue pain control with fentanyl patch 75 mcg, Dilaudid q.2h, dexamethasone held, Gordon - Follow biopsy results from bronchoscopy and vertebral biopsy - Augmentin started for possible infection per Dr. Grimm during bronchoscopy. Assessment & Plan (09/30/2025 2:52 PM SCIENTOLOGIST): Initially admitted for pain control in the [...] achieved Dilaudid q.2h, fentanyl 75 mcg, dexamethasone, Gordon q.4h p.r.n.. MRI on admission concerning for [...] fentanyl patch 75 mcg, Dilaudid q.2h, dexamethasone, Gordon - Check biopsy results from bronchoscopy and vertebral biopsy - Augmentin started for possible infection per Dr. Grimm during bronchoscopy Assessment & Plan (09/29/2025 2:52 PM SCIENTOLOGIST): Patient presenting for pain control and altered [...] management Assessment & Plan (09/28/2025 3:31 PM SCIENTOLOGIST): Patient presenting for pain control and altered [...] management Assessment & Plan (09/27/2025 4:20 PM SCIENTOLOGIST): Patient presenting for pain control and altered [...] house Assessment & Plan (09/26/2025 2:56 PM SCIENTOLOGIST): Patient presenting for pain control and altered [...] 09/26/2025 Assessment & Plan (10/06/2025 10:50 AM SCIENTOLOGIST): s/p kyphoplasty, POD 6 and doing well [...] Continue pain regimen: Dilaudid 12hrs Fentanyl 75mcg Gordon q4hrs PRN Assessment & Plan (10/05/2025 2:25 PM SCIENTOLOGIST): -Patient is s/p kyphoplasty, POD 4 and doing well on current pain regimen -Bone, 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 Does report that [...] - Dilaudid q.2h, fentanyl 75 mcg, dexamethasone, Gordon q.4h p.r.n; he is anxious to know results of his biopsy but is otherwise pleasant. - Continue pain control with fentanyl patch 75 mcg, Dilaudid q.2h, Gordon - Follow biopsy results from bronchoscopy and vertebral biopsy - Augmentin completed Assessment & Plan (10/03/2025 6:51 PM SCIENTOLOGIST): S/p kyphoplasty POD 3. Does report that [...] - Dilaudid q.2h, fentanyl 75 mcg, dexamethasone, Gordon q.4h p.r.n; he is anxious to know results of his biopsy but is otherwise pleasant. - Continue pain control with fentanyl patch 75 mcg, Dilaudid q.2h, Gordon - Follow biopsy results from bronchoscopy and vertebral biopsy - Augmentin started for possible infection per Dr. Grimm during bronchoscopy. Assessment & Plan (10/02/2025 3:44 PM SCIENTOLOGIST): S/p kyphoplasty POD 1. Does report that [...] achieved Dilaudid q.2h, fentanyl 75 mcg, dexamethasone, Gordon q.4h p.r.n; he is anxious to know results of his biopsy but is otherwise pleasant. - Continue pain control with fentanyl patch 75 mcg, Dilaudid q.2h, Gordon - Follow biopsy results from bronchoscopy and vertebral biopsy - Augmentin started for possible infection per Dr. Grimm during bronchoscopy. - Dexamethasone discontinued Assessment & Plan (10/01/2025 2:42 PM SCIENTOLOGIST): S/p kyphoplasty POD 1. Does report that [...] achieved Dilaudid q.2h, fentanyl 75 mcg, dexamethasone, Gordon q.4h p.r.n; he is anxious to know results of his biopsy but is otherwise pleasant. - Continue pain control with fentanyl patch 75 mcg, Dilaudid q.2h, dexamethasone held, Gordon - Follow biopsy results from bronchoscopy and vertebral biopsy - Augmentin started for possible infection per Dr. Grimm during bronchoscopy. Assessment & Plan (09/30/2025 2:52 PM SCIENTOLOGIST): Initially admitted for pain control in the [...] achieved Dilaudid q.2h, fentanyl 75 mcg, dexamethasone, Gordon q.4h p.r.n.. MRI on admission concerning for [...] fentanyl patch 75 mcg, Dilaudid q.2h, dexamethasone, Gordon - Check biopsy results from bronchoscopy and vertebral biopsy - Augmentin started for possible infection per Dr. Grimm during bronchoscopy Assessment & Plan (09/29/2025 2:52 PM SCIENTOLOGIST): Patient presenting for pain control and altered [...] management Assessment & Plan (09/28/2025 3:31 PM SCIENTOLOGIST): Patient presenting for pain control and altered [...] management Assessment & Plan (09/27/2025 4:20 PM SCIENTOLOGIST): Patient presenting for pain control and altered [...] 09/25/2025 Assessment & Plan (10/06/2025 10:50 AM SCIENTOLOGIST): s/p kyphoplasty, POD 6 and doing well [...] Continue pain regimen: Dilaudid 12hrs Fentanyl 75mcg Gordon q4hrs PRN Assessment & Plan (10/05/2025 2:25 PM SCIENTOLOGIST): -Patient is s/p kyphoplasty, POD 4 and doing well on current pain regimen -Bone, 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 Does report that [...] - Dilaudid q.2h, fentanyl 75 mcg, dexamethasone, Gordon q.4h p.r.n; he is anxious to know results of his biopsy but is otherwise pleasant. - Continue pain control with fentanyl patch 75 mcg, Dilaudid q.2h, Gordon - Follow biopsy results from bronchoscopy and vertebral biopsy - Augmentin completed Assessment & Plan (10/03/2025 6:51 PM SCIENTOLOGIST): S/p kyphoplasty POD 3. Does report that [...] - Dilaudid q.2h, fentanyl 75 mcg, dexamethasone, Gordon q.4h p.r.n; he is anxious to know results of his biopsy but is otherwise pleasant. - Continue pain control with fentanyl patch 75 mcg, Dilaudid q.2h, Gordon - Follow biopsy results from bronchoscopy and vertebral biopsy - Augmentin started for possible infection per Dr. Grimm during bronchoscopy. Assessment & Plan (10/02/2025 3:44 PM SCIENTOLOGIST): S/p kyphoplasty POD 1. Does report that [...] achieved Dilaudid q.2h, fentanyl 75 mcg, dexamethasone, Gordon q.4h p.r.n; he is anxious to know results of his biopsy but is otherwise pleasant. - Continue pain control with fentanyl patch 75 mcg, Dilaudid q.2h, Gordon - Follow biopsy results from bronchoscopy and vertebral biopsy - Augmentin started for possible infection per Dr. Grimm during bronchoscopy. - Dexamethasone discontinued Assessment & Plan (10/01/2025 2:42 PM SCIENTOLOGIST): S/p kyphoplasty POD 1. Does report that [...] achieved Dilaudid q.2h, fentanyl 75 mcg, dexamethasone, Gordon q.4h p.r.n; he is anxious to know results of his biopsy but is otherwise pleasant. - Continue pain control with fentanyl patch 75 mcg, Dilaudid q.2h, dexamethasone held, Gordon - Follow biopsy results from bronchoscopy and vertebral biopsy - Augmentin started for possible infection per Dr. Grimm during bronchoscopy. Assessment & Plan (09/30/2025 2:52 PM SCIENTOLOGIST): Initially admitted for pain control in the [...] achieved Dilaudid q.2h, fentanyl 75 mcg, dexamethasone, Gordon q.4h p.r.n.. MRI on admission concerning for [...] fentanyl patch 75 mcg, Dilaudid q.2h, dexamethasone, Gordon - Check biopsy results from bronchoscopy and vertebral biopsy - Augmentin started for possible infection per Dr. Grimm during bronchoscopy Assessment & Plan (09/29/2025 2:52 PM SCIENTOLOGIST): Patient presenting for pain control and altered [...] management Assessment & Plan (09/28/2025 3:31 PM SCIENTOLOGIST): Patient presenting for pain control and altered [...] management Assessment & Plan (09/27/2025 4:20 PM SCIENTOLOGIST): Patient presenting for pain control and altered [...] house Assessment & Plan (09/26/2025 2:56 PM SCIENTOLOGIST): Patient presenting for pain control and altered [...] 09/25/2025 Assessment & Plan (10/06/2025 10:50 AM SCIENTOLOGIST): Resolved; patient noted to have good urinary output with cumulative net output of 2.4L No need for snow catheter at this time - Continue to monitor for return of retention Assessment & Plan (10/05/2025 2:25 PM SCIENTOLOGIST): -Resolved; patient noted to have good urinary output with cumulative net output of 2.4L -No need for snow catheter at this time Plan: -Continue to monitor for return of retention Assessment & Plan (10/04/2025 4:11 PM SCIENTOLOGIST): Resolved Patient reporting decreased urination, found to be retaining greater than 1 L of urine in the ED. - Voiding trials were successful Assessment & Plan (10/03/2025 6:51 PM SCIENTOLOGIST): Resolved Patient reporting decreased urination, found to be retaining greater than 1 L of urine in the ED. - Voiding trials were successful Assessment & Plan (10/02/2025 3:44 PM SCIENTOLOGIST): Patient reporting decreased urination, found to be retaining greater than 1 L of urine in the ED. - Continue Snow catheter care Assessment & Plan (10/01/2025 2:42 PM SCIENTOLOGIST): Patient reporting decreased urination, found to be retaining greater than 1 L of urine in the ED. - Continue Snow catheter care Assessment & Plan (09/30/2025 2:52 PM SCIENTOLOGIST): Patient reporting decreased urination, found to be retaining greater than 1 L of urine in the ED. - Continue Snow catheter care Assessment & Plan (09/29/2025 2:52 PM SCIENTOLOGIST): Patient reporting decreased urination, found to be retaining greater than 1 L of urine in the ED. Snow catheter placed. Can not rule out prostate as primary source of cancer. - Maintain Snow in place Assessment & Plan (09/28/2025 3:31 PM SCIENTOLOGIST): Patient reporting decreased urination, found to be retaining greater than 1 L of urine in the ED. Snow catheter placed. Can not rule out prostate as primary source of cancer. - Maintain Snow in place Assessment & Plan (09/27/2025 3:48 PM SCIENTOLOGIST): Patient reporting decreased urination, found to be retaining greater than 1 L of urine in the ED. Snow catheter placed. Can not rule out prostate as primary source of cancer. - Test UA - Maintain Snow in place Assessment & Plan (09/26/2025 2:56 PM SCIENTOLOGIST): Patient reporting decreased urination, found to be retaining greater than 1 L of urine in the ED. Snow catheter placed. Can not rule out prostate as primary source of cancer. - Test UA - Maintain Snow in place Constipation 09/25/2025 Assessment & Plan (10/06/2025 10:50 AM SCIENTOLOGIST): Per mention of patient's family member, patient last had bowel movement yesterday Current regimen includes: Movantik 25mg daily, Miralax 34g daily, Pericolace 2 tablets BID; Bentyl 20mg q6hrs PRN also in place for abdominal discomfort - Continue current regimen as listed above and monitor for any worsening of constipation Assessment & Plan (10/05/2025 2:25 PM SCIENTOLOGIST): -Per mention of patient's family member, patient last had bowel movement yesterday -Current regimen includes: Movantik 25mg daily, Miralax 34g daily, Pericolace 2 tablets BID; Bentyl 20mg q6hrs PRN also in place for abdominal discomfort Plan: -Continue current regimen as listed above and monitor for any worsening of constipation Assessment & Plan (10/04/2025 4:11 PM SCIENTOLOGIST): Resolved I recommend MiraLax 34 g, Casi Colace b.i.d. as preventative treatment. Add lactulose if constipated greater than 2-3 days/if pain increases secondary to abdominal distention. He responded quite well to 1 dose lactulose plus MiraLax 34 g plus Casi Colace b.i.d; most certainly in the setting of slow transit constipation secondary to pain medication - Continue Movantik, senna, fleet enema - Daily MiraLax 34 g. Casi-Colace b.i.d. and titrate down as appropriate - Monitor for bowel movements - Monitor WBCs Assessment & Plan (10/03/2025 6:51 PM SCIENTOLOGIST): Resolved I recommend MiraLax 34 g, Casi Colace b.i.d. as preventative treatment. Add lactulose if constipated greater than 2-3 days/if pain increases secondary to abdominal distention. He responded quite well to 1 dose lactulose plus MiraLax 34 g plus Casi Colace b.i.d; most certainly in the setting of slow transit constipation secondary to pain medication - Continue Movantik, senna, fleet enema - Daily MiraLax 34 g. Casi-Colace b.i.d. and titrate down as appropriate - Monitor for bowel movements - Monitor WBCs Assessment & Plan (10/02/2025 3:44 PM SCIENTOLOGIST): Resolved I recommend MiraLax 34 g, Casi Colace b.i.d. as preventative treatment. Add lactulose if constipated greater than 2-3 days/if pain increases secondary to abdominal distention. He responded quite well to 1 dose lactulose plus MiraLax 34 g plus Casi Colace b.i.d; most certainly in the setting of slow transit constipation secondary to pain medication - Continue Movantik, senna, fleet enema - Daily MiraLax 34 g. Casi-Colace b.i.d. and titrate down as appropriate - Monitor for bowel movements - Monitor WBCs Assessment & Plan (10/01/2025 2:42 PM SCIENTOLOGIST): Leukocytosis, likely reactive and/or secondary to dexamethasone therapy. Symptoms x1 week. Abdomen is not peritonitic MiraLax 34 g, Casi Colace b.i.d., 1 time lactulose p.o. Patient was given fleet enema, IV Relistor, p.o. lactulose and p.o. milk of magnesia. - Continue Movantik, senna, fleet enema - 1 time lactulose p.o., MiraLax 34 g. Casi-Colace b.i.d. - Monitor for bowel movements - Monitor WBCs Assessment & Plan (09/30/2025 2:52 PM SCIENTOLOGIST): Symptoms x1 week, likely secondary to opioid use. Abdomen is soft and nontender to palpation with normal bowel sounds on exam, which is reassuring. Initially started on MiraLax and Casi-Colace. Obstruction is ruled out. Patient was given fleet enema, IV Relistor, p.o. lactulose and p.o. milk of magnesia. Fecal disimpaction completed yesterday without significant bowel movement - Continue Movantik, senna, fleet enema PRN - Monitor for bowel movements Assessment & Plan (09/29/2025 2:52 PM SCIENTOLOGIST): Symptoms x1 week, likely secondary to opioid use. Abdomen is soft and nontender to palpation with normal bowel sounds on exam, which is reassuring. Initially started on MiraLax and Casi-Colace. This did not resolve the symptoms the [...] movement Assessment & Plan (09/28/2025 7:14 AM SCIENTOLOGIST): Symptoms x1 week, likely secondary to opioid use. Abdomen is soft and nontender to palpation with normal bowel sounds on exam, which is reassuring. Initially started on MiraLax and Casi-Colace. Switched to Movantik daily Plan - Continue Movantik Assessment & Plan (09/27/2025 3:48 PM SCIENTOLOGIST): Symptoms x1 week, likely secondary to opioid use. Abdomen is soft and nontender to palpation with normal bowel sounds on exam, which is reassuring. Initially started on MiraLax and Casi-Colace. Switched to Movantik daily Plan - Continue Movantik Assessment & Plan (09/26/2025 2:56 PM SCIENTOLOGIST): Symptoms x1 week, likely secondary to opioid use. Abdomen is soft and nontender to palpation with normal bowel sounds on exam, which is reassuring. Initially started on MiraLax and Casi-Colace. Switched to Movantik daily Plan - Continue Movantik Leukocytosis 09/25/2025 Normocytic anemia 09/25/2025 Primary hypertension 09/25/2025 Assessment & Plan (10/06/2025 10:50 AM SCIENTOLOGIST): Chronic, stable condition treated with Lisinopril 20mg daily, Chlorthalidone 25mg daily, and Metoprolol 25mg BID; these BP medications have been held due to stable (and at times lower) BP readings BP has been stable during hospital stay, current BP of 130/80 - Continue to hold antihypertensive medications as listed above and monitor for hypertension Assessment & Plan (10/05/2025 2:25 PM SCIENTOLOGIST): -Chronic, stable condition treated with Lisinopril 20mg daily, Chlorthalidone 25mg daily, and Metoprolol 25mg BID; these BP medications have been held due to stable (and at times lower) BP readings -BP has been stable during hospital stay, current BP of 130/80 Plan: -Continue to hold antihypertensive medications as listed above and monitor for hypertension Assessment & Plan (10/04/2025 4:11 PM SCIENTOLOGIST): SBP at goal 126/80. Lisinopril and chlorthalidone and metoprolol 25 mg b.i.d. held at this time - continue to hold antihypertensive meds given borderline blood pressures. Assessment & Plan (10/03/2025 6:51 PM SCIENTOLOGIST): SBP at goal 126/80. Lisinopril and chlorthalidone and metoprolol 25 mg b.i.d. held at this time - continue to hold antihypertensive meds given borderline blood pressures. Assessment & Plan (10/02/2025 3:44 PM SCIENTOLOGIST): SBP at goal 126/80. Lisinopril and chlorthalidone and metoprolol 25 mg b.i.d. held at this time - continue to hold antihypertensive meds given borderline blood pressures. Assessment & Plan (10/01/2025 2:42 PM SCIENTOLOGIST): SBP at goal 126/80. Lisinopril and chlorthalidone and metoprolol 25 mg b.i.d. held at this time - continue to hold antihypertensive meds given borderline blood pressures. Assessment & Plan (09/30/2025 2:52 PM SCIENTOLOGIST): SBP at goal 124/59. Lisinopril and chlorthalidone and metoprolol 25 mg b.i.d. held at this time - continue to hold antihypertensive meds given borderline blood pressures. Assessment & Plan (09/29/2025 2:52 PM SCIENTOLOGIST): Blood pressure decreased to 82/58 on admission, [...] pressures. Assessment & Plan (09/28/2025 3:31 PM SCIENTOLOGIST): Blood pressure decreased to 82/58 on admission, [...] pressures. Assessment & Plan (09/27/2025 3:48 PM SCIENTOLOGIST): Blood pressure decreased to 82/58 on admission, improved somewhat to 92/61 after IV fluids given in the ED. On chart review, patient advised on 09/17 to take chlorthalidone 1/2 tablet. Home regimen includes chlorthalidone 12.5 mg, lisinopril 20 mg, metoprolol 25 mg BID. Currently blood pressure 100/57 - hold above medications given hypotension on admission Assessment & Plan (09/26/2025 2:56 PM SCIENTOLOGIST): Blood pressure decreased to 82/58 on admission, improved somewhat to 92/61 after IV fluids given in the ED. On chart review, patient advised on 09/17 to take chlorthalidone 1/2 tablet. Home regimen includes chlorthalidone 12.5 mg, lisinopril 20 mg, metoprolol 25 mg BID. 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 Does report that [...] - Dilaudid q.2h, fentanyl 75 mcg, dexamethasone, Gordon q.4h p.r.n; he is anxious to know results of his biopsy but is otherwise pleasant. - Continue pain control with fentanyl patch 75 mcg, Dilaudid q.2h, Gordon - Follow biopsy results from bronchoscopy and vertebral biopsy - Augmentin completed Assessment & Plan (10/03/2025 6:51 PM SCIENTOLOGIST): S/p kyphoplasty POD 3. Does report that [...] - Dilaudid q.2h, fentanyl 75 mcg, dexamethasone, Gordon q.4h p.r.n; he is anxious to know results of his biopsy but is otherwise pleasant. - Continue pain control with fentanyl patch 75 mcg, Dilaudid q.2h, Gordon - Follow biopsy results from bronchoscopy and vertebral biopsy - Augmentin started for possible infection per Dr. Grimm during bronchoscopy. Assessment & Plan (10/02/2025 3:44 PM SCIENTOLOGIST): S/p kyphoplasty POD 1. Does report that [...] achieved Dilaudid q.2h, fentanyl 75 mcg, dexamethasone, Gordon q.4h p.r.n; he is anxious to know results of his biopsy but is otherwise pleasant. - Continue pain control with fentanyl patch 75 mcg, Dilaudid q.2h, Gordon - Follow biopsy results from bronchoscopy and vertebral biopsy - Augmentin started for possible infection per Dr. Grimm during bronchoscopy. - Dexamethasone discontinued Assessment & Plan (10/01/2025 2:42 PM SCIENTOLOGIST): S/p kyphoplasty POD 1. Does report that [...] achieved Dilaudid q.2h, fentanyl 75 mcg, dexamethasone, Gordon q.4h p.r.n; he is anxious to know results of his biopsy but is otherwise pleasant. - Continue pain control with fentanyl patch 75 mcg, Dilaudid q.2h, dexamethasone held, Gordon - Follow biopsy results from bronchoscopy and vertebral biopsy - Augmentin started for possible infection per Dr. Grimm during bronchoscopy. Assessment & Plan (09/30/2025 2:52 PM SCIENTOLOGIST): Initially admitted for pain control in the [...] achieved Dilaudid q.2h, fentanyl 75 mcg, dexamethasone, Gordon q.4h p.r.n.. MRI on admission concerning for [...] fentanyl patch 75 mcg, Dilaudid q.2h, dexamethasone, Gordon - Check biopsy results from bronchoscopy and vertebral biopsy - Augmentin started for possible infection per Dr. 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 Assessment & Plan (10/06/2025 10:50 AM SCIENTOLOGIST): Per chart review, patient had JUANIS to RCA in 2004, 7.5 cm AAA s/p TVAR in 2016, inferior STEMI with additional stent in 2016. Home regimen includes Aspirin 81mg daily, Atorvastatin 80mg daily, Rivaroxaban 20mg daily. Patient currently denies any chest pain or discomfort - Continue home regimen as mentioned above - Monitor for any chest pain or discomfort Assessment & Plan (10/05/2025 2:25 PM SCIENTOLOGIST): -Per chart review, patient had JUANIS to RCA in 2004, 7.5 cm AAA s/p TVAR in 2017, inferior STEMI with additional stent in 2016. -Home regimen includes Aspirin 81mg daily, Atorvastatin 80mg daily, Rivaroxaban 20mg daily. -Patient currently denies any chest pain or discomfort Plan: -Continue home regimen as mentioned above -Monitor for any chest pain or discomfort Assessment & Plan (10/04/2025 4:11 PM SCIENTOLOGIST): On chart review, patient had JUANIS to [...] noted. Assessment & Plan (10/03/2025 6:51 PM SCIENTOLOGIST): On chart review, patient had JUANIS to [...] noted. Assessment & Plan (10/02/2025 3:44 PM SCIENTOLOGIST): On chart review, patient had JUANIS to [...] noted. Assessment & Plan (10/01/2025 2:42 PM SCIENTOLOGIST): On chart review, patient had JUANIS to [...] noted. Assessment & Plan (09/30/2025 2:52 PM SCIENTOLOGIST): On chart review, patient had JUANIS to [...] noted Assessment & Plan (09/29/2025 2:52 PM SCIENTOLOGIST): On chart review, patient had JUANIS to RCA in 2004, 7.5 cm AAA s/p TEVAR in 2017, inferior STEMI with additional stent in 2017. Home regimen includes aspirin, atorvastatin, rivaroxaban. - continue aspirin and atorvastatin - hold rivaroxaban pending potential procedure Assessment & Plan (09/28/2025 7:14 AM SCIENTOLOGIST): On chart review, patient had JUANIS to RCA in 2004, 7.5 cm AAA s/p TEVAR in 2017, inferior STEMI with additional stent in 2017. Home regimen includes aspirin, atorvastatin, rivaroxaban. - continue aspirin and atorvastatin - hold rivaroxaban pending potential procedure Assessment & Plan (09/27/2025 3:48 PM SCIENTOLOGIST): On chart review, patient had JUANIS to RCA in 2004, 7.5 cm AAA s/p TEVAR in 2017, inferior STEMI with additional stent in 2017. Home regimen includes aspirin, atorvastatin, rivaroxaban. - continue aspirin and atorvastatin - hold rivaroxaban pending potential procedure Assessment & Plan (09/26/2025 2:56 PM SCIENTOLOGIST): On chart review, patient had JUANIS to [...] 02/17/2017 Assessment & Plan (10/06/2025 10:50 AM SCIENTOLOGIST): Per chart review, patient had JUANIS to RCA in 2004, 7.5 cm AAA s/p TVAR in 2016, inferior STEMI with additional stent in 2016. Home regimen includes Aspirin 81mg daily, Atorvastatin 80mg daily, Rivaroxaban 20mg daily. Patient currently denies any chest pain or discomfort - Continue home regimen as mentioned above - Monitor for any chest pain or discomfort Assessment & Plan (10/05/2025 2:25 PM SCIENTOLOGIST): -Per chart review, patient had JUANIS to [...] discomfort Assessment & Plan (10/04/2025 4:11 PM SCIENTOLOGIST): On chart review, patient had JUANIS to [...] noted. Assessment & Plan (10/03/2025 6:51 PM SCIENTOLOGIST): On chart review, patient had JUANIS to [...] noted. Assessment & Plan (10/02/2025 3:44 PM SCIENTOLOGIST): On chart review, patient had JUANIS to [...] noted. Assessment & Plan (10/01/2025 2:42 PM SCIENTOLOGIST): On chart review, patient had JUANIS to [...] noted. Assessment & Plan (09/30/2025 2:52 PM SCIENTOLOGIST): On chart review, patient had JUANIS to [...] noted Assessment & Plan (09/29/2025 2:52 PM SCIENTOLOGIST): On chart review, patient had JUANIS to RCA in 2004, 7.5 cm AAA s/p TEVAR in 2017, inferior STEMI with additional stent in 2017. Home regimen includes aspirin, atorvastatin, rivaroxaban. - continue aspirin and atorvastatin - hold rivaroxaban pending potential procedure Assessment & Plan (09/28/2025 7:14 AM SCIENTOLOGIST): On chart review, patient had JUANIS to RCA in 2004, 7.5 cm AAA s/p TEVAR in 2017, inferior STEMI with additional stent in 2017. Home regimen includes aspirin, atorvastatin, rivaroxaban. - continue aspirin and atorvastatin - hold rivaroxaban pending potential procedure Assessment & Plan (09/27/2025 3:48 PM SCIENTOLOGIST): On chart review, patient had JUANIS to RCA in 2004, 7.5 cm AAA s/p TEVAR in 2017, inferior STEMI with additional stent in 2017. Home regimen includes aspirin, atorvastatin, rivaroxaban. - continue aspirin and atorvastatin - hold rivaroxaban pending potential procedure Assessment & Plan (09/26/2025 2:56 PM SCIENTOLOGIST): On chart review, patient had JUANIS to [...] 02/12/2017 Assessment & Plan (10/06/2025 10:50 AM SCIENTOLOGIST): Per chart review, patient had JUANIS to [...] discomfort Assessment & Plan (10/05/2025 2:25 PM SCIENTOLOGIST): -Per chart review, patient had JUANIS to RCA in 2004, 7.5 cm AAA s/p TVAR in 2016, inferior STEMI with additional stent in 2016. -Home regimen includes Aspirin 81mg daily, Atorvastatin 80mg daily, Rivaroxaban 20mg daily. -Patient currently denies any chest pain or discomfort Plan: -Continue home regimen as mentioned above -Monitor for any chest pain or discomfort Assessment & Plan (10/04/2025 4:11 PM SCIENTOLOGIST): On chart review, patient had JUANIS to [...] noted. Assessment & Plan (10/03/2025 6:51 PM SCIENTOLOGIST): On chart review, patient had JUANIS to [...] noted. Assessment & Plan (10/02/2025 3:44 PM SCIENTOLOGIST): On chart review, patient had JUANIS to [...] noted. Assessment & Plan (10/01/2025 2:42 PM SCIENTOLOGIST): On chart review, patient had JUANIS to [...] noted. Assessment & Plan (09/30/2025 2:52 PM SCIENTOLOGIST): On chart review, patient had JUANIS to [...] noted Assessment & Plan (09/29/2025 2:52 PM SCIENTOLOGIST): On chart review, patient had JUANIS to RCA in 2004, 7.5 cm AAA s/p TEVAR in 2017, inferior STEMI with additional stent in 2017. Home regimen includes aspirin, atorvastatin, rivaroxaban. - continue aspirin and atorvastatin - hold rivaroxaban pending potential procedure Assessment & Plan (09/28/2025 7:14 AM SCIENTOLOGIST): On chart review, patient had JUANIS to RCA in 2004, 7.5 cm AAA s/p TEVAR in 2017, inferior STEMI with additional stent in 2017. Home regimen includes aspirin, atorvastatin, rivaroxaban. - continue aspirin and atorvastatin - hold rivaroxaban pending potential procedure Assessment & Plan (09/27/2025 3:48 PM SCIENTOLOGIST): On chart review, patient had JUANIS to RCA in 2004, 7.5 cm AAA s/p TEVAR in 2017, inferior STEMI with additional stent in 2017. Home regimen includes aspirin, atorvastatin, rivaroxaban. - continue aspirin and atorvastatin - hold rivaroxaban pending potential procedure Assessment & Plan (09/26/2025 2:56 PM SCIENTOLOGIST): On chart review, patient had JUANIS to RCA in 2004, 7.5 cm AAA s/p TEVAR in 2017, inferior STEMI with additional stent in 2017. Home regimen includes aspirin, atorvastatin, rivaroxaban. - continue aspirin and atorvastatin - hold rivaroxaban pending potential procedure Osteoarthritis 02/12/2017 Current Treatment and Therapy Plans No current plan information found. Past Treatment and Therapy Plans No past plan information found. Lifetime Dose Tracking * Chemical Lifetime Dose Automatic Entry Manual Entr y Fluoro Time 1.822 minutes 1.822 minutes 0 minutes Air kerma at the reference point (Ka,r) 86.18 mGy 8 6.18 mGy 0 mGy Resolved Problems Problem Noted Date Diagnosed Date Resolved Date Acute hypoxic respiratory failure 09/25/2025 09/29/2025 Assessment & Plan (09/29/2025 2:52 PM SCIENTOLOGIST): Patient presented with a new oxygen requirement of 4 L nasal cannula. Hypoxia is likely in the setting of hypoventilation related to narcotic use and severe pain. Continue monitoring venous blood gases to make sure patient does not have developed respiratory acidosis. Patient now on room air saturating well. Plan - Pulmonology consulted - monitor vital signs Assessment & Plan (09/28/2025 3:31 PM SCIENTOLOGIST): Patient presented with a new oxygen requirement of 4 L nasal cannula. Hypoxia is likely in the setting of hypoventilation related to narcotic use and severe pain. Continue monitoring venous blood gases to make sure patient does not have developed respiratory acidosis. Plan - Pulmonology consulted - monitor vital signs Assessment & Plan (09/27/2025 3:48 PM SCIENTOLOGIST): Patient presented with a new oxygen requirement of 4 L nasal cannula. Hypoxia is likely in the setting of hypoventilation related to narcotic use and severe pain. Continue monitoring venous blood gases to make sure patient does not have developed respiratory acidosis. Plan - VBG is depending on worsening symptoms - Pulmonology consulted Assessment & Plan (09/26/2025 2:56 PM SCIENTOLOGIST): Patient presented with a new oxygen requirement of 4 L nasal cannula. Hypoxia is likely in the setting of hypoventilation related to narcotic use and severe pain. Continue monitoring venous blood gases to make sure patient does not have developed respiratory acidosis. Plan - VBG is depending on worsening symptoms - Pulmonology consulted Hyponatremia 09/25/2025 09/28/2025 Assessment & Plan (09/28/2025 3:31 PM SCIENTOLOGIST): Sodium improved to 140 today from 12/13 4 of yesterday Creatinine is also back to normal now - Maintenance IV fluids - Monitor electrolytes, replenish as needed Assessment & Plan (09/27/2025 3:48 PM SCIENTOLOGIST): Sodium decreased to 130 on admission. Creatinine somewhat elevated to 1.38 from 1.26 at baseline, does not meet criteria for ALISIA. Now resolved at 1.04 - Maintenance IV fluids - Monitor electrolytes, replenish as needed Assessment & Plan (09/26/2025 2:56 PM SCIENTOLOGIST): Sodium decreased to 130 on admission. Creatinine somewhat elevated to 1.38 from 1.26 at baseline, does not meet criteria for ALISIA. - Maintenance IV fluids - Monitor electrolytes, replenish as needed Elevated serum creatinine 09/25/2025 Assessment & Plan (09/28/2025 3:31 PM SCIENTOLOGIST): Sodium improved to 140 today from 12/13 4 of yesterday Creatinine is also back to normal now - Maintenance IV fluids - Monitor electrolytes, replenish as needed Assessment & Plan (09/27/2025 3:48 PM SCIENTOLOGIST): Sodium decreased to 130 on admission. Creatinine somewhat elevated to 1.38 from 1.26 at baseline, does not meet criteria for ALISIA. Now resolved at 1.04 - Maintenance IV fluids - Monitor electrolytes, replenish as needed Assessment & Plan (09/26/2025 2:56 PM SCIENTOLOGIST): Sodium decreased to 130 on admission. Creatinine somewhat elevated to 1.38 from 1.26 at baseline, does not meet criteria for ALISIA. - Maintenance IV fluids - Monitor electrolytes, replenish as needed Pyelonephritis 02/17/2017 09/25/2025
[2025-10-11] MEDS: HYDROcodone/acetaminophen (*CRX) 5-325 MG TABLET 1 TAB PO (04:00)
--- NOTE | 2025-10-11 05:17 | WPCEDHO ---
ED Hand Off Checklist All vitals saved:yes IV Site documented:yes All med administrations documented:yes Triage Note Triage Note Pt to the ED after a fall at 10/11/25 03:19 [facility]. Pt tried standing self from chair and was unsuccessful. Pt has visible lacerations to the bride of his nose and a skin tear to the left arm. Pt also has a sizable hematoma to his right upper eyebrow Administered/Completed Medications Discontinued Medications Acetaminophen (Acetaminophen 500 Mg Tablet) 1,000 mg PO ONCE STA Stop: 10/11/25 03:36 Last Admin: 10/11/25 03:59 Dose: Not Given Documented By: CHERIE Non-Admin Reason: Order Discontinued Hydrocodone Bitart/Acetaminophen (Hydrocodone/Acetaminophen (*Crx) 5-325 Mg Tablet) 1 tab PO ONCE STA Stop: 10/11/25 03:40 Last Admin: 10/11/25 04:00 Dose: 1 tab Documented By: CHERIE Hydrocodone Bitart/Acetaminophen (Hydrocodone/Acetaminophen (*Crx) 5-325 Mg Tablet) 1 tab PO ONCE STA Stop: 10/11/25 03:40 Last Admin: 10/11/25 03:59 Dose: Not Given Documented By: CHERIE Non-Admin Reason: Duplicate Dose Last Vital Signs Temperature 97.7 F 10/11/25 03:19 Pulse Rate 57 L 10/11/25 03:19 Respiratory Rate 16 10/11/25 03:19 Pulse Oximetry 95 10/11/25 03:19 Blood Pressure 142/70 H 10/11/25 03:19 Blood Pressure Mean 94 10/11/25 03:19 Oxygen Delivery Room Air 10/11/25 03:19 Weight 88.7 kg 10/11/25 03:19 Most Recent Suicide Severity Rating Suicide Severity Rating NO RISK INDICATED 10/11/25 03:19
[2025-10-11] MEDS: DOXYCYCLINE HYCLATE 100 MG TABLET PO (06:33)
[2025-10-11 07:16] VITALS: BP 122/64; PULSE 63; RESP 18; O2SAT 96
--- NOTE | 2025-10-11 09:03 | ECG_ITS ---
Test Date: 2025-10-11 09:16:20 Measurements Intervals [place] Rate: 61 P: 0 [place]: 0 QRS: 29 QRSD: 90 T: -34 QT: 451 QTc: 454 Interpretive Statements REDUCED ECG QUALITY BECAUSE OF BASELINE NOISE ATRIAL FIBRILLATION NONSPECIFIC ST AND T ABNORMALITY ABNORMAL ECG No previous ECG available for comparison Electronically Signed On 10-11-2025 13:23:32 FOCUS PULLER by Dash Montoya M.D.
[2025-10-11] MEDS: dexAMETHasone SOD PHOS INJ 10 MG/ML 1 ML VIAL IV PUSH (09:27)
[2025-10-11 09:30] VITALS: BP 138/83; PULSE 61; RESP 21; O2SAT 95
[2025-10-11 09:33] LABS: Hematocrit 29.4 % (42.0-52.0); Hemoglobin 9.1 g/dL (14.0-18.0); Immature Granulocyte Percent A 0.7 % (0-0.5); Lymphocytes Absolute Auto 0.92 K/mm3 (0.9-3.2); Mean Corpuscular HGB Conc 31.0 g/dl (32-36); Mean Corpuscular Hemoglobin 30.1 pg (26-34); Mean Corpuscular Volume 97.4 fl (80-100); Nucleated Red Blood Cells Absolute Auto 0.000 K/mm3 (0.0-0.012); Nucleated Red Blood Cells Perc 0.0 % (0.0-0.2); Platelet Count Result 284 k/mm3 (150-375); Red Blood Count 3.02 M/mm3 (4.6-6.20); White Blood Count 10.8 K/mm3 (4.5-10.0)
--- NOTE | 2025-10-11 09:45 | PC.NURSE ---
Pt daughter Mary was called at [phone] for verbal consent for transfer. Verbal consent received from Mary.
[2025-10-11 09:46] LABS: Add Urine Microscopic? YES; Appearance Urine Clear (Clear); Glucose Urine UA Negative (Negative); Leukocyte Esterase Ur Trace LEU/UL (Negative); Nitrate Urine Negative (Negative); Non Pathogenic Casts 0-2; Specific Grav Ur 1.017 (1.001-1.035)
[2025-10-11 09:54] LABS: Alanine Aminotransferase 19 U/L (6-50); Albumin Level 3.2 g/dL (3.5-5.1); Alkaline Phosphatase 109 U/L (38-126); Anion Gap 5 mmol/L (4-12); Aspartate Amino Transferase 27 U/L (17-59); Bilirubin,Total 1.2 mg/dL (0.2-1.3); Blood Urea Nitrogen 21 mg/dL (9-20); Calcium 9.0 mg/dL (8.4-10.2); Carbon Dioxide 27 mmol/L (22-30); Chloride 103 mmol/L (98-107); Estimated CRCL calculation 83 ml/min; Estimated Glomerular Filt Rate > 60; Glucose 119 mg/dL (65-110); Potassium 3.8 mmol/L (3.4-5.0); Sodium 135 mmol/L (137-145); Total Protein 6.9 g/dL (6.3-8.2)
[2025-10-11 09:55] VITALS: BP 152/73; PULSE 60; RESP 20; TEMP 36.8; O2SAT 98
== END 2025-10-11 10:39 | disposition short-term general hospital (02) ==
PROVIDERS: Emergency Medicine; Emergency Provider Student in an Organized Health Care Education/Training Program
DX: S02.2XXA Fracture of nasal bones, initial encounter for closed fracture (principal); S01.20XA Unspecified open wound of nose, initial encounter; S51.812A Laceration without foreign body of left forearm, initial encounter; S00.11XA Contusion of right eyelid and periocular area, initial encounter; G93.9 Disorder of brain, unspecified; G93.6 Cerebral edema; J18.9 Pneumonia, unspecified organism; I48.91 Unspecified atrial fibrillation; Z85.841 Personal history of malignant neoplasm of brain; Z79.01 Long term (current) use of anticoagulants; Z79.82 Long term (current) use of aspirin; W06.XXXA Fall from bed, initial encounter
CPT/HCPCS: 12011; 36415; 70450; 70486; 71045; 72170; 80053; 81001; 83605; 85025; 93005; 96374; 99284; 99285; A9270; J1100